=== PATIENT | male | born 1970 | race African-American/Black ===

== ENCOUNTER 2016-11-15 17:28 | Emergency (ER) | payer MEDICARE, OTHER ==
[~2016-11-15] VITALS: Ht 167.6 cm; Wt 125.0 kg
[~2016-11-15 17:28] MED LIST: AMLO5TAB2 PO; HYDR-3535 PO; OMEP40CA2 PO
[2016-11-15 17:30] VITALS: BP 184/102; PULSE 75; RESP 12; TEMP 98.3; O2SAT 98
--- NOTE | 2016-11-15 18:23 | PD ---
HPI Chief Complaint: Cold / Flu Symptoms Time Seen by Provider: 18:21 Travel History International Travel<30 days: No Contact w/Intl Traveler<30days: No Traveled to known affect area: No History of Present Illness HPI 38-year-old male presents to the emergency department with complaint of bronchitis 4 days. Says he was treated for similar symptoms a month ago and was given antibiotics and oral steroids which helped his symptoms. He reports chest congestion and coughing up green colored sputum. Denies fever, chills, nausea, vomiting. Denies chest pain, shortness of breath. Denies sore throat, nasal congestion, ear pain. His granddaughter is also sick. Reports wheezing. Has been using an albuterol inhaler with symptom relief. Last used the albuterol inhaler last night. History of hypertension. Takes amlodipine daily at bedtime. No known allergies. Modifying factors or associated signs and symptoms. PFSH Past Medical History Anemia: Yes Blood Disorders: No Cancer: No Cardiovascular Problems: Yes (HTN) Chemotherapy: No Cerebrovascular Accident: Yes (TIA) Diabetes: No Diminished Hearing: No Endocrine: No Gastrointestinal Disorders: Yes (REFLUX, ANEMIA) GERD: Yes Genitourinary: Yes (hx TORSION OF RIGHT TESTICLE) Hepatitis: No Hiatal Hernia: No Hypertension: Yes Immune Disorder: No Musculoskeletal: No Neurologic: No Psychiatric: No Reproductive: No Respiratory: No Immunizations Current: No Radiation Therapy: No Thyroid Disease: No Ulcer: Yes Past Surgical History Abdominal Surgery: No AICD: No Arteriovenous Shunt: No Body Medical Devices: none Cardiac Surgery: No Ear Surgery: No Endocrine Surgery: No Eye Surgery: No Genitourinary Surgery: Yes (RT testicular torsion REPAIR) Gynecologic Surgery: No Insulin Pump: No Joint Replacement: Yes (ARTHROSCOPIC SURGERY BILAT KNEES ) Neurologic Surgery: No Oral Surgery: No Pacemaker: No Thoracic Surgery: No Other Surgery: Yes (RIGHT LOWER EXTREMITY/ VEIN STRIPPING) Social History Alcohol Use: No Tobacco Use: No Substance Use: No Allergies-Medications (Allergen,Severity, Reaction): Coded Allergies: No Known Allergies (Unverified , 11/15/16) Reported Meds & Prescriptions Reported Meds & Active Scripts Active Zithromax Z-Tab (Azithromycin) 250 Mg Dspk 250 Mg PO DIRECTED 500 MG (2 tabs) day 1, then 1 tab days 2-5. Deltasone (Prednisone) 20 Mg Tab 40 Mg PO DAILY 5 Days Reported Omeprazole 40 Mg Cap 40 Mg PO DAILY Amlodipine (Amlodipine Besylate) 5 Mg Tab 5 Mg PO DAILY Review of Systems Except as stated in HPI: all other systems reviewed are Neg Physical Exam Narrative GENERAL: Well-nourished, well-developed male patient, in no acute distress; afebrile, nontoxic-appearing SKIN: Warm and dry. No rash. HEAD: Atraumatic. Normocephalic. EYES: Pupils equal and round at 3 mm with brisk reaction. No scleral icterus. No injection or drainage. PERRLA. ENT: Mucosa pink and moist. No erythema or exudates. No uvular edema. No uvular , palatal, or tonsillar deviation. Airway patent. EARS: Bilateral pinnae and external canals appear within normal limits. Bilateral tympanic membranes without erythema, dullness or perforation. NECK: Trachea midline. No lymphadenopathy. CARDIOVASCULAR: Regular rate and rhythm. No murmur appreciated. RESPIRATORY: No accessory muscle use. Clear to auscultation. Breath sounds equal bilaterally. GASTROINTESTINAL: Abdomen soft, non-tender, nondistended. Hepatic and splenic margins not palpable. Bowel sounds are active 4 quadrants. MUSCULOSKELETAL: No obvious deformities. No clubbing. No cyanosis. No edema. NEUROLOGICAL: Awake and alert. Oriented 3. No obvious cranial nerve deficits. Motor grossly within normal limits. Normal speech. Moves all extremities. 5/5 strength to all extremities. PSYCHIATRIC: Appropriate mood and affect; insight and judgment normal. Data Data Last Documented VS Vital Signs Date Time Temp Pulse Resp B/P Pulse Ox O2 Delivery O2 Flow Rate FiO2 11/15/16 17:30 98.3 75 12 184/102 98 Room Air [facility] Medical Decision Making Medical Screen Exam Complete: Yes Emergency Medical Condition: Yes Medical Record Reviewed: Yes Differential Diagnosis Viral illness, upper respiratory infection, bronchitis Narrative Course 46-year-old male with stated bronchitis. Sounds are clear and equal bilaterally. The patient is in no acute distress. No retractions or tachypnea. No wheezing auscultated on physical exam. I am suspecting viral illness. Patient is afebrile and nontoxic appearing. Physical exam is unremarkable. The patient is requesting to be treated for bronchitis with azithromycin and oral steroids. He has an albuterol inhaler at home. I will treat patient with antibiotics and oral steroids as requested. Azithromycin and Deltasone prescribed for home. Patient is medically cleared and stable for discharge. Discussed reasons to return to the emergency department. Instructed patient to follow up with primary care provider. Patient agrees with treatment plan. The patients vital signs are stable and the patient is stable for outpatient follow-up and treatment. Patient discharged home, stable and in no acute distress. Diagnosis Primary Impression: Bronchitis Referrals: Primary Care Physician Patient Instructions: Acute Bronchitis (ED), Cold Symptoms (ED), General Instructions, Safe Use of Cough and Cold Medicines (ED) Departure Forms: Tests/Procedures, Work Release Enter return to work date: Nov 16, 2016 Additional Instructions: Use Albuterol inhaler as prescribed Take oral steroids as prescribed and complete full course Use Tessalon Perles as prescribed to decrease coughing spasms [id number] decongestants or antihistamines as directed and as needed for symptom management Your cough can last 4-6 weeks Drink plenty of fluids to prevent dehydration Use hot air humidifier to decrease cough exacerbation Turn off ceiling fans and sleep with head of bed elevated Avoid triggers such as second hand smoke, dust, known allergens Follow-up with your primary care provider Return to the emergency department immediately with worsening of symptoms Med/Other Pt SpecificInfo: Prescription(s) given Scripts Azithromycin (Zithromax Z-Tab)250 Mg [id number] Mg PO DIRECTED #1 DSPK Ref 0 500 MG (2 tabs) day 1, then 1 tab days 2-5. Prov:Unique Alex 11/15/16 Prednisone (Deltasone)20 Mg Tab40 Mg PO DAILY 5 Days Ref 0 Prov:Unique Alex 11/15/16 Disposition: 01 DISCHARGE HOME Condition: Stable Unique Alex Nov 15, 2016 18:22
[2016-11-15] MEDS ORDERED: ZITHTAB PO (18:25)
[2016-11-15] MEDS ORDERED: PRED-503 PO (18:25)
[2016-11-15 18:34] VITALS: BP 179/98
[2016-11-20] MEDS ORDERED: HYDR-3583 PO (12:32)
[2016-12-18] MEDS ORDERED: HYDR-3583 PO (17:21)
[2017-01-19] MEDS ORDERED: HYDR-3583 PO (07:09)
[2017-02-16] MEDS ORDERED: HYDR-3583 PO (12:32)
[2017-03-19] MEDS ORDERED: HYDR-3583 PO (15:23)
== END 2016-11-15 18:39 | disposition home or self-care (01) ==
LOC: NEPB 17:28
DX: J40 Bronchitis, not specified as acute or chronic (principal); I10 Essential (primary) hypertension; D64.9 Anemia, unspecified; R05 Cough; Z86.73 Personal history of transient ischemic attack (TIA), and cerebral infarction without residual deficits
CPT/HCPCS: 99283

== ENCOUNTER 2017-02-24 20:33 | Emergency (ER) | payer MEDICARE, OTHER ==
[~2017-02-24] VITALS: Ht 175.3 cm; Wt 99.0 kg
[~2017-02-24 20:33] MED LIST changes: -AMLO5TAB2 PO; -HYDR-3535 PO; +HYDR-3583 PO; -OMEP40CA2 PO
[2017-02-24 20:36] VITALS: BP 181/101; PULSE 73; RESP 16; TEMP 98.1; O2SAT 97
[2017-02-24] MEDS ORDERED: NITROGLYCERIN 0.4 MG SL 25 TABS/BTL SL ONE (21:15)
[2017-02-24] MEDS ORDERED: SODIUM CHLORIDE 0.9% FLUSH 10 ML FLUSH IVF PRN (21:15)
[2017-02-24] MEDS ORDERED: ASPIRIN 325 MG TAB PO ONE (21:15)
[2017-02-24 21:31] VITALS: BP 180/111; PULSE 74; RESP 22; O2SAT 100
[2017-02-24 21:54] LABS: AUTOMATED NEUTROPHIL # 8.4 TH/MM3 (1.8-7.7); BASOPHIL # 0.1 TH/MM3 (0-0.2); BASOPHIL % 0.6 % (0.0-2.0); EOSINOPHIL # 0.1 TH/MM3 (0-0.4); EOSINOPHIL % 1.1 % (0.0-4.0); HEMATOCRIT 35.9 % (39.0-51.0); HEMO FLAGS DIFF FINAL; LYMPHOCYTE # 4.1 TH/MM3 (1.0-4.8); MEAN CELL VOLUME 86.9 FL (80.0-100.0); MEAN CORPUSCULAR HEMOGLOBIN 28.6 PG (27.0-34.0); MEAN CORPUSCULAR HGB CONC 32.9 % (32.0-36.0); MONO % 7.6 % (0.0-8.0); NEUT % 60.7 % (16.0-70.0); PLATELET COUNT 257 TH/MM3 (150-450); RED BLOOD COUNT 4.13 MIL/MM3 (4.50-5.90); RED CELL DISTRIBUTION WIDTH 13.7 % (11.6-17.2); WHITE BLOOD COUNT 13.8 TH/MM3 (4.0-11.0)
--- NOTE | 2017-02-24 22:02 | RADRPT ---
EXAM DATE/TIME: 02/24/2017 21:49 [facility] COMPARISON: CHEST SINGLE AP, September 17, 2015, 20:27. INDICATIONS : LEFT SIDE CHEST PAIN MEDICAL HISTORY : Hypertension. SURGICAL HISTORY : None. ENCOUNTER: Initial ACUITY: 1 day PAIN SCORE: 7/10 LOCATION: Left chest FINDINGS: Very minimal parenchymal changes are seen in the left base. The right lung is clear. The heart and p ulmonary vascularity are normal. The portion of the bony skeleton visualized is unremarkable. CONCLUSION: Minimal parenchymal changes left base. Jake Camilo MD FACR on February 24, 2017 at 22:00 Board Certified Radiologist. This report was verified electronically.
--- NOTE | 2017-02-24 22:07 | PD ---
HPI Chief Complaint: Chest Pain Time Seen by Provider: 22:02 Travel History International Travel<30 days: No Contact w/Intl Traveler<30days: No Traveled to known affect area: No History of Present Illness HPI 46-year-old male that presents to the ED for evaluation of chest pain has been ongoing since today. Per patient he woke him up. Per patient is pressure- like. States minimal the left chest. Nothing seems to make it worse but per patient movement seems to worsen it. Per patient he has no history of heart disease was a history of hypertension. He does have a family history of heart disease. No history of smoking or diabetes. Per patient he also feels like he has gas like he is cannot have a hickup or a burp. Denies any shortness of breath. No radiation of the pain. Per patient he feels deep and pressure- like. Pain is 4 out of 10. Hasn't taken anything for this. Denies any history of heart disease. Per patient he did have a stress test possibly about a year ago by Dr. West. Has not seen anybody for this. No recent travel. No recent surgeries. No fevers chills or sweats. No cough or runny nose. No allergies to medication. PFSH Past Medical History Anemia: Yes Blood Disorders: No Cancer: No Cardiovascular Problems: Yes (HTN) Chemotherapy: No Cerebrovascular Accident: Yes (TIA) Diabetes: No Diminished Hearing: No Endocrine: No Gastrointestinal Disorders: Yes (REFLUX, ANEMIA) GERD: Yes Genitourinary: Yes (hx TORSION OF RIGHT TESTICLE) Hepatitis: No Hiatal Hernia: No Hypertension: Yes Immune Disorder: No Musculoskeletal: No Neurologic: No Psychiatric: No Reproductive: No Respiratory: No Immunizations Current: No Radiation Therapy: No Thyroid Disease: No Ulcer: Yes Influenza Vaccination: No Past Surgical History Abdominal Surgery: No AICD: No Arteriovenous Shunt: No Body Medical Devices: none Cardiac Surgery: No Ear Surgery: No Endocrine Surgery: No Eye Surgery: No Genitourinary Surgery: Yes (RT testicular torsion REPAIR) Gynecologic Surgery: No Insulin Pump: No Joint Replacement: Yes (ARTHROSCOPIC SURGERY BILAT KNEES ) Neurologic Surgery: No Oral Surgery: No Pacemaker: No Thoracic Surgery: No Other Surgery: Yes (RIGHT LOWER EXTREMITY/ VEIN STRIPPING) Social History Alcohol Use: No Tobacco Use: No Substance Use: No Allergies-Medications (Allergen,Severity, Reaction): Coded Allergies: No Known Allergies (Unverified , 02/24/17) Reported Meds & Prescriptions Reported Meds & Active Scripts Active Hydrocodone-Acetaminophen 10-325 mg Tab 1 Tab PO Q6H PRN USE SPARINGLY Review of Systems Except as stated in HPI: all other systems reviewed are Neg Physical Exam Narrative GENERAL: SKIN: Warm and dry. HEAD: Atraumatic. Normocephalic. EYES: Pupils equal and round 4 mm with light and accommodation. No scleral icterus. No injection or drainage. ENT: No nasal bleeding or discharge. Mucous membranes pink and moist. Tongue is midline. No uvula deviation. NECK: Trachea midline. No JVD. CARDIOVASCULAR: Regular rate and rhythm. No murmurs, S3, S4. RESPIRATORY: No accessory muscle use. Clear to auscultation. Breath sounds equal bilaterally. GASTROINTESTINAL: Abdomen soft, non-tender, nondistended. Hepatic and splenic margins not palpable. MUSCULOSKELETAL: Extremities without clubbing, cyanosis, or edema. No obvious deformities. Full range of motion of the upper and lower extremities bilaterally. 2+ pulses bilaterally. No lumbar, thoracic, and cervical spine tenderness to palpation. NEUROLOGICAL: Awake and alert. No obvious cranial nerve deficits. Motor grossly within normal limits. Five out of 5 muscle strength in the arms and legs. Normal speech. PSYCHIATRIC: Appropriate mood and affect; insight and judgment normal. Data Data Last Documented VS Vital Signs Date Time Temp Pulse Resp B/P Pulse Ox O2 Delivery O2 Flow Rate FiO2 02/24/17 21:36 100 Room Air 02/24/17 21:31 74 22 180/111 02/24/17 20:36 98.1 Orders Electrocardiogram (02/24/17 21:11) Ckmb (Isoenzyme) Profile (02/24/17 21:11) Complete Blood Count With Diff (02/24/17 21:11) Comprehensive Metabolic Panel (02/24/17 21:11) Magnesium (Mg) (02/24/17 21:11) Prothrombin Time / Inr (Pt) (02/24/17 21:11) Act Partial Throm Time (Ptt) (02/24/17 21:11) Troponin I (02/24/17 21:11) Lipase (02/24/17 21:11) Chest, Single Ap (02/24/17 21:11) Ecg Monitoring (02/24/17 21:11) Bilateral Bp Monitoring (02/24/17 21:11) Iv Access Insert/Monitor (02/24/17 21:11) Oximetry (02/24/17 21:11) Oxygen Administration (02/24/17 21:11) Aspirin (Aspirin) (02/24/17 21:15) Sodium Chloride 0.9% Flush (Ns Flush) (02/24/17 21:15) Nitroglycerin Sl (Nitrostat Sl) (02/24/17 21:15) CKMB (02/24/17 21:40) CKMB% (02/24/17 21:40) Admit Order (Ed Use Only) (02/24/17 22:35) Activity Bed Rest With Brp (02/24/17 22:35) Vital Signs (Adult) Q4H (02/24/17 22:35) Cardiac Rhythm .As Directed (02/24/17 22:35) Notify Dr: Other .PRN (02/24/17 22:35) Notify DrPreet Parameters (02/24/17 22:35) Resp Oxygen Nasal Cannula (02/24/17 ) Diet Npo (02/25/17 Breakfast) Ckmb (Isoenzyme) Profile (02/25/17 00:40) Ckmb (Isoenzyme) Profile (02/25/17 03:40) Troponin I (02/25/17 00:40) Troponin I (02/25/17 03:40) Electrocardiogram (02/25/17 00:40) Electrocardiogram (02/25/17 03:40) ^ Obtain (02/24/17 22:35) Sodium Chloride 0.9% Flush (Ns Flush) (02/24/17 22:45) Acetaminophen (Tylenol) (02/24/17 22:45) Ondansetron Inj (Zofran Inj) (02/24/17 22:45) [employer] Mach[employer] / Telemetry ISH.Q8H (02/24/17 22:35) Labs Laboratory Tests Test 02/24/17 21:40 White Blood Count 13.8 TH/MM3 Red Blood Count 4.13 MIL/MM3 Hemoglobin 11.8 GM/DL Hematocrit 35.9 % Mean Corpuscular Volume 86.9 FL Mean Corpuscular Hemoglobin 28.6 PG Mean Corpuscular Hemoglobin 32.9 % Concent Red Cell Distribution Width 13.7 % Platelet Count 257 TH/MM3 Mean Platelet Volume 8.8 FL Neutrophils (%) (Auto) 60.7 % Lymphocytes (%) (Auto) 30.0 % Monocytes (%) (Auto) 7.6 % Eosinophils (%) (Auto) 1.1 % Basophils (%) (Auto) 0.6 % Neutrophils # (Auto) 8.4 TH/MM3 Lymphocytes # (Auto) 4.1 TH/MM3 Monocytes # (Auto) 1.0 TH/MM3 Eosinophils # (Auto) 0.1 TH/MM3 Basophils # (Auto) 0.1 TH/MM3 CBC Comment DIFF FINAL Differential Comment Prothrombin Time 11.2 SEC Prothromb Time International 1.0 RATIO Ratio Activated Partial 28.1 SEC Thromboplast Time Sodium Level 144 MEQ/L Potassium Level 4.2 MEQ/L Chloride Level 109 MEQ/L Carbon Dioxide Level 24.7 MEQ/L Anion Gap 10 MEQ/L Blood Urea Nitrogen 26 MG/DL Creatinine 2.58 MG/DL Estimat Glomerular Filtration 32 ML/MIN Rate Random Glucose 77 MG/DL Calcium Level 8.4 MG/DL Magnesium Level 2.3 MG/DL Total Bilirubin 0.3 MG/DL Aspartate Amino Transf 27 U/L (AST/SGOT) Alanine Aminotransferase 11 U/L (ALT/SGPT) Alkaline Phosphatase 75 U/L Total Creatine Kinase 247 U/L Creatine Kinase MB 0.8 NG/ML Troponin I LESS THAN 0.02 NG/ML Total Protein 8.2 GM/DL Albumin 3.0 GM/DL Lipase 360 U/L MDM Medical Decision Making Medical Screen Exam Complete: Yes Emergency Medical Condition: Yes Medical Record Reviewed: Yes Interpretation(s) EKG shows sinus rhythm with no sign of acute ischemia or arrhythmia. Read by me and attending. CBC & BMP Diagram 02/24/17 21:40 LFTS WNL Troponin and CK-MB negative. Last Impressions Chest X-Ray 02/24/172110 Signed Impressions: Service Date/Time: Friday, February 24, 2017 21:49 - CONCLUSION: Minimal parenchymal changes left base. Jake Camilo MD FACR Differential Diagnosis Chest pain versus atypical chest pain versus ACS versus pneumonia versus pleurisy versus costochondritis Narrative Course 38-year-old male that presents to the ED for evaluation of chest pain. Patient was properly examined and was found to have signs and symptoms consistent with appears to be chest pain. Labs and imaging showed no sign of acute disease other than chronic kidney disease. Case was discussed in my attending who agrees with plan. Patient/does have risk factors including hypertension, age and family history. Recommend admission to the chest pain center. Patient is in agreement with this plan. Patient was admitted chest pain center. Procedures EKG Prior to Arrival: No Diagnosis Primary Impression: Chest pain Qualified Code: R07.9 - Chest pain, unspecified type Admitting Information Admitting Physician Requests: Bong Herron February 24, 2017 22:07
[2017-02-24 22:24] LABS: ALKALINE PHOSPHATASE 75 U/L (45-117); CREATINE KINASE 247 U/L (39-308); TOTAL BILIRUBIN ADULT 0.3 MG/DL (0.2-1.0)
[2017-02-24 22:25] LABS: APTT (PATIENT) 28.1 SEC (24.3-30.1); PROTHROMBIN TIME - PATIENT 11.2 SEC (9.8-11.6)
[2017-02-24 22:28] LABS: ALT (GPT) 11 U/L (12-78); ANION GAP 10 MEQ/L (5-15); AST (GOT) 27 U/L (15-37); BICARBONATE 24.7 MEQ/L (21.0-32.0); BLOOD UREA NITROGEN 26 MG/DL (7-18); CHLORIDE 109 MEQ/L (98-107); GLOMERULAR FILTRATION RATE 32 ML/MIN (>89); MAGNESIUM 2.3 MG/DL (1.5-2.5); POTASSIUM 4.2 MEQ/L (3.5-5.1); SODIUM (NA) 144 MEQ/L (136-145)
[2017-02-24 22:37] LABS: CKMB 0.8 NG/ML (0.5-3.6)
[2017-02-24] MEDS ORDERED: SODIUM CHLORIDE 0.9% FLUSH 10 ML FLUSH IV FLUSH PRN (22:45)
[2017-02-24] MEDS ORDERED: ACETAMINOPHEN 500 MG CPLT PO PRN (22:45)
[2017-02-24] MEDS ORDERED: ONDANSETRON HCL 4 MG/2 ML VIAL IV PRN (22:45)
[2017-02-24 22:49] VITALS: BP 168/97; PULSE 69; RESP 21; O2SAT 98
[2017-02-25 02:34] LABS: CREATINE KINASE 214 U/L (39-308)
[2017-02-25 02:47] LABS: CKMB 0.7 NG/ML (0.5-3.6)
--- NOTE | 2017-02-25 16:10 | EKG ---
Date Performed: 02/24/2017 Time Performed: 21:27:31 PTAGE: 46 years EKG: Sinus rhythm BORDERLINE LEFT AXIS DEVIATION NONSPECIFIC T-WAVE ABNORMALITY When compared to previous tracing, T w aves are some what more Flattened in leads I and AVL, otherwise no significant change. BORDERLINE ECG PREVIOUS TRACING : 05/16/2016 12.48 DOCTOR: Brennan Cortez Interpretating Date/Time 02/25/2017 16:08:48
--- NOTE | 2017-02-25 16:12 | EKG ---
Date Performed: 02/25/2017 Time Performed: 01:02:30 PTAGE: 46 years EKG: Sinus rhythm MINIMAL VOLTAGE CRITERIA FOR LVH, CONSIDER NORMAL VARIANT When compared to previous tracing, there i s improvement in the T Wave changes in leads I and AVL, QRS voltatage is slightly Greater, othjerwise no significant change. BORDERLINE ECG PREVIOUS TRACING : 02/24/2017 21.27 DOCTOR: Brennan Cortez Interpretating Date/Time 02/25/2017 16:10:59
[2017-03-19] MEDS ORDERED: HYDR-3583 PO (15:23)
== END 2017-02-25 01:28 | disposition left against medical advice (07) ==
LOC: NEPE 20:33 → NEDA 22:38 → UNDOADMOB 22:38 → NEPE 02-25 01:28 → UNDODISOB 02-25 01:39
DX: R07.9 Chest pain, unspecified (principal); R94.31 Abnormal electrocardiogram [ECG] [EKG]; I10 Essential (primary) hypertension; Z86.2 Personal history of diseases of the blood and blood-forming organs and certain disorders involving the immune mechanism; Z86.79 Personal history of other diseases of the circulatory system; Z87.19 Personal history of other diseases of the digestive system; Z82.49 Family history of ischemic heart disease and other diseases of the circulatory system; Z53.20 Procedure and treatment not carried out because of patient's decision for unspecified reasons
CPT/HCPCS: 71010; 80053; 82550; 82552; 83690; 83735; 84484; 85025; 85610; 85730; 93005; 99285

== ENCOUNTER → 2017-04-25 | Outpatient (CLI) | payer MEDICARE, OTHER ==
[~2017-04-25] MED LIST changes: +AMLO5TAB2 PO
[2017-04-25 08:11] LABS: HEMATOCRIT 35.4 % (39.0-51.0); MEAN CELL VOLUME 87.8 FL (80.0-100.0); MEAN CORPUSCULAR HEMOGLOBIN 29.2 PG (27.0-34.0); MEAN CORPUSCULAR HGB CONC 33.2 % (32.0-36.0); PLATELET COUNT 259 TH/MM3 (150-450); RED BLOOD COUNT 4.03 MIL/MM3 (4.50-5.90); RED CELL DISTRIBUTION WIDTH 13.5 % (11.6-17.2); REVIEW FLAG FINAL; WHITE BLOOD COUNT 11.1 TH/MM3 (4.0-11.0)
[2017-04-25 08:26] LABS: ALT (GPT) 7 U/L (12-78); ANION GAP 6 MEQ/L (5-15); AST (GOT) 22 U/L (15-37); BICARBONATE 25.2 MEQ/L (21.0-32.0); BLOOD UREA NITROGEN 42 MG/DL (7-18); CHLORIDE 110 MEQ/L (98-107); GLOMERULAR FILTRATION RATE 30 ML/MIN (>89); GLUCOSE,FASTING 88 MG/DL (74-99); POTASSIUM 3.9 MEQ/L (3.5-5.1); SODIUM (NA) 141 MEQ/L (136-145)
[2017-04-25 08:28] LABS: ALKALINE PHOSPHATASE 66 U/L (45-117); HDL CHOLESTEROL 45.3 MG/DL (40.0-60.0); LDL CHOLESTEROL 107 MG/DL (0-99); TOTAL BILIRUBIN ADULT 0.2 MG/DL (0.2-1.0)
[2017-04-25 16:57] LABS: HEMOGLOBIN A1a 1.1 %; HEMOGLOBIN A1b 1.4 %; HEMOGLOBIN Ao 85.5 %; HEMOGLOBIN F 0.2 %; HEMOGLOBIN LA1C 1.9 %; HEMOGLOBIN P3 5.4 %
== END ==
LOC: CLAB 07:40
PROVIDERS: ATTEND Family Medicine
DX: R73.02 Impaired glucose tolerance (oral) (principal); N18.3 Chronic kidney disease, stage 3 (moderate); E78.2 Mixed hyperlipidemia
CPT/HCPCS: 36415; 80053; 80061; 83036; 85027; G0463; 99214

== ENCOUNTER 2017-05-29 04:54 | Emergency (ER) | payer MEDICARE, OTHER ==
[~2017-05-29] VITALS: Ht 167.6 cm; Wt 122.0 kg
[2017-05-29 04:55] VITALS: BP 204/114; PULSE 70; RESP 16; TEMP 98.6; O2SAT 98
[2017-05-29 05:11] VITALS: BP 187/110; PULSE 72; RESP 20; O2SAT 97
--- NOTE | 2017-05-29 05:17 | PD ---
HPI Chief Complaint: Pain: Acute or Chronic Time Seen by Provider: 17:05 Travel History International Travel<30 days: No Contact w/Intl Traveler<30days: No Traveled to known affect area: No History of Present Illness HPI 47-year-old male presents for evaluation of left knee pain. He reports that this evening he was cleaning the house, specifically sweeping, when he twisted his left knee. He has had generalized left knee pain since then which was making it difficult for him to sleep which prompted evaluation. He reports that he felt a popping sensation when the injury occurred. He has no other complaints at this time. PFSH Past Medical History Anemia: Yes Blood Disorders: No Cancer: No Cardiovascular Problems: Yes (HTN) Chemotherapy: No Cerebrovascular Accident: Yes (TIA) Diabetes: No Diminished Hearing: No Endocrine: No Gastrointestinal Disorders: Yes (REFLUX, ANEMIA) GERD: Yes Genitourinary: Yes (hx TORSION OF RIGHT TESTICLE) Hepatitis: No Hiatal Hernia: No Hypertension: Yes Immune Disorder: No Musculoskeletal: No Neurologic: No Psychiatric: No Reproductive: No Respiratory: No Immunizations Current: No Radiation Therapy: No Thyroid Disease: No Ulcer: Yes Past Surgical History Abdominal Surgery: No AICD: No Arteriovenous Shunt: No Body Medical Devices: none Cardiac Surgery: No Ear Surgery: No Endocrine Surgery: No Eye Surgery: No Genitourinary Surgery: Yes (RT testicular torsion REPAIR) Gynecologic Surgery: No Insulin Pump: No Joint Replacement: Yes (ARTHROSCOPIC SURGERY BILAT KNEES ) Neurologic Surgery: No Oral Surgery: No Pacemaker: No Thoracic Surgery: No Other Surgery: Yes (RIGHT LOWER EXTREMITY/ VEIN STRIPPING) Social History Alcohol Use: No Tobacco Use: No Substance Use: No Allergies-Medications (Allergen,Severity, Reaction): Coded Allergies: No Known Allergies (Unverified , 04/25/17) Reported Meds & Prescriptions Reported Meds & Active Scripts Active Hydrocodone-Acetaminophen 10-325 mg Tab 1 Tab PO Q6H PRN USE SPARINGLY Amlodipine (Amlodipine Besylate) 5 Mg Tab 5 Mg PO DAILY Review of Systems Musculoskeletal: Positive: Pain, No: Limited ROM Skin: Positive Other (denies any open wounds) Neurologic: No: Paresthesia Physical Exam Narrative GENERAL: Well-developed well-nourished male in no acute distress SKIN: Warm and dry. CARDIOVASCULAR: Regular rate and rhythm. No murmur appreciated. RESPIRATORY: No accessory muscle use. Clear to auscultation. Breath sounds equal bilaterally. GASTROINTESTINAL: Abdomen soft, non-tender, nondistended. Hepatic and splenic margins not palpable. MUSCULOSKELETAL: No obvious deformities. Generalized tenderness to palpation to the anterior left knee. The patient has pain with flexion and extension of the left knee. There is no obvious laxity on valgus/varus/anterior/posterior stress. The Achilles tendon is intact and nontender. No calf or ankle or foot tenderness. Distal pulses are intact. NEUROLOGICAL: Awake and alert. No obvious cranial nerve deficits. Motor grossly within normal limits. Normal speech. Data Data Last Documented VS Vital Signs Date Time Temp Pulse Resp B/P (MAP) Pulse Ox O2 Delivery O2 Flow Rate FiO2 05/29/17 05:11 72 20 187/110 (135) 97 Room Air 05/29/17 04:55 98.6 Orders Orders Knee, Complete (4vws) (05/29/17 ) Amlodipine (Norvasc) (05/29/17 05:30) Crutches (05/29/17 05:58) Splint Or Brace Apply/Monitor (05/29/17 05:58) MDM Medical Decision Making Medical Screen Exam Complete: Yes Emergency Medical Condition: Yes Medical Record Reviewed: Yes Differential Diagnosis Ligamentous disruption, meniscal disruption, tibial plateau fracture, strain Narrative Course This is a 47-year-old male with generalized left knee pain after twisting his left knee and feeling a "pop" earlier this evening. On examination he has pain with flexion and extension, no obvious laxity on stress examination, generalized tenderness to palpation of the left knee. Based on the mechanism of injury it would be reasonable to obtain outpatient MRI imaging if symptoms persist. He will follow-up with his primary care physician in one week. His blood pressure was elevated in the ED. He reports that he was arguing with his sister this evening and it was making him quite agitated. He reports that typically his blood pressures in the 110s to 120s systolic, well-controlled on amlodipine prescribed by his primary care physician. He checked his blood pressure this morning and was 117/80. It was recommended that he keep a journal of his blood pressure readings and if the readings are chronically elevated that he should follow up with his primary care physician. He verbalizes understanding and agreement. The patient reports that he is due for his morning dose of amlodipine and is requesting an now. Knee x-ray reveals a joint effusion which is consistent with his injury. He is stable for discharge with knee immobilizer, crutches. Diagnosis Primary Impression: Knee internal derangement Qualified Codes: M23.92 - Unspecified internal derangement of left knee Additional Instructions: Tylenol or Motrin for pain. Ice pack several times a day 20 minutes at a time. Crutches and knee immobilizer as needed. Follow-up with primary care physician next week. If symptoms persist outpatient MRI imaging may be warranted. Med/Other Pt SpecificInfo: Orthopedic Instructions Disposition: DISCHARGE HOME Condition: Stable Gray Johnson May 29, 2017 05:17
[2017-05-29] MEDS ORDERED: amLODIPine BESYLATE 5 MG TAB PO ONE (05:30)
--- NOTE | 2017-05-29 05:46 | RADRPT ---
EXAM DATE/TIME: 05/29/2017 05:25 [facility] COMPARISON: No previous studies available for comparison. INDICATIONS : Knee pain. MEDICAL HISTORY : None. SURGICAL HISTORY : None. ENCOUNTER: Initial ACUITY: 1 day PAIN SCORE: 0/10 LOCATION: Left knee FINDINGS: Four views of the left knee demonstrate no fracture or dislocation. A joint effusion is present. Ther e are small osteophytes on the patella and mineralization is within normal limits. No soft tissue abn ormality or radiopaque foreign body is identified. CONCLUSION: 1. Joint effusion from uncertain etiology. No fracture is identified. 2. Mild osteoarthritis. To Dominguez MD on May 29, 2017 at 5:44 Board Certified Radiologist. This report was verified electronically.
[2017-06-20] MEDS ORDERED: HYDR-3583 PO (15:29)
[2017-07-20] MEDS ORDERED: HYDR-3583 PO (10:33)
== END 2017-05-29 06:10 | disposition home or self-care (01) ==
LOC: NEPD 04:54
DX: M23.92 Unspecified internal derangement of left knee (principal); D64.9 Anemia, unspecified; I10 Essential (primary) hypertension; K21.9 Gastro-esophageal reflux disease without esophagitis; Z86.73 Personal history of transient ischemic attack (TIA), and cerebral infarction without residual deficits
CPT/HCPCS: 73564; 99283; E0113; L1830

== ENCOUNTER → 2017-07-23 | Outpatient (CLI) | payer MEDICARE, OTHER ==
[~2017-07-23] MED LIST changes: +MELO-1 PO; +METO25TA3 PO; +VITA2000 PO; +VOLT1GEL4 TOPICAL
[2017-07-23 14:33] LABS: ANION GAP 8 MEQ/L (5-15); AST (GOT) 19 U/L (15-37); BLOOD UREA NITROGEN 36 MG/DL (7-18); CHLORIDE 108 MEQ/L (98-107); GLOMERULAR FILTRATION RATE 28 ML/MIN (>89); GLUCOSE,FASTING 86 MG/DL (74-99); POTASSIUM 3.9 MEQ/L (3.5-5.1); SODIUM (NA) 140 MEQ/L (136-145)
[2017-07-23 14:34] LABS: ALT (GPT) 9 U/L (12-78)
[2017-07-23 14:36] LABS: ALKALINE PHOSPHATASE 74 U/L (45-117); TOTAL BILIRUBIN ADULT 0.3 MG/DL (0.2-1.0)
== END ==
LOC: CLAB 13:43
PROVIDERS: ATTEND Family Medicine
DX: E55.9 Vitamin D deficiency, unspecified (principal); N18.4 Chronic kidney disease, stage 4 (severe); E21.3 Hyperparathyroidism, unspecified
CPT/HCPCS: 36415; 80053; 82306; 83970

== ENCOUNTER 2017-09-08 07:20 | Emergency (ER) | payer MEDICARE, MEDICAID ==
[~2017-09-08] VITALS: Ht 167.6 cm; Wt 126.0 kg
[~2017-09-08 07:20] MED LIST changes: -AMLO5TAB2 PO; +CARV12.52 PO; -MELO-1 PO; +MELO15TA20 PO; -METO25TA3 PO; +VOLT1GEL16 TOPICAL; -VOLT1GEL4 TOPICAL
[2017-09-08 07:26] VITALS: BP 211/109; PULSE 83; RESP 16; TEMP 98.1; O2SAT 99
[2017-09-08] MEDS ORDERED: HYDR25TA5 PO (07:46)
[2017-09-08] MEDS ORDERED: AMLO5TAB2 PO (07:46)
--- NOTE | 2017-09-08 07:52 | PD ---
HPI Chief Complaint: Injury Time Seen by Provider: 07:51 Travel History International Travel<30 days: No Contact w/Intl Traveler<30days: No Traveled to known affect area: No History of Present Illness HPI The patient's 47. Yesterday he tripped while walking in his driveway. It was a mechanical fall. He landed on the right side causing ankle pain. Continuous pain was experienced overnight and this morning the patient was unable to ambulate due to pain. Palpation worsens the pain as does active range of motion. The patient reports missing his hydrochlorothiazide last night and his amlodipine this morning however denies chest pain and shortness of breath. PFSH Past Medical History Anemia: Yes Blood Disorders: No Cancer: No Cardiovascular Problems: Yes (HTN) Chemotherapy: No Cerebrovascular Accident: Yes (TIA) Diabetes: No Diminished Hearing: No Endocrine: No Gastrointestinal Disorders: Yes (REFLUX, ANEMIA) GERD: Yes Genitourinary: Yes (hx TORSION OF RIGHT TESTICLE) Hepatitis: No Hiatal Hernia: No Hypertension: Yes Immune Disorder: No Musculoskeletal: No Neurologic: No Psychiatric: No Reproductive: No Respiratory: No Immunizations Current: No Radiation Therapy: No Thyroid Disease: No Ulcer: Yes Past Surgical History Abdominal Surgery: No AICD: No Arteriovenous Shunt: No Body Medical Devices: none Cardiac Surgery: No Ear Surgery: No Endocrine Surgery: No Eye Surgery: No Genitourinary Surgery: Yes (RT testicular torsion REPAIR) Gynecologic Surgery: No Insulin Pump: No Joint Replacement: Yes (ARTHROSCOPIC SURGERY BILAT KNEES ) Neurologic Surgery: No Oral Surgery: No Pacemaker: No Thoracic Surgery: No Other Surgery: Yes (RIGHT LOWER EXTREMITY/ VEIN STRIPPING) Social History Alcohol Use: No Tobacco Use: No Substance Use: No Allergies-Medications (Allergen,Severity, Reaction): Coded Allergies: No Known Allergies (Unverified , 07/26/17) Reported Meds & Prescriptions Reported Meds & Active Scripts Active Hydrocodone-Acetaminophen 10-325 mg Tab 1 Tab PO Q6H PRN USE SPARINGLY Reported Hydrochlorothiazide 25 Mg Tab 25 Mg PO DAILY Amlodipine (Amlodipine Besylate) 5 Mg Tab 5 Mg PO DAILY Vitamin D3 (Cholecalciferol) 2,000 Unit Cap 2,000 Units PO DAILY Review of Systems General / Constitutional: No: Fever Musculoskeletal: Positive: Limited ROM, Pain Physical Exam Narrative GENERAL: 47-year-old male well-nourished well-developed SKIN: Warm and dry. CARDIOVASCULAR: Regular rate and rhythm without murmurs, gallops, or rubs. RESPIRATORY: Breath sounds equal bilaterally. No accessory muscle use. GASTROINTESTINAL: Abdomen soft, non-tender, nondistended. MUSCULOSKELETAL: No cyanosis. Minimal edema about the right ankle malleoli. There is tenderness palpation about the right ankle primarily over the malleoli bilaterally. BACK: Nontender without obvious deformity. No CVA tenderness. Data Data Last Documented VS Vital Signs Date Time Temp Pulse Resp B/P (MAP) Pulse Ox O2 Delivery O2 Flow Rate FiO2 09/08/17 08:20 74 19 210/116 (147) 98 Room Air 09/08/17 07:26 98.1 Vital signs reviewed hypertension noted Orders Orders Ankle, Complete ([id number]) (09/08/17 07:51) Ice/Cold Pack (09/08/17 07:51) Splint Or Brace Apply/Monitor (09/08/17 07:51) Crutches (09/08/17 07:51) Ibuprofen (Motrin) (09/08/17 08:00) Amlodipine (Norvasc) (09/08/17 08:00) Ed Discharge Order (09/08/17 08:53) MDM Medical Decision Making Medical Screen Exam Complete: Yes Emergency Medical Condition: Yes Medical Record Reviewed: Yes Differential Diagnosis ankle sprain, ankle fracture, hypertension Narrative Course On plain film of the ankle shows no fracture The patient's blood pressures quite elevated at 211/110. We will give a dose of the morning amlodipine and recheck. At this point I do not believe clonidine would be justifiable is a temporary means to lower blood pressure and would have rebound hypertension later. Blood pressure was trended back as far as we have on record and he tends to run quite hypertensive always. Raymond bandage , ice, elevation discussed. BP compliance discussed. Repeat BP is 199/106, very high, although not a critical deviation from baseline. Diagnosis Primary Impression: Ankle sprain Qualified Codes: S93.401A - Sprain of unspecified ligament of right ankle, initial encounter Additional Impression: Hypertension Qualified Codes: I10 - Essential (primary) hypertension Med/Other Pt SpecificInfo: No Change to Meds Disposition: 01 DISCHARGE HOME Condition: Stable Minor Riggins MD Sep 08, 2017 07:52
[2017-09-08] MEDS ORDERED: IBUPROFEN 600 MG TAB PO ONE (08:00)
[2017-09-08] MEDS ORDERED: amLODIPine BESYLATE 5 MG TAB PO ONE (08:00)
--- NOTE | 2017-09-08 08:09 | RADRPT ---
EXAM DATE/TIME: 09/08/2017 08:00 [facility] COMPARISON: No previous studies available for comparison. INDICATIONS : Right ankle pain. Patient tripped and fell last night. MEDICAL HISTORY : None. SURGICAL HISTORY : None. ENCOUNTER: Initial ACUITY: 2 days PAIN SCORE: 10/10 LOCATION: Right ankle. FINDINGS: Three view exam was performed of the right ankle. The bony structures are in normal alignment. No e vidence of fracture or dislocation. Mild soft tissue swelling about the ankle. The ankle mortise is i ntact. Mild plantar calcaneal spurring. No radiopaque foreign bodies are seen. Bony mineralization is normal. CONCLUSION: 1. No acute fracture or dislocation. Dirk Richards MD on September 08, 2017 at 8:07 Board Certified Radiologist. This report was verified electronically.
[2017-09-08 08:20] VITALS: BP 210/116; PULSE 74; RESP 19; O2SAT 98
[2017-09-08 09:29] VITALS: BP 171/97; PULSE 74; RESP 17; O2SAT 99
[2017-09-08 10:03] VITALS: BP 178/98
[2017-09-18] MEDS ORDERED: HYDR-3583 PO (16:37)
== END 2017-09-08 10:05 | disposition home or self-care (01) ==
LOC: NEPE 07:20
DX: S93.401A Sprain of unspecified ligament of right ankle, initial encounter (principal); I10 Essential (primary) hypertension; W01.0XXA Fall on same level from slipping, tripping and stumbling without subsequent striking against object, initial encounter; Y93.01 Activity, walking, marching and hiking; Y92.008 Other place in unspecified non-institutional (private) residence as the place of occurrence of the external cause
CPT/HCPCS: 73610; 99283; E0113; L1906

== ENCOUNTER → 2017-10-22 | Outpatient (CLI) | payer MEDICARE, MEDICAID ==
[2017-10-22 13:30] LABS: ALT (GPT) 10 U/L (12-78); ANION GAP 6 MEQ/L (5-15); AST (GOT) 23 U/L (15-37); BICARBONATE 24.7 MEQ/L (21.0-32.0); BLOOD UREA NITROGEN 48 MG/DL (7-18); CALCIUM 8.8 MG/DL (8.5-10.1); CHLORIDE 112 MEQ/L (98-107); CHOLESTEROL 187 MG/DL (120-200); GLOMERULAR FILTRATION RATE 19 ML/MIN (>89); GLUCOSE,FASTING 90 MG/DL (74-99); POTASSIUM 4.1 MEQ/L (3.5-5.1); SODIUM (NA) 143 MEQ/L (136-145)
[2017-10-22 13:32] LABS: PARATHYROID HORMONE INTACT 248.8 PG/ML (12.4-76.8); PROSTATE SPECIFIC ANTIGEN 0.78 NG/ML (0.00-4.00)
[2017-10-22 13:33] LABS: ALKALINE PHOSPHATASE 81 U/L (45-117); CHOLESTEROL/ HDL RATIO 4.03 RATIO; HDL CHOLESTEROL 46.4 MG/DL (40.0-60.0); LDL CHOLESTEROL 118 MG/DL (0-99); TOTAL BILIRUBIN ADULT 0.3 MG/DL (0.2-1.0); TOTAL PROTEIN 8.6 GM/DL (6.4-8.2); TRIGLYCERIDES 111 MG/DL (42-150)
== END ==
LOC: CLAB 12:25
DX: I12.9 Hypertensive chronic kidney disease with stage 1 through stage 4 chronic kidney disease, or unspecified chronic kidney disease (principal); N18.3 Chronic kidney disease, stage 3 (moderate); E55.9 Vitamin D deficiency, unspecified; E21.3 Hyperparathyroidism, unspecified; Z12.5 Encounter for screening for malignant neoplasm of prostate
CPT/HCPCS: 36415; 80053; 80061; 82306; 83970; 84153

== ENCOUNTER → 2017-10-30 | Outpatient (CLI) | payer MEDICARE ==
[~2017-10-30] MED LIST changes: +AMLO5TAB2 PO; -CARV12.52 PO; -MELO15TA20 PO; -VITA2000 PO; -VOLT1GEL16 TOPICAL
[2017-10-30 15:10] LABS: BICARBONATE 26.1 MEQ/L (21.0-32.0); CALCIUM 8.5 MG/DL (8.5-10.1); CREATININE 3.88 MG/DL (0.60-1.30)
== END ==
LOC: CLAB 14:28
PROVIDERS: ATTEND Family Medicine
DX: N18.9 Chronic kidney disease, unspecified (principal)
CPT/HCPCS: 36415; 80048

== ENCOUNTER 2017-11-05 18:20 | Emergency (ER) | payer MEDICARE, MEDICAID ==
[2017-11-05] VITALS (10 sets, daily range): BP systolic 149–203; BP diastolic 96–126; PULSE 78–88; RESP 18–20; TEMP 98.4–100.3; O2SAT 96–100
[~2017-11-05 18:20] MED LIST changes: -AMLO5TAB2 PO
--- NOTE | 2017-11-05 20:00 | RADRPT ---
EXAM DATE/TIME: 11/05/2017 19:27 [facility] COMPARISON: CHEST PA & LAT, August 13, 2016, 9:46. INDICATIONS : Cough for 3 days. MEDICAL HISTORY : Hypertension. SURGICAL HISTORY : None. ENCOUNTER: Initial ACUITY: 3 days PAIN SCORE: 2/10 LOCATION: upper chest FINDINGS: PA and lateral views of the chest demonstrate the lungs to be symmetrically aerated without evidence of mass, infiltrate or effusion. The cardiomediastinal contours are unremarkable. Osseous structure s are intact. CONCLUSION: No acute disease. No significant change has occurred. Daniel Bowie MD on November 05, 2017 at 19:57 Board Certified Radiologist. This report was verified electronically.
[2017-11-05] MEDS ORDERED: AMLO5TAB2 PO (21:30)
--- NOTE | 2017-11-05 22:41 | PD ---
HPI Chief Complaint: Cold / Flu Symptoms Time Seen by Provider: 22:27 Travel History International Travel<30 days: No Contact w/Intl Traveler<30days: No Traveled to known affect area: No History of Present Illness HPI This patient complains of cough. He's had some congestion. Denies fever or shortness of breath or chest pain. Symptoms severity is mild to moderate. He has chronic hypertension he did not take his medication today. Blood pressure 180s over 116. Denies headache or neurologic complaint. No alleviating factors. No exacerbating factors. Duration 3 days PFSH Past Medical History Anemia: Yes Blood Disorders: No Cancer: No Cardiovascular Problems: Yes (HTN) Chemotherapy: No Cerebrovascular Accident: Yes (TIA) Diabetes: No Patient Takes Glucophage: No Diminished Hearing: No Endocrine: No Gastrointestinal Disorders: Yes (REFLUX, ANEMIA) GERD: Yes Genitourinary: Yes (hx TORSION OF RIGHT TESTICLE) Hepatitis: No Hiatal Hernia: No Hypertension: Yes Immune Disorder: No Medical other: No Musculoskeletal: No Neurologic: No Psychiatric: No Reproductive: No Respiratory: No Immunizations Current: No Radiation Therapy: No Thyroid Disease: No Ulcer: Yes Past Surgical History Abdominal Surgery: No AICD: No Arteriovenous Shunt: No Body Medical Devices: none Cardiac Surgery: No Ear Surgery: No Endocrine Surgery: No Eye Surgery: No Genitourinary Surgery: Yes (RT testicular torsion REPAIR) Gynecologic Surgery: No Insulin Pump: No Joint Replacement: Yes (ARTHROSCOPIC SURGERY BILAT KNEES ) Neurologic Surgery: No Oral Surgery: No Pacemaker: No Thoracic Surgery: No Other Surgery: Yes (RIGHT LOWER EXTREMITY/ VEIN STRIPPING) Social History Alcohol Use: No Tobacco Use: No Substance Use: No Allergies-Medications (Allergen,Severity, Reaction): Coded Allergies: No Known Allergies (Unverified Adverse Reaction, Unknown, 10/24/17) Reported Meds & Prescriptions Reported Meds & Active Scripts Active Hydrocodone-Acetaminophen 10-325 mg Tab 1 Tab PO Q6H PRN USE SPARINGLY Reported Amlodipine (Amlodipine Besylate) 5 Mg Tab 5 Mg PO DAILY Review of Systems General / Constitutional: No: Fever Eyes: No: Visual changes HENT: Positive: Congestion, No: Headaches Cardiovascular: No: Chest Pain or Discomfort Respiratory: Positive: Cough, No: Shortness of Breath Gastrointestinal: No: Abdominal Pain Genitourinary: No: Dysuria Musculoskeletal: No: Pain Skin: No Rash Neurologic: No: Weakness Psychiatric: No: Depression Endocrine: No: Polydipsia Hematologic/Lymphatic: No: Easy Bruising Physical Exam Narrative GENERAL: Well-nourished, well-developed patient in no apparent distress. SKIN: Focused skin assessment reveals no rash and nodules. Skin is Warm and dry. HEAD: Atraumatic. Normocephalic. EYES: Pupils equal and round. No scleral icterus. No injection or drainage. ENT: No nasal bleeding or discharge. Mucous membranes pink and moist. NECK: Trachea midline. No JVD. CARDIOVASCULAR: Regular rate and rhythm. No murmur appreciated. RESPIRATORY: No accessory muscle use. Clear to auscultation. Breath sounds equal bilaterally. GASTROINTESTINAL: Abdomen soft, non-tender, nondistended. Hepatic and splenic margins not palpable. MUSCULOSKELETAL: No obvious deformities. No clubbing. No cyanosis. No edema. NEUROLOGICAL: Awake and alert. No obvious cranial nerve deficits. Motor grossly within normal limits. Normal speech. PSYCHIATRIC: Appropriate mood and affect; insight and judgment normal. Data Data Last Documented VS Vital Signs Date Time Temp Pulse Resp B/P (MAP) Pulse Ox O2 Delivery O2 Flow Rate FiO2 11/05/17 23:41 80 18 154/96 (115) 97 Room Air 11/05/17 21:31 98.4 Orders Orders Chest, Pa & Lat (11/05/17 ) Influenzae A/B Antigen (11/05/17 19:01) Clonidine (Catapres) (11/05/17 22:45) MDM Medical Decision Making Medical Screen Exam Complete: Yes Emergency Medical Condition: Yes Medical Record Reviewed: Yes Differential Diagnosis Accelerated hypertension, hypertensive urgency, flu syndrome, bronchitis Narrative Course I have reviewed the patient's electronic medical record. Patient has a normal chest x-ray and negative flu swab He has accelerated hypertension and didn't get his meds today I gave him a dose of clonidine I will reassess in 45 minutes Is neurologically intact BP now 154/96 at 2342 Diagnosis Primary Impression: Bronchitis Additional Impression: Accelerated hypertension Additional Instructions: The patient was advised to follow up with their physician and return if they worsen. Check and record blood pressure daily Med/Other Pt SpecificInfo: Other Disposition: DISCHARGE HOME Condition: Stable Raad Scott MD Nov 05, 2017 22:41
[2017-11-05] MEDS ORDERED: cloNIDine HCL 0.2 MG TAB PO ONE (22:45)
== END 2017-11-06 00:32 | disposition home or self-care (01) ==
LOC: NEPD 18:20
DX: J40 Bronchitis, not specified as acute or chronic (principal); I10 Essential (primary) hypertension
CPT/HCPCS: 71046; 87804; 99284

== ENCOUNTER 2017-11-09 21:18 | Emergency (ER) | payer MEDICARE, MEDICAID ==
[~2017-11-09] VITALS: Ht 167.6 cm; Wt 121.5 kg
[~2017-11-09 21:18] MED LIST changes: +AMLO5TAB2 PO
[2017-11-09 21:20] VITALS: BP 190/90; PULSE 112; RESP 20; TEMP 102.7; O2SAT 94
[2017-11-09 21:55] VITALS: BP 158/92; PULSE 110; RESP 24; O2SAT 94
[2017-11-09] MEDS ORDERED: RESP: ALBUTEROL 2.5 MG/IPRATROPIUM 0.5 MG NEB (SCH) NEB ONE (22:00)
[2017-11-09] MEDS ORDERED: diphenhydrAMINE HCL ELIXIR 12.5 MG/5 ML CUP PO ONE (22:00)
[2017-11-09] MEDS ORDERED: guaiFENesin/CODEINE SYRUP 200 MG/20 MG/10 ML CUP PO ONE (22:00)
[2017-11-09 23:28] VITALS: BP 196/99; PULSE 114; RESP 22; TEMP 103.1; O2SAT 94
[2017-11-09] MEDS ORDERED: cloNIDine HCL 0.1 MG TAB PO ONE (23:45)
[2017-11-09] MEDS ORDERED: ACETAMINOPHEN 325 MG TAB PO ONE (23:45)
[2017-11-10 00:57] VITALS: BP 172/80; PULSE 110; RESP 18; O2SAT 96
[2017-11-10] MEDS ORDERED: AZITHROMYCIN 250 MG TAB PO ONE (01:00)
[2017-11-10] MEDS ORDERED: RESP: IPRATROPIUM 0.5 MG/2.5 ML NEB NEB ONE (01:00)
[2017-11-10 01:50] VITALS: TEMP 100.4
--- NOTE | 2017-11-10 02:34 | PD ---
HPI Chief Complaint: Respiratory Symptoms Time Seen by Provider: 21:43 Travel History International Travel<30 days: No Contact w/Intl Traveler<30days: No Traveled to known affect area: No History of Present Illness HPI Patient is a 47-year-old male who is coming in coughing shortness of breath ringing up lots of phlegm. He was here 4 days ago had an x-ray and was discharged home he has return of symptoms progressively getting worse he has a fever and he feels chills weak and coughing excessively congested feels he cannot cough up phlegm PFSH Past Medical History Anemia: Yes Blood Disorders: No Cancer: No Cardiovascular Problems: Yes (HTN) Chemotherapy: No Cerebrovascular Accident: Yes (TIA) Diabetes: No Diminished Hearing: No Endocrine: No Gastrointestinal Disorders: Yes (REFLUX, ANEMIA) GERD: Yes Genitourinary: Yes (hx TORSION OF RIGHT TESTICLE) Hepatitis: No Hiatal Hernia: No Hypertension: Yes Immune Disorder: No Musculoskeletal: No Neurologic: No Psychiatric: No Reproductive: No Respiratory: Yes (Bronchitis) Immunizations Current: No Radiation Therapy: No Thyroid Disease: No Ulcer: Yes Tetanus Vaccination: < 5 Years Influenza Vaccination: No Past Surgical History Abdominal Surgery: No AICD: No Arteriovenous Shunt: No Body Medical Devices: none Cardiac Surgery: No Ear Surgery: No Endocrine Surgery: No Eye Surgery: No Genitourinary Surgery: Yes (RT testicular torsion REPAIR) Gynecologic Surgery: No Insulin Pump: No Joint Replacement: Yes (ARTHROSCOPIC SURGERY BILAT KNEES ) Neurologic Surgery: No Oral Surgery: No Pacemaker: No Thoracic Surgery: No Other Surgery: Yes (RIGHT LOWER EXTREMITY/ VEIN STRIPPING) Social History Alcohol Use: No Tobacco Use: No Substance Use: No Allergies-Medications (Allergen,Severity, Reaction): Coded Allergies: No Known Allergies (Unverified Adverse Reaction, Unknown, 10/24/17) Reported Meds & Prescriptions Reported Meds & Active Scripts Active Guaifenesin AC Liq (Guaifenesin-Codeine Liq) 100-10 Mg/5 Ml Syrp 10 Ml PO Q6H PRN Azithromycin 250 Mg Tab 250 Mg PO DIRECTED Take 2 tabs (500 mg) on day 1 then 1 tab daily x 4 days. Atrovent HFA 12.9 GM Inh (Ipratropium [place]) 17 Mcg/Actuation Aer 2 Puff INH Q6HR PRN Hydrocodone-Acetaminophen 10-325 mg Tab 1 Tab PO Q6H PRN USE SPARINGLY Reported Amlodipine (Amlodipine Besylate) 5 Mg Tab 5 Mg PO DAILY Review of Systems Except as stated in HPI: all other systems reviewed are Neg Physical Exam Narrative GENERAL: Cough congestion fever SKIN: Warm and dry. HEAD: Atraumatic. Normocephalic. EYES: Pupils equal and round. No scleral icterus. No injection or drainage. ENT: No nasal bleeding or discharge. Mucous membranes pink and moist. NECK: Trachea midline. No JVD. CARDIOVASCULAR: Regular rate and rhythm. RESPIRATORY: No accessory muscle use. Clear to auscultation. Breath sounds equal bilaterally. GASTROINTESTINAL: Abdomen soft, non-tender, nondistended. Hepatic and splenic margins not palpable. MUSCULOSKELETAL: Extremities without clubbing, cyanosis, or edema. No obvious deformities. NEUROLOGICAL: Awake and alert. No obvious cranial nerve deficits. Motor grossly within normal limits. Five out of 5 muscle strength in the arms and legs. Normal speech. PSYCHIATRIC: Appropriate mood and affect; insight and judgment normal. Data Data Last Documented VS Vital Signs Date Time Temp Pulse Resp B/P (MAP) Pulse Ox O2 Delivery O2 Flow Rate FiO2 11/10/17 04:01 11/10/17 01:50 100.4 11/10/17 00:57 110 18 96 Nasal Cannula 2.00 Orders Orders Guaifen-Cod 200-20 Mg/10ml Liq (Robituss (11/09/17 22:00) Albuterol-Ipratropium Neb (Duoneb Neb) (11/09/17 22:00) Diphenhydramine Liq (Benadryl Liq) (11/09/17 22:00) Acetaminophen (Tylenol) (11/09/17 23:45) Clonidine (Catapres) (11/09/17 23:45) Azithromycin (Zithromax) (11/10/17 01:00) Ipratropium Neb (Atrovent Neb) (11/10/17 01:00) Ed Discharge Order (11/10/17 03:50) [facility] Medical Decision Making Medical Screen Exam Complete: Yes Emergency Medical Condition: Yes Differential Diagnosis Bronchitis versus pneumonitis tracheitis Narrative Course XRAYS LABS TREATED SYMPTOMATICALLY FEELS BETTER D/C FOLLOW UP OUT PATEINT Diagnosis Primary Impression: Bronchitis Patient Instructions: Acute Bronchitis (ED), General Instructions Scripts Guaifenesin-Codeine Liq (Guaifenesin AC Liq) 100-10 Mg/5 Ml Syrp 10 ML PO Q6H Y for COUGH, #1 BOTTLE 0 Refills Prov: Sidney Vazquez MD 11/10/17 Azithromycin (Azithromycin) 250 Mg Tab 250 MG PO DIRECTED for Infection, #4 TAB 0 Refills Take 2 tabs (500 mg) on day 1 then 1 tab daily x 4 days. Prov: Sidney Vazquez MD 11/10/17 Ipratropium HFA 12.9 GM Inh (Atrovent HFA 12.9 GM Inh) 17 Mcg/Actuation Aer 2 PUFF INH Q6HR Y for SHORTNESS OF BREATH, #1 INHALER 0 Refills Prov: Sidney Vazquez MD 11/10/17 Disposition: 01 DISCHARGE HOME Condition: Good Sidney Vazquez MD Nov 10, 2017 02:34
[2017-11-10] MEDS ORDERED: AZIT250T3 PO (03:26)
[2017-11-10] MEDS ORDERED: GUAISYP4 PO (03:26)
[2017-11-10] MEDS ORDERED: IPRA17I INH (03:26)
== END 2017-11-10 04:09 | disposition home or self-care (01) ==
LOC: NEPE 21:18
DX: J40 Bronchitis, not specified as acute or chronic (principal); I10 Essential (primary) hypertension; K21.9 Gastro-esophageal reflux disease without esophagitis; Z86.73 Personal history of transient ischemic attack (TIA), and cerebral infarction without residual deficits
CPT/HCPCS: 94640; 94664; 99284; J7644

== ENCOUNTER 2017-11-20 04:02 | Emergency (ER) | payer MEDICARE, MEDICAID ==
[~2017-11-20] VITALS: Ht 167.6 cm; Wt 121.5 kg
[~2017-11-20 04:02] MED LIST changes: +AZIT250T3 PO; +GUAISYP4 PO; +IPRA17I INH
[2017-11-20 04:05] VITALS: BP 180/90; PULSE 99; RESP 16; TEMP 98.7; O2SAT 96
--- NOTE | 2017-11-20 04:19 | PD ---
HPI Chief Complaint: Injury Time Seen by Provider: 04:15 Travel History International Travel<30 days: No Contact w/Intl Traveler<30days: No Traveled to known affect area: No History of Present Illness HPI The patient is a 47 year old male who presents to the [facility] emergency department with a history of right ankle and foot pain that began suddenly 3 days ago. He denies any injury or trauma to the area. He denies having any redness or open wounds to his foot. He denies having any recent fevers. He denies having any prior history of DVT or PE. He reports that many years ago he did have vein stripping for varicose veins in the right lower extremity. The pain radiates up into his right calf. The patient denies having any chest pain, chest pressure, or shortness of breath. Otherwise on review of systems, he denies having any recent cough or congestion, neck pain,abdominal pain, vomiting, diarrhea, urinary symptoms, or neurologic symptoms. FOR[facility]LY [facility], [facility] Past Medical History Narrative Medical The patient's past medical history is significant for hypertension, anemia, chronic kidney disease, GERD, bronchitis, and TIA. Dr. Weller-PCP. Anemia: Yes Blood Disorders: No Cancer: No Cardiovascular Problems: Yes (HTN) Chemotherapy: No Cerebrovascular Accident: Yes (TIA) Diabetes: No Diminished Hearing: No Endocrine: No Gastrointestinal Disorders: Yes (REFLUX, ANEMIA) GERD: Yes Genitourinary: Yes (hx TORSION OF RIGHT TESTICLE) Hepatitis: No Hiatal Hernia: No Hypertension: Yes Immune Disorder: No Musculoskeletal: No Neurologic: No Psychiatric: No Reproductive: No Respiratory: Yes (Bronchitis) Immunizations Current: No Radiation Therapy: No Thyroid Disease: No Ulcer: Yes Tetanus Vaccination: > 5 Years Influenza Vaccination: No Past Surgical History Narrative Surgical The patient's past surgical history is significant for right orchiectomy due to torsion, bilateral knee arthroscopy, varicose vein stripping on the right. Abdominal Surgery: No AICD: No Arteriovenous Shunt: No Body Medical Devices: none Cardiac Surgery: No Ear Surgery: No Endocrine Surgery: No Eye Surgery: No Genitourinary Surgery: Yes (RT testicular torsion REPAIR) Gynecologic Surgery: No Insulin Pump: No Joint Replacement: Yes (ARTHROSCOPIC SURGERY BILAT KNEES ) Neurologic Surgery: No Oral Surgery: No Pacemaker: No Thoracic Surgery: No Other Surgery: Yes (RIGHT LOWER EXTREMITY/ VEIN STRIPPING) Social History Alcohol Use: No Tobacco Use: No Substance Use: No Allergies-Medications (Allergen,Severity, Reaction): Coded Allergies: No Known Allergies (Verified Adverse Reaction, Unknown, 11/20/17) Reported Meds & Prescriptions Reported Meds & Active Scripts Active Guaifenesin AC Liq (Guaifenesin-Codeine Liq) 100-10 Mg/5 Ml Syrp 10 Ml PO Q6H PRN Azithromycin 250 Mg Tab 250 Mg PO DIRECTED Take 2 tabs (500 mg) on day 1 then 1 tab daily x 4 days. Atrovent HFA 12.9 GM Inh (Ipratropium [place]) 17 Mcg/Actuation Aer 2 Puff INH Q6HR PRN Hydrocodone-Acetaminophen 10-325 mg Tab 1 Tab PO Q6H PRN USE SPARINGLY Reported Amlodipine (Amlodipine Besylate) 5 Mg Tab 5 Mg PO DAILY Review of Systems Except as stated in HPI: all other systems reviewed are Neg General / Constitutional: No: Fever Eyes: No: Visual changes HENT: No: Headaches Cardiovascular: Positive: Edema, No: Chest Pain or Discomfort Respiratory: No: Shortness of Breath Gastrointestinal: No: Abdominal Pain Genitourinary: No: Dysuria Musculoskeletal: Positive: Myalgias, Arthralgias, Edema, Pain Skin: No Rash Neurologic: No: Weakness Psychiatric: No: Depression Endocrine: No: Polydipsia Hematologic/Lymphatic: No: Easy Bruising Physical Exam Narrative General: The patient is a well-developed well-nourished male in no acute distress. Head and Neck exam: Head is normocephalic atraumatic. Eyes: EOMI, pupils are equal round and reactive to light. Nose: Midline septum with pink mucous membranes Mouth: Dentition unremarkable. Moist mucus membranes. Posterior oropharynx is not erythematous. No tonsillar hypertrophy. Uvula midline. Airway patent. Neck: No palpable lymphadenopathy. No nuchal rigidity. No thyromegaly. Cardiovascular: Regular rate and rhythm without murmurs, gallops, or rubs. Lungs: Clear to auscultation bilaterally. No wheezes, rhonchi, or rales. Abdomen: Soft, without tenderness to palpation in all 4 quadrants of the abdomen. No guarding, rebound, or rigidity. Normal bowel sounds are audible. No tenderness on palpation of McBurney's point. Negative Way sign. Extremities: No clubbing or cyanosis. The patient has trace to 1+ edema right ankle and foot. The patient has tenderness on palpation of the medial and lateral malleolus with tenderness on palpation just anterior bones. The patient has tenderness on palpation of the forefoot. The patient has right calf tenderness on palpation. There is no erythema. No skin breakdown. 2+ pulses in all 4 extremities. Back: No costovertebral angle tenderness to palpation. Neurologic Exam: Grossly nonfocal. Skin Exam: No rash noted. Intact skin that is warm and dry. Data Data Last Documented VS Vital Signs Date Time Temp Pulse Resp B/P (MAP) Pulse Ox O2 Delivery O2 Flow Rate FiO2 11/20/17 04:31 98 Room Air 11/20/17 04:05 98.7 99 16 180/90 (120) Orders Orders Us Leg Venous Doppler (11/20/17 04:17) Ankle, Complete ([id number]) (11/20/17 04:27) Foot, Complete ([id number]) (11/20/17 04:27) MDM Medical Decision Making Medical Screen Exam Complete: Yes Emergency Medical Condition: Yes Medical Record Reviewed: Yes Differential Diagnosis DVT, versus tendinitis, versus plantar fasciitis, versus stress fracture, versus ankle sprain Narrative Course During the course of the patient's emergency department visit, the patient's history, examination, and differential diagnosis were reviewed with the patient. The patient was placed on a threat monitoring analyst with oximetry and frequent blood pressure monitoring. The patient had an ultrasound done of the right lower extremity, x-ray of the right ankle and right foot. Radiology studies were reviewed and remarkable for an x-ray that shows mild soft tissue prominence with no acute fracture or malalignment of the ankle, foot x-ray shows no acute fracture or underlying bone abnormality, moderate sized spur off the inferior calcaneus. Ultrasound that is negative for DVT. The patient will be discharged home with a prescription for meloxicam for pain. The patient is instructed to follow-up with his primary care physician regarding referral for physical therapy. The patient is resting comfortably and feels better, is alert and in no distress. The patient's results and examination findings were discussed with the patient. The repeat examination is unremarkable and benign. The history, exam, diagnostic testing, and current condition do not suggest any significant pathology to warrant further testing, continued ED treatment, admission, or surgical evaluation at this point. The vital signs have been stable. The patient does not have uncontrollable pain, intractable vomiting, or other significant symptoms. The patient's condition is stable and appropriate for discharge. The patient will pursue further outpatient evaluation with a primary care physician or other designated or consulting physician as indicated in the discharge instructions. The patient expressed understanding and was agreeable with this plan. Diagnosis Primary Impression: Foot pain, right Additional Impressions: Calcaneal spur of right foot Ankle pain, right Qualified Codes: M25.571 - Pain in right ankle and joints of right foot Referrals: Primary Care Physician 1 week Med/Other Pt SpecificInfo: Prescription(s) given Scripts Meloxicam (Meloxicam) 7.5 Mg Tab 7.5 MG PO DAILY Y for PAIN SCALE 5 TO 10 for 7 Days, #7 TAB 0 Refills Prov: Jeanne West MD 11/20/17 Disposition: 01 DISCHARGE HOME Condition: Stable Jeanne West MD Nov 20, 2017 04:19
--- NOTE | 2017-11-20 05:09 | RADRPT ---
EXAM DATE/TIME: 11/20/2017 04:37 [facility] COMPARISON: No previous studies available for comparison. INDICATIONS : Swelling right foot. MEDICAL HISTORY : None. SURGICAL HISTORY : None. ENCOUNTER: Initial ACUITY: 1 day PAIN SCORE: 0/10 LOCATION: Right foot FINDINGS: Three view examination of the right foot demonstrates no soft tissue swelling, dislocation, or fractu re. The tarsal bones appear intact. The interphalangeal and metatarsophalangeal joints are intact. The calcaneus is intact. Bony mineralization is normal. There is a moderate-sized spur of the infe rior calcaneus at the site of attachment of the plantar aponuerosis. CONCLUSION: 1. No acute fracture or underlying bony abnormality. 2. Moderate-sized spur off the inferior calcaneus. Sandor Baldwin MD on November 20, 2017 at 5:07 Board Certified Radiologist. This report was verified electronically.
--- NOTE | 2017-11-20 05:10 | RADRPT ---
EXAM DATE/TIME: 11/20/2017 04:42 [facility] COMPARISON: ANKLE RIGHT COMPLETE ([id number]), September 08, 2017, 8:00. INDICATIONS : Swelling at right ankle. MEDICAL HISTORY : None. SURGICAL HISTORY : None. ENCOUNTER: Initial ACUITY: 1 day PAIN SCORE: 3/10 LOCATION: Right ankle FINDINGS: Three view exam was performed of the right ankle. The bony structures are in normal alignment. No e vidence of acute fracture or malalignment. There are mild soft tissue prominence bilaterally. The ank le mortise is intact. No radiopaque foreign bodies are seen. Bony mineralization is normal. CONCLUSION: 1. Mild soft tissue prominence with no acute fracture or malalignment. Sandor Baldwin MD on November 20, 2017 at 5:08 Board Certified Radiologist. This report was verified electronically.
--- NOTE | 2017-11-20 06:08 | RADRPT ---
EXAM DATE/TIME: 11/20/2017 05:26 [facility] COMPARISON: No previous studies available for comparison. INDICATIONS : Right leg pain. MEDICAL HISTORY : Gastroesophageal reflux disease. Hypertension. Transient ischemic attack. Bronchitis. Ulcer. Anem ia. Measles. Right leg vein stripping. SURGICAL HISTORY : Testicular torsion repair. Bilateral knee replacements. ENCOUNTER: Initial ACUITY: 3 days PAIN SCORE: 2/10 LOCATION: Right leg. TECHNIQUE: Venous ultrasound of the leg was performed from the inguinal ligament to the proximal calf. Real-bia e, color Doppler and spectral tracing, compression and augmentation techniques were used. FINDINGS: There is normal compressibility of the deep venous system from the inguinal region to the proximal ca lf. No echogenic clot is seen in the lumen of the common femoral, femoral, popliteal, and posterior tibial veins. There is a normal response of the venous system to proximal and distal augmentation an d respiration. CONCLUSION: Negative exam with no evidence of thrombosis Sandor Baldwin MD on November 20, 2017 at 6:05 Board Certified Radiologist. This report was verified electronically.
[2017-11-20] MEDS ORDERED: MELO7.5T27 PO (06:26)
== END 2017-11-20 06:30 | disposition home or self-care (01) ==
LOC: NEPE 04:02
DX: M77.31 Calcaneal spur, right foot (principal); M25.571 Pain in right ankle and joints of right foot; M79.604 Pain in right leg; I12.9 Hypertensive chronic kidney disease with stage 1 through stage 4 chronic kidney disease, or unspecified chronic kidney disease; N18.9 Chronic kidney disease, unspecified
CPT/HCPCS: 73610; 73630; 93971; 99284

== ENCOUNTER → 2018-02-12 | Outpatient (CLI) | payer MEDICARE, MEDICAID ==
[~2018-02-12] MED LIST changes: +MELO7.5T27 PO
[2018-02-12 10:24] LABS: CALCIUM 8.7 MG/DL (8.5-10.1); CREATININE 5.83 MG/DL (0.60-1.30)
[2018-02-12 10:25] LABS: BICARBONATE 17.6 MEQ/L (21.0-32.0)
== END ==
LOC: CLAB 08:48
PROVIDERS: ATTEND Family Medicine
DX: N18.3 Chronic kidney disease, stage 3 (moderate) (principal)
CPT/HCPCS: 36415; 80048

== ENCOUNTER 2018-02-13 18:17 | Emergency (ER) | payer MEDICARE, MEDICAID ==
[~2018-02-13] VITALS: Ht 167.6 cm; Wt 120.9 kg
[2018-02-13 18:29] VITALS: BP 157/88; PULSE 87; RESP 18; TEMP 98.6; O2SAT 100
--- NOTE | 2018-02-13 20:01 | PD ---
HPI Chief Complaint: Skin Problem Time Seen by Provider: 19:54 Travel History International Travel<30 days: No Contact w/Intl Traveler<30days: No Traveled to known affect area: No History of Present Illness HPI Patient comes emergency department complaining of a mildly tender area over his left forearm from previous IV site. Patient reports IV was placed 8 days ago and was in for 3 days. Patient states symptoms began after IV was removed. Patient states having more itching around the site than he has pain. Denies any radiation of pain. Patient denies doing anything for this. Denies anything making symptoms better or worse. Denies any fevers or other known injuries. PFSH Past Medical History Anemia: Yes Blood Disorders: No Cancer: No Cardiovascular Problems: Yes (HTN) Chemotherapy: No Cerebrovascular Accident: Yes (TIA) Diabetes: No Diminished Hearing: No Endocrine: No Gastrointestinal Disorders: Yes (REFLUX, ANEMIA) GERD: Yes Genitourinary: Yes (hx TORSION OF RIGHT TESTICLE) Hepatitis: No Hiatal Hernia: No Hypertension: Yes Immune Disorder: No Musculoskeletal: No Neurologic: No Psychiatric: No Reproductive: No Respiratory: Yes (Bronchitis) Immunizations Current: No Radiation Therapy: No Thyroid Disease: No Ulcer: Yes Past Surgical History Abdominal Surgery: No AICD: No Arteriovenous Shunt: No Body Medical Devices: none Cardiac Surgery: No Ear Surgery: No Endocrine Surgery: No Eye Surgery: No Genitourinary Surgery: Yes (RT testicular torsion REPAIR) Gynecologic Surgery: No Insulin Pump: No Joint Replacement: Yes (ARTHROSCOPIC SURGERY BILAT KNEES ) Neurologic Surgery: No Oral Surgery: No Pacemaker: No Thoracic Surgery: No Other Surgery: Yes (RIGHT LOWER EXTREMITY/ VEIN STRIPPING) Social History Alcohol Use: No Tobacco Use: No Substance Use: No Allergies-Medications (Allergen,Severity, Reaction): Coded Allergies: No Known Allergies (Verified Adverse Reaction, Unknown, 02/13/18) Reported Meds & Prescriptions Reported Meds & Active Scripts Active Meloxicam 7.5 Mg Tab 7.5 Mg PO DAILY PRN 7 Days Guaifenesin AC Liq (Guaifenesin-Codeine Liq) 100-10 Mg/5 Ml Syrp 10 Ml PO Q6H PRN Azithromycin 250 Mg Tab 250 Mg PO DIRECTED Take 2 tabs (500 mg) on day 1 then 1 tab daily x 4 days. Atrovent HFA 12.9 GM Inh (Ipratropium [place]) 17 Mcg/Actuation Aer 2 Puff INH Q6HR PRN Hydrocodone-Acetaminophen 10-325 mg Tab 1 Tab PO Q6H PRN USE SPARINGLY Reported Amlodipine (Amlodipine Besylate) 5 Mg Tab 5 Mg PO DAILY Review of Systems Except as stated in HPI: all other systems reviewed are Neg Physical Exam Narrative GENERAL: Well-developed, overly nourished, in no acute distress, and non-ill appearing. SKIN: Focused skin assessment warm and dry. Patient is a small tender area consistent with superficial thrombophlebitis of the left forearm volar surface. It is minimally tender, firm, and without crepitus. There is no erythematous , induration, or other signs of infection. HEAD: Atraumatic. Normocephalic. EYES: Pupils equal and round. EOMI. No scleral icterus. No injection or drainage. ENT: No nasal bleeding or discharge. Mucous membranes pink and moist. NECK: Trachea midline. Supple. No nuclear rigidity. RESPIRATORY: No accessory muscle use. No respiratory distress. MUSCULOSKELETAL: No obvious deformities. No clubbing. No cyanosis. No edema. Full range of motion. NEUROLOGICAL: Awake and alert. No obvious cranial nerve deficits. Motor grossly within normal limits. Normal speech. PSYCHIATRIC: Appropriate mood and affect; insight and judgment normal. Data Data Last Documented VS Vital Signs Date Time Temp Pulse Resp B/P (MAP) Pulse Ox O2 Delivery O2 Flow Rate FiO2 02/13/18 18:29 98.6 87 18 157/88 (111) 100 Orders Orders Ed Discharge Order (02/13/18 20:01) MDM Medical Decision Making Medical Screen Exam Complete: Yes Emergency Medical Condition: Yes Differential Diagnosis Thrombophlebitis, cellulitis, abscess, allergic reaction Narrative Course Patient in no obvious distress upon re-evaluation. Any questions/concerns in reference to patient diagnosis/condition discussed and clarified prior to patient's discharge. Reinforced sheer importance of close follow up with patient 's primary physician or primary care clinic. Instructed patient to return to ED immediately, if symptoms return/worsen. Patient showed understanding of above instructions. Further instructions and recommendations were detailed in discharge paperwork. Patient ambulated without difficulty out of ED at discharge. Diagnosis Primary Impression: Thrombophlebitis arm Patient Instructions: General Instructions, Superficial Thrombophlebitis (DC) Additional Instructions: Follow-up with your primary care physician next week for reevaluation. Apply warm compresses to affected area for symptomatic relief. Return to the emergency department if symptoms get worse. Disposition: 01 DISCHARGE HOME Condition: Stable Sarmad Xiong February 13, 2018 20:01
== END 2018-02-13 20:26 | disposition home or self-care (01) ==
LOC: NEPK 18:17
DX: I80.8 Phlebitis and thrombophlebitis of other sites (principal); I10 Essential (primary) hypertension; K21.9 Gastro-esophageal reflux disease without esophagitis; Z86.2 Personal history of diseases of the blood and blood-forming organs and certain disorders involving the immune mechanism; Z86.73 Personal history of transient ischemic attack (TIA), and cerebral infarction without residual deficits; Z87.19 Personal history of other diseases of the digestive system; Z87.448 Personal history of other diseases of urinary system
CPT/HCPCS: 99282

== ENCOUNTER → 2018-02-18 | Outpatient (CLI) | payer MEDICARE, MEDICAID ==
[~2018-02-18] MED LIST changes: +ALLO100T PO; +DOXA1TAB35 PO; +METO50TA PO; +NIFE30TA61 PO; +VITA2000 PO
[2018-02-18 09:16] LABS: BICARBONATE 19.9 MEQ/L (21.0-32.0); CALCIUM 8.8 MG/DL (8.5-10.1); CREATININE 6.23 MG/DL (0.60-1.30)
[2018-02-20 15:52] LABS: HEPATITIS B CORE TOTAL AB REACTIVE (NON-REACTVE)
[2018-02-20 23:51] LABS: HEP B DNA R1 1070 IU/mL (Not Detected); HEP B DNA R2 3.03 (Not Detected)
== END ==
LOC: CLAB 08:12
PROVIDERS: ATTEND Family Medicine
DX: R76.8 Other specified abnormal immunological findings in serum (principal); N18.5 Chronic kidney disease, stage 5
CPT/HCPCS: 36415; 80048; 86317; 86704; 87340; 87517

== ENCOUNTER → 2018-02-27 | Outpatient (CLI) | payer MEDICARE, MEDICAID ==
[~2018-02-27] VITALS: Ht 167.6 cm; Wt 115.0 kg
[~2018-02-27] MED LIST changes: -AMLO5TAB2 PO; +AMOX500C PO; -AZIT250T3 PO; +CHLORHEXIDINE GLUCONATE 2 % 1 PACK (2 CLOTHS) TOPICAL PRN; +CLAR500T PO; +DIPH50CA PO; -GUAISYP4 PO; -IPRA17I INH; +LACTATED RINGER'S 1000 ML IV PRN; +LIDOCAINE HCL 2% 100 MG/5 ML SYRINGE ONE; -MELO7.5T27 PO; +METOPROLOL TARTRATE 25 MG TAB PO PRN; +POVIDONE IODINE 5% (ANTISEPSIS KIT) 4 APPLICATIONS EACH NARE PRN; +PRED20 PO; +PROPOFOL 200 MG/20 ML AMP IV ONE; +RANI150T PO; +SODIUM CHLORID 0.9% 500 ML IV PRN
--- NOTE | 2018-02-27 11:05 | GIPROC ---
[facility] [address] [facility], [address] EGD PROCEDURE REPORT EXAM DATE: 02/27/2018 PATIENT NAME: Giovani Barnes MR #: [id number] BIRTHDATE: 1970 ATTENDING: Sherrie Hall MD ORDER #: [id number] DINING ROOM HELPER: Dalton Calvert and Tati Grijalva STATUS: outpatient INDICATIONS: The patient is a 47 yr old male here for an EGD due to history of esophageal reflux PROCEDURE PERFORMED: EGD w/ biopsy MEDICATIONS: None and Per Anesthesia. TOPICAL ANESTHETIC: CONSENT: The patient understands the risks and benefits of the procedure and understands that these risks include, but are not limited to: sedation, allergic reaction, infection, perforation and/or bleeding. Alternative means of evaluation and treatment include, among others: physical exam, x-rays, and/or surgical intervention. The patient elects to proceed with this endoscopic procedure. medical equipment was checked for proper function. Hand hygiene and appropriate measures for infection prevention was taken. After the risks, benefits and alternatives of the procedure were thoroughly explained, Informed consent was verified, confirmed and timeout was successfully executed by the treatment team. The patient was anesthetized with topical anesthesia and the Pentax EG-[id number] endoscope was introduced through the mouth and advanced to the second portion of the duodenum. Retroflexed views revealed no abnormalities The gastroscope was then slowly withdrawn and removed. ESOPHAGUS: There was LA Class A esophagitis noted. A biopsy was performed using cold forceps. Sample sent for histology. STOMACH: There was mild gastritis in the gastric antrum. A biopsy was performed using cold forceps. Sample sent for histology. DUODENUM: The duodenal mucosa appeared normal in the bulb and second portion of the duodenum. ADVERSE EVENTS: There were no complications. IMPRESSIONS: 1. There was LA Class A esophagitis noted; biopsy was performed 2. There was mild gastritis in the gastric antrum; biopsy was performed 3. Normal duodenal mucosa in the bulb and second portion of the duodenum 4. Retroflexed views revealed no abnormalities RECOMMENDATIONS: 1. Await biopsy results. Biopsy results will not be ready for 7-10 days. If you don't hear from us in two weeks, call our office for biopsy results. 2. Anti-reflux regimen 3. Continue PPI 4. Avoid NSAIDS PATIENT CONDITION: stable DISPOSITION: Home REPEAT EXAM: Return 3 years EGD pending biopsy results Sherrie Hall MD eSigned: Sherrie Hall MD 02/27/2018 11:05 AM cc: clarence mar M.D. PATIENT NAME: Giovani Barnes MR#: [id number]
[2018-02-27 11:25] VITALS: BP 138/86; PULSE 68; RESP 20; TEMP 97.3; O2SAT 98
== END ==
LOC: HEND 07:43
PROVIDERS: ATTEND Internal Medicine Gastroenterology
DX: K21.0 Gastro-esophageal reflux disease with esophagitis (principal); K29.50 Unspecified chronic gastritis without bleeding; I10 Essential (primary) hypertension
CPT/HCPCS: 00731; 43239; 88305; 88312; J7120

== ENCOUNTER 2018-03-06 06:04 | Day surgery (SDC) | payer MEDICARE, MEDICAID ==
[2018-03-06] VITALS (8 sets, daily range): BP systolic 107–157; BP diastolic 63–88; PULSE 60–82; RESP 16–20; TEMP 97.6; O2SAT 94–97
[~2018-03-06] VITALS: Ht 165.1 cm; Wt 115.9 kg
[~2018-03-06 06:04] MED LIST changes: -ALLO100T PO; -AMOX500C PO; -CHLORHEXIDINE GLUCONATE 2 % 1 PACK (2 CLOTHS) TOPICAL PRN; -CLAR500T PO; -DIPH50CA PO; -HYDR-3583 PO; -LACTATED RINGER'S 1000 ML IV PRN; -LIDOCAINE HCL 2% 100 MG/5 ML SYRINGE ONE; -METOPROLOL TARTRATE 25 MG TAB PO PRN; -POVIDONE IODINE 5% (ANTISEPSIS KIT) 4 APPLICATIONS EACH NARE PRN; -PRED20 PO; -PROPOFOL 200 MG/20 ML AMP IV ONE; -RANI150T PO; -SODIUM CHLORID 0.9% 500 ML IV PRN
[2018-03-06] MEDS ORDERED: LIDOCAINE HCL 1% 10 ML VIAL SQ ONE (06:05)
[2018-03-06] MEDS ORDERED: ALLO100T PO (06:50)
[2018-03-06] MEDS ORDERED: SODIUM CHLOR 0.9% 1000 ML IV SCH (07:30)
[2018-03-06 07:43] LABS: AUTOMATED NEUTROPHIL # 4.4 TH/MM3 (1.8-7.7); BASOPHIL # 0.1 TH/MM3 (0-0.2); BASOPHIL % 1.1 % (0.0-2.0); EOSINOPHIL # 0.3 TH/MM3 (0-0.4); EOSINOPHIL % 4.3 % (0.0-4.0); HEMATOCRIT 30.4 % (39.0-51.0); HEMOGLOBIN 10.6 GM/DL (13.0-17.0); LYMPH % 22.1 % (9.0-44.0); LYMPHOCYTE # 1.5 TH/MM3 (1.0-4.8); MEAN CELL VOLUME 86.7 FL (80.0-100.0); MEAN CORPUSCULAR HEMOGLOBIN 30.2 PG (27.0-34.0); MEAN CORPUSCULAR HGB CONC 34.9 % (32.0-36.0); MEAN PLATELET VOLUME 8.1 FL (7.0-11.0); MONOCYTE # 0.7 TH/MM3 (0-0.9); NEUT % 62.5 % (16.0-70.0); PLATELET COUNT 257 TH/MM3 (150-450); RED BLOOD COUNT 3.51 MIL/MM3 (4.50-5.90); RED CELL DISTRIBUTION WIDTH 13.7 % (11.6-17.2)
[2018-03-06 07:51] LABS: INTERNATIONAL NORMALIZED RATIO 1.1 RATIO; PROTHROMBIN TIME - PATIENT 10.8 SEC (9.8-11.6)
[2018-03-06] MEDS ORDERED: MIDAZOLAM HCL 2 MG/2 ML VIAL ONE (07:56)
--- NOTE | 2018-03-06 08:38 | PD.RAD ---
Post CT Procedure Prog Note Pre Procedure Diagnosis: (1) Chronic kidney disease, unspecified Post Procedure Diagnosis: (1) Chronic kidney disease, unspecified Procedure Date: Mar 06, 2018 Supervising Radiologist: To Dominguez Anesthesia: Conscious Sedation Plan of Activity Patient to Unit: ROPU Patient Condition: Good See PACS Report for procedural detail/treatment Biopsy Imaging Guidance: CT Side: Left Biopsy Procedure: Kidney Site: lower pole. Specimen: Core Biopsy Plan to ropu for monitoring then discharge in 4 hours if criteria met. To Dominguez MD Mar 06, 2018 08:38
--- NOTE | 2018-03-06 08:58 | RADRPT ---
EXAM DATE: 03/06/2018 8:47 AM EDT AGE/SEX: 47 years / Male INDICATIONS: Acute renal failure, proteinuria CLINICAL DATA: This is the patient's initial encounter. Patient reports that signs and symptoms have been present for 1 day and indicates a pain score of 0/10. MEDICAL/SURGICAL HISTORY: Hypertension. Hepatitis B. None. COMPARISON: No prior [place] exams available for comparison. SEDATION TIME (min): 30 min BIOPSY SITE: Left renal MEDICATION(S): 4mg midazolam (Versed) IV 200mcg fentanyl (Sublimaze) IV DEVICE(S): 18 gauge BioPince needle 16 gauge Introducer . . PROCEDURE: CT guided Left renal biopsy Prior to the procedure informed consent was obtained. Any appropriate prior imaging studies were rev iewed. Using automated exposure control and adjustment of the mA and/or kV according to patient size, radiat ion dose was kept as low as reasonably achievable to obtain optimal diagnostic quality images. DICOM format image data is available electronically for review and comparison. The site was prepped in a sterile fashion. Full sterile technique was used, including cap, mask, chula rile gloves and gown and a large sterile sheet. Hand hygiene and 2% chlorhexidine and/or betadine/al cohol prep was utilized per protocol for cutaneous antisepsis. The skin and subcutaneous tissues wer e infiltrated with local anesthetic solution. With CT guidance the lower pole of the left kidney was localized. Biopsy was performed using the pres cribed needle as above. Adequate hemostasis was obtained with compression at the puncture site. Follow-up CT scan reveals mild perinephric hemorrhage. The patient tolerated the procedure well and there were no complications. The patient was returned to the Radiology Outpatient Unit in stable condition. CONCLUSION: Uncomplicated CT guided biopsy of the left lower pole kidney with mild perinephric hemorrhage. Electronically signed by: To Dominguez MD 03/06/2018 8:57 AM EDT
[2018-03-06 09:52] LABS: AUTOMATED NEUTROPHIL # 3.4 TH/MM3 (1.8-7.7); BASOPHIL # 0.1 TH/MM3 (0-0.2); EOSINOPHIL # 0.2 TH/MM3 (0-0.4); HEMATOCRIT 28.8 % (39.0-51.0); HEMOGLOBIN 9.8 GM/DL (13.0-17.0); LYMPH % 24.8 % (9.0-44.0); LYMPHOCYTE # 1.4 TH/MM3 (1.0-4.8); MEAN CELL VOLUME 88.8 FL (80.0-100.0); MEAN CORPUSCULAR HEMOGLOBIN 30.1 PG (27.0-34.0); MEAN CORPUSCULAR HGB CONC 33.9 % (32.0-36.0); MEAN PLATELET VOLUME 8.2 FL (7.0-11.0); MONO % 9.5 % (0.0-8.0); MONOCYTE # 0.5 TH/MM3 (0-0.9); NEUT % 60.7 % (16.0-70.0); PLATELET COUNT 237 TH/MM3 (150-450); RED BLOOD COUNT 3.24 MIL/MM3 (4.50-5.90); RED CELL DISTRIBUTION WIDTH 14.2 % (11.6-17.2); WHITE BLOOD COUNT 5.7 TH/MM3 (4.0-11.0)
[2018-03-06 11:19] LABS: AUTOMATED NEUTROPHIL # 4.9 TH/MM3 (1.8-7.7); BASOPHIL # 0.1 TH/MM3 (0-0.2); BASOPHIL % 1.1 % (0.0-2.0); EOSINOPHIL # 0.3 TH/MM3 (0-0.4); EOSINOPHIL % 3.8 % (0.0-4.0); HEMOGLOBIN 10.4 GM/DL (13.0-17.0); LYMPH % 26.9 % (9.0-44.0); LYMPHOCYTE # 2.2 TH/MM3 (1.0-4.8); MEAN CELL VOLUME 89.6 FL (80.0-100.0); MEAN CORPUSCULAR HEMOGLOBIN 30.1 PG (27.0-34.0); MEAN CORPUSCULAR HGB CONC 33.7 % (32.0-36.0); MEAN PLATELET VOLUME 8.1 FL (7.0-11.0); MONO % 9.4 % (0.0-8.0); MONOCYTE # 0.8 TH/MM3 (0-0.9); NEUT % 58.8 % (16.0-70.0); PLATELET COUNT 254 TH/MM3 (150-450); RED BLOOD COUNT 3.47 MIL/MM3 (4.50-5.90); RED CELL DISTRIBUTION WIDTH 14.5 % (11.6-17.2); WHITE BLOOD COUNT 8.3 TH/MM3 (4.0-11.0)
== END 2018-03-06 13:45 | disposition home or self-care (01) ==
LOC: HRAD 06:04 → HRIP 06:07 → HRAD 13:45
PROVIDERS: ATTEND Internal Medicine Nephrology
DX: N17.9 Acute kidney failure, unspecified (principal); N18.5 Chronic kidney disease, stage 5; I12.9 Hypertensive chronic kidney disease with stage 1 through stage 4 chronic kidney disease, or unspecified chronic kidney disease; B19.10 Unspecified viral hepatitis B without hepatic coma
CPT/HCPCS: 50200; 77012; 85025; 85610; 85730; 88305; 88313; 88342; 88346; 88348; 88350; J2250; J3010; J7030

== ENCOUNTER 2018-03-10 23:29 | Emergency (ER) | payer MEDICARE, MEDICAID ==
[~2018-03-10] VITALS: Ht 167.6 cm; Wt 115.0 kg
[~2018-03-10 23:29] MED LIST changes: +ALLO100T PO; -VITA2000 PO
[2018-03-10 23:40] VITALS: BP 133/75; PULSE 88; RESP 18; TEMP 98.7; O2SAT 99
[2018-03-11] MEDS ORDERED: RANITIDINE HCL SYRUP 150 MG/10 ML UDC PO ONE
[2018-03-11] MEDS ORDERED: diphenhydrAMINE HCL 50 MG CAP PO ONE
[2018-03-11] MEDS ORDERED: predniSONE 20 MG TAB PO ONE
[2018-03-11] MEDS ORDERED: DIPH50CA PO (00:02)
[2018-03-11] MEDS ORDERED: PRED20 PO (00:02)
[2018-03-11] MEDS ORDERED: RANI150T PO (00:02)
--- NOTE | 2018-03-11 00:05 | PD ---
HPI Chief Complaint: Allergic/Adverse Reaction Time Seen by Provider: 23:56 Travel History International Travel<30 days: No Contact w/Intl Traveler<30days: No Traveled to known affect area: No History of Present Illness HPI 47-year-old male presents for evaluation of a pruritic rash. He underwent endoscopy on February [address] Avila. Pathology reports are suggestive of Helicobacter infection and he was therefore started on clarithromycin and amoxicillin. He reports that shortly after starting the medication this past week he developed a rash. The rash is quite itchy, it is noted on his torso and his extremities. Symptoms are moderate, potentially aggravated by the administration of new medications with no alleviating factors. Denies chest pain, shortness of breath, swelling of lips tongue or throat. He has no other complaints at this time. PFSH Past Medical History Anemia: Yes Blood Disorders: No Cancer: No Cardiovascular Problems: Yes (HTN) Chemotherapy: No Cerebrovascular Accident: Yes (TIA) Diabetes: No Diminished Hearing: No Endocrine: No Gastrointestinal Disorders: Yes (REFLUX, ANEMIA) GERD: Yes Genitourinary: Yes (hx TORSION OF RIGHT TESTICLE) Hepatitis: No Hiatal Hernia: No Hypertension: Yes Immune Disorder: No Musculoskeletal: No Neurologic: No Psychiatric: No Reproductive: No Respiratory: Yes (Bronchitis) Immunizations Current: No Radiation Therapy: No Thyroid Disease: No Ulcer: Yes Tetanus Vaccination: < 5 Years Influenza Vaccination: No Past Surgical History Abdominal Surgery: No AICD: No Arteriovenous Shunt: No Body Medical Devices: none Cardiac Surgery: No Ear Surgery: No Endocrine Surgery: No Eye Surgery: No Genitourinary Surgery: Yes (RT testicular torsion REPAIR) Gynecologic Surgery: No Insulin Pump: No Neurologic Surgery: No Oral Surgery: No Pacemaker: No Thoracic Surgery: No Other Surgery: Yes (RIGHT LOWER EXTREMITY/ VEIN STRIPPING) Social History Alcohol Use: No Tobacco Use: No Substance Use: No Allergies-Medications (Allergen,Severity, Reaction): Coded Allergies: No Known Allergies (Verified Adverse Reaction, Unknown, 03/10/18) Reported Meds & Prescriptions Reported Meds & Active Scripts Active Reported Allopurinol 100 Mg Tab 100 Mg PO DAILY Metoprolol Tartrate 50 Mg Tab 50 Mg PO DAILY Nifedipine ER 24 HR (Nifedipine) 30 Mg Tab 30 Mg PO BID Doxazosin (Doxazosin Mesylate) 2 Mg Tab 2 Mg PO DAILY Review of Systems Except as stated in HPI: all other systems reviewed are Neg Physical Exam Narrative GENERAL: Well-developed well-nourished male in no acute distress SKIN: Warm and dry. Several small papular lesions are noted most evident on his left arm. No pustules, no vesicles, no petechiae, no purpura, no hives HEAD: Atraumatic. Normocephalic. EYES: Pupils equal and round. No scleral icterus. No injection or drainage. ENT: No nasal bleeding or discharge. Mucous membranes pink and moist. NECK: Trachea midline. No JVD. CARDIOVASCULAR: Regular rate and rhythm. No murmur appreciated. RESPIRATORY: No accessory muscle use. Clear to auscultation. Breath sounds equal bilaterally. GASTROINTESTINAL: Abdomen soft, non-tender, nondistended. Hepatic and splenic margins not palpable. MUSCULOSKELETAL: No obvious deformities. No clubbing. No cyanosis. No edema. NEUROLOGICAL: Awake and alert. No obvious cranial nerve deficits. Motor grossly within normal limits. Normal speech. PSYCHIATRIC: Appropriate mood and affect; insight and judgment normal. Data Data Last Documented VS Vital Signs Date Time Temp Pulse Resp B/P (MAP) Pulse Ox O2 Delivery O2 Flow Rate FiO2 03/10/18 23:40 98.7 88 18 133/75 (94) 99 Orders Orders Diphenhydramine (Benadryl) (03/11/18 00:00) Ranitidine Liq (Zantac Liq) (03/11/18 00:00) Prednisone (Deltasone) (03/11/18 00:00) [facility] Medical Decision Making Medical Screen Exam Complete: Yes Emergency Medical Condition: Yes Medical Record Reviewed: Yes Differential Diagnosis Fixed drug eruption versus hives versus contact dermatitis versus viral exanthem Narrative Course 47-year-old male who is developed a widespread pruritic rash shortly after starting clarithromycin and amoxicillin. On examination he has a papular rash which is most likely a fixed drug eruption. At this point time the plan is to discharge her with H1/H2 antihistamines and prednisone and have him follow-up with his spooler to discuss medication change. He is stable for discharge. Diagnosis Primary Impression: Pruritic rash Additional Instructions: Medication as prescribed. Do not take Benadryl if you are going to drive or operate heavy machinery or drink alcohol. Follow-up with your spooler to discuss medication changes. Return for any emergent medical conditions. Med/Other Pt SpecificInfo: Prescription(s) given Scripts Ranitidine (Ranitidine) 150 Mg Tab 150 MG PO DAILY for 5 Days, #5 TAB 0 Refills Prov: Ella Estrada DO 03/11/18 Diphenhydramine HCl (Diphenhydramine HCl) 50 Mg Cap 1 CAP PO QID for 5 Days Prov: Ella Estrada DO 03/11/18 Prednisone (Prednisone) 20 Mg Tab 20 MG PO BID for 5 Days, #10 TAB 0 Refills Prov: Ella Estrada DO 03/11/18 Disposition: 01 DISCHARGE HOME Condition: Stable Gray Johnson Mar 11, 2018 00:05
== END 2018-03-11 00:25 | disposition home or self-care (01) ==
LOC: NEPD 23:29
DX: L29.9 Pruritus, unspecified (principal); R21 Rash and other nonspecific skin eruption; D64.9 Anemia, unspecified; I10 Essential (primary) hypertension
CPT/HCPCS: 99283; J7512; Q0163

== ENCOUNTER 2018-03-17 20:40 | Emergency (ER) | payer MEDICARE, MEDICAID ==
[~2018-03-17 20:40] MED LIST changes: +DIPH50CA PO; +PRED20 PO; +RANI150T PO
[2018-03-17 20:48] VITALS: BP 164/86; PULSE 111; RESP 18; TEMP 98.5; O2SAT 99
[2018-03-17 21:05] VITALS: BP 155/98; PULSE 102; RESP 16; O2SAT 98
[2018-03-17] MEDS ORDERED: CLAR500T PO (21:05)
[2018-03-17] MEDS ORDERED: AMOX500C PO (21:05)
[2018-03-17] MEDS ORDERED: SODIUM CHLORIDE 0.9% FLUSH 10 ML FLUSH IVF PRN (21:15)
[2018-03-17 21:41] LABS: AUTOMATED NEUTROPHIL # 5.8 TH/MM3 (1.8-7.7); BASOPHIL % 0.4 % (0.0-2.0); EOSINOPHIL # 0.7 TH/MM3 (0-0.4); EOSINOPHIL % 7.3 % (0.0-4.0); HEMATOCRIT 33.6 % (39.0-51.0); HEMOGLOBIN 11.2 GM/DL (13.0-17.0); LYMPH % 19.7 % (9.0-44.0); LYMPHOCYTE # 1.8 TH/MM3 (1.0-4.8); MEAN CORPUSCULAR HEMOGLOBIN 29.5 PG (27.0-34.0); MEAN CORPUSCULAR HGB CONC 33.5 % (32.0-36.0); MEAN PLATELET VOLUME 8.1 FL (7.0-11.0); NEUT % 61.6 % (16.0-70.0); PLATELET COUNT 288 TH/MM3 (150-450); RED BLOOD COUNT 3.81 MIL/MM3 (4.50-5.90); RED CELL DISTRIBUTION WIDTH 14.4 % (11.6-17.2); WHITE BLOOD COUNT 9.4 TH/MM3 (4.0-11.0)
[2018-03-17 22:01] LABS: ALBUMIN 3.6 GM/DL (3.4-5.0); AST (GOT) 137 U/L (15-37); BICARBONATE 18.2 MEQ/L (21.0-32.0); BLOOD UREA NITROGEN 53 MG/DL (7-18); CALCIUM 8.9 MG/DL (8.5-10.1); CHLORIDE 109 MEQ/L (98-107); CREATININE 6.14 MG/DL (0.60-1.30); GLOMERULAR FILTRATION RATE 12 ML/MIN (>89); GLUCOSE,RANDOM 95 MG/DL (74-106); SODIUM (NA) 139 MEQ/L (136-145)
[2018-03-17 22:04] LABS: ALKALINE PHOSPHATASE 130 U/L (45-117); ALT (GPT) 108 U/L (12-78); TOTAL BILIRUBIN ADULT 0.4 MG/DL (0.2-1.0); TOTAL PROTEIN 7.7 GM/DL (6.4-8.2)
--- NOTE | 2018-03-17 22:24 | PD ---
HPI Chief Complaint: Pain: Acute or Chronic Time Seen by Provider: 20:52 Travel History International Travel<30 days: No Contact w/Intl Traveler<30days: No Traveled to known affect area: No History of Present Illness HPI Patient is a 47-year-old male presented to emerge from for evaluation of left flank pain. Patient states he had a kidney biopsy a week and a half ago. He states that he was supposed to be resting but he has been doing more housework. He states the pain started about a week ago. It is worse with movement, he rates it a 5 out of 10. It is aching and throbbing in nature. He denies any fevers, chills, abdominal pain, dysuria. Patient reports a kidney biopsy was secondary to renal failure. Patient is followed by Dr. Grey [facility] Past Medical History Anemia: Yes Cerebrovascular Accident: Yes (TIA) GERD: Yes Genitourinary: Yes (hx TORSION OF RIGHT TESTICLE) Hypertension: Yes Respiratory: Yes (Bronchitis) Immunizations Current: Yes Ulcer: Yes Past Surgical History Abdominal Surgery: No AICD: No Arteriovenous Shunt: No Body Medical Devices: none Cardiac Surgery: No Ear Surgery: No Endocrine Surgery: No Eye Surgery: No Genitourinary Surgery: Yes (RT testicular torsion REPAIR, L KIDNEY BIOPSY) Gynecologic Surgery: No Insulin Pump: No Neurologic Surgery: No Oral Surgery: No Pacemaker: No Thoracic Surgery: No Other Surgery: Yes (RIGHT LOWER EXTREMITY/ VEIN STRIPPING) Social History Alcohol Use: No Tobacco Use: No Substance Use: No Allergies-Medications (Allergen,Severity, Reaction): Coded Allergies: No Known Allergies (Verified Adverse Reaction, Unknown, 03/17/18) Reported Meds & Prescriptions Reported Meds & Active Scripts Active Ranitidine (Ranitidine HCl) 150 Mg Tab 150 Mg PO DAILY 5 Days Diphenhydramine HCl 50 Mg Cap 1 Cap PO QID 5 Days Reported Amoxicillin 500 Mg Cap 1,000 Mg PO BID Clarithromycin 500 Mg Tab 500 Mg PO BID Allopurinol 100 Mg Tab 100 Mg PO DAILY Metoprolol Tartrate 50 Mg Tab 50 Mg PO DAILY Nifedipine ER 24 HR (Nifedipine) 30 Mg Tab 30 Mg PO BID Doxazosin (Doxazosin Mesylate) 2 Mg Tab 2 Mg PO DAILY Review of Systems Except as stated in HPI: all other systems reviewed are Neg HENT: No: Headaches Cardiovascular: No: Chest Pain or Discomfort Respiratory: No: Shortness of Breath Gastrointestinal: No: Abdominal Pain Genitourinary: Positive: Flank Pain, No: Frequency, Dysuria Neurologic: No: Weakness Physical Exam Narrative GENERAL: Overweight, well-developed, alert -[place] male. Presenting in no acute distress. SKIN: Warm and dry. HEAD: Atraumatic. Normocephalic. EYES: Pupils equal and round. No scleral icterus. No injection or drainage. ENT: No nasal bleeding or discharge. Mucous membranes pink and moist. NECK: Trachea midline. No JVD. CARDIOVASCULAR: Regular rate and rhythm. RESPIRATORY: No accessory muscle use. Clear to auscultation. Breath sounds equal bilaterally. GASTROINTESTINAL: Abdomen soft, non-tender, nondistended. Hepatic and splenic margins not palpable. MUSCULOSKELETAL: Extremities without clubbing, cyanosis, or edema. No obvious deformities. Crepitus noted to palpation to left lower back/flank. NEUROLOGICAL: Awake and alert. No obvious cranial nerve deficits. Motor grossly within normal limits. Five out of 5 muscle strength in the arms and legs. Normal speech. PSYCHIATRIC: Appropriate mood and affect; insight and judgment normal. Data Data Last Documented VS Vital Signs Date Time Temp Pulse Resp B/P (MAP) Pulse Ox O2 Delivery O2 Flow Rate FiO2 03/17/18 23:47 70 16 155/65 (95) 98 03/17/18 21:05 Room Air 03/17/18 20:48 98.5 Orders Orders Complete Blood Count With Diff (03/17/18 21:03) Comprehensive Metabolic Panel (03/17/18 21:03) Urinalysis - C+S If Indicated (03/17/18 21:03) Ct Abd/Pel W/O Iv Contrast (03/17/18 21:03) Iv Access Insert/Monitor (03/17/18 21:03) Sodium Chloride 0.9% Flush (Ns Flush) (03/17/18 21:15) Labs Laboratory Tests Test 03/17/18 21:30 03/17/18 23:00 White Blood Count 9.4 TH/MM3 Red Blood Count 3.81 MIL/MM3 Hemoglobin 11.2 GM/DL Hematocrit 33.6 % Mean Corpuscular Volume 88.0 FL Mean Corpuscular Hemoglobin 29.5 PG Mean Corpuscular Hemoglobin Concent 33.5 % Red Cell Distribution Width 14.4 % Platelet Count 288 TH/MM3 Mean Platelet Volume 8.1 FL Neutrophils (%) (Auto) 61.6 % Lymphocytes (%) (Auto) 19.7 % Monocytes (%) (Auto) 11.0 % Eosinophils (%) (Auto) 7.3 % Basophils (%) (Auto) 0.4 % Neutrophils # (Auto) 5.8 TH/MM3 Lymphocytes # (Auto) 1.8 TH/MM3 Monocytes # (Auto) 1.0 TH/MM3 Eosinophils # (Auto) 0.7 TH/MM3 Basophils # (Auto) 0.0 TH/MM3 CBC Comment DIFF FINAL Differential Comment Blood Urea Nitrogen 53 MG/DL Creatinine 6.14 MG/DL Random Glucose 95 MG/DL Total Protein 7.7 GM/DL Albumin 3.6 GM/DL Calcium Level 8.9 MG/DL Alkaline Phosphatase 130 U/L Aspartate Amino Transf (AST/SGOT) 137 U/L Alanine Aminotransferase (ALT/SGPT) 108 U/L Total Bilirubin 0.4 MG/DL Sodium Level 139 MEQ/L Potassium Level 4.5 MEQ/L Chloride Level 109 MEQ/L Carbon Dioxide Level 18.2 MEQ/L Anion Gap 12 MEQ/L Estimat Glomerular Filtration Rate 12 ML/MIN Urine Color YELLOW Urine Turbidity CLEAR Urine pH 5.0 Urine Specific [place] 1.009 Urine Protein 100 mg/dL Urine Glucose (UA) NEG mg/dL Urine Ketones TRACE mg/dL Urine Occult Blood MOD Urine Nitrite NEG Urine Bilirubin NEG Urine Urobilinogen LESS THAN 2 mg/dL Urine Leukocyte Esterase NEG Urine RBC 1 /hpf Urine WBC 2 /hpf Urine Squamous Epithelial Cells <1 /hpf Urine Bacteria OCC /hpf Urine Hyaline Casts 1 /lpf Urine Mucus FEW /lpf Microscopic Urinalysis Comment CULT NOT INDICATED MDM Medical Decision Making Medical Screen Exam Complete: Yes Emergency Medical Condition: Yes Interpretation(s) Vital Signs Date Time Temp Pulse Resp B/P (MAP) Pulse Ox O2 Delivery O2 Flow Rate FiO2 03/17/18 21:05 102 16 155/98 (117) 98 Room Air 03/17/18 20:48 98.5 111 18 164/86 (112) 99 Differential Diagnosis UTI versus metabolic abnormality versus hemorrhage versus musculoskeletal strain versus other Narrative Course Patient presented for evaluation of left flank pain. Patient had a recent kidney biopsy approximately a week and half ago. Patient's vital signs are stable. He has a history of chronic kidney disease currently not on dialysis. Patient is well-appearing. Labs imaging ordered and pending. Care of patient transferred to Dr. West who will determine disposition Jesika Kwan Mar 17, 2018 22:24
--- NOTE | 2018-03-17 22:40 | RADRPT ---
EXAM DATE: 03/17/2018 10:27 PM EDT AGE/SEX: 47 years / Male INDICATIONS: Right flank pain. Renal biopsy 1 week ago. CLINICAL DATA: This is the patient's initial encounter. Patient reports that signs and symptoms have been present for 1 week and indicates a pain score of 5/10. MEDICAL/SURGICAL HISTORY: Cerebrovascular disease. Cardiovascular disease. Hypertension. MUNIR D . RADIATION DOSE: 25.83 CTDI (mGy) ; Patient body habitus [place] [facility] [place]AST[place] 03/06/2016. . TECHNIQUE: Multiple contiguous axial images were obtained through the abdomen. Images were obtained using multiple row detector helical technique. Using dose reduction techniques, radiation dose was ke pt as low as reasonably achievable to obtain optimal diagnostic quality images. FINDINGS: Minimal linear scarring at the lung bases. No acute findings in the liver, spleen, adrenals, kidneys or pancreas. No significant perinephric hemorrhage. Stable right renal cyst compared with 2016. No free fluid. No bowel obstruction. No adenopathy. Appendix is normal. CONCLUSION: 1. No acute findings. No perinephric hemorrhage or hydronephrosis. Appendix normal. Stable right heidi al cysts compared with 2016. Electronically signed by: Heriberto Canas MD 03/17/2018 10:39 PM EDT
--- NOTE | 2018-03-17 23:08 | PD ---
Data Data Last Documented VS Vital Signs Date Time Temp Pulse Resp B/P (MAP) Pulse Ox O2 Delivery O2 Flow Rate FiO2 03/17/18 21:05 102 16 155/98 (117) 98 Room Air 03/17/18 20:48 98.5 Orders Orders Complete Blood Count With Diff (03/17/18 21:03) Comprehensive Metabolic Panel (03/17/18 21:03) Urinalysis - C+S If Indicated (03/17/18 21:03) Ct Abd/Pel W/O Iv Contrast (03/17/18 21:03) Iv Access Insert/Monitor (03/17/18 21:03) Sodium Chloride 0.9% Flush (Ns Flush) (03/17/18 21:15) Labs Laboratory Tests Test 03/17/18 21:30 03/17/18 23:00 White Blood Count 9.4 TH/MM3 Red Blood Count 3.81 MIL/MM3 Hemoglobin 11.2 GM/DL Hematocrit 33.6 % Mean Corpuscular Volume 88.0 FL Mean Corpuscular Hemoglobin 29.5 PG Mean Corpuscular Hemoglobin Concent 33.5 % Red Cell Distribution Width 14.4 % Platelet Count 288 TH/MM3 Mean Platelet Volume 8.1 FL Neutrophils (%) (Auto) 61.6 % Lymphocytes (%) (Auto) 19.7 % Monocytes (%) (Auto) 11.0 % Eosinophils (%) (Auto) 7.3 % Basophils (%) (Auto) 0.4 % Neutrophils # (Auto) 5.8 TH/MM3 Lymphocytes # (Auto) 1.8 TH/MM3 Monocytes # (Auto) 1.0 TH/MM3 Eosinophils # (Auto) 0.7 TH/MM3 Basophils # (Auto) 0.0 TH/MM3 CBC Comment DIFF FINAL Differential Comment Blood Urea Nitrogen 53 MG/DL Creatinine 6.14 MG/DL Random Glucose 95 MG/DL Total Protein 7.7 GM/DL Albumin 3.6 GM/DL Calcium Level 8.9 MG/DL Alkaline Phosphatase 130 U/L Aspartate Amino Transf (AST/SGOT) 137 U/L Alanine Aminotransferase (ALT/SGPT) 108 U/L Total Bilirubin 0.4 MG/DL Sodium Level 139 MEQ/L Potassium Level 4.5 MEQ/L Chloride Level 109 MEQ/L Carbon Dioxide Level 18.2 MEQ/L Anion Gap 12 MEQ/L Estimat Glomerular Filtration Rate 12 ML/MIN Urine Color YELLOW Urine Turbidity CLEAR Urine pH 5.0 Urine Specific [place] 1.009 Urine Protein 100 mg/dL Urine Glucose (UA) NEG mg/dL Urine Ketones TRACE mg/dL Urine Occult Blood MOD Urine Nitrite NEG Urine Bilirubin NEG Urine Urobilinogen LESS THAN 2 mg/dL Urine Leukocyte Esterase NEG Urine RBC 1 /hpf Urine WBC 2 /hpf Urine Squamous Epithelial Cells <1 /hpf Urine Bacteria OCC /hpf Urine Hyaline Casts 1 /lpf Urine Mucus FEW /lpf Microscopic Urinalysis Comment CULT NOT INDICATED MDM Medical Record Reviewed: Yes Supervised Visit with [place]: Yes Narrative Course I, Dr. West, have reviewed the advance practice practitioner's documentation and am in agreement, met with the patient face to face, made the diagnosis, and the medical decision making was done by me. The patient was initially evaluated by Jesika, the nurse practitioner. Please see their complete history and physical. *My assessment and Findings: The patient presents with a history of flank pain around the site where he had a CT-guided kidney biopsy done recently. The patient's examination was remarkable for tenderness around the right flank, however no visible erythema, drainage, or edema. The patient reportedly had the biopsy done due to renal failure. A workup ensued including laboratory studies, imaging by CT, and urinalysis. During the course of the patient's emergency department visit, the patient's history, examination, and differential diagnosis were reviewed with the patient. The patient was placed on a surveillance monitor with oximetry and frequent blood pressure monitoring. The patient had IV access obtained and blood work sent for analysis. The patient's laboratory studies were reviewed and remarkable for a white count of 9.4, hemoglobin 11.2, platelets 288 with 11 monocytes, CMP is remarkable for CO2 of 18.2, chloride 109, BUN 53, creatinine 6.14 which is similar compared to his last BUN and creatinine, actually slightly improved. AST is 137, ALT 108, alk phos 130. This is compared to prior LFTs and are system. The patient's liver function tests appear to be elevated compared to previous. The patient will be given a copy of his laboratory studies for follow-up with his primary care physician. Patient is instructed in the meantime to avoid Tylenol and alcohol. Urinalysis shows 100 protein trace ketones moderate occult blood, 1 RBC, 2 WBCs, occasional dysuria, culture not indicated. Radiology studies were reviewed and remarkable for Last Impressions Abdomen/Pelvis CT 03/17/18 2103 Signed Impressions: CONCLUSION: 1. No acute findings. No perinephric hemorrhage or hydronephrosis. Appendix no rmal. Stable right renal cysts compared with 2016. The patient is resting comfortably and feels better, is alert and in no distress. The patient's results and examination findings were discussed with the patient. The repeat examination is unremarkable and benign. The history, exam, diagnostic testing, and current condition do not suggest any significant pathology to warrant further testing, continued ED treatment, admission, or surgical evaluation at this point. The vital signs have been stable. The patient does not have uncontrollable pain, intractable vomiting, or other significant symptoms. The patient's condition is stable and appropriate for discharge. The patient will pursue further outpatient evaluation with a primary care physician or other designated or consulting physician as indicated in the discharge instructions. The patient is instructed to report back to the emergency department immediately for reexamination in the mean time if he develops any new or worsening signs or symptoms. The patient expressed understanding and was agreeable with this plan. Diagnosis Primary Impression: Left flank pain Referrals: Primary Care Physician 3 days Patient Instructions: Flank Pain (ED), General Instructions Additional Instruction: The patient's liver function tests appear to be elevated compared to previous. The patient will be given a copy of his laboratory studies for follow-up with his primary care physician. Patient is instructed in the meantime to avoid Tylenol and alcohol. Disposition: 01 DISCHARGE HOME Condition: Stable Jeanne West MD Mar 17, 2018 23:08
[2018-03-17 23:10] LABS: BACTERIA, URINE OCC /hpf; BILIRUBIN, URINE NEG (NEG); BLOOD, URINE MOD (NEG); GLUCOSE,URINE NEG (NEG); HYALINE CAST, URINE 1 /lpf (RARE); KETONE, URINE TRACE mg/dL (NEG); MUCUS URINE FEW /lpf (OCC); NITRITE,URINE NEG (NEG); SQUAMOUS EPITHELIAL CELL URINE <1 /hpf (0-5); URINE COLOR YELLOW (YELLW/STRAW); URINE LEUKOCYTE ESTERASE NEG (NEG)
[2018-03-17 23:47] VITALS: BP 155/65
== END 2018-03-17 23:48 | disposition home or self-care (01) ==
LOC: NEPC 20:40
DX: R10.9 Unspecified abdominal pain (principal); I12.9 Hypertensive chronic kidney disease with stage 1 through stage 4 chronic kidney disease, or unspecified chronic kidney disease; N18.9 Chronic kidney disease, unspecified; N28.1 Cyst of kidney, acquired; K21.9 Gastro-esophageal reflux disease without esophagitis; Z86.73 Personal history of transient ischemic attack (TIA), and cerebral infarction without residual deficits; Z98.890 Other specified postprocedural states
CPT/HCPCS: 74176; 80053; 81001; 85025

== ENCOUNTER 2018-03-29 10:08 | Inpatient (IN) ==
[2018-03-31] MEDS ORDERED: Sod Chloride 0.9% Inj 1,000 ML OTHER PRN ×3 (00:01→01:00)
[2018-03-31] MEDS ORDERED: Labetalol HCl Inj 20 MG/4 ML Vial IV.PUSH PRN (00:01)
[2018-03-31] MEDS ORDERED: Heparin 10,000 UNITS/10 ML Vial (for IV use) IV.FLUSH PRN (00:01)
[2018-03-31] MEDS ORDERED: Heparin 10,000 UNITS/10 ML Vial (for IV use) OTHER PRN (00:01)
[2018-03-31] MEDS ORDERED: Bisacodyl 10 MG Supp RECTAL PRN (00:01)
[2018-03-31] MEDS ORDERED: Sodium Bicarbonate 8.4% Inj 154 MEQ in Sod Chloride 0.9% Inj 846 ML IV.SIG SCH (01:00)
[2018-03-31] MEDS ORDERED: Chlorhexidine Gluconate 2% 1 Pack (2 Cloths) TOPICAL SCH (04:00)
[2018-03-31] MEDS ORDERED: Chlorhexidine Gluconate 2% 1 Pack (2 Cloths) TOPICAL PRN ×2 (04:00→14:15)
[2018-03-31] MEDS: Chlorhexidine Gluconate 2% 1 Pack (2 Cloths) TOPICAL SCH (05:34)
[2018-03-31] MEDS: Famotidine 20 MG Tablet PO SCH ×2 (07:58→20:31)
[2018-03-31] MEDS: Senna/Docusate Sodium 8.6/50 MG Tablet PO SCH ×2 (07:59→20:31)
[2018-03-31 08:55] LABS: Baso # (Auto) 0.1 th/mm3 (0.0-0.2); Baso % (Auto) 0.5 % (0.0-2.0); Eos # (Auto) 1.3 th/mm3 (0.0-0.4); Eos % (Auto) 10.7 % (0.0-4.0); Hematocrit 36.9 % (39.0-51.0); Lymph # (Auto) 1.7 th/mm3 (1.0-4.8); Lymph % (Auto) 14.6 % (9.0-44.0); Mean Corpuscular HGB Conc 32.6 % (32.0-36.0); Mean Corpuscular Volume 89.1 fL (80.0-100.0); Mean Platelet Volume 9.6 fL (7.0-11.0); Mono # (Auto) 1.7 th/mm3 (0.0-0.9); Mono % (Auto) 14.1 % (0.0-8.0); Neut # (Auto) 7.1 th/mm3 (1.8-7.7); Neut % (Auto) 60.1 % (16.0-70.0); Platelet Count 136 th/mm3 (150-450); Red Blood Count 4.15 mil/mm3 (4.50-5.90); Red Cell Distribution Width 14.4 % (11.6-17.2); White Blood Count 11.8 th/mm3 (4.0-11.0)
--- NOTE | 2018-03-31 09:46 | P.PNNP ---
Subjective Interval history: Has tolerated hemodialysis yesterday without problems. Denies any shortness of breath. No edema. <Annika Aguirre - Last Filed: 03/31/18 09:46> Physical Exam Vital signs: Vital Signs 03/31/18 02:48 03/31/18 08:00 Temperature 98.9 F 99.8 F H Pulse Rate 102 H 108 H Respiratory Rate 20 18 Blood Pressure 138/82 124/66 Pulse Oximetry 96 93 L Intake & Output 03/30/18 03/31/18 03/31/18 18:59 06:59 18:59 Other: # Voids 2 # Bowel Movements 1 - Constitutional no acute distress - Routine HEENT Exam Head: Present: normocephalic ENT: Present: mucous membranes moist - Routine Neck Exam Present: supple. Absent: JVD - Routine Respiratory Exam Present: CTA bilaterally. Absent: rhonchi, wheezes, crackles - Routine Cardiovascular Exam Present: RRR, tachycardia - Routine Abdominal Exam Present: soft, normoactive bowel sounds. Absent: tenderness - Routine Extremities Exam Present: pulses intact - Routine Skin Exam Present: intact, warm - Routine Neurological Exam Present: alert, oriented X3 - Routine Psychiatric Exam Present: normal affect <Annika Aguirre - Last Filed: 03/31/18 09:46> Vital signs: Vital Signs 03/31/18 02:48 03/31/18 08:00 03/31/18 12:00 Temperature 98.9 F 99.8 F H 98.5 F Pulse Rate 102 H 108 H 107 H Respiratory Rate 20 18 18 Blood Pressure 138/82 124/66 122/76 Pulse Oximetry 96 93 L 94 L 03/31/18 14:12 03/31/18 16:25 Temperature Pulse Rate 106 H Respiratory Rate 16 Blood Pressure Pulse Oximetry 96 Intake & Output 03/30/18 03/31/18 03/31/18 18:59 06:59 18:59 Other: # Voids 2 # Bowel Movements 1 <Ana Ann - Last Filed: 03/31/18 16:26> Assessment and Plan - Assessment (1) End stage renal disease Code(s): N18.6 - End stage renal disease Status: Acute Plan: Discussed with patient he has progress towards end-stage renal disease on his creatinine was high and now progressively getting worse, he was given prednisone however he has underlying hepatitis B and will need treatment with antiviral agents Continue to monitor Started on hemodialysis after Vas-Cath placement on 03/29 followed by 03/30 Next hemodialysis will be on Sunday BMP is pending for today (2) Hypertension Code(s): I10 - Essential (primary) hypertension Status: Acute Plan: Continue to monitor, well controlled ( (3) Hepatitis B Code(s): B19.10 - Unspecified viral hepatitis B without hepatic coma Status: Acute <Annika Aguirre - Last Filed: 03/31/18 09:46> - Plan Patient seen and examined, agree with above. Continue HD TTS, and will need out patient HD and AVF. <Ana Ann - Last Filed: 03/31/18 16:26>
[2018-03-31 09:56] LABS: Eosinophils 10 % (0-4); Lymphocytes 13 % (9-44); Metamyelocytes 1 % (0-1); Monocytes 18 % (0-8); Platelet Morphology Normal (Normal)
[2018-03-31 09:57] LABS: RBC Morphology Normal (Normal)
[2018-03-31 10:34] LABS: Anion Gap 15 meq/L (5-15); Carbon Dioxide 22.5 meq/L (21.0-32.0); Chloride 102 meq/L (98-107); Potassium 4.4 meq/L (3.5-5.1); Sodium 139 meq/L (136-145)
[2018-03-31 10:35] LABS: Alanine Aminotransferase 358 U/L (12-78); Albumin 3.1 g/dL (3.4-5.0); Alkaline Phosphatase 110 U/L (45-117); Aspartate Aminotransferase 340 U/L (15-37); Blood Urea Nitrogen 49 mg/dL (7-18); Calcium 8.1 mg/dL (8.5-10.1); Glomerular Filtration Rate 13 mL/min (>89); Glucose,Random 89 mg/dL (74-106)
[2018-03-31 10:58] LABS: % Iron Saturation 35.4 % (20-50)
--- NOTE | 2018-03-31 11:24 | P.PNFP ---
Subjective Interval history: 47-year-old male with hypertension, CKD stage V days nonoliguric, chronic hepatitis B who is being seen in follow-up. The patient was hospitalized after presenting with diarrhea and undergoing emergent dialysis with monitoring of his electrolytes. Patient tolerated the dialysis well. Today he notes he is feeling more energetic. He denies any pain or shortness of breath. Again not abdominal pain or itching has been noted. Has been under evaluation for hepatitis B since January. Results - Labs Result diagrams: 03/31/18 07:00 03/31/18 07:00 Abnormal lab results 03/29/18 03/29/18 03/29/18 Range/Units 11:08 11:08 14:15 WBC 16.9 H (4.0-11.0) TH/MM3 RBC 4.01 L (4.50-5.90) MIL/MM3 Hgb 11.5 L (13.0-17.0) GM/DL Hct 36.0 L (39.0-51.0) % Plt Count (150-450) th/mm3 [place] % (Auto) 9.9 H (0.0-8.0) % Eos % (Auto) 18.8 H (0.0-4.0) % Neut # (Auto) 9.0 H (1.8-7.7) TH/MM3 [place] # (Auto) 1.7 H (0-0.9) TH/MM3 Eos # (Auto) 3.2 H (0-0.4) TH/MM3 Band Neuts % (Manual) (0-6) % Monocytes % (Manual) (0-8) % Eosinophils % (Manual) (0-4) % Platelet Estimate (Normal) PT 13.6 H (9.8-11.6) SEC Chloride 118 H (98-107) MEQ/L Carbon Dioxide 11.0 L (21.0-32.0) MEQ/L BUN 111 H (7-18) MG/DL Creatinine 7.71 H (0.60-1.30) MG/DL Estimated GFR 9 L (>89) ML/MIN Random Glucose 110 H (74-106) MG/DL Calcium 8.2 L (8.5-10.1) MG/DL Iron (65-175) mcg/dL TIBC (250-450) MCG/DL Ferritin (26-388) NG/ML AST 324 H (15-37) U/L ALT 317 H (12-78) U/L Albumin 3.1 L (3.4-5.0) GM/DL Tumor Marker AFP (0.5-8.0) NG/ML Hep Bs Antigen (NONREACTIVE) 03/29/18 03/30/18 03/30/18 Range/Units 17:55 03:24 03:24 WBC (4.0-11.0) TH/MM3 RBC (4.50-5.90) MIL/MM3 Hgb (13.0-17.0) GM/DL Hct (39.0-51.0) % Plt Count (150-450) th/mm3 [place] % (Auto) (0.0-8.0) % Eos % (Auto) (0.0-4.0) % Neut # (Auto) (1.8-7.7) TH/MM3 [place] # (Auto) (0-0.9) TH/MM3 Eos # (Auto) (0-0.4) TH/MM3 Band Neuts % (Manual) (0-6) % Monocytes % (Manual) (0-8) % Eosinophils % (Manual) (0-4) % Platelet Estimate (Normal) PT 14.0 H (9.8-11.6) SEC Chloride 109 H D (98-107) MEQ/L Carbon Dioxide (21.0-32.0) MEQ/L BUN 61 H D (7-18) MG/DL Creatinine 4.88 H D (0.60-1.30) MG/DL Estimated GFR 15 L (>89) ML/MIN Random Glucose (74-106) MG/DL Calcium 8.0 L (8.5-10.1) MG/DL Iron (65-175) mcg/dL TIBC (250-450) MCG/DL Ferritin (26-388) NG/ML AST 293 H (15-37) U/L ALT 310 H (12-78) U/L Albumin 3.0 L (3.4-5.0) GM/DL Tumor Marker AFP (0.5-8.0) NG/ML Hep Bs Antigen REACTIVE H (NONREACTIVE) 03/30/18 03/30/18 03/30/18 Range/Units 03:24 06:00 06:00 WBC (4.0-11.0) TH/MM3 RBC 3.69 L (4.50-5.90) MIL/MM3 Hgb 11.0 L (13.0-17.0) GM/DL Hct 32.5 L (39.0-51.0) % Plt Count (150-450) th/mm3 [place] % (Auto) 11.2 H (0.0-8.0) % Eos % (Auto) (0.0-4.0) % Neut # (Auto) (1.8-7.7) TH/MM3 [place] # (Auto) 1.1 H (0-0.9) TH/MM3 Eos # (Auto) (0-0.4) TH/MM3 Band Neuts % (Manual) (0-6) % Monocytes % (Manual) (0-8) % Eosinophils % (Manual) (0-4) % Platelet Estimate (Normal) PT (9.8-11.6) SEC Chloride (98-107) MEQ/L Carbon Dioxide (21.0-32.0) MEQ/L BUN (7-18) MG/DL Creatinine (0.60-1.30) MG/DL Estimated GFR (>89) ML/MIN Random Glucose (74-106) MG/DL Calcium (8.5-10.1) MG/DL Iron (65-175) mcg/dL TIBC 164 L (250-450) MCG/DL Ferritin 1655 H (26-388) NG/ML AST (15-37) U/L ALT (12-78) U/L Albumin (3.4-5.0) GM/DL Tumor Marker AFP 12.1 H (0.5-8.0) NG/ML Hep Bs Antigen (NONREACTIVE) 03/31/18 03/31/18 03/31/18 Range/Units 07:00 07:00 07:00 WBC 11.8 H (4.0-11.0) TH/MM3 RBC 4.15 L (4.50-5.90) MIL/MM3 Hgb 12.0 L (13.0-17.0) GM/DL Hct 36.9 L (39.0-51.0) % Plt Count 136 L (150-450) th/mm3 [place] % (Auto) 14.1 H (0.0-8.0) % Eos % (Auto) 10.7 H (0.0-4.0) % Neut # (Auto) (1.8-7.7) TH/MM3 [place] # (Auto) 1.7 H (0-0.9) TH/MM3 Eos # (Auto) 1.3 H (0-0.4) TH/MM3 Band Neuts % (Manual) 8 H (0-6) % Monocytes % (Manual) 18 H (0-8) % Eosinophils % (Manual) 10 H (0-4) % Platelet Estimate Low L (Normal) PT (9.8-11.6) SEC Chloride (98-107) MEQ/L Carbon Dioxide (21.0-32.0) MEQ/L BUN 49 H (7-18) MG/DL Creatinine 5.82 H (0.60-1.30) MG/DL Estimated GFR 13 L (>89) ML/MIN Random Glucose (74-106) MG/DL Calcium 8.1 L (8.5-10.1) MG/DL Iron 58 L (65-175) mcg/dL TIBC 164 L (250-450) MCG/DL Ferritin 1974 H (26-388) NG/ML AST 340 H (15-37) U/L ALT 358 H (12-78) U/L Albumin 3.1 L (3.4-5.0) GM/DL Tumor Marker AFP (0.5-8.0) NG/ML Hep Bs Antigen (NONREACTIVE) Short CBC 03/29/18 03/30/18 03/31/18 Range/Units 11:08 03:24 07:00 WBC 16.9 H 10.0 11.8 H (4.0-11.0) TH/MM3 Hgb 11.5 L 11.0 L 12.0 L (13.0-17.0) GM/DL Hct 36.0 L 32.5 L 36.9 L (39.0-51.0) % Plt Count 195 161 136 L (150-450) TH/MM3 BMP 03/29/18 03/30/18 03/31/18 11:08 03:24 07:00 Sodium 143 142 139 Potassium 4.5 4.0 4.4 Chloride 118 H 109 H D 102 Carbon Dioxide 11.0 L 22.9 D 22.5 BUN 111 H 61 H D 49 H Creatinine 7.71 H 4.88 H D 5.82 H Calcium 8.2 L 8.0 L 8.1 L Liver Function 03/29/18 03/30/18 03/31/18 Range/Units 11:08 03:24 07:00 Total Bilirubin 0.5 0.6 0.9 (0.2-1.0) MG/DL AST 324 H 293 H 340 H (15-37) U/L ALT 317 H 310 H 358 H (12-78) U/L Alkaline Phosphatase 115 105 110 (45-117) U/L Albumin 3.1 L 3.0 L 3.1 L (3.4-5.0) GM/DL Physical Exam Vital signs: Vital Signs 03/31/18 02:48 03/31/18 08:00 Temperature 98.9 F 99.8 F H Pulse Rate 102 H 108 H Respiratory Rate 20 18 Blood Pressure 138/82 124/66 Pulse Oximetry 96 93 L Intake & Output 03/30/18 03/31/18 03/31/18 18:59 06:59 18:59 Other: # Voids 2 # Bowel Movements 1 - Constitutional no acute distress - Routine Respiratory Exam Present: CTA bilaterally - Routine Cardiovascular Exam Present: RRR - Routine Abdominal Exam Present: soft. Absent: tenderness Assessment and Plan - Assessment (1) Acute renal failure (ARF) Code(s): N17.9 - Acute kidney failure, unspecified Status: Acute Plan: -Nephrology consulted, appreciate recs -Continue dialysis -Patient states he has appointment Sunday with vascular for access, Sunday with new cafeteria food server for continued dialysis -Monitor BP, treat PRN for BP > 160/100 -Trend BMP (2) Acute diarrhea Code(s): R19.7 - Diarrhea, unspecified Status: Acute (3) Metabolic acidosis with normal anion gap and bicarbonate losses Code(s): E87.2 - Acidosis Status: Acute Plan: Secondary to renal disease, now resolved (4) Hepatitis B Code(s): B19.10 - Unspecified viral hepatitis B without hepatic coma Status: Acute Plan: HBsAg positive without IgM, consistent with chronic hepatitis B AST/ALT moderately elevated Has appt with GI in March -Check HBeAg and Ab, Total Core Ab, delta agent -ID consult placed by stone and plate preparer apprentice, await input to see if acute treatment indicated (5) End stage renal disease Code(s): N18.6 - End stage renal disease Status: Acute Plan: Possibly will need chronic dialysis -Continue acute dialysis for now as noted above -Dietary consult for renal diet education (6) Hypertension Code(s): I10 - Essential (primary) hypertension Status: Acute Plan: Holding home hypertensives for now due to low BP after dialysis. Will monitor and resume as needed. (7) GERD (gastroesophageal reflux disease) Code(s): K21.9 - Gastro-esophageal reflux disease without esophagitis Status: Acute Plan: Continue Pepcid dosed renally - Plan Initially had leukocytosis --> raised suspicion for C diff Leukocytosis resolved spontaneously -Trend CBC -If loose stools / diarrhea recur, check for C diff (1) Acute renal failure (ARF) Qualifiers: Acute renal failure type: unspecified Qualified Code(s): N17.9 - Acute kidney failure, unspecified
[2018-03-31] MEDS ORDERED: Sod Chloride 0.9% Inj 1,000 ML IV.CONT PRN (14:34)
[2018-03-31] MEDS ORDERED: Acetaminophen 325 MG Tablet PO PRN (14:45)
[2018-03-31] MEDS ORDERED: Gelatin 12 MM/7 MM Topical Foam TOPICAL PRN (14:45)
[2018-03-31] MEDS: Heparin - SQ 10,000 UNITS/ML Vial SQ SCH (16:02)
[2018-04-01] MEDS: Heparin - SQ 10,000 UNITS/ML Vial SQ SCH ×2 (01:53→13:32)
[2018-04-01] MEDS: Chlorhexidine Gluconate 2% 1 Pack (2 Cloths) TOPICAL SCH (04:36)
[2018-04-01 06:27] LABS: Hematocrit 36.6 % (39.0-51.0); Hemoglobin 12.1 gm/dL (13.0-17.0); Mean Corpuscular HGB Conc 32.9 % (32.0-36.0); Mean Corpuscular Hemoglobin 29.4 pg (27.0-34.0); Mean Corpuscular Volume 89.1 fL (80.0-100.0); Mean Platelet Volume 9.9 fL (7.0-11.0); Platelet Count 152 th/mm3 (150-450); Red Blood Count 4.11 mil/mm3 (4.50-5.90); Red Cell Distribution Width 14.6 % (11.6-17.2); White Blood Count 13.2 th/mm3 (4.0-11.0)
[2018-04-01 07:06] LABS: Alanine Aminotransferase 450 U/L (12-78); Alkaline Phosphatase 108 U/L (45-117); Anion Gap 16 meq/L (5-15); Aspartate Aminotransferase 577 U/L (15-37); Blood Urea Nitrogen 65 mg/dL (7-18); Calcium 8.4 mg/dL (8.5-10.1); Carbon Dioxide 21.2 meq/L (21.0-32.0); Chloride 102 meq/L (98-107); Glomerular Filtration Rate 8 mL/min (>89); Glucose,Random 93 mg/dL (74-106); Potassium 4.5 meq/L (3.5-5.1); Sodium 139 meq/L (136-145); Total Protein 7.1 g/dL (6.4-8.2)
[2018-04-01] MEDS: Famotidine 20 MG Tablet PO SCH ×2 (09:20→21:15)
[2018-04-01] MEDS: Senna/Docusate Sodium 8.6/50 MG Tablet PO SCH ×2 (09:21→21:28)
--- NOTE | 2018-04-01 10:39 | P.PNFP ---
Results - Labs Result diagrams: 04/01/18 04:51 04/01/18 04:51 Abnormal lab results 03/31/18 04/01/18 04/01/18 Range/Units 07:00 04:51 04:51 WBC 13.2 H (4.0-11.0) th/mm3 RBC 4.11 L (4.50-5.90) mil/mm3 Hgb 12.1 L (13.0-17.0) gm/dL Hct 36.6 L (39.0-51.0) % Anion Gap 16 H (5-15) meq/L BUN 65 H (7-18) mg/dL Creatinine 8.49 H (0.60-1.30) mg/dL Estimated GFR 8 L (>89) mL/min Calcium 8.4 L (8.5-10.1) mg/dL Iron 58 L (65-175) mcg/dL TIBC 164 L (250-450) mcg/dL Ferritin 1974 H (26-388) ng/mL Total Bilirubin 1.5 H (0.2-1.0) mg/dL AST 577 H (15-37) U/L ALT 450 H (12-78) U/L Albumin 3.0 L (3.4-5.0) g/dL Short CBC 04/01/18 Range/Units 04:51 WBC 13.2 H (4.0-11.0) th/mm3 Hgb 12.1 L (13.0-17.0) gm/dL Hct 36.6 L (39.0-51.0) % Plt Count 152 (150-450) th/mm3 BMP 04/01/18 04:51 Sodium 139 Potassium 4.5 Chloride 102 Carbon Dioxide 21.2 BUN 65 H Creatinine 8.49 H Calcium 8.4 L Liver Function 04/01/18 Range/Units 04:51 Total Bilirubin 1.5 H (0.2-1.0) mg/dL AST 577 H (15-37) U/L ALT 450 H (12-78) U/L Alkaline Phosphatase 108 (45-117) U/L Albumin 3.0 L (3.4-5.0) g/dL Physical Exam Vital signs: Vital Signs 03/31/18 12:00 03/31/18 14:12 03/31/18 16:00 Temperature 98.5 F 100.5 F H Pulse Rate 107 H 103 H Respiratory Rate 18 18 Blood Pressure 122/76 125/73 Pulse Oximetry 94 L 96 93 L 03/31/18 16:25 03/31/18 20:00 04/01/18 00:00 Temperature 99.2 F 100.5 F H Pulse Rate 106 H 110 H 117 H Respiratory Rate 16 20 20 Blood Pressure 123/65 115/70 Pulse Oximetry 92 L 94 L 04/01/18 08:00 Temperature 99.2 F Pulse Rate 103 H Respiratory Rate 19 Blood Pressure 137/87 Pulse Oximetry 94 L Intake & Output 03/31/18 04/01/18 04/01/18 18:59 06:59 18:59 Intake Total 960 / 960 Balance 960 / 960 Intake: Oral 960 / 960 Other: # Voids 3 1 Date of Last Bowel Movement 04/01/18 # Bowel Movements 3 1 Assessment and Plan - Assessment (1) Acute renal failure (ARF) Code(s): N17.9 - Acute kidney failure, unspecified Status: Acute Plan: -Nephrology consulted, appreciate recs -Continue dialysis -Patient states he has appointment Sunday with vascular for access, 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 for continued dialysis -Monitor BP, treat PRN for BP > 160/100 -Trend BMP (2) Acute diarrhea Code(s): R19.7 - Diarrhea, unspecified Status: Acute (3) Metabolic acidosis with normal anion gap and bicarbonate losses Code(s): E87.2 - Acidosis Status: Acute Plan: Secondary to renal disease, now resolved (4) Hepatitis B Code(s): B19.10 - Unspecified viral hepatitis B without hepatic coma Status: Acute Plan: HBsAg positive without IgM, consistent with chronic hepatitis B AST/ALT moderately elevated Has appt with GI in March -Check HBeAg and Ab, Total Core Ab, delta agent -ID consult placed by resident intern, await input to see if acute treatment indicated (5) End stage renal disease Code(s): N18.6 - End stage renal disease Status: Acute Plan: Possibly will need chronic dialysis -Continue acute dialysis for now as noted above -Dietary consult for renal diet education (6) Hypertension Code(s): I10 - Essential (primary) hypertension Status: Acute Plan: Holding home hypertensives for now due to low BP after dialysis. Will monitor and resume as needed. (7) GERD (gastroesophageal reflux disease) Code(s): K21.9 - Gastro-esophageal reflux disease without esophagitis Status: Acute Plan: Continue Pepcid dosed renally - Plan Initially had leukocytosis --> raised suspicion for C diff Leukocytosis resolved spontaneously -Trend CBC -If loose stools / diarrhea recur, check for C diff (1) Acute renal failure (ARF) Qualifiers: Acute renal failure type: unspecified Qualified Code(s): N17.9 - Acute kidney failure, unspecified
--- NOTE | 2018-04-01 12:55 | P.PNNP ---
Subjective Interval history: He had a fever overnight, diarrhea, leukocytosis. Had dialysis Sunday. Still fatigued, short of breath, has anorexia. <Yulisa Dunn - Last Filed: 04/01/18 12:50> Physical Exam Vital signs: Vital Signs 03/31/18 14:12 03/31/18 16:00 03/31/18 16:25 Temperature 100.5 F H Pulse Rate 103 H 106 H Respiratory Rate 18 16 Blood Pressure 125/73 Pulse Oximetry 96 93 L 03/31/18 20:00 04/01/18 00:00 04/01/18 08:00 Temperature 99.2 F 100.5 F H 99.2 F Pulse Rate 110 H 117 H 103 H Respiratory Rate 20 20 19 Blood Pressure 123/65 115/70 137/87 Pulse Oximetry 92 L 94 L 94 L 04/01/18 08:45 Temperature Pulse Rate Respiratory Rate Blood Pressure Pulse Oximetry 93 L Intake & Output 03/31/18 04/01/18 04/01/18 18:59 06:59 18:59 Intake Total 960 / 960 Balance 960 / 960 Intake: Oral 960 / 960 Other: # Voids 3 1 Date of Last Bowel Movement 04/01/18 # Bowel Movements 3 1 - Constitutional mild distress, morbidly obese, chronically ill appearing - Routine HEENT Exam Head: Present: normocephalic Eye: Present: EOMI ENT: Present: mucous membranes moist - Routine Respiratory Exam Present: accessory muscle use, wheezes - Routine Cardiovascular Exam Present: RRR, S1 - Routine Abdominal Exam Present: soft, normoactive bowel sounds - Routine Skin Exam Present: intact - Routine Neurological Exam Present: alert, oriented X3 - Routine Psychiatric Exam Present: normal affect <Yulisa Dunn - Last Filed: 04/01/18 12:50> Vital signs: Vital Signs 04/01/18 12:00 04/01/18 18:21 04/01/18 20:00 Temperature 98.5 F 98.0 F 97.9 F Pulse Rate 103 H 111 H 103 H Respiratory Rate 19 20 18 Blood Pressure 123/68 107/66 103/62 Pulse Oximetry 95 98 04/02/18 00:00 04/02/18 08:00 Temperature 98 F 98.5 F Pulse Rate 107 H 101 H Respiratory Rate 18 18 Blood Pressure 105/62 113/68 Pulse Oximetry 95 95 Intake & Output 04/01/18 04/02/18 04/02/18 18:59 06:59 18:59 Intake Total 620 / 620 240 / 240 Output Total 3000 / 3000 Balance -2380 / -2380 240 / 240 Weight 110 kg Intake: Oral 620 / 620 240 / 240 Output: Hemodialysis Amount 3000 / 3000 Other: # Voids 2 2 Date of Last Bowel Movement 04/02/18 # Bowel Movements 3 1 <Rito Jose - Last Filed: 04/02/18 11:22> Assessment and Plan - Assessment (1) End stage renal disease Code(s): N18.6 - End stage renal disease Status: Chronic Plan: Creatinine is higher today, in addition he is symptomatic for uremia, is short of breath. We will dialyze today and MWF. He has fever therefore we cannot place PermCath at this time but it will need to be done prior to discharge. Plans for outpatient HD in process, will go to [facility]. Avoid IVF administration. High protein diet should be offered. Repeat labs. Protect left arm from procedures, will obtain vein mapping. Epogen not required at this time. (2) Hypertension Code(s): I10 - Essential (primary) hypertension Status: Acute Qualifiers: Hypertension type: renovascular hypertension Qualified Code(s): I15.0 - Renovascular hypertension Plan: Continue present medications. (3) Acute diarrhea Code(s): R19.7 - Diarrhea, unspecified Status: Acute Plan: May have C diff, testing in process. Not on antibiotics. (4) Hepatitis B Code(s): B19.10 - Unspecified viral hepatitis B without hepatic coma Status: Chronic Plan: There was discussion about consulting ID to inquire about treatment vs outpatient follow up. <Yulisa Dunn - Last Filed: 04/01/18 12:50> - Assessment (1) End stage renal disease Code(s): N18.6 - End stage renal disease Status: Chronic (2) Hypertension Code(s): I10 - Essential (primary) hypertension Status: Acute Qualifiers: Hypertension type: renovascular hypertension Qualified Code(s): I15.0 - Renovascular hypertension (3) Acute diarrhea Code(s): R19.7 - Diarrhea, unspecified Status: Resolved (4) Hepatitis B Code(s): B19.10 - Unspecified viral hepatitis B without hepatic coma Status: Chronic - Attending Attestation patient was seen and examined. Agree with above assessment and plan. His LFTs are elevated. He is positive for Hepatitis B. He will need outpatient dialysis arrangements. If he remains afebrile, and leukocytosis improves, place PermCath. Needs AVF placement as well at some point. <Rito Jose - Last Filed: 04/02/18 11:22>
--- NOTE | 2018-04-01 15:11 | P.PNFP ---
<Kaden Kelley O - Last Filed: 04/01/18 22:33> Subjective Interval history: Patient was seen this morning at bed side and reported to be feeling "alright". Overnight the patient did have an elevation in his white count as well as a Tmax of 100.5 and was tachycardic at 117. His vitals resolved and were within normal limits at the time of exam. He was asymptomatic during this time. This morning the patient reported that he is no longer feeling nauseous or tired and that although he is hungry he is not eating due to the change of the taste of the food. He also reports urinating regularly without issues. He reports passing a normal bowel movement yesterday and denies any pain, nausea, vomiting , fevers, chills or shortness of breath. Results - Labs Result diagrams: 04/01/18 04:51 04/01/18 04:51 Abnormal lab results 04/01/18 04/01/18 Range/Units 04:51 04:51 WBC 13.2 H (4.0-11.0) th/mm3 RBC 4.11 L (4.50-5.90) mil/mm3 Hgb 12.1 L (13.0-17.0) gm/dL Hct 36.6 L (39.0-51.0) % Anion Gap 16 H (5-15) meq/L BUN 65 H (7-18) mg/dL Creatinine 8.49 H (0.60-1.30) mg/dL Estimated GFR 8 L (>89) mL/min Calcium 8.4 L (8.5-10.1) mg/dL Total Bilirubin 1.5 H (0.2-1.0) mg/dL AST 577 H (15-37) U/L ALT 450 H (12-78) U/L Albumin 3.0 L (3.4-5.0) g/dL Short CBC 04/01/18 Range/Units 04:51 WBC 13.2 H (4.0-11.0) th/mm3 Hgb 12.1 L (13.0-17.0) gm/dL Hct 36.6 L (39.0-51.0) % Plt Count 152 (150-450) th/mm3 BMP 04/01/18 04:51 Sodium 139 Potassium 4.5 Chloride 102 Carbon Dioxide 21.2 BUN 65 H Creatinine 8.49 H Calcium 8.4 L Liver Function 04/01/18 Range/Units 04:51 Total Bilirubin 1.5 H (0.2-1.0) mg/dL AST 577 H (15-37) U/L ALT 450 H (12-78) U/L Alkaline Phosphatase 108 (45-117) U/L Albumin 3.0 L (3.4-5.0) g/dL Blood cultures show no growth at 1 day H. Pylori stool antigen test pending Hep B DNA and Be pending Physical Exam Vital signs: Vital Signs 03/31/18 16:00 03/31/18 16:25 03/31/18 20:00 Temperature 100.5 F H 99.2 F Pulse Rate 103 H 106 H 110 H Respiratory Rate 18 16 20 Blood Pressure 125/73 123/65 Pulse Oximetry 93 L 92 L 04/01/18 00:00 04/01/18 08:00 04/01/18 08:45 Temperature 100.5 F H 99.2 F Pulse Rate 117 H 103 H Respiratory Rate 20 19 Blood Pressure 115/70 137/87 Pulse Oximetry 94 L 94 L 93 L 04/01/18 12:00 Temperature 98.5 F Pulse Rate 103 H Respiratory Rate 19 Blood Pressure 123/68 Pulse Oximetry 95 Intake & Output 03/31/18 04/01/18 04/01/18 18:59 06:59 18:59 Intake Total 960 / 960 Balance 960 / 960 Intake: Oral 960 / 960 Other: # Voids 3 1 Date of Last Bowel Movement 04/01/18 # Bowel Movements 3 1 - Constitutional no acute distress, obese, cooperative - Routine HEENT Exam Head: Present: normocephalic, atraumatic Eye: Present: EOMI - Routine Neck Exam Present: supple. Absent: lymphadenopathy - Routine Respiratory Exam Present: wheezes. Absent: accessory muscle use, respiratory distress, stridor, crackles, distant breath sounds Comments: Patient had mild wheezing in the upper left lobe. - Routine Cardiovascular Exam Present: RRR, S1, S2. Absent: murmur, gallop, rubs - Routine Abdominal Exam Present: soft, normoactive bowel sounds. Absent: tenderness, distended, rebound , guarding - Routine Extremities Exam Absent: cyanosis, clubbing, edema - Routine Neurological Exam Present: alert, oriented X3 - Detailed Neurological Exam: Coma Scale Eye Opening: Spontaneous Verbal Response: Oriented Motor Response: Obey commands Rosser Coma Scale Total: 15 - Routine Psychiatric Exam Present: normal affect, normal thought process Assessment and Plan - Assessment (1) Acute renal failure (ARF) Code(s): N17.9 - Acute kidney failure, unspecified Status: Acute Plan: This patient is suffering from end stage renal disease and was admitted in the setting of symptomatic uremia. Nephrology is currently following. Today BUN 65 and creatinine 8.49. The patient received initial dialysis on March 30 and will be dialyzed per nephrology again today. - Continue dialysis as recommended by nephrology team - Trend BMP - Renal Diet - Per nephrology do not access left arm for vein mapping and perm cath placement - Will need perm cath placement prior to discharge (2) Hepatitis B Code(s): B19.10 - Unspecified viral hepatitis B without hepatic coma Status: Chronic Plan: HBsAg positive without IgM, consistent with chronic hepatitis B. AST/ALT moderately elevated. GI contacted and agrees that there is no acute intervention necessary at this time and to follow up outpatient. - Has appt with GI (Dr. Chaney) on April 24. - HBeAg and Ab, Total Core Ab pending (3) Acute diarrhea Code(s): R19.7 - Diarrhea, unspecified Status: Resolved Plan: Patient was confirmed C Diff negative. Per patient has had 1 bowel movement yesterday and today. (4) Metabolic acidosis with normal anion gap and bicarbonate losses Code(s): E87.2 - Acidosis Status: Acute Plan: Secondary to renal disease, now resolved. Anion gap now at 16. Bicarb at 21.2 today. Nephrology recommending dialysis today. - Dialyze as recommended by nephrology - Follow BMP (5) End stage renal disease Code(s): N18.6 - End stage renal disease Status: Chronic Plan: Per nephrology will need chronic dialysis. Will have vein mapping in left arm for perm cath placement. - Continue dialysis per nephrology - Do not access left arm - Dietary consult for renal diet education (6) Hypertension Code(s): I10 - Essential (primary) hypertension Status: Acute Plan: Holding home hypertensives for now due to low BP after dialysis. Will monitor and resume as needed. - Labetalol PRN in BP at or over 180/ 100 (7) GERD (gastroesophageal reflux disease) Code(s): K21.9 - Gastro-esophageal reflux disease without esophagitis Status: Acute Plan: Continue Pepcid dosed renally - Plan Patient reports no discomfort or abdominal pain at this time. - Continue Pepcid as scheduled. <Bladimir Stiles - Last Filed: 04/02/18 10:42> Results - Labs Result diagrams: 04/02/18 06:27 04/02/18 06:27 Abnormal lab results 04/02/18 04/02/18 04/02/18 Range/Units 06:27 06:27 06:27 WBC 14.9 H (4.0-11.0) th/mm3 RBC 4.25 L (4.50-5.90) mil/mm3 Hgb 12.3 L (13.0-17.0) gm/dL Hct 37.7 L (39.0-51.0) % [place] % (Auto) 13.2 H (0.0-8.0) % Neut # (Auto) 9.4 H (1.8-7.7) th/mm3 [place] # (Auto) 2.0 H (0.0-0.9) th/mm3 Band Neuts % (Manual) 20 H (0-6) % Monocytes % (Manual) 13 H (0-8) % Myelocytes % (Man) 1 H (0-0) % Abs Neuts (Manual) 10.9 H (1.8-7.7) th/mm3 PT 14.0 H (9.8-11.6) sec Chloride 97 L (98-107) meq/L Anion Gap 19 H (5-15) meq/L BUN 58 H (7-18) mg/dL Creatinine 8.27 H (0.60-1.30) mg/dL Estimated GFR 8 L (>89) mL/min Total Bilirubin 2.6 H (0.2-1.0) mg/dL AST 695 H (15-37) U/L ALT 549 H (12-78) U/L Short CBC 04/02/18 Range/Units 06:27 WBC 14.9 H (4.0-11.0) th/mm3 Hgb 12.3 L (13.0-17.0) gm/dL Hct 37.7 L (39.0-51.0) % Plt Count 163 (150-450) th/mm3 BMP 04/02/18 06:27 Sodium 138 Potassium 4.3 Chloride 97 L Carbon Dioxide 21.8 BUN 58 H Creatinine 8.27 H Calcium 9.3 D Liver Function 04/02/18 Range/Units 06:27 Total Bilirubin 2.6 H (0.2-1.0) mg/dL AST 695 H (15-37) U/L ALT 549 H (12-78) U/L Alkaline Phosphatase 106 (45-117) U/L Albumin 4.2 D (3.4-5.0) g/dL Physical Exam Vital signs: Vital Signs 04/01/18 12:00 04/01/18 18:21 04/01/18 20:00 Temperature 98.5 F 98.0 F 97.9 F Pulse Rate 103 H 111 H 103 H Respiratory Rate 19 20 18 Blood Pressure 123/68 107/66 103/62 Pulse Oximetry 95 98 04/02/18 00:00 Temperature 98 F Pulse Rate 107 H Respiratory Rate 18 Blood Pressure 105/62 Pulse Oximetry 95 Intake & Output 04/01/18 04/02/18 04/02/18 18:59 06:59 18:59 Intake Total 620 / 620 240 / 240 Output Total 3000 / 3000 Balance -2380 / -2380 240 / 240 Weight 110 kg Intake: Oral 620 / 620 240 / 240 Output: Hemodialysis Amount 3000 / 3000 Other: # Voids 2 2 Date of Last Bowel Movement 04/02/18 # Bowel Movements 3 1 Assessment and Plan - Assessment (1) Acute renal failure (ARF) Code(s): N17.9 - Acute kidney failure, unspecified Status: Acute (2) Hepatitis B Code(s): B19.10 - Unspecified viral hepatitis B without hepatic coma Status: Chronic (3) Acute diarrhea Code(s): R19.7 - Diarrhea, unspecified Status: Resolved (4) Metabolic acidosis with normal anion gap and bicarbonate losses Code(s): E87.2 - Acidosis Status: Acute (5) End stage renal disease Code(s): N18.6 - End stage renal disease Status: Chronic (6) Hypertension Code(s): I10 - Essential (primary) hypertension Status: Acute (7) GERD (gastroesophageal reflux disease) Code(s): K21.9 - Gastro-esophageal reflux disease without esophagitis Status: Acute - Attending Attestation CASE DISCUSSED WITH RESIDENT PHYSICIANS. I HAVE READ AND AGREE WITH ABOVE NOTE AND PLAN DISCUSSED WITH ME. <Kaden Kelley O - Last Filed: 04/01/18 22:33> (1) Acute renal failure (ARF) Qualifiers: Acute renal failure type: unspecified Qualified Code(s): N17.9 - Acute kidney failure, unspecified (6) Hypertension Qualifiers: Hypertension type: renovascular hypertension Qualified Code(s): I15.0 - Renovascular hypertension <Bladimir Stiles R - Last Filed: 04/02/18 10:42> (1) Acute renal failure (ARF) Qualifiers: Acute renal failure type: unspecified Qualified Code(s): N17.9 - Acute kidney failure, unspecified (6) Hypertension Qualifiers: Hypertension type: renovascular hypertension Qualified Code(s): I15.0 - Renovascular hypertension
[2018-04-02] MEDS: Heparin - SQ 10,000 UNITS/ML Vial SQ SCH ×4 (01:16→22:43)
[2018-04-02] MEDS: Chlorhexidine Gluconate 2% 1 Pack (2 Cloths) TOPICAL SCH (05:29)
[2018-04-02 08:12] LABS: Baso # (Auto) 0.1 th/mm3 (0.0-0.2); Baso % (Auto) 0.4 % (0.0-2.0); Eos # (Auto) 0.4 th/mm3 (0.0-0.4); Hematocrit 37.7 % (39.0-51.0); Hemoglobin 12.3 gm/dL (13.0-17.0); INR 1.4 Ratio; Lymph # (Auto) 3.1 th/mm3 (1.0-4.8); Lymph % (Auto) 20.4 % (9.0-44.0); Mean Corpuscular HGB Conc 32.6 % (32.0-36.0); Mean Corpuscular Hemoglobin 28.9 pg (27.0-34.0); Mean Corpuscular Volume 88.8 fL (80.0-100.0); Mean Platelet Volume 10.1 fL (7.0-11.0); Mono % (Auto) 13.2 % (0.0-8.0); Neut # (Auto) 9.4 th/mm3 (1.8-7.7); Platelet Count 163 th/mm3 (150-450); Red Blood Count 4.25 mil/mm3 (4.50-5.90); Red Cell Distribution Width 14.5 % (11.6-17.2); White Blood Count 14.9 th/mm3 (4.0-11.0)
[2018-04-02 08:31] LABS: Alanine Aminotransferase 549 U/L (12-78); Albumin 4.2 g/dL (3.4-5.0); Alkaline Phosphatase 106 U/L (45-117); Anion Gap 19 meq/L (5-15); Aspartate Aminotransferase 695 U/L (15-37); Blood Urea Nitrogen 58 mg/dL (7-18); Calcium 9.3 mg/dL (8.5-10.1); Carbon Dioxide 21.8 meq/L (21.0-32.0); Chloride 97 meq/L (98-107); Glomerular Filtration Rate 8 mL/min (>89); Glucose,Random 104 mg/dL (74-106); Sodium 138 meq/L (136-145); Total Protein 7.9 g/dL (6.4-8.2)
[2018-04-02 08:44] LABS: Potassium 4.3 meq/L (3.5-5.1)
--- NOTE | 2018-04-02 09:31 | P.PNNP ---
Subjective Interval history: Afebrile today. Having vein mapping at the bedside. Dialyzed yesterday. Looks better today. <Yulisa Dunn - Last Filed: 04/02/18 09:26> Physical Exam Vital signs: Vital Signs 04/01/18 12:00 18 18:21 04/01/18 20:00 Temperature 98.5 F 98.0 F 97.9 F Pulse Rate 103 H 111 H 103 H Respiratory Rate 19 20 18 Blood Pressure 123/68 107/66 103/62 Pulse Oximetry 95 98 04/02/18 00:00 Temperature 98 F Pulse Rate 107 H Respiratory Rate 18 Blood Pressure 105/62 Pulse Oximetry 95 Intake & Output 04/01/18 04/02/18 04/02/18 18:59 06:59 18:59 Intake Total 620 / 620 240 / 240 Output Total 3000 / 3000 Balance -2380 / -2380 240 / 240 Weight 110 kg Intake: Oral 620 / 620 240 / 240 Output: Hemodialysis Amount 3000 / 3000 Other: # Voids 2 2 Date of Last Bowel Movement 04/02/18 # Bowel Movements 3 1 - Constitutional no acute distress - Routine HEENT Exam Head: Present: normocephalic Eye: Present: EOMI - Routine Neck Exam Present: supple, full ROM Comments: Vascath right IJ - Routine Respiratory Exam Present: CTA bilaterally - Routine Cardiovascular Exam Present: RRR, S1 - Routine Abdominal Exam Present: soft, normoactive bowel sounds - Routine Extremities Exam Present: normal capillary refill - Routine Skin Exam Present: intact, warm - Routine Neurological Exam Present: alert, oriented X3, CN II-XII intact - Detailed Neurological Exam: Coma Scale Eye Opening: Spontaneous Verbal Response: Oriented Motor Response: Obey commands Nida Coma Scale Total: 15 - Routine Psychiatric Exam Present: normal affect <Yulisa Dunn - Last Filed: 04/02/18 09:26> Vital signs: Vital Signs 04/01/18 12:00 04/01/18 18:21 04/01/18 20:00 Temperature 98.5 F 98.0 F 97.9 F Pulse Rate 103 H 111 H 103 H Respiratory Rate 19 20 18 Blood Pressure 123/68 107/66 103/62 Pulse Oximetry 95 98 04/02/18 00:00 04/02/18 08:00 Temperature 98 F 98.5 F Pulse Rate 107 H 101 H Respiratory Rate 18 18 Blood Pressure 105/62 113/68 Pulse Oximetry 95 95 Intake & Output 04/01/18 04/02/18 04/02/18 18:59 06:59 18:59 Intake Total 620 / 620 240 / 240 Output Total 3000 / 3000 Balance -2380 / -2380 240 / 240 Weight 110 kg Intake: Oral 620 / 620 240 / 240 Output: Hemodialysis Amount 3000 / 3000 Other: # Voids 2 2 Date of Last Bowel Movement 04/02/18 # Bowel Movements 3 1 <Rito Jose - Last Filed: 04/02/18 11:26> Assessment and Plan - Assessment (1) End stage renal disease Code(s): N18.6 - End stage renal disease Status: Chronic Plan: Dialyzed yesterday, 3L UF. Continue HD MWF. He will need PermCath exchange once leukocytosis clears. Vein mapping in progress, vascular consulted to evaluate for AVF placement. Plans for outpatient HD in process, will go to [facility] but needs isolation room which may cause delay in placement. In the meantime, avoid IVF administration. High protein diet encouraged. Repeat labs. Protect left arm from procedures. Epogen not required at this time. (2) Hypertension Code(s): I10 - Essential (primary) hypertension Status: Acute Qualifiers: Hypertension type: renovascular hypertension Qualified Code(s): I15.0 - Renovascular hypertension Plan: Continue present medications. BP is acceptable. (3) Acute diarrhea Code(s): R19.7 - Diarrhea, unspecified Status: Resolved Plan: Improving, C diff negative. Not on antibiotics. (4) Hepatitis B Code(s): B19.10 - Unspecified viral hepatitis B without hepatic coma Status: Chronic Plan: There was discussion about consulting ID to inquire about treatment vs outpatient follow up. <Yulisa Dunn - Last Filed: 04/02/18 09:26> - Assessment (1) End stage renal disease Code(s): N18.6 - End stage renal disease Status: Chronic (2) Hypertension Code(s): I10 - Essential (primary) hypertension Status: Acute Qualifiers: Hypertension type: renovascular hypertension Qualified Code(s): I15.0 - Renovascular hypertension (3) Acute diarrhea Code(s): R19.7 - Diarrhea, unspecified Status: Resolved (4) Hepatitis B Code(s): B19.10 - Unspecified viral hepatitis B without hepatic coma Status: Chronic - Attending Attestation patient was seen and examined. Agree with above assessment and plan. <Rito Jose - Last Filed: 04/02/18 11:26> Acute ROS - Review of Systems All other systems reviewed negative except as stated in HPI <Yulisa Dunn - Last Filed: 04/02/18 09:26>
[2018-04-02 10:06] LABS: Eosinophils 4 % (0-4); Lymphocytes 10 % (9-44); Metamyelocytes 1 % (0-1); Monocytes 13 % (0-8); Myelocytes 1 % (0-0)
[2018-04-02] MEDS: Famotidine 20 MG Tablet PO SCH ×2 (10:06→22:41)
[2018-04-02 10:07] LABS: Platelet Estimate Normal (Normal); Platelet Morphology Normal (Normal)
[2018-04-02] MEDS: Senna/Docusate Sodium 8.6/50 MG Tablet PO SCH ×2 (10:08→22:44)
--- NOTE | 2018-04-02 11:17 | P.PNFP ---
Subjective Interval history: Patient was seen this morning at bed side and reported to be feeling "okay". There were no acute events overnight. This morning the patient reported that he experienced cramping of his stomach after dialysis yesterday which he attributed to "too much fluid being taken off". He reports loss of appetite as well as altered taste of food. Patient shared frustration about having to have his PermCath placed in patient as he was scheduled to have it placed outpatient during his stay and missed his appointments. He says he mentioned this to providers and felt like he was not being heard. We spoke with the patient at length and gave him assurance. All questions were answered to his satisfaction. He also reports urinating regularly without issues. He reports passing a normal bowel movement yesterday and denies any pain, nausea, vomiting, fevers, chills or shortness of breath <Kaden Kelley O - 04/02/18 12:00> Results - Labs Result diagrams: 04/03/18 04:16 04/03/18 04:16 <Bladimir Stiles R - 04/03/18 12:47> Abnormal lab results 04/03/18 04/03/18 Range/Units 04:16 04:16 WBC 14.8 H (4.0-11.0) th/mm3 Monocytes % (Manual) 15 H (0-8) % Myelocytes % (Man) 1 H (0-0) % Abs Neuts (Manual) 10.1 H (1.8-7.7) th/mm3 Sodium 135 L (136-145) meq/L Chloride 95 L (98-107) meq/L Carbon Dioxide 19.9 L (21.0-32.0) meq/L Anion Gap 20 H (5-15) meq/L BUN 83 H (7-18) mg/dL Creatinine 10.87 H* D (0.60-1.30) mg/dL Estimated GFR 6 L (>89) mL/min Total Bilirubin 2.7 H (0.2-1.0) mg/dL AST 655 H (15-37) U/L ALT 599 H (12-78) U/L Alkaline Phosphatase 135 H (45-117) U/L Total Protein 8.6 H D (6.4-8.2) g/dL Short CBC 07/04/18 Range/Units 04:16 WBC 14.8 H (4.0-11.0) th/mm3 Hgb 13.9 (13.0-17.0) gm/dL Hct 43.4 (39.0-51.0) % Plt Count 182 (150-450) th/mm3 BMP 04/03/18 04:16 Sodium 135 L Potassium 4.9 Chloride 95 L Carbon Dioxide 19.9 L BUN 83 H Creatinine 10.87 H* D Calcium 9.8 Liver Function 04/03/18 Range/Units 04:16 Total Bilirubin 2.7 H (0.2-1.0) mg/dL AST 655 H (15-37) U/L ALT 599 H (12-78) U/L Alkaline Phosphatase 135 H (45-117) U/L Albumin 4.3 (3.4-5.0) g/dL <Bladimir Stiles R - 04/03/18 12:47> Abnormal lab results 04/02/18 04/02/18 04/02/18 Range/Units 06:27 06:27 06:27 WBC 14.9 H (4.0-11.0) th/mm3 RBC 4.25 L (4.50-5.90) mil/mm3 Hgb 12.3 L (13.0-17.0) gm/dL Hct 37.7 L (39.0-51.0) % [place] % (Auto) 13.2 H (0.0-8.0) % Neut # (Auto) 9.4 H (1.8-7.7) th/mm3 [place] # (Auto) 2.0 H (0.0-0.9) th/mm3 Band Neuts % (Manual) 20 H (0-6) % Monocytes % (Manual) 13 H (0-8) % Myelocytes % (Man) 1 H (0-0) % Abs Neuts (Manual) 10.9 H (1.8-7.7) th/mm3 PT 14.0 H (9.8-11.6) sec Chloride 97 L (98-107) meq/L Anion Gap 19 H (5-15) meq/L BUN 58 H (7-18) mg/dL Creatinine 8.27 H (0.60-1.30) mg/dL Estimated GFR 8 L (>89) mL/min Total Bilirubin 2.6 H (0.2-1.0) mg/dL AST 695 H (15-37) U/L ALT 549 H (12-78) U/L Short CBC 04/02/18 Range/Units 06:27 WBC 14.9 H (4.0-11.0) th/mm3 Hgb 12.3 L (13.0-17.0) gm/dL Hct 37.7 L (39.0-51.0) % Plt Count 163 (150-450) th/mm3 BMP 04/02/18 06:27 Sodium 138 Potassium 4.3 Chloride 97 L Carbon Dioxide 21.8 BUN 58 H Creatinine 8.27 H Calcium 9.3 D Liver Function 04/02/18 Range/Units 06:27 Total Bilirubin 2.6 H (0.2-1.0) mg/dL AST 695 H (15-37) U/L ALT 549 H (12-78) U/L Alkaline Phosphatase 106 (45-117) U/L Albumin 4.2 D (3.4-5.0) g/dL Blood cultures show no growth at 2 days H. Pylori stool antigen test pending Hep B DNA and Be pending <Kaden Kelley O - 04/02/18 17:39> - Imaging Impressions Venous Doppler Study 04/02/18 00:00 CONCLUSION: No evidence of deep venous thrombosis. <Bladimir Stiles R - 04/03/18 12:47> Vein Mapping Pending <Kaden Kelley O - 04/02/18 17:39> Physical Exam Vital signs: Vital Signs 04/02/18 16:00 04/02/18 20:00 04/03/18 00:38 Temperature 98.1 F 98.3 F 98.1 F Pulse Rate 98 H 98 H 98 H Respiratory Rate 18 18 20 Blood Pressure 126/77 126/81 117/76 Pulse Oximetry 94 L 95 96 04/03/18 08:00 Temperature 97.9 F Pulse Rate 100 H Respiratory Rate 17 Blood Pressure 118/70 Pulse Oximetry 95 Intake & Output 04/02/18 04/03/18 04/03/18 18:59 06:59 18:59 Intake Total 600 / 600 580 / 580 Balance 600 / 600 580 / 580 Weight 110.5 kg Intake: Oral 600 / 600 580 / 580 Other: # Voids 0 Date of Last Bowel Movement 04/02/18 # Bowel Movements 1 1 <Bladimir Stiles R - 04/03/18 12:47> Vital Signs 04/01/18 12:00 04/01/18 18:21 04/01/18 20:00 Temperature 98.5 F 98.0 F 97.9 F Pulse Rate 103 H 111 H 103 H Respiratory Rate 19 20 18 Blood Pressure 123/68 107/66 103/62 Pulse Oximetry 95 98 04/02/18 00:00 04/02/18 08:00 Temperature 98 F 98.5 F Pulse Rate 107 H 101 H Respiratory Rate 18 18 Blood Pressure 105/62 113/68 Pulse Oximetry 95 95 Intake & Output 04/01/18 04/02/18 04/02/18 18:59 06:59 18:59 Intake Total 620 / 620 240 / 240 Output Total 3000 / 3000 Balance -2380 / -2380 240 / 240 Weight 110 kg Intake: Oral 620 / 620 240 / 240 Output: Hemodialysis Amount 3000 / 3000 Other: # Voids 2 2 Date of Last Bowel Movement 04/02/18 # Bowel Movements 3 1 <Kaden Kelley Rohit 04/02/18 11:17> - Constitutional no acute distress, obese, cooperative, agitated <KelleyKaden Rohit 04/02/18 11: 32> - Routine HEENT Exam Head: Present: normocephalic, atraumatic <Kaden Kelley 04/02/18 11:32> - Routine Respiratory Exam Present: CTA bilaterally. Absent: rhonchi, stridor, wheezes, crackles <Kelley Kaden Rohit 04/02/18 11:32> - Routine Cardiovascular Exam Present: RRR, S1, S2. Absent: murmur, gallop, rubs <AllieKaden Rohit 04/02/18 11:32> - Routine Abdominal Exam Present: soft, normoactive bowel sounds. Absent: tenderness, distended, rebound , guarding <KelleyKaden Rohit 04/02/18 11:32> - Routine Extremities Exam Absent: cyanosis, clubbing, edema <KelleyKaden 04/02/18 11:32> - Routine Skin Exam Present: intact, dry. Absent: cyanosis <KelleyKaden 04/02/18 11:32> - Routine Neurological Exam Present: alert, oriented X3, normal speech. Absent: sensory deficit, motor deficit <Kaden Kelley 04/02/18 11:32> - Detailed Neurological Exam: Coma Scale Eye Opening: Spontaneous <Kaden Kelley 04/02/18 11:32> Verbal Response: Oriented <Kaden Kelley 04/02/18 11:32> Motor Response: Obey commands <Kaden Kelley 04/02/18 11:32> [place] Coma Scale Total: 15 <Kaden Kelley 04/02/18 17:41> - Routine Psychiatric Exam Present: normal affect, normal thought process, agitated (Patient shared frustation of missing outpatient appointment and not being heard.) <Kaden Kelley 04/02/18 11:32> Assessment and Plan - Assessment (1) Acute renal failure (ARF) Code(s): N17.9 - Acute kidney failure, unspecified Status: Acute (2) Hepatitis B Code(s): B19.10 - Unspecified viral hepatitis B without hepatic coma Status: Chronic (3) End stage renal disease Code(s): N18.6 - End stage renal disease Status: Chronic (4) Metabolic acidosis with normal anion gap and bicarbonate losses Code(s): E87.2 - Acidosis Status: Resolved (5) Hypertension Code(s): I10 - Essential (primary) hypertension Status: Acute (6) GERD (gastroesophageal reflux disease) Code(s): K21.9 - Gastro-esophageal reflux disease without esophagitis Status: Acute (7) Acute diarrhea Code(s): R19.7 - Diarrhea, unspecified Status: Resolved <HnoeynikkoBladimir R - 04/03/18 12:47> (1) Acute renal failure (ARF) Code(s): N17.9 - Acute kidney failure, unspecified Status: Acute Plan: This patient is suffering from end stage renal disease and was admitted in the setting of symptomatic uremia. Nephrology is currently following. Patient was dialyzed yesterday and is on a MWF schedule. Per nephrology permacath will be placed once patient white blood cell count is within normal limits. - Continue dialysis as recommended by nephrology team - Trend BMP - Renal Diet - Per nephrology do not access left arm for vein mapping and perm cath placement - Will need perm cath placement prior to discharge (2) Hepatitis B Code(s): B19.10 - Unspecified viral hepatitis B without hepatic coma Status: Chronic Plan: HBsAg positive without IgM, consistent with chronic hepatitis B. AST/ALT have almost doubled in the last 48 hours raising question of acute vs chronic hepatic pathology. GI following, LFTs will be trended as well as work up for hereditary hemochromatosis DNA lab. - Continue to trend LFTs until Hep B work up complete per GI - Follow up with [facility] labs - Has appt with GI (Dr. Chaney) on April 24. - HBeAg and Ab, Total Core Ab pending (3) End stage renal disease Code(s): N18.6 - End stage renal disease Status: Chronic Plan: Per nephrology will need chronic dialysis. Will have vein mapping in left arm for perm cath placement. - Continue dialysis per nephrology - Do not access left arm - Dietary consult for renal diet education (4) Metabolic acidosis with normal anion gap and bicarbonate losses Code(s): E87.2 - Acidosis Status: Resolved Plan: Secondary to renal disease, now resolved. Anion gap now at 16. Bicarb at 21.2 today. Nephrology recommending dialysis today. - Dialyze as recommended by nephrology - Follow BMP (5) Hypertension Code(s): I10 - Essential (primary) hypertension Status: Acute Plan: Holding home hypertensives for now due to low BP after dialysis. Will monitor and resume as needed. - Labetalol PRN in BP at or over 180/ 100 (6) GERD (gastroesophageal reflux disease) Code(s): K21.9 - Gastro-esophageal reflux disease without esophagitis Status: Acute Plan: Continue Pepcid dosed renally (7) Acute diarrhea Code(s): R19.7 - Diarrhea, unspecified Status: Resolved Plan: Patient was confirmed C Diff negative. Per patient has had 1 bowel movement yesterday and today. <Kaden Kelley O - 04/02/18 17:41> - Attending Attestation The evaluation, assessment and plan was discussed with the resident physician and I am in agreement with continued medical care as documented in this encounter. <Bladimir Stiles R - 04/03/18 12:47> <Kaden Kelley O - Last Filed: 04/02/18 17:41> (1) Acute renal failure (ARF) Qualifiers: Acute renal failure type: unspecified Qualified Code(s): N17.9 - Acute kidney failure, unspecified (5) Hypertension Qualifiers: Hypertension type: renovascular hypertension Qualified Code(s): I15.0 - Renovascular hypertension <Bladimir Stiles R - Last Filed: 04/03/18 12:47> (1) Acute renal failure (ARF) Qualifiers: Qualified Code(s): N17.9 - Acute kidney failure, unspecified (5) Hypertension Qualifiers: Qualified Code(s): I15.0 - Renovascular hypertension <Kaden Kelley O - Last Filed: 04/02/18 17:41> (1) Acute renal failure (ARF) Qualifiers: Acute renal failure type: unspecified Qualified Code(s): N17.9 - Acute kidney failure, unspecified (5) Hypertension Qualifiers: Hypertension type: renovascular hypertension Qualified Code(s): I15.0 - Renovascular hypertension <Bladimir Stiles R - Last Filed: 04/03/18 12:47> (1) Acute renal failure (ARF) Qualifiers: Qualified Code(s): N17.9 - Acute kidney failure, unspecified (5) Hypertension Qualifiers: Qualified Code(s): I15.0 - Renovascular hypertension
--- NOTE | 2018-04-02 12:11 | US ---
EXAM DATE: 04/02/2018 11:56 AM EDT AGE/SEX: 47 years / Male INDICATIONS: Preop arteriovenous fistula. CLINICAL DATA: This is the patient's initial encounter. Patient reports that signs and symptoms have been present for 2 days and indicates a pain score of 0/10. MEDICAL/SURGICAL HISTORY: Gastroesophageal reflux disease. Hypertension. CVA. Ulcer. Anemia. M easles. . Right leg vein stripping. Right testicular torsion repair. Left kidney biopsy. Bilateral k nee surgery. COMPARISON: [facility] – [place], US VENOUS DOPPLER ARM BI, 04/02/2018. . MEASUREMENTS: RIGHT: CEPHALIC: Origin:__2 mm Mid-Arm:__2 mm Elbow:__2 mm Forearm:__3 mm Wrist:__3 mm BASILIC: Origin:__4 mm Mid-Arm:__4 mm Elbow:__3 mm ARTERIES: Brachial:__4 mm Ulnar:__2 mm Radial:__2 mm VEINS: Radial:__1 mm Ulnar:__1 mm LEFT: CEPHALIC: Origin:__1 mm Mid-Arm:__1 mm Elbow:__1 mm Forearm:__2 mm Wrist:__1 mm BASILIC: Origin:__3 mm Mid-Arm:__3 mm Elbow:__2 mm ARTERIES: Brachial:__4 mm Ulnar:__2 mm Radial:__3 mm VEINS: Radial:__1 mm Ulnar:__1 mm FINDINGS: The venous system of the upper extremities are patent by color Doppler imaging. Measurements of the arm veins (in mm) are listed above. CONCLUSION: 1. Venous mapping as above Electronically signed by: Giovani Randolph MD 04/02/2018 12:10 PM EDT
--- NOTE | 2018-04-02 14:09 | P.PNCA ---
- Note Subjective/Hospital Course: Covering for Dr. Hummel 47-year-old male with advanced nephropathy and chronic renal failure and dialysis. Admitted to hospital for related issues of medical morbidity now improved and out of ICU. Patient needs permanent access for dialysis. I reviewed the ultrasound of the arm and patient has a very tiny veins of the arteries which are totally unsuitable for any type of vascular access as far as AV fistula is concerned, even in the upper arm. Dr. Hummel will be back tomorrow to resume the care for this particular problem. Thanks J Objective: Vital Signs - 24 hr 04/01/18 18:21 04/01/18 20:00 04/02/18 00:00 Temperature 98.0 F 97.9 F 98 F Pulse Rate 111 H 103 H 107 H Respiratory Rate 20 18 18 Blood Pressure 107/66 103/62 105/62 Pulse Oximetry 98 95 04/02/18 08:00 04/02/18 12:00 Temperature 98.5 F 98.1 F Pulse Rate 101 H 106 H Respiratory Rate 18 18 Blood Pressure 113/68 109/70 Pulse Oximetry 95 93 L Labs: Laboratory Results - last 12 hr 04/02/18 04/02/18 04/02/18 06:27 06:27 06:27 WBC 14.9 H RBC 4.25 L Hgb 12.3 L Hct 37.7 L MCV 88.8 MCH 28.9 MCHC 32.6 RDW 14.5 Plt Count 163 MPV 10.1 Prelim Diff (Auto) Slide review pending Neut % (Auto) 63.0 Lymph % (Auto) 20.4 [place] % (Auto) 13.2 H Eos % (Auto) 3.0 Baso % (Auto) 0.4 Neut # (Auto) 9.4 H Lymph # (Auto) 3.1 [place] # (Auto) 2.0 H Eos # (Auto) 0.4 Baso # (Auto) 0.1 WBC Differential Manual diff final Seg Neuts % (Manual) 51 Band Neuts % (Manual) 20 H Lymphocytes % (Manual) 10 Monocytes % (Manual) 13 H Eosinophils % (Manual) 4 Metamyelocytes % (Man) 1 Myelocytes % (Man) 1 H Abs Neuts (Manual) 10.9 H Differential Comment . Platelet Estimate Normal Platelet Morphology Normal PT 14.0 H INR 1.4 Sodium 138 Potassium 4.3 Chloride 97 L Carbon Dioxide 21.8 Anion Gap 19 H BUN 58 H Creatinine 8.27 H Estimated GFR 8 L Random Glucose 104 Calcium 9.3 D Total Bilirubin 2.6 H AST 695 H ALT 549 H Alkaline Phosphatase 106 Total Protein 7.9 D Albumin 4.2 D Result Diagrams: 04/02/18 06:27 04/02/18 06:27
--- NOTE | 2018-04-02 15:22 | P.CONGI ---
History of Present Illness Consult date: 04/02/18 Consult reason: Hepatitis B, increasing LFTs Chief complaint: Acute Renal Failure Metabolic Acidosis, Diarrhea History of Present Illness: This is a 47 year old AA male who presented to the ER with complaints of diarrhea x 2 days. Admitted to the hospital with ARF on ESRD on HD. Our service has been consulted to evaluate pt for elevated LFTs with positive Hep C antibody. Pt is known to our service outpatient, last seen in the clinic in January and was advised to repeat EGD for history of Barretts esophagus. EGD on February 27 --> Class A esophagitis noted, mild gastritis in the gastric antrum, normal duodenal mucosa in the bulb and second portion of the duodenum. Pathology (gastric antral mucosa) mild to moderate chronic gastritis negative for intestinal metaplasia and dysplasia, Elizabeth inconclusive for H Pylori (GE) moderate acute and chronic inflammatory changes consistent with reflux negative for intestinal metaplasia and dysplasia. Treatment with abx and PPI was sent in by the office and pt was notified, pt is a poor historian and it is unclear whether or not he took the treatment. Colonoscopy in July 2016 --> Diminutive polyp in the rectum, pathology revealed hyperplastic polyp. He has been noted to have elevated LFTs in the office, Hep B surface antigen (+), quant 1070 in January. Pt was advised to have Fibrosure test done, no results in chart. Pt complains of decreased appetite and inability to taste at his time. Denies any nausea and vomiting. States some abdominal pain after dialysis yesterday, believes too much fluid was taken off. Reports his BMs are normal now. Denies ETOH. <Una Jovel - Last Filed: 04/02/18 14:59> Chief complaint: Acute Renal Failure Metabolic Acidosis, Diarrhea <Daysi Nelson - Last Filed: 04/02/18 18:01> Review of Systems Gastrointestinal: Denies abdominal pain, Denies change in bowel habits, Denies constipation, Denies incontinent of stools, Denies loose stools, Denies nausea, Denies vomiting <Una Jovel - Last Filed: 04/02/18 14:59> Medications and Allergies Active Medications: Active Medications Acetaminophen (Tylenol) 650 mg PO UNSCH PRN PRN Reason: SEE LABEL COMMENTS Al Hydroxide/Mg Hydroxide (Milk Of Magnesia Liq) 30 ml PO Q12H PRN PRN Reason: MILD CONSTIPATION Albuterol (Duoneb Neb (Prn)) 1 ampul INH Q4HR NEB PRN PRN Reason: WHEEZING Last Admin: 03/31/18 16:22 Dose: 1 ampul Bisacodyl (Dulcolax Supp) 10 mg RECTAL DAILY PRN PRN Reason: SEVERE CONSITIPATION Chlorhexidine Gluconate (Chlorhexidine 2% Cloth) 3 pack TOPICAL DAILY@0400 [facility] Stop: 04/05/18 03:59 Last Admin: 04/02/18 05:29 Dose: Not Given Chlorhexidine Gluconate (Chlorhexidine 2% Cloth) 3 pack TOPICAL DAILY@0400 PRN PRN Reason: Extra cloth needed Stop: 04/05/18 03:59 Clonidine HCl (Catapres) 0.1 mg PO UNSCH PRN PRN Reason: SEE LABEL COMMENTS Diphenhydramine HCl (Benadryl) 25 mg PO UNSCH PRN PRN Reason: SEE LABEL COMMENTS Famotidine (Pepcid) 10 mg PO Q12HR [facility] Last Admin: 04/02/18 10:06 Dose: 10 mg Gelatin (Gelfoam 12 Mm/7 Mm Topical) 1 foam TOPICAL PRN PRN PRN Reason: help stop bleeding from site Gentamicin Sulfate (Gentamicin Inj) 20 mg OTHER WITH DIALYSIS PRN PRN Reason: Dwell Gentamycin Lock Last Admin: 04/01/18 18:10 Dose: 20 mg Heparin Sodium (Porcine) (Heparin Inj) 5,000 units SQ Q8HR [facility] Last Admin: 04/02/18 13:16 Dose: Not Given Heparin Sodium (Porcine) (Heparin Inj) 8,000 units IV.FLUSH WITH DIALYSIS PRN PRN Reason: for machine prime Heparin Sodium (Porcine) (Heparin Inj) 0 units OTHER WITH DIALYSIS PRN PRN Reason: Dwell Heparin to Fill Catheter Albumin Human (Flexbumin 25% Inj) 60 mls @ 60 mls/hr IV.SIG UNSCH PRN PRN Reason: WITH DIALYSIS Sodium Chloride (Ns Inj) 1,000 mls @ 0 mls/hr OTHER .Q0M PRN PRN Reason: for prime and rinse back Sodium Chloride (Ns Inj) 1,000 mls @ 200 mls/hr OTHER .Q5H PRN PRN Reason: for dialyzer flush PRN Sodium Chloride (Ns Inj) 1,000 mls @ 0 mls/hr IV.CONT .Q0M PRN PRN Reason: hypotension / volume replace Sodium Bicarbonate 154 meq/ (Sodium Chloride) 1,000 mls @ 0 mls/hr IV.SIG .Q0M [facility]; Protocol Sodium Chloride (Ns Inj) 1,000 mls @ 200 mls/hr OTHER .Q5H PRN PRN Reason: for dialyzer flush PRN Labetalol HCl (Trandate Inj) 10 mg IV.PUSH Q6H PRN PRN Reason: SBP>160, DBP>90 Lactulose (Lactulose Liq) 30 ml PO DAILY PRN PRN Reason: SEVERE CONSITIPATION Mannitol (Mannitol Inj) 12.5 gm IV.PUSH PRN PRN PRN Reason: hypotension / volume replace Nitroglycerin (Nitrostat Sl) 0.4 mg SL Q5M PRN PRN Reason: CHEST PAIN Ondansetron HCl (Zofran Odt) 4 mg PO Q6H PRN PRN Reason: NAUSEA OR VOMITING Last Admin: 04/02/18 10:12 Dose: 4 mg Ondansetron HCl (Zofran Inj) 4 mg IV.PUSH UNSCH PRN PRN Reason: NAUSEA OR VOMITING Senna/Docusate Sodium (Makenzie-Colace) 1 tab PO BID [facility] Last Admin: 04/02/18 10:08 Dose: Not Given Sennosides (Senokot) 17.2 mg PO Q12H PRN PRN Reason: MODERATE CONSTIPATION Sodium Chloride (Ns Flush) 2 ml IV.FLUSH UNSCH PRN PRN Reason: FLUSH AFTER USING IV ACCESS Sodium Chloride (Ns Flush) 2 ml IV.FLUSH BID [facility] Last Admin: 04/02/18 10:08 Dose: 2 ml Sodium Chloride (Ns Flush) 5 ml IV.FLUSH PRN PRN PRN Reason: flush each lumen during HD <Una Jovel - Last Filed: 04/02/18 14:59> Active Medications: Active Medications Acetaminophen (Tylenol) 650 mg PO UNSCH PRN PRN Reason: SEE LABEL COMMENTS Al Hydroxide/Mg Hydroxide (Milk Of Magnesia Liq) 30 ml PO Q12H PRN PRN Reason: MILD CONSTIPATION Albuterol (Duoneb Neb (Prn)) 1 ampul INH Q4HR NEB PRN PRN Reason: WHEEZING Last Admin: 03/31/18 16:22 Dose: 1 ampul Bisacodyl (Dulcolax Supp) 10 mg RECTAL DAILY PRN PRN Reason: SEVERE CONSITIPATION Chlorhexidine Gluconate (Chlorhexidine 2% Cloth) 3 pack TOPICAL DAILY@0400 [place] Stop: 04/05/18 03:59 Last Admin: 04/02/18 05:29 Dose: Not Given Chlorhexidine Gluconate (Chlorhexidine 2% Cloth) 3 pack TOPICAL DAILY@0400 PRN PRN Reason: Extra cloth needed Stop: 04/05/18 03:59 Clonidine HCl (Catapres) 0.1 mg PO UNSCH PRN PRN Reason: SEE LABEL COMMENTS Diphenhydramine HCl (Benadryl) 25 mg PO UNSCH PRN PRN Reason: SEE LABEL COMMENTS Famotidine (Pepcid) 10 mg PO Q12HR [facility] Last Admin: 04/02/18 10:06 Dose: 10 mg Gelatin (Gelfoam 12 Mm/7 Mm Topical) 1 foam TOPICAL PRN PRN PRN Reason: help stop bleeding from site Gentamicin Sulfate (Gentamicin Inj) 20 mg OTHER WITH DIALYSIS PRN PRN Reason: Dwell Gentamycin Lock Last Admin: 04/01/18 18:10 Dose: 20 mg Heparin Sodium (Porcine) (Heparin Inj) 5,000 units SQ Q8HR [facility] Last Admin: 04/02/18 13:16 Dose: Not Given Heparin Sodium (Porcine) (Heparin Inj) 8,000 units IV.FLUSH WITH DIALYSIS PRN PRN Reason: for machine prime Heparin Sodium (Porcine) (Heparin Inj) 0 units OTHER WITH DIALYSIS PRN PRN Reason: Dwell Heparin to Fill Catheter Albumin Human (Flexbumin 25% Inj) 60 mls @ 60 mls/hr IV.SIG UNSCH PRN PRN Reason: WITH DIALYSIS Sodium Chloride (Ns Inj) 1,000 mls @ 0 mls/hr OTHER .Q0M PRN PRN Reason: for prime and rinse back Sodium Chloride (Ns Inj) 1,000 mls @ 200 mls/hr OTHER .Q5H PRN PRN Reason: for dialyzer flush PRN Sodium Chloride (Ns Inj) 1,000 mls @ 0 mls/hr IV.CONT .Q0M PRN PRN Reason: hypotension / volume replace Sodium Bicarbonate 154 meq/ (Sodium Chloride) 1,000 mls @ 0 mls/hr IV.SIG .Q0M [facility]; Protocol Sodium Chloride (Ns Inj) 1,000 mls @ 200 mls/hr OTHER .Q5H PRN PRN Reason: for dialyzer flush PRN Labetalol HCl (Trandate Inj) 10 mg IV.PUSH Q6H PRN PRN Reason: SBP>160, DBP>90 Lactulose (Lactulose Liq) 30 ml PO DAILY PRN PRN Reason: SEVERE CONSITIPATION Mannitol (Mannitol Inj) 12.5 gm IV.PUSH PRN PRN PRN Reason: hypotension / volume replace Nitroglycerin (Nitrostat Sl) 0.4 mg SL Q5M PRN PRN Reason: CHEST PAIN Ondansetron HCl (Zofran Odt) 4 mg PO Q6H PRN PRN Reason: NAUSEA OR VOMITING Last Admin: 04/02/18 10:12 Dose: 4 mg Ondansetron HCl (Zofran Inj) 4 mg IV.PUSH UNSCH PRN PRN Reason: NAUSEA OR VOMITING Senna/Docusate Sodium (Makenzie-Colace) 1 tab PO BID [facility] Last Admin: 04/02/18 10:08 Dose: Not Given Sennosides (Senokot) 17.2 mg PO Q12H PRN PRN Reason: MODERATE CONSTIPATION Sodium Chloride (Ns Flush) 2 ml IV.FLUSH UNSCH PRN PRN Reason: FLUSH AFTER USING IV ACCESS Sodium Chloride (Ns Flush) 2 ml IV.FLUSH BID [facility] Last Admin: 04/02/18 10:08 Dose: 2 ml Sodium Chloride (Ns Flush) 5 ml IV.FLUSH PRN PRN PRN Reason: flush each lumen during HD <Daysi Nelson - Last Filed: 04/02/18 18:01> Allergies Allergy/AdvReac Type Severity Reaction Status Date / Time No Known Allergies AdvReac Unknown Uncoded 03/17/18 20:50 Home Medications Medication Instructions Recorded Confirmed Type doxazosin 2 mg PO DAILY 03/30/18 03/30/18 History lansoprazole 30 mg PO BID 03/30/18 03/30/18 History metoprolol tartrate 50 mg PO DAILY 03/30/18 03/30/18 History nifedipine 30 mg PO BID 03/30/18 03/30/18 History prednisone 20 mg PO BID 03/30/18 03/30/18 History ranitidine HCl 150 mg PO DAILY 03/30/18 03/30/18 History Exam Vital signs: Vital Signs 04/01/18 18:21 04/01/18 20:00 04/02/18 00:00 Temperature 98.0 F 97.9 F 98 F Pulse Rate 111 H 103 H 107 H Respiratory Rate 20 18 18 Blood Pressure 107/66 103/62 105/62 Pulse Oximetry 98 95 04/02/18 08:00 04/02/18 12:00 Temperature 98.5 F 98.1 F Pulse Rate 101 H 106 H Respiratory Rate 18 18 Blood Pressure 113/68 109/70 Pulse Oximetry 95 93 L Intake & Output 04/01/18 04/02/18 04/02/18 18:59 06:59 18:59 Intake Total 620 / 620 240 / 240 Output Total 3000 / 3000 Balance -2380 / -2380 240 / 240 Weight 110 kg Intake: Oral 620 / 620 240 / 240 Output: Hemodialysis Amount 3000 / 3000 Other: # Voids 2 2 Date of Last Bowel Movement 04/02/18 # Bowel Movements 3 1 - Constitutional no acute distress - Routine HEENT Exam Head: Present: normocephalic, atraumatic - Routine Respiratory Exam Present: decreased breath sounds. Absent: accessory muscle use - Routine Cardiovascular Exam Present: RRR - Routine Abdominal Exam Present: soft, normoactive bowel sounds. Absent: tenderness, rebound, guarding Comments: Obese - Routine Neurological Exam Present: alert, oriented X3 <Una Jovel - Last Filed: 04/02/18 14:59> Vital signs: Vital Signs 04/01/18 18:21 04/01/18 20:00 04/02/18 00:00 Temperature 98.0 F 97.9 F 98 F Pulse Rate 111 H 103 H 107 H Respiratory Rate 20 18 18 Blood Pressure 107/66 103/62 105/62 Pulse Oximetry 98 95 04/02/18 08:00 04/02/18 12:00 04/02/18 16:00 Temperature 98.5 F 98.1 F 98.1 F Pulse Rate 101 H 106 H 98 H Respiratory Rate 18 18 18 Blood Pressure 113/68 109/70 126/77 Pulse Oximetry 95 93 L 94 L Intake & Output 07/11/1804/02/18 04/02/18 18:59 06:59 18:59 Intake Total 620 / 620 240 / 240 Output Total 3000 / 3000 Balance -2380 / -2380 240 / 240 Weight 110 kg Intake: Oral 620 / 620 240 / 240 Output: Hemodialysis Amount 3000 / 3000 Other: # Voids 2 2 Date of Last Bowel Movement 04/02/18 # Bowel Movements 3 1 <Daysi Nelson - Last Filed: 04/02/18 18:01> Results - Labs CBC & Chem 7: 04/02/18 06:27 04/02/18 06:27 Labs: Laboratory Results - last 24 hr 04/02/18 04/02/18 04/02/18 06:27 06:27 06:27 WBC 14.9 H RBC 4.25 L Hgb 12.3 L Hct 37.7 L MCV 88.8 MCH 28.9 MCHC 32.6 RDW 14.5 Plt Count 163 MPV 10.1 Prelim Diff (Auto) Slide review pending Neut % (Auto) 63.0 Lymph % (Auto) 20.4 Hood % (Auto) 13.2 H Eos % (Auto) 3.0 Baso % (Auto) 0.4 Neut # (Auto) 9.4 H Lymph # (Auto) 3.1 Hood # (Auto) 2.0 H Eos # (Auto) 0.4 Baso # (Auto) 0.1 WBC Differential Manual diff final Seg Neuts % (Manual) 51 Band Neuts % (Manual) 20 H Lymphocytes % (Manual) 10 Monocytes % (Manual) 13 H Eosinophils % (Manual) 4 Metamyelocytes % (Man) 1 Myelocytes % (Man) 1 H Abs Neuts (Manual) 10.9 H Differential Comment . Platelet Estimate Normal Platelet Morphology Normal PT 14.0 H INR 1.4 Sodium 138 Potassium 4.3 Chloride 97 L Carbon Dioxide 21.8 Anion Gap 19 H BUN 58 H Creatinine 8.27 H Estimated GFR 8 L Random Glucose 104 Calcium 9.3 D Total Bilirubin 2.6 H AST 695 H ALT 549 H Alkaline Phosphatase 106 Total Protein 7.9 D Albumin 4.2 D - Imaging Impressions Upper Extremity Ultrasound 04/02/18 00:00 CONCLUSION: 1. Venous mapping as above <Una Jovel - Last Filed: 04/02/18 14:59> - Labs CBC & Chem 7: 04/02/18 06:27 04/02/18 06:27 Labs: Laboratory Results - last 24 hr 04/02/18 04/02/18 04/02/18 06:27 06:27 06:27 WBC 14.9 H RBC 4.25 L Hgb 12.3 L Hct 37.7 L MCV 88.8 MCH 28.9 MCHC 32.6 RDW 14.5 Plt Count 163 MPV 10.1 Prelim Diff (Auto) Slide review pending Neut % (Auto) 63.0 Lymph % (Auto) 20.4 Hood % (Auto) 13.2 H Eos % (Auto) 3.0 Baso % (Auto) 0.4 Neut # (Auto) 9.4 H Lymph # (Auto) 3.1 Hood # (Auto) 2.0 H Eos # (Auto) 0.4 Baso # (Auto) 0.1 WBC Differential Manual diff final Seg Neuts % (Manual) 51 Band Neuts % (Manual) 20 H Lymphocytes % (Manual) 10 Monocytes % (Manual) 13 H Eosinophils % (Manual) 4 Metamyelocytes % (Man) 1 Myelocytes % (Man) 1 H Abs Neuts (Manual) 10.9 H Differential Comment . Platelet Estimate Normal Platelet Morphology Normal PT 14.0 H INR 1.4 Sodium 138 Potassium 4.3 Chloride 97 L Carbon Dioxide 21.8 Anion Gap 19 H BUN 58 H Creatinine 8.27 H Estimated GFR 8 L Random Glucose 104 Calcium 9.3 D Total Bilirubin 2.6 H AST 695 H ALT 549 H Alkaline Phosphatase 106 Total Protein 7.9 D Albumin 4.2 D - Imaging Impressions Upper Extremity Ultrasound 04/02/18 00:00 CONCLUSION: 1. Venous mapping as above Venous Doppler Study 04/02/18 00:00 CONCLUSION: No evidence of deep venous thrombosis. <Daysi Nelson - Last Filed: 04/02/18 18:01> Assessment and Plan (1) Hepatitis B Status: Chronic Code(s): B19.10 - Unspecified viral hepatitis B without hepatic coma (2) Acute diarrhea Status: Resolved Code(s): R19.7 - Diarrhea, unspecified - Plan Assessment: - Elevated LFTs, increasing- seen by our service on 03/30 Pt noted to have positive Hepatitis surface antigen, negative surface and core antibody. Quant pending. Rest of liver work up is also pending Pt denies any history of liver issues, however he is a poor historian. Seen by our service in January of this year Hep B surface antigen (+), quant 1070 in January. Pt was advised to have Fibrosure test done, no results in chart. Pt unsure of how he got Hepatitis B. Denies ETOH Liver work up pending. Liver US (03/30) Mildly enlarged fatty liver. Right lower pole renal cyst measuring 2.1 cm. Poor visualization of pancreas due to shadowing bowel gas. - Complaints of acute diarrhea on arrival- now reports this has resolved. Denies nausea, vomiting. Some abdominal pain after dialysis yesterday, thinks too much fluid was removed C. Diff negative. EGD on February 27 --> Class A esophagitis noted, mild gastritis in the gastric antrum, normal duodenal mucosa in the bulb and second portion of the duodenum. Pathology (gastric antral mucosa) mild to moderate chronic gastritis negative for intestinal metaplasia and dysplasia, Elizabeth inconclusive for H Pylori (GE) moderate acute and chronic inflammatory changes consistent with reflux negative for intestinal metaplasia and dysplasia. Treatment with abx and PPI was sent in by the office and pt was notified, pt is a poor historian and it is unclear whether or not he took the treatment. Colonoscopy in July 2016 --> Diminutive polyp in the rectum, pathology revealed hyperplastic polyp. Plan: Liver work up pending including Hep B quant Add HFE Monitor LFTs Further recommendations based on clinical course Pt has been seen and examined by myself and Dr. Nelson and this note is written on his behalf <Una Jovel - Last Filed: 04/02/18 14:59> (1) Hepatitis B Status: Chronic Code(s): B19.10 - Unspecified viral hepatitis B without hepatic coma (2) Acute diarrhea Status: Resolved Code(s): R19.7 - Diarrhea, unspecified - Attending Attestation seen, examined agree with above we will monitor for now, pending work-up consider liver biopsy if lfts worsening as per patient he was recently given antibiotics for h.pylori, developed rash, itching , possible drug induced elevation of lfts on background of hep b we will start Actigall <Daysi Nelson - Last Filed: 04/02/18 18:01>
--- NOTE | 2018-04-02 16:56 | US ---
EXAM DATE: 04/02/2018 11:52 AM EDT AGE/SEX: 47 years / Male INDICATIONS: Bilateral arm edema. Arteriovenous fistula placement. CLINICAL DATA: This is the patient's initial encounter. Patient reports that signs and symptoms have been present for 2 days and indicates a pain score of 0/10. MEDICAL/SURGICAL HISTORY: . CVA. HTN. Ulcer. Anemia. GERD. . Right testicular torsion repair. Left kidney biopsy. Bilateral arthroscopic knee surgery. Right leg vein stripping. [place]PAR[place]: [facility] [place]. . FINDINGS: Right Upper Extremity: The vessels are compressible and augmentation response is documented. No fill ing defects are seen. The flow is phasic with respiration. Left Upper Extremity: The vessels are compressible and augmentation response is documented. No filli ng defects are seen. The flow is phasic with respiration. Other: None. CONCLUSION: No evidence of deep venous thrombosis. Electronically signed by: Giovani Randolph MD 04/02/2018 4:54 PM EDT
--- NOTE | 2018-04-02 17:20 | P.DIET ---
Nutritional Evaluation Type of nutrition evaluation: initial [place] [facility] [place] [facility] [place] Subjective Subjective Comments: Pt provided w/Nutrition Education for Renal 40meq K, 2g Na diet and Reading Food Labels. Pt has not questions during this visit. Pt says he has no appetite and no taste for food. Pt receptive to receiving Nepro supplement w/meals(= 425 kcal and 19.1g Protein per serving). Dietitian Contact info provided for additional questions as needed. Objective - Objective Dietitian Reviewed in Medical Record: Current diet, Curent medications, Intake & Output, Labs, Medical history Oral Diet Intake Amount: Fair 50-75% Objective Comments: 03/31/[place] [facility] [place]; Renal Diet Education. PMH includes ESRD on HD M-- , HTN, Hep B Labs Include: K 4.3, BUN 58, Creainine 8.27, estGFR 8.0 +1BM Assessment Assessment: Pt provided w/Nutrition Education for Renal 40meq K, 2g Na diet and Reading Food Labels. Pt has not questions during this visit. Pt says he has no appetite and no taste for food. Send Nepro supplement w/meals. Dietitian Contact info provided for additional questions as needed. Recommendations: 1.Nutrition Education for Renal 40meq K, 2g Na diet and Reading Food Labels 2.Send Nepro supplement w/meals 3.Dietitian Contact info provided for additional questions as needed
[2018-04-03 04:50] LABS: Hematocrit 43.4 % (39.0-51.0); Hemoglobin 13.9 gm/dL (13.0-17.0); Mean Corpuscular Hemoglobin 28.9 pg (27.0-34.0); Mean Corpuscular Volume 90.2 fL (80.0-100.0); Mean Platelet Volume 10.3 fL (7.0-11.0); Platelet Count 182 th/mm3 (150-450); Red Blood Count 4.81 mil/mm3 (4.50-5.90); Red Cell Distribution Width 14.8 % (11.6-17.2); White Blood Count 14.8 th/mm3 (4.0-11.0)
[2018-04-03 05:20] LABS: Alanine Aminotransferase 599 U/L (12-78); Albumin 4.3 g/dL (3.4-5.0); Alkaline Phosphatase 135 U/L (45-117); Anion Gap 20 meq/L (5-15); Aspartate Aminotransferase 655 U/L (15-37); Blood Urea Nitrogen 83 mg/dL (7-18); Calcium 9.8 mg/dL (8.5-10.1); Carbon Dioxide 19.9 meq/L (21.0-32.0); Chloride 95 meq/L (98-107); Glomerular Filtration Rate 6 mL/min (>89); Glucose,Random 103 mg/dL (74-106); Potassium 4.9 meq/L (3.5-5.1); Sodium 135 meq/L (136-145); Total Protein 8.6 g/dL (6.4-8.2)
[2018-04-03] MEDS: Heparin - SQ 10,000 UNITS/ML Vial SQ SCH ×3 (06:14→21:09)
[2018-04-03] MEDS: Chlorhexidine Gluconate 2% 1 Pack (2 Cloths) TOPICAL SCH (06:15)
[2018-04-03 08:38] LABS: Eosinophils 2 % (0-4); Lymphocytes 15 % (9-44); Monocytes 15 % (0-8); Myelocytes 1 % (0-0)
[2018-04-03 08:46] LABS: Platelet Estimate Normal (Normal); Platelet Morphology Normal (Normal); RBC Morphology Normal (Normal)
[2018-04-03] MEDS: Senna/Docusate Sodium 8.6/50 MG Tablet PO SCH ×2 (09:26→21:10)
[2018-04-03] MEDS: Famotidine 20 MG Tablet PO SCH ×2 (09:27→21:10)
--- NOTE | 2018-04-03 10:07 | P.PNNP ---
Subjective Interval history: Patient to have dialysis later today. He is afebrile, but leukocytosis is persistent. Physical Exam Vital signs: Vital Signs 04/02/18 12:00 04/02/18 16:00 04/02/18 20:00 Temperature 98.1 F 98.1 F 98.3 F Pulse Rate 106 H 98 H 98 H Respiratory Rate 18 18 18 Blood Pressure 109/70 126/77 126/81 Pulse Oximetry 93 L 94 L 95 04/03/18 00:38 04/03/18 08:00 Temperature 98.1 F 97.9 F Pulse Rate 98 H 100 H Respiratory Rate 20 17 Blood Pressure 117/76 118/70 Pulse Oximetry 96 95 Intake & Output 04/02/18 04/03/18 04/03/18 18:59 06:59 18:59 Intake Total 600 / 600 580 / 580 Balance 600 / 600 580 / 580 Weight 110.5 kg Intake: Oral 600 / 600 580 / 580 Other: # Voids 0 Date of Last Bowel Movement 04/02/18 # Bowel Movements 1 1 - Constitutional no acute distress - Routine HEENT Exam Head: Present: normocephalic, atraumatic ENT: Present: mucous membranes moist - Routine Neck Exam Present: supple. Absent: JVD, carotid bruit, lymphadenopathy - Routine Respiratory Exam Present: CTA bilaterally - Routine Cardiovascular Exam Present: RRR, S1, S2 - Routine Abdominal Exam Present: soft, normoactive bowel sounds. Absent: tenderness - Routine Extremities Exam Present: full ROM. Absent: edema - Routine Skin Exam Present: intact - Routine Neurological Exam Present: alert, oriented X3, CN II-XII intact - Routine Psychiatric Exam Present: normal affect Assessment and Plan - Assessment (1) End stage renal disease Code(s): N18.6 - End stage renal disease Status: Chronic Plan: Continue dialysis MWF.He is afebrile, leukocytosis could be non specific. We will get PermCath placed this week. Vascular surgery has been consulted for AVF placement. (2) Hypertension Code(s): I10 - Essential (primary) hypertension Status: Acute Qualifiers: Hypertension type: renovascular hypertension Qualified Code(s): I15.0 - Renovascular hypertension Plan: Continue present medications. BP is acceptable. (3) Acute diarrhea Code(s): R19.7 - Diarrhea, unspecified Status: Resolved Plan: Improving, C diff negative. Not on antibiotics. (4) Hepatitis B Code(s): B19.10 - Unspecified viral hepatitis B without hepatic coma Status: Chronic Plan: There was discussion about consulting ID to inquire about treatment vs outpatient follow up.
--- NOTE | 2018-04-03 11:22 | P.PNFP ---
Subjective Interval history: Patient was seen this morning at bed side and reported to be feeling "good". Patient reported some nausea and non-bilious, non-bloody vomiting after administration of a medication. He denies any nausea this morning. Overall patient says that he feels well but spoke again about his stomach cramping after dialysis and that his mouth still very dry which he still believes is due to his dialysis unloading too much fluid. Patient explained to the team that he believes he was told that his PermCath will be placed tomorrow, but we informed him of the venous mapping results showing that his veins/ arteries were not suitable for AV fistula at this time. Denies any pain, nausea, vomiting, fevers, chills or shortness of breath <Kaden Kelley O - 04/03/18 18:53> Results - Labs Result diagrams: 04/03/18 04:16 04/03/18 04:16 <Bladimir Stiles R - 04/04/18 11:58> Abnormal lab results 04/03/18 04/03/18 Range/Units 04:16 04:16 WBC 14.8 H (4.0-11.0) th/mm3 Monocytes % (Manual) 15 H (0-8) % Myelocytes % (Man) 1 H (0-0) % Abs Neuts (Manual) 10.1 H (1.8-7.7) th/mm3 Sodium 135 L (136-145) meq/L Chloride 95 L (98-107) meq/L Carbon Dioxide 19.9 L (21.0-32.0) meq/L Anion Gap 20 H (5-15) meq/L BUN 83 H (7-18) mg/dL Creatinine 10.87 H* D (0.60-1.30) mg/dL Estimated GFR 6 L (>89) mL/min Total Bilirubin 2.7 H (0.2-1.0) mg/dL AST 655 H (15-37) U/L ALT 599 H (12-78) U/L Alkaline Phosphatase 135 H (45-117) U/L Total Protein 8.6 H D (6.4-8.2) g/dL Short CBC 04/03/18 Range/Units 04:16 WBC 14.8 H (4.0-11.0) th/mm3 Hgb 13.9 (13.0-17.0) gm/dL Hct 43.4 (39.0-51.0) % Plt Count 182 (150-450) th/mm3 BMP 04/03/18 04:16 Sodium 135 L Potassium 4.9 Chloride 95 L Carbon Dioxide 19.9 L BUN 83 H Creatinine 10.87 H* D Calcium 9.8 Liver Function 04/03/18 Range/Units 04:16 Total Bilirubin 2.7 H (0.2-1.0) mg/dL AST 655 H (15-37) U/L ALT 599 H (12-78) U/L Alkaline Phosphatase 135 H (45-117) U/L Albumin 4.3 (3.4-5.0) g/dL <Kaden Kelley - 04/03/18 13:18> - Imaging Impressions Upper Extremity Ultrasound 04/02/18 00:00 CONCLUSION: 1. Venous mapping as above Venous Doppler Study 04/02/18 00:00 CONCLUSION: No evidence of deep venous thrombosis. <Kaden Kelley 04/03/18 18:53> Physical Exam Vital signs: Vital Signs 04/03/18 12:00 04/03/18 20:31 04/04/18 00:47 Temperature 98.1 F 97.8 F 98.8 F Pulse Rate 102 H 97 H 101 H Respiratory Rate 17 18 17 Blood Pressure 111/68 115/72 111/70 Pulse Oximetry 95 97 93 L 04/04/18 08:00 Temperature 97.5 F L Pulse Rate 98 H Respiratory Rate 17 Blood Pressure 123/64 Pulse Oximetry 95 Intake & Output 04/03/18 04/04/18 04/04/18 18:59 06:59 18:59 Intake Total 480 / 480 Output Total 1700 / 1700 Balance -1700 / -1700 480 / 480 Weight 110.5 kg Intake: Oral 480 / 480 Output: Hemodialysis Amount 1700 / 1700 Other: # Voids 0 <Bladimir Stiles R - 04/04/18 11:58> Vital Signs 04/02/18 12:00 04/02/18 16:00 04/02/18 20:00 Temperature 98.1 F 98.1 F 98.3 F Pulse Rate 106 H 98 H 98 H Respiratory Rate 18 18 18 Blood Pressure 109/70 126/77 126/81 Pulse Oximetry 93 L 94 L 95 04/03/18 00:38 04/03/18 08:00 Temperature 98.1 F 97.9 F Pulse Rate 98 H 100 H Respiratory Rate 20 17 Blood Pressure 117/76 118/70 Pulse Oximetry 96 95 Intake & Output 04/02/18 04/03/18 04/03/18 18:59 06:59 18:59 Intake Total 600 / 600 580 / 580 Balance 600 / 600 580 / 580 Weight 110.5 kg Intake: Oral 600 / 600 580 / 580 Other: # Voids 0 Date of Last Bowel Movement 04/02/18 # Bowel Movements 1 1 <Kaden Kelley 04/03/18 13:18> - Constitutional no acute distress, obese, cooperative <Kaden Kelley 04/03/18 18:53> - Routine HEENT Exam Head: Present: normocephalic, atraumatic <Kaden Kelley 04/03/18 18:53> Eye: Present: EOMI <Kaden Kelley 04/03/18 18:53> - Routine Neck Exam Comments: Patient has a central line in REJ <Kaden Kelley 04/03/18 18:53> - Routine Respiratory Exam Present: CTA bilaterally, wheezes. Absent: accessory muscle use, rales, rhonchi , stridor, crackles <Kaden Kelley 04/03/18 18:53> Comments: Slight wheeze in right upper lobe <Kaden Kelley 04/03/18 18:53> - Routine Cardiovascular Exam Present: RRR, S1, S2. Absent: murmur, gallop, rubs <Kaden Kelley 04/03/18 18:53> - Routine Abdominal Exam Present: soft, normoactive bowel sounds. Absent: tenderness, distended, rebound , guarding <AllieKaden Bee 04/03/18 18:53> - Routine Extremities Exam Absent: cyanosis, clubbing, edema <Kaden Kelley 04/03/18 18:53> - Routine Neurological Exam Present: alert, oriented X3, CN II-XII intact, normal speech <Kaden Kelley 04/03/18 18:53> - Detailed Neurological Exam: Coma Scale Eye Opening: Spontaneous <Kaden Kelley 04/03/18 18:53> Verbal Response: Oriented <Kaden Kelley 04/03/18 18:53> Motor Response: Obey commands <Kaden Kelley 04/03/18 18:53> [place] Coma Scale Total: 15 <Kaden Kelley 04/03/18 18:53> - Routine Psychiatric Exam Present: normal affect, normal thought process <Kaden Kelley 04/03/18 18:53 > Assessment and Plan - Assessment (1) Acute renal failure (ARF) Code(s): N17.9 - Acute kidney failure, unspecified Status: Acute (2) Hepatitis B Code(s): B19.10 - Unspecified viral hepatitis B without hepatic coma Status: Chronic (3) End stage renal disease Code(s): N18.6 - End stage renal disease Status: Chronic (4) Metabolic acidosis with normal anion gap and bicarbonate losses Code(s): E87.2 - Acidosis Status: Resolved (5) Hypertension Code(s): I10 - Essential (primary) hypertension Status: Acute (6) GERD (gastroesophageal reflux disease) Code(s): K21.9 - Gastro-esophageal reflux disease without esophagitis Status: Acute (7) Acute diarrhea Code(s): R19.7 - Diarrhea, unspecified Status: Resolved <Bladimir Stiles R - 04/04/18 11:58> (1) Acute renal failure (ARF) Code(s): N17.9 - Acute kidney failure, unspecified Status: Acute Plan: This patient is suffering from end stage renal disease and was admitted in the setting of symptomatic uremia. Nephrology is currently following. Patient on a MWF schedule. Venous mapping in left upper revealed unsuitable veins/ arteries due to small size at this time. - Continue dialysis as recommended by nephrology team - Trend BMP - Renal Diet - Per nephrology do not access left arm for possible perm cath placement (2) Hepatitis B Code(s): B19.10 - Unspecified viral hepatitis B without hepatic coma Status: Chronic Plan: HBsAg positive without IgM, consistent with chronic hepatitis B. AST/ALT have almost doubled during admission. GI following, awaiting HFE results. Consider liver biopsy if LFTs continue to trend upward. - Continue to trend LFTs until Hep B work up complete per GI - Continue Actigall per GI - Follow up with HFE labs - Has appt with GI (Dr. Chaney) on April 24. - HBeAg and Ab, Total Core Ab pending (3) End stage renal disease Code(s): N18.6 - End stage renal disease Status: Chronic Plan: Per nephrology will need chronic dialysis. Perm cath placement questionable due to results from vein mapping revealing vessels too small for fistula. - Continue dialysis per nephrology - Do not access left arm. - Dietary consult for renal diet education (4) Metabolic acidosis with normal anion gap and bicarbonate losses Code(s): E87.2 - Acidosis Status: Resolved Plan: Secondary to renal disease, now resolved. Anion gap now at 20. Bicarb at 19.9 today. Patient on a MWF dialysis schedule. - Dialyze as recommended by nephrology - Follow BMP (5) Hypertension Code(s): I10 - Essential (primary) hypertension Status: Acute Plan: Holding home hypertensives for now due to low BP after dialysis. Will monitor and resume as needed. - Labetalol PRN in BP at or over 180/ 100 (6) GERD (gastroesophageal reflux disease) Code(s): K21.9 - Gastro-esophageal reflux disease without esophagitis Status: Acute Plan: Continue Pepcid dosed renally (7) Acute diarrhea Code(s): R19.7 - Diarrhea, unspecified Status: Resolved Plan: Patient was confirmed C Diff negative. Per patient has had 1 bowel movement yesterday and today.Patient has had 3 days of normal firm bowel movements <Kaden Kelley O - 04/03/18 18:23> - Attending Attestation Case reviewed and discussed with the resident team. Agree with plan of care as discussed with me and documented in the resident note. <Bladimir Stiles R - 04/04/18 11:58> <Kaden Kelley O - Last Filed: 04/03/18 18:23> (1) Acute renal failure (ARF) Qualifiers: Acute renal failure type: unspecified Qualified Code(s): N17.9 - Acute kidney failure, unspecified (5) Hypertension Qualifiers: Hypertension type: renovascular hypertension Qualified Code(s): I15.0 - Renovascular hypertension <GoBladimir R - Last Filed: 04/04/18 11:58> (1) Acute renal failure (ARF) Qualifiers: Qualified Code(s): N17.9 - Acute kidney failure, unspecified (5) Hypertension Qualifiers: Qualified Code(s): I15.0 - Renovascular hypertension <Kaden Kelley O - Last Filed: 04/03/18 18:23> (1) Acute renal failure (ARF) Qualifiers: Acute renal failure type: unspecified Qualified Code(s): N17.9 - Acute kidney failure, unspecified (5) Hypertension Qualifiers: Hypertension type: renovascular hypertension Qualified Code(s): I15.0 - Renovascular hypertension <GeraldmichelleBladimir R - Last Filed: 04/04/18 11:58> (1) Acute renal failure (ARF) Qualifiers: Qualified Code(s): N17.9 - Acute kidney failure, unspecified (5) Hypertension Qualifiers: Qualified Code(s): I15.0 - Renovascular hypertension
--- NOTE | 2018-04-03 15:08 | P.PNGI ---
Subjective Interval history: Pt is resting in bed, no Gi complaints Physical Exam Vital signs: Vital Signs 04/02/18 16:00 04/02/18 20:00 04/03/18 00:38 Temperature 98.1 F 98.3 F 98.1 F Pulse Rate 98 H 98 H 98 H Respiratory Rate 18 18 20 Blood Pressure 126/77 126/81 117/76 Pulse Oximetry 94 L 95 96 04/03/18 08:00 04/03/18 12:00 Temperature 97.9 F 98.1 F Pulse Rate 100 H 102 H Respiratory Rate 17 17 Blood Pressure 118/70 111/68 Pulse Oximetry 95 95 Intake & Output 04/02/18 04/03/18 04/03/18 18:59 06:59 18:59 Intake Total 600 / 600 580 / 580 Balance 600 / 600 580 / 580 Weight 110.5 kg Intake: Oral 600 / 600 580 / 580 Other: # Voids 0 Date of Last Bowel Movement 04/02/18 # Bowel Movements 1 1 - Constitutional no acute distress - Routine HEENT Exam Head: Present: normocephalic Eye: Present: PERRL ENT: Present: mucous membranes moist - Routine Neck Exam Present: supple - Routine Respiratory Exam Present: CTA bilaterally - Routine Cardiovascular Exam Present: RRR - Routine Abdominal Exam Present: soft, normoactive bowel sounds. Absent: tenderness, distended - Routine Extremities Exam Absent: cyanosis, clubbing - Routine Skin Exam Present: intact, dry. Absent: jaundice - Routine Neurological Exam Present: alert, oriented X3 Results - Labs CBC & Chem 7: 04/03/18 04:16 04/03/18 04:16 Laboratory Results - last 24 hr 04/03/18 04/03/18 04:16 04:16 WBC 14.8 H RBC 4.81 Hgb 13.9 Hct 43.4 MCV 90.2 MCH 28.9 MCHC 32.0 RDW 14.8 Plt Count 182 MPV 10.3 Prelim Diff (Auto) Manual diff required WBC Differential Manual diff final Seg Neuts % (Manual) 61 Band Neuts % (Manual) 6 Lymphocytes % (Manual) 15 Monocytes % (Manual) 15 H Eosinophils % (Manual) 2 Myelocytes % (Man) 1 H Abs Neuts (Manual) 10.1 H Differential Comment . Platelet Estimate Normal Platelet Morphology Normal RBC Morphology Normal Sodium 135 L Potassium 4.9 Chloride 95 L Carbon Dioxide 19.9 L Anion Gap 20 H BUN 83 H Creatinine 10.87 H* D Estimated GFR 6 L Random Glucose 103 Calcium 9.8 Total Bilirubin 2.7 H AST 655 H ALT 599 H Alkaline Phosphatase 135 H Total Protein 8.6 H D Albumin 4.3 Microbiology 03/31/18 20:41 Blood - Peripheral Aerobic Blood Culture - Preliminary No growth in 3 days 03/31/18 20:41 Blood - Peripheral Anaerobic Blood Culture - Preliminary No growth in 3 days - Imaging Impressions Venous Doppler Study 04/02/18 00:00 CONCLUSION: No evidence of deep venous thrombosis. Assessment and Plan (1) Hepatitis B Status: Chronic Code(s): B19.10 - Unspecified viral hepatitis B without hepatic coma (2) Acute diarrhea Status: Resolved Code(s): R19.7 - Diarrhea, unspecified - Plan Assessment: - Elevated LFTs, increasing- LFTs remain high Pt noted to have positive Hepatitis surface antigen, negative surface and core antibody. Quant pending. High Fe, normal saturation Rest of liver work up is also pending Pt denies any history of liver issues, however he is a poor historian. Seen by our service in January of this year Hep B surface antigen (+), quant 1070 in January. Pt was advised to have Fibrosure test done, no results in chart. Pt unsure of how he got Hepatitis B. Denies ETOH Liver work up pending. Liver US (03/30) Mildly enlarged fatty liver. Right lower pole renal cyst measuring 2.1 cm. Poor visualization of pancreas due to shadowing bowel gas. - Complaints of acute diarrhea on arrival- now reports this has resolved. Denies nausea, vomiting. Some abdominal pain after dialysis yesterday, thinks too much fluid was removed C. Diff negative. EGD on February 27 --> Class A esophagitis noted, mild gastritis in the gastric antrum, normal duodenal mucosa in the bulb and second portion of the duodenum. Pathology (gastric antral mucosa) mild to moderate chronic gastritis negative for intestinal metaplasia and dysplasia, Elizabeth inconclusive for H Pylori (GE) moderate acute and chronic inflammatory changes consistent with reflux negative for intestinal metaplasia and dysplasia. Treatment with abx and PPI was sent in by the office and pt was notified, pt is a poor historian and it is unclear whether or not he took the treatment. Colonoscopy in July 2016 --> Diminutive polyp in the rectum, pathology revealed hyperplastic polyp. Plan: Liver work up pending including Hep B quant HFE pending Monitor LFTs Further recommendations based on clinical course Pt has been seen and examined by myself and Dr. Nelson and this note is written on his behalf
[2018-04-03] MEDS: ALBUMIN HUMAN 25% IV.SIG PRN (15:25)
[2018-04-04] MEDS: Chlorhexidine Gluconate 2% 1 Pack (2 Cloths) TOPICAL SCH (04:41)
[2018-04-04] MEDS: Heparin - SQ 10,000 UNITS/ML Vial SQ SCH ×2 (05:40→14:03)
[2018-04-04] MEDS: Senna/Docusate Sodium 8.6/50 MG Tablet PO SCH ×3 (09:21→22:08)
[2018-04-04] MEDS: Famotidine 20 MG Tablet PO SCH ×2 (09:22→22:08)
--- NOTE | 2018-04-04 10:00 | P.PNNP ---
Subjective Interval history: Vascular at bedside to discuss AVF placement, tentatively scheduled Sunday. <Yulisa Dunn - Last Filed: 04/04/18 09:53> Physical Exam Vital signs: Vital Signs 04/03/18 12:00 04/03/18 20:31 04/04/18 00:47 Temperature 98.1 F 97.8 F 98.8 F Pulse Rate 102 H 97 H 101 H Respiratory Rate 17 18 17 Blood Pressure 111/68 115/72 111/70 Pulse Oximetry 95 97 93 L Intake & Output 04/03/18 04/04/18 04/04/18 18:59 06:59 18:59 Intake Total 480 / 480 Output Total 1700 / 1700 Balance -1700 / -1700 480 / 480 Weight 110.5 kg Intake: Oral 480 / 480 Output: Hemodialysis Amount 1700 / 1700 Other: # Voids 0 - Constitutional no acute distress - Routine HEENT Exam Head: Present: normocephalic Eye: Present: EOMI ENT: Present: mucous membranes moist - Routine Neck Exam Present: supple, full ROM Comments: VC right IJ - Routine Respiratory Exam Present: CTA bilaterally. Absent: accessory muscle use - Routine Cardiovascular Exam Present: RRR, S1, S2 - Routine Abdominal Exam Present: soft, normoactive bowel sounds - Routine Extremities Exam Present: normal capillary refill - Routine Skin Exam Present: intact, warm - Routine Neurological Exam Present: alert, oriented X3, CN II-XII intact - Detailed Neurological Exam: Coma Scale Eye Opening: Spontaneous Verbal Response: Oriented Motor Response: Obey commands [place] Coma Scale Total: 15 - Routine Psychiatric Exam Present: normal affect, normal thought process <Yulisa Dunn - Last Filed: 04/04/18 09:53> Vital signs: Vital Signs 04/04/18 16:00 04/04/18 20:00 04/05/18 00:00 Temperature 97.7 F 98.1 F 98.0 F Pulse Rate 96 H 99 H 97 H Respiratory Rate 17 16 17 Blood Pressure 126/65 140/69 109/63 Pulse Oximetry 93 L 93 L 95 04/05/18 08:00 04/05/18 12:00 Temperature 97.2 F L 97.2 F L Pulse Rate 102 H 91 H Respiratory Rate 18 16 Blood Pressure 122/56 L 100/63 Pulse Oximetry 93 L 95 Intake & Output 07/05/18 07/06/18 07/06/18 18:59 06:59 18:59 Intake Total 1150 / 1150 Output Total 0 / 0 1999 Balance 1150 / 1150 -1999 Weight 110.59 kg Intake: Oral 1150 / 1150 Output: Urine 0 / 0 Hemodialysis Amount 1999 Other: # Voids 2 Date of Last Bowel Movement 04/02/18 # Bowel Movements 2 <Rito Jose - Last Filed: 04/05/18 14:45> Assessment and Plan - Assessment (1) End stage renal disease Code(s): N18.6 - End stage renal disease Status: Chronic Plan: Continue dialysis MWF. 1.7 L UF yesterday. Will make him NPO after midnight for PermCath placement tomorrow morning. He is afebrile, no evidence of infection. Vascular surgery is following, tentatively has AVF surgery Sunday. Avoid Left arm procedures. Outpatient HD plans in process ([facility]). Needs isolation chair, takes slightly more time to arrange. Will follow up on chair time for outpatient transition. (2) Hypertension Code(s): I10 - Essential (primary) hypertension Status: Acute Qualifiers: Hypertension type: renovascular hypertension Qualified Code(s): I15.0 - Renovascular hypertension Plan: Continue present medications. BP is acceptable. (3) Hepatitis B Code(s): B19.10 - Unspecified viral hepatitis B without hepatic coma Status: Chronic Plan: There was discussion about consulting ID to inquire about treatment vs outpatient follow up. Will need isolation chair for in center HD (4) Acute diarrhea Code(s): R19.7 - Diarrhea, unspecified Status: Resolved Plan: Improved, C diff negative. Not on antibiotics. <Yulisa Dunn - Last Filed: 04/04/18 09:53> - Assessment (1) End stage renal disease Code(s): N18.6 - End stage renal disease Status: Chronic (2) Hypertension Code(s): I10 - Essential (primary) hypertension Status: Acute Qualifiers: Hypertension type: renovascular hypertension Qualified Code(s): I15.0 - Renovascular hypertension (3) Hepatitis B Code(s): B19.10 - Unspecified viral hepatitis B without hepatic coma Status: Chronic (4) Acute diarrhea Code(s): R19.7 - Diarrhea, unspecified Status: Resolved - Attending Attestation patient was seen and examined. Agree with above assessment and plan. PermCath placement, Vascular surgery has been consulted for AVF placement. <Rito Jose - Last Filed: 04/05/18 14:45>
--- NOTE | 2018-04-04 10:21 | P.PNGI ---
Subjective Interval history: Pt resting in bed, states he is feeling well today. Denies nausea, vomiting, abdominal pain. Normal BMs. Good appetite. Physical Exam Vital signs: Vital Signs 04/03/18 12:00 04/03/18 20:31 04/04/18 00:47 Temperature 98.1 F 97.8 F 98.8 F Pulse Rate 102 H 97 H 101 H Respiratory Rate 17 18 17 Blood Pressure 111/68 115/72 111/70 Pulse Oximetry 95 97 93 L Intake & Output 04/03/18 04/04/18 04/04/18 18:59 06:59 18:59 Intake Total 480 / 480 Output Total 1700 / 1700 Balance -1700 / -1700 480 / 480 Weight 110.5 kg Intake: Oral 480 / 480 Output: Hemodialysis Amount 1700 / 1700 Other: # Voids 0 - Constitutional no acute distress - Routine HEENT Exam Head: Present: normocephalic, atraumatic - Routine Respiratory Exam Absent: accessory muscle use - Routine Abdominal Exam Present: soft, normoactive bowel sounds, distended. Absent: tenderness, rebound , guarding - Routine Neurological Exam Present: alert, oriented X3 Results - Labs CBC & Chem 7: 04/03/18 04:16 04/03/18 04:16 Microbiology 03/31/18 20:41 Blood - Peripheral Aerobic Blood Culture - Preliminary No growth in 3 days 03/31/18 20:41 Blood - Peripheral Anaerobic Blood Culture - Preliminary No growth in 3 days Assessment and Plan (1) Hepatitis B Status: Chronic Code(s): B19.10 - Unspecified viral hepatitis B without hepatic coma (2) Acute diarrhea Status: Resolved Code(s): R19.7 - Diarrhea, unspecified - Plan Assessment: - Elevated LFTs, increasing- LFTs remain high Pt noted to have positive Hepatitis surface antigen, negative surface and core antibody. Quant pending. High Fe, normal saturation Rest of liver work up is also pending Pt denies any history of liver issues, however he is a poor historian. Seen by our service in January of this year Hep B surface antigen (+), quant 1070 in January. Pt was advised to have Fibrosure test done, no results in chart. Pt unsure of how he got Hepatitis B. Denies ETOH Liver work up pending. Liver US (03/30) Mildly enlarged fatty liver. Right lower pole renal cyst measuring 2.1 cm. Poor visualization of pancreas due to shadowing bowel gas. - Complaints of acute diarrhea on arrival- now reports this has resolved. Denies nausea, vomiting. Some abdominal pain after dialysis yesterday, thinks too much fluid was removed C. Diff negative. EGD on February 27 --> Class A esophagitis noted, mild gastritis in the gastric antrum, normal duodenal mucosa in the bulb and second portion of the duodenum. Pathology (gastric antral mucosa) mild to moderate chronic gastritis negative for intestinal metaplasia and dysplasia, Elizabeth inconclusive for H Pylori (GE) moderate acute and chronic inflammatory changes consistent with reflux negative for intestinal metaplasia and dysplasia. Treatment with abx and PPI was sent in by the office and pt was notified, pt is a poor historian and it is unclear whether or not he took the treatment. Colonoscopy in July 2016 --> Diminutive polyp in the rectum, pathology revealed hyperplastic polyp. (04/04) Pt with no GI complaints at this time, states he feels well today. Labs still pending. Plan: Liver work up pending including Hep B quant HFE pending Monitor LFTs Further recommendations based on clinical course Pt has been seen and examined by myself and Dr. Nelson and this note is written on his behalf
--- NOTE | 2018-04-04 10:41 | P.CONVS ---
History of Present Illness Consult date: 04/04/18 Reason for Consult: Hemodialysis access Chief Complaint: End stage renal disease on hemodialysis History of Present Illness: 47/M with a PMH of gastroesophageal reflux disease, Hypertension and CVA Pt arrived to the ED several days ago c/o weakness Pt recently Dx w/ ESRD currently on HD every M/W/F Pt in need of permanent hemodialysis access Pt is right handed Review of Systems All other systems reviewed negative except as stated in HPI Constitutional: Denies chills, Denies fatigue, Denies fever(s), Denies weakness Cardiovascular: Denies chest pain, Denies shortness of breath PMFSH - History History Provided By: Patient - Medical History Medical History: Medical History (Last Updated 04/04/18 @ 10:34 by Bernadette Vee) GERD (gastroesophageal reflux disease) HTN (hypertension) Right testicular torsion - Surgical History Surgical History: Surgical History (Last Updated 04/04/18 @ 10:35 by Bernadette Vee) History of knee surgery - Tobacco History Second Hand Smoke Exposure: No Tobacco Use In Past 30 Days: No - Alcohol History How Often Do You Have a Drink Containing Alcohol: Monthly or less - Substance Use History Substance History: No History of Abuse - Travel History History of Recent Travel: No Medications and Allergies Active Medications: Active Medications Acetaminophen (Tylenol) 650 mg PO UNSCH PRN PRN Reason: SEE LABEL COMMENTS Al Hydroxide/Mg Hydroxide (Milk Of [place]) 30 ml PO Q12H PRN PRN Reason: MILD CONSTIPATION Albuterol (Duoneb Neb (Prn)) 1 ampul INH Q4HR NEB PRN PRN Reason: WHEEZING Last Admin: 03/31/18 16:22 Dose: 1 ampul Bisacodyl (Dulcolax Supp) 10 mg RECTAL DAILY PRN PRN Reason: SEVERE CONSITIPATION Chlorhexidine Gluconate (Chlorhexidine 2% Cloth) 3 pack TOPICAL DAILY@0400 [place] Stop: 04/05/18 03:59 Last Admin: 04/04/18 04:41 Dose: Not Given Chlorhexidine Gluconate (Chlorhexidine 2% Cloth) 3 pack TOPICAL DAILY@0400 PRN PRN Reason: Extra cloth needed Stop: 04/05/18 03:59 Clonidine HCl (Catapres) 0.1 mg PO UNSCH PRN PRN Reason: SEE LABEL COMMENTS Diphenhydramine HCl (Benadryl) 25 mg PO UNSCH PRN PRN Reason: SEE LABEL COMMENTS Last Admin: 04/03/18 09:32 Dose: 25 mg Famotidine (Pepcid) 10 mg PO Q12HR [place] Last Admin: 04/04/18 09:22 Dose: 10 mg Gelatin (Gelfoam 12 Mm/7 Mm Topical) 1 foam TOPICAL PRN PRN PRN Reason: help stop bleeding from site Gentamicin Sulfate (Gentamicin Inj) 20 mg OTHER WITH DIALYSIS PRN PRN Reason: Dwell Gentamycin Lock Last Admin: 04/03/18 17:31 Dose: 20 mg Heparin Sodium (Porcine) (Heparin Inj) 5,000 units SQ Q8HR [place] Last Admin: 04/04/18 05:40 Dose: 5,000 units Heparin Sodium (Porcine) (Heparin Inj) 8,000 units IV.FLUSH WITH DIALYSIS PRN PRN Reason: for machine prime Heparin Sodium (Porcine) (Heparin Inj) 0 units OTHER WITH DIALYSIS PRN PRN Reason: Dwell Heparin to Fill Catheter Last Admin: 04/03/18 17:32 Dose: 2,000 units Albumin Human (Flexbumin 25% Inj) 60 mls @ 60 mls/hr IV.SIG UNSCH PRN PRN Reason: WITH DIALYSIS Last Admin: 04/03/18 15:25 Dose: 60 mls/hr Sodium Chloride (Ns Inj) 1,000 mls @ 0 mls/hr OTHER .Q0M PRN PRN Reason: for prime and rinse back Sodium Chloride (Ns Inj) 1,000 mls @ 200 mls/hr OTHER .Q5H PRN PRN Reason: for dialyzer flush PRN Sodium Chloride (Ns Inj) 1,000 mls @ 0 mls/hr IV.CONT .Q0M PRN PRN Reason: hypotension / volume replace Sodium Bicarbonate 154 meq/ (Sodium Chloride) 1,000 mls @ 0 mls/hr IV.SIG .Q0M [place]; Protocol Sodium Chloride (Ns Inj) 1,000 mls @ 200 mls/hr OTHER .Q5H PRN PRN Reason: for dialyzer flush PRN Labetalol HCl (Trandate Inj) 10 mg IV.PUSH Q6H PRN PRN Reason: SBP>160, DBP>90 Lactulose (Lactulose Liq) 30 ml PO DAILY PRN PRN Reason: SEVERE CONSITIPATION Mannitol (Mannitol Inj) 12.5 gm IV.PUSH PRN PRN PRN Reason: hypotension / volume replace Nitroglycerin (Nitrostat Sl) 0.4 mg SL Q5M PRN PRN Reason: CHEST PAIN Ondansetron HCl (Zofran Odt) 4 mg PO Q6H PRN PRN Reason: NAUSEA OR VOMITING Last Admin: 04/03/18 02:00 Dose: 4 mg Ondansetron HCl (Zofran Inj) 4 mg IV.PUSH UNSCH PRN PRN Reason: NAUSEA OR VOMITING Last Admin: 04/04/18 09:22 Dose: 4 mg Senna/Docusate Sodium (Makenzie-Colace) 1 tab PO BID [facility] Last Admin: 04/04/18 09:33 Dose: Not Given Sennosides (Senokot) 17.2 mg PO Q12H PRN PRN Reason: MODERATE CONSTIPATION Sodium Chloride (Ns Flush) 2 ml IV.FLUSH UNSCH PRN PRN Reason: FLUSH AFTER USING IV ACCESS Sodium Chloride (Ns Flush) 2 ml IV.FLUSH BID [facility] Last Admin: 04/04/18 09:22 Dose: 2 ml Sodium Chloride (Ns Flush) 5 ml IV.FLUSH PRN PRN PRN Reason: flush each lumen during HD Ursodiol (Actigall) 300 mg PO BID [facility] Last Admin: 04/04/18 09:21 Dose: 300 mg Allergies Allergy/AdvReac Type Severity Reaction Status Date / Time No Known Allergies AdvReac Unknown Uncoded 03/17/18 20:50 Home Medications Medication Instructions Recorded Confirmed Type doxazosin 2 mg PO DAILY 03/30/18 03/30/18 History lansoprazole 30 mg PO BID 03/30/18 03/30/18 History metoprolol tartrate 50 mg PO DAILY 03/30/18 03/30/18 History nifedipine 30 mg PO BID 03/30/18 03/30/18 History prednisone 20 mg PO BID 03/30/18 03/30/18 History ranitidine HCl 150 mg PO DAILY 03/30/18 03/30/18 History Physical Exam Vital Signs / I&O: Vital Signs 04/03/18 12:00 04/03/18 20:31 04/04/18 00:47 Temperature 98.1 F 97.8 F 98.8 F Pulse Rate 102 H 97 H 101 H Respiratory Rate 17 18 17 Blood Pressure 111/68 115/72 111/70 Pulse Oximetry 95 97 93 L Intake & Output 04/03/18 04/04/18 04/04/18 18:59 06:59 18:59 Intake Total 480 / 480 Output Total 1700 / 1700 Balance -1700 / -1700 480 / 480 Weight 110.5 kg Intake: Oral 480 / 480 Output: Hemodialysis Amount 1700 / 1700 Other: # Voids 0 Neuro: GCS 15 Speech clear CN 2-12 intact Neck: NO JVD distention Heart: RRR + S1,S2 Lungs: CTA Abdomen: S/NT Vascular: Palpable 2+ right and left radial pulses present Extremities: UE 5/5 Microbiology 03/31/18 20:41 Aerobic Blood Culture - Preliminary Blood - Peripheral No growth in 3 days Anaerobic Blood Culture - Preliminary No growth in 3 days Impressions Upper Extremity Ultrasound 04/02/18 00:00 CONCLUSION: 1. Venous mapping as above Venous Doppler Study 04/02/18 00:00 CONCLUSION: No evidence of deep venous thrombosis. Assessment and Plan - Plan 47/M newly Dx with ESRD on HD needs access Pt is right handed Reviewed vein mapping Plan Discussed and reviewed AVF creation process w/ pt Questions answered Planning AVF access for Sunday04/08/18 w/ Dr. Hummel Pt made aware of plan Bernadette Vee NP [facility] [phone]
--- NOTE | 2018-04-04 11:40 | P.PNFP ---
Subjective Interval history: This patient was seen at bed side this morning and there were no acute events overnight. This morning reports to be feeling "real good". He reports that he is sleeping well and that his appetite is returning. He reports no fevers, chills, nausea, or abdominal pain. He reports another normal BM this morning. He reported that he was seen by nephrology this morning and that it was explained to him that he will be receiving a permacath at an alternate access point tomorrow. He had no questions at this time. <Kaden Kelley O - 04/04/18 14:21> Results - Labs Result diagrams: 04/03/18 04:16 04/03/18 04:16 <Bladimir Stiles R - 04/04/18 16:13> Abnormal lab results 03/31/18 Range/Units 07:00 Hepatitis Be Antibody Reactive A <Bladimir Stiles R - 04/04/18 16:13> Physical Exam Vital signs: Vital Signs 04/03/18 20:31 04/04/18 00:47 04/04/18 08:00 Temperature 97.8 F 98.8 F 97.5 F L Pulse Rate 97 H 101 H 98 H Respiratory Rate 18 17 17 Blood Pressure 115/72 111/70 123/64 Pulse Oximetry 97 93 L 95 04/04/18 12:00 Temperature 97.9 F Pulse Rate 91 H Respiratory Rate 17 Blood Pressure 110/60 Pulse Oximetry 94 L Intake & Output 04/03/18 04/04/18 04/04/18 18:59 06:59 18:59 Intake Total 60 / 60 480 / 480 Output Total 1700 / 1700 Balance -1640 / -1640 480 / 480 Weight 110.5 kg Intake: IV 60 / 60 Flexbumin 25% Inj 60 ML @ 60 60 / 60 mls/hr IV.SIG UNSCH PRN Rx#: [id number] Oral 480 / 480 Output: Hemodialysis Amount 1700 / 1700 Other: # Voids 0 <Bladimir Stiles R - 04/04/18 16:13> Vital Signs 04/03/18 12:00 04/03/18 20:31 04/04/18 00:47 Temperature 98.1 F 97.8 F 98.8 F Pulse Rate 102 H 97 H 101 H Respiratory Rate 17 18 17 Blood Pressure 111/68 115/72 111/70 Pulse Oximetry 95 97 93 L 04/04/18 08:00 Temperature 97.5 F L Pulse Rate 98 H Respiratory Rate 17 Blood Pressure 123/64 Pulse Oximetry 95 Intake & Output 04/03/18 04/04/18 04/04/18 18:59 06:59 18:59 Intake Total 480 / 480 Output Total 1700 / 1700 Balance -1700 / -1700 480 / 480 Weight 110.5 kg Intake: Oral 480 / 480 Output: Hemodialysis Amount 1700 / 1700 Other: # Voids 0 <Kaden Kelley 04/04/18 11:40> - Constitutional no acute distress, obese, cooperative <Kaden Kelley 04/04/18 12:01> - Routine HEENT Exam Head: Present: normocephalic, atraumatic <Kaden Kelley 04/04/18 12:01> - Routine Respiratory Exam Present: CTA bilaterally. Absent: accessory muscle use, decreased breath sounds , rales, rhonchi, stridor, wheezes, crackles <Kaden Kelley 04/04/18 12:01> - Routine Cardiovascular Exam Present: RRR, S1, S2. Absent: murmur, gallop, rubs <Kaden Kelley 04/04/18 12:01> - Routine Abdominal Exam Present: soft, normoactive bowel sounds. Absent: tenderness, distended, rebound , guarding <Kaden Kelley 04/04/18 12:01> - Routine Extremities Exam Absent: cyanosis, clubbing, edema <Kaden Kelley 04/04/18 12:01> - Routine Neurological Exam Present: alert, normal speech. Absent: altered mental status <Kaden Kelley 04/04/18 12:01> - Detailed Neurological Exam: Coma Scale Eye Opening: Spontaneous <Kaden Kelley 04/04/18 12:01> Verbal Response: Oriented <Kaden Kelley 04/04/18 12:01> Motor Response: Obey commands <Kaden Kelley 04/04/18 12:01> [place] Coma Scale Total: 15 <Kaden Kelley 04/04/18 14:21> - Routine Psychiatric Exam Present: normal affect, normal thought process, cooperative, good insight, good judgment. Absent: anxious, agitated <Kaden Kelley O - 04/04/18 12:01> Assessment and Plan - Assessment (1) Acute renal failure (ARF) Code(s): N17.9 - Acute kidney failure, unspecified Status: Acute (2) Hepatitis B Code(s): B19.10 - Unspecified viral hepatitis B without hepatic coma Status: Chronic (3) End stage renal disease Code(s): N18.6 - End stage renal disease Status: Chronic (4) Metabolic acidosis with normal anion gap and bicarbonate losses Code(s): E87.2 - Acidosis Status: Resolved (5) Hypertension Code(s): I10 - Essential (primary) hypertension Status: Acute (6) GERD (gastroesophageal reflux disease) Code(s): K21.9 - Gastro-esophageal reflux disease without esophagitis Status: Acute (7) Acute diarrhea Code(s): R19.7 - Diarrhea, unspecified Status: Resolved <Bladimir Stiles R - 04/04/18 16:13> (1) Acute renal failure (ARF) Code(s): N17.9 - Acute kidney failure, unspecified Status: Acute Plan: This patient is suffering from end stage renal disease and was admitted in the setting of symptomatic uremia. Nephrology is currently following. Patient on a MWF dialysis schedule and was dialzyed yesterday and was unloaded 1.7 L. Perma Cath placement tomorrow. Planning AVF access for Sunday04/08/18 w/ Dr. Hummel. - Continue dialysis as recommended by nephrology team - NPO after midnight - Trend BMP - Renal Diet (2) Hepatitis B Code(s): B19.10 - Unspecified viral hepatitis B without hepatic coma Status: Chronic Plan: HBsAg positive without IgM, consistent with chronic hepatitis B. AST/ALT have almost doubled during admission. GI following, awaiting HFE results. Consider liver biopsy if LFTs continue to trend upward. - Continue to trend LFTs until Hep B work up complete per GI - Continue Actigall per GI - Follow up with HFE labs - Has appt with GI (Dr. Chaney) on April 24. - HBeAg and Ab, Total Core Ab pending (3) End stage renal disease Code(s): N18.6 - End stage renal disease Status: Chronic Plan: Per nephrology will need chronic dialysis. Perm cath placement tomorrow. - Continue dialysis per nephrology - Dietary consult for renal diet education - Planning AVF access for Sunday04/08/18 w/ Dr. Hummel. (4) Metabolic acidosis with normal anion gap and bicarbonate losses Code(s): E87.2 - Acidosis Status: Resolved Plan: Secondary to renal disease, now resolved. Anion gap at 20 and bicarb at 19.9 on 03 April. Patient on a MWF dialysis schedule. - Dialyze as recommended by nephrology - Follow BMP (5) Hypertension Code(s): I10 - Essential (primary) hypertension Status: Acute Plan: Holding home hypertensives for now due to low BP after dialysis. Will monitor and resume as needed. - Labetalol PRN in BP at or over 180/ 100 (6) GERD (gastroesophageal reflux disease) Code(s): K21.9 - Gastro-esophageal reflux disease without esophagitis Status: Acute Plan: Continue Pepcid dosed renally (7) Acute diarrhea Code(s): R19.7 - Diarrhea, unspecified Status: Resolved Plan: Patient was confirmed C Diff negative. Per patient has had 1 bowel movement yesterday and today.Patient has had 3 days of normal firm bowel movements <Kaden Kelley O - 04/04/18 14:12> - Attending Attestation PATIENT SEEN AND CASE DISCUSSED WITH RESIDENT PHYSICIANS. I HAVE READ AND AGREE WITH ABOVE NOTE AND PLAN DISCUSSED WITH ME. <Bladimir Stiles R - 04/04/18 16:13> <Kaden Kelley O - Last Filed: 04/04/18 14:12> (1) Acute renal failure (ARF) Qualifiers: Acute renal failure type: unspecified Qualified Code(s): N17.9 - Acute kidney failure, unspecified (5) Hypertension Qualifiers: Hypertension type: renovascular hypertension Qualified Code(s): I15.0 - Renovascular hypertension <Bladimir Stiles R - Last Filed: 04/04/18 16:13> (1) Acute renal failure (ARF) Qualifiers: Acute renal failure type: unspecified Qualified Code(s): N17.9 - Acute kidney failure, unspecified (5) Hypertension Qualifiers: Hypertension type: renovascular hypertension Qualified Code(s): I15.0 - Renovascular hypertension <Kaden Kelley O - Last Filed: 04/04/18 14:12> (1) Acute renal failure (ARF) Qualifiers: Acute renal failure type: unspecified Qualified Code(s): N17.9 - Acute kidney failure, unspecified (5) Hypertension Qualifiers: Hypertension type: renovascular hypertension Qualified Code(s): I15.0 - Renovascular hypertension <Bladimir Stiles R - Last Filed: 04/04/18 16:13> (1) Acute renal failure (ARF) Qualifiers: Acute renal failure type: unspecified Qualified Code(s): N17.9 - Acute kidney failure, unspecified (5) Hypertension Qualifiers: Hypertension type: renovascular hypertension Qualified Code(s): I15.0 - Renovascular hypertension
[2018-04-04 15:50] LABS: Hepatitis Be Ab REACTIVE; Hepatitis Be Antigen NONREACTIVE
[2018-04-04 16:52] LABS: Smooth Muscle Total Auto Abs Negative (Negative)
[2018-04-04 17:51] LABS: Ceruloplasmin 34 mg/dL (18-36)
[2018-04-05 07:50] LABS: Baso # (Auto) 0.1 th/mm3 (0.0-0.2); Baso % (Auto) 0.4 % (0.0-2.0); Eos # (Auto) 1.9 th/mm3 (0.0-0.4); Eos % (Auto) 10.2 % (0.0-4.0); Hematocrit 35.3 % (39.0-51.0); Hemoglobin 11.5 gm/dL (13.0-17.0); Lymph # (Auto) 5.6 th/mm3 (1.0-4.8); Lymph % (Auto) 29.8 % (9.0-44.0); Mean Corpuscular HGB Conc 32.6 % (32.0-36.0); Mean Corpuscular Volume 88.8 fL (80.0-100.0); Mean Platelet Volume 9.8 fL (7.0-11.0); Mono # (Auto) 2.7 th/mm3 (0.0-0.9); Mono % (Auto) 14.5 % (0.0-8.0); Neut # (Auto) 8.5 th/mm3 (1.8-7.7); Neut % (Auto) 45.1 % (16.0-70.0); Platelet Count 163 th/mm3 (150-450); Red Blood Count 3.97 mil/mm3 (4.50-5.90); Red Cell Distribution Width 14.3 % (11.6-17.2); White Blood Count 18.9 th/mm3 (4.0-11.0)
[2018-04-05 07:53] LABS: INR 1.2 Ratio; Prothrombin Time 12.2 sec (9.8-11.6)
--- NOTE | 2018-04-05 08:05 | P.PNVS ---
Subjective Subjective/Hospital Course: Pt feeling well this morning - no complaints. [facility] HD to date well. Brother on HD for a couple of years, so knows what to expect. Objective Vital Signs / I&O: Vital Signs 04/04/18 12:00 04/04/18 16:00 04/04/18 20:00 Temperature 97.9 F 97.7 F 98.1 F Pulse Rate 91 H 96 H 99 H Respiratory Rate 17 17 16 Blood Pressure 110/60 126/65 140/69 Pulse Oximetry 94 L 93 L 93 L 04/05/18 00:00 Temperature 98.0 F Pulse Rate 97 H Respiratory Rate 17 Blood Pressure 109/63 Pulse Oximetry 95 Intake & Output 04/04/18 04/05/18 04/05/18 18:59 06:59 18:59 Intake Total 1150 / 1150 Output Total 0 / 0 Balance 1150 / 1150 Weight 110.59 kg Intake: Oral 1150 / 1150 Output: Urine 0 / 0 Other: # Voids 2 # Bowel Movements 2 Physical Exam: alert, oriented. R UE edematous but palpable pulses good hand strength Laboratory Results - last 24 hr 03/31/18 03/31/18 04/05/18 07:00 07:00 07:26 WBC 18.9 H RBC 3.97 L Hgb 11.5 L Hct 35.3 L MCV 88.8 MCH 29.0 MCHC 32.6 RDW 14.3 Plt Count 163 MPV 9.8 Prelim Diff (Auto) Slide review pending Neut % (Auto) 45.1 Lymph % (Auto) 29.8 Morgan % (Auto) 14.5 H Eos % (Auto) 10.2 H Baso % (Auto) 0.4 Neut # (Auto) 8.5 H Lymph # (Auto) 5.6 H Morgan # (Auto) 2.7 H Eos # (Auto) 1.9 H Baso # (Auto) 0.1 Differential Comment . PT INR Alpha-1-AT (Send Out) 199 H Alpha-1-AT Phenotype Mm Ceruloplasmin 34 Mitochondria M2 IgG Ab Less than 20.0 Anti-Smooth Muscle Ab Negative Tiss Transglutamin IgG Less than 1.2 Tiss Transglutamin IgA Less than 1.2 Hepatitis Be Antibody Reactive A Hepatitis Be Antigen Nonreactive 04/05/18 07:26 WBC RBC Hgb Hct MCV MCH MCHC RDW Plt Count MPV Prelim Diff (Auto) Neut % (Auto) Lymph % (Auto) Morgan % (Auto) Eos % (Auto) Baso % (Auto) Neut # (Auto) Lymph # (Auto) Morgan # (Auto) Eos # (Auto) Baso # (Auto) Differential Comment PT 12.2 H INR 1.2 Alpha-1-AT (Send Out) Alpha-1-AT Phenotype Ceruloplasmin Mitochondria M2 IgG Ab Anti-Smooth Muscle Ab Tiss Transglutamin IgG Tiss Transglutamin IgA Hepatitis Be Antibody Hepatitis Be Antigen Microbiology 03/31/18 20:41 Aerobic Blood Culture - Preliminary Blood - Peripheral No growth in 4 days Anaerobic Blood Culture - Preliminary No growth in 4 days reviewed - only autgenous option is RIGHT basilic vein Assessment and Plan - Plan New onset HD dependence. Despite being RIGHT handed, I think the best option is an autogenous AVF especially given young age. Plan for RIGHT brachiobasilic AVF in two stages. Stage 1 on Sunday 04/08. Please SAVE RIGHT ARM. Discussed with patient who agrees.
[2018-04-05 08:20] LABS: Alanine Aminotransferase 340 U/L (12-78); Albumin 4.1 g/dL (3.4-5.0); Alkaline Phosphatase 128 U/L (45-117); Anion Gap 19 meq/L (5-15); Aspartate Aminotransferase 268 U/L (15-37); Blood Urea Nitrogen 73 mg/dL (7-18); Calcium 9.4 mg/dL (8.5-10.1); Carbon Dioxide 21.7 meq/L (21.0-32.0); Chloride 94 meq/L (98-107); Glomerular Filtration Rate 6 mL/min (>89); Glucose,Random 81 mg/dL (74-106); Potassium 3.7 meq/L (3.5-5.1); Sodium 135 meq/L (136-145); Total Protein 7.4 g/dL (6.4-8.2)
[2018-04-05 09:25] LABS: Lymphocytes 25 % (9-44)
[2018-04-05 09:26] LABS: Eosinophils 11 % (0-4); Metamyelocytes 2 % (0-1); Monocytes 9 % (0-8)
[2018-04-05 09:27] LABS: Platelet Morphology Normal (Normal); Stomatocytes 1+
--- NOTE | 2018-04-05 09:49 | P.PNFP ---
Subjective Interval history: This patient was seen at bed side this morning and there were no acute events overnight. Patient has been NPO after midnight for permacath placement today. This morning reports to be feeling "well". He denies any fevers , chills, nausea, shortness of breath or abdominal pain. He had no questions or concerns. <Kaden Kelley O - 04/05/18 11:02> Results - Labs Result diagrams: 04/05/18 07:26 04/05/18 07:26 <Bladimir Stiles R - 04/06/18 09:48> Abnormal lab results 03/31/18 Range/Units 07:00 Hep B DNA Qnt log IU/mL 1.78 H (0-1.30) Hep B DNA (IU/mL) 60 H (0-19) IU/ml <Bladimir Stiles R - 04/06/18 09:48> Abnormal lab results 03/31/18 03/31/18 04/05/18 Range/Units 07:00 07:00 07:26 WBC 18.9 H (4.0-11.0) th/mm3 RBC 3.97 L (4.50-5.90) mil/mm3 Hgb 11.5 L (13.0-17.0) gm/dL Hct 35.3 L (39.0-51.0) % [place] % (Auto) 14.5 H (0.0-8.0) % Eos % (Auto) 10.2 H (0.0-4.0) % Neut # (Auto) 8.5 H (1.8-7.7) th/mm3 Lymph # (Auto) 5.6 H (1.0-4.8) th/mm3 [place] # (Auto) 2.7 H (0.0-0.9) th/mm3 Eos # (Auto) 1.9 H (0.0-0.4) th/mm3 Monocytes % (Manual) 9 H (0-8) % Eosinophils % (Manual) 11 H (0-4) % Metamyelocytes % (Man) 2 H (0-1) % Abs Neuts (Manual) 10.4 H (1.8-7.7) th/mm3 Platelet Estimate Low L (Normal) Stomatocytes 1+ H (None) PT (9.8-11.6) sec Sodium (136-145) meq/L Chloride (98-107) meq/L Anion Gap (5-15) meq/L BUN (7-18) mg/dL Creatinine (0.60-1.30) mg/dL Estimated GFR (>89) mL/min Total Bilirubin (0.2-1.0) mg/dL AST (15-37) U/L ALT (12-78) U/L Alkaline Phosphatase (45-117) U/L Alpha-1-AT (Send Out) 199 H (100 - 190) mg/dL Hepatitis Be Antibody Reactive A 04/05/18 04/05/18 Range/Units 07:26 07:26 WBC (4.0-11.0) th/mm3 RBC (4.50-5.90) mil/mm3 Hgb (13.0-17.0) gm/dL Hct (39.0-51.0) % [place] % (Auto) (0.0-8.0) % Eos % (Auto) (0.0-4.0) % Neut # (Auto) (1.8-7.7) th/mm3 Lymph # (Auto) (1.0-4.8) th/mm3 [place] # (Auto) (0.0-0.9) th/mm3 Eos # (Auto) (0.0-0.4) th/mm3 Monocytes % (Manual) (0-8) % Eosinophils % (Manual) (0-4) % Metamyelocytes % (Man) (0-1) % Abs Neuts (Manual) (1.8-7.7) th/mm3 Platelet Estimate (Normal) Stomatocytes (None) PT 12.2 H (9.8-11.6) sec Sodium 135 L (136-145) meq/L Chloride 94 L (98-107) meq/L Anion Gap 19 H (5-15) meq/L BUN 73 H (7-18) mg/dL Creatinine 11.24 H* (0.60-1.30) mg/dL Estimated GFR 6 L (>89) mL/min Total Bilirubin 2.3 H (0.2-1.0) mg/dL AST 268 H (15-37) U/L ALT 340 H (12-78) U/L Alkaline Phosphatase 128 H (45-117) U/L Alpha-1-AT (Send Out) (100 - 190) mg/dL Hepatitis Be Antibody Short CBC 04/05/18 Range/Units 07:26 WBC 18.9 H (4.0-11.0) th/mm3 Hgb 11.5 L (13.0-17.0) gm/dL Hct 35.3 L (39.0-51.0) % Plt Count 163 (150-450) th/mm3 BMP 04/05/18 07:26 Sodium 135 L Potassium 3.7 Chloride 94 L Carbon Dioxide 21.7 BUN 73 H Creatinine 11.24 H* Calcium 9.4 Liver Function 04/05/18 Range/Units 07:26 Total Bilirubin 2.3 H (0.2-1.0) mg/dL AST 268 H (15-37) U/L ALT 340 H (12-78) U/L Alkaline Phosphatase 128 H (45-117) U/L Albumin 4.1 (3.4-5.0) g/dL <Kaden Kelley O - 04/05/18 11:02> - Imaging Impressions Catheter Placement 04/05/18 08:00 CONCLUSION: 1. Uncomplicated Dialysis catheter placement as above. <Bladimir Stiles R - 04/06/18 09:48> Physical Exam Vital signs: Vital Signs 04/05/18 12:00 04/05/18 15:35 04/05/18 20:00 Temperature 97.2 F L 97.5 F L 98.2 F Pulse Rate 91 H 96 H 100 H Respiratory Rate 16 18 17 Blood Pressure 100/63 126/67 120/70 Pulse Oximetry 95 92 L 96 04/05/18 22:04 04/06/18 00:00 Temperature 98.8 F Pulse Rate 102 H Respiratory Rate 17 Blood Pressure 113/59 L Pulse Oximetry 96 17 L Intake & Output 04/05/18 04/06/18 04/06/18 18:59 06:59 18:59 Intake Total 250 / 250 600 / 600 Output Total 4000 / 4000 1500 / 1500 Balance -3750 / -3750 -900 / -900 Weight 110.59 kg Intake: Oral 250 / 250 600 / 600 Output: Urine 0 / 0 0 / 0 Hemodialysis Amount 4000 / 4000 1500 / 1500 Other: # Voids 2 Date of Last Bowel Movement 04/02/18 # Bowel Movements 2 <Bladimir Stiles R - 04/06/18 09:48> Vital Signs 04/04/18 12:00 04/04/18 16:00 04/04/18 20:00 Temperature 97.9 F 97.7 F 98.1 F Pulse Rate 91 H 96 H 99 H Respiratory Rate 17 17 16 Blood Pressure 110/60 126/65 140/69 Pulse Oximetry 94 L 93 L 93 L 04/05/18 00:00 Temperature 98.0 F Pulse Rate 97 H Respiratory Rate 17 Blood Pressure 109/63 Pulse Oximetry 95 Intake & Output 04/04/18 04/05/18 04/05/18 18:59 06:59 18:59 Intake Total 1150 / 1150 Output Total 0 / 0 Balance 1150 / 1150 Weight 110.59 kg Intake: Oral 1150 / 1150 Output: Urine 0 / 0 Other: # Voids 2 # Bowel Movements 2 <KelleyKaden yee - 04/05/18 09:49> - Constitutional no acute distress, obese, cooperative <Kaden Kelley 04/05/18 11:02> - Routine HEENT Exam Head: Present: normocephalic, atraumatic <Kaden Kelley 04/05/18 11:02> - Routine Neck Exam Comments: Central line in place in right EJ. <Kaden Kelley 04/05/18 11:02> - Routine Respiratory Exam Present: crackles. Absent: accessory muscle use, CTA bilaterally, rales, respiratory distress, rhonchi, stridor, wheezes <Kaden Kelley 04/05/18 11: 02> Comments: Mild crackled heard in lower lobes bilaterally. <Kaden Kelley 04/05/18 11:02> - Routine Cardiovascular Exam Present: RRR, S1, S2. Absent: murmur, gallop, rubs <Kaden Kelley 04/05/18 11:02> - Routine Abdominal Exam Present: soft, normoactive bowel sounds. Absent: tenderness, distended, rebound , guarding <Kaden Kelley 04/05/18 11:02> - Routine Extremities Exam Absent: cyanosis, clubbing, edema, calf tenderness <Kaden Kelley 04/05/18 11:02> - Detailed Extremities Exam: Vascular Peripheral pulses: 2+ dorsalis pedis (L), 2+ dorsalis pedis (R) <Kaden Kelley 04/05/18 11:02> - Routine Neurological Exam Present: alert, normal speech. Absent: motor deficit, facial asymmetry < Kaden Kelley 04/05/18 11:02> - Detailed Neurological Exam: Coma Scale Eye Opening: Spontaneous <Kaden Kelley 04/05/18 11:02> Verbal Response: Oriented <Kaden Kelley 04/05/18 11:02> Motor Response: Obey commands <Kaden Kelley 04/05/18 11:02> Center Coma Scale Total: 15 <Kaden Kelley 04/05/18 11:02> - Routine Psychiatric Exam Present: normal affect, normal thought process, cooperative. Absent: anxious, agitated <Kaden Kelley 04/05/18 11:02> Assessment and Plan - Assessment (1) Acute renal failure (ARF) Code(s): N17.9 - Acute kidney failure, unspecified Status: Acute (2) Hepatitis B Code(s): B19.10 - Unspecified viral hepatitis B without hepatic coma Status: Chronic (3) End stage renal disease Code(s): N18.6 - End stage renal disease Status: Chronic (4) Hypertension Code(s): I10 - Essential (primary) hypertension Status: Acute (5) GERD (gastroesophageal reflux disease) Code(s): K21.9 - Gastro-esophageal reflux disease without esophagitis Status: Acute (6) Nutrition, metabolism, and development symptoms Code(s): R63.8 - Other symptoms and signs concerning food and fluid intake Status: Acute <Bladimir Stiles R - 04/06/18 09:48> (1) Acute renal failure (ARF) Code(s): N17.9 - Acute kidney failure, unspecified Status: Acute Plan: This patient is suffering from end stage renal disease and was admitted in the setting of symptomatic uremia. Nephrology is currently following. Patient on a MWF dialysis schedule. Patient is NPO and scheduled for Perma Cath placement today. AVF access for Sunday04/08/18 w/ Dr. Hummel. Possible discharge pending nephrology and GI recommendations. - Continue dialysis as recommended by nephrology team - Continue NPO until permacath placement - Trend BMP - Renal Diet (2) Hepatitis B Code(s): B19.10 - Unspecified viral hepatitis B without hepatic coma Status: Chronic Plan: HBsAg positive without IgM, consistent with chronic hepatitis B. AST/ALT have almost doubled during admission. GI following, awaiting HFE results. Current LFTs down trending, AST 268 and ALT 340. Consider liver biopsy if LFTs begin to trend upward. - Continue to trend LFTs until Hep B work up complete per GI - Continue Actigall per GI - Follow up with HFE labs - Has appt with GI (Dr. Chaney) on April 24. - HBeAg and Ab, Total Core Ab pending (3) End stage renal disease Code(s): N18.6 - End stage renal disease Status: Chronic Plan: Per nephrology will need chronic dialysis. Perm cath placement today. - Continue dialysis per nephrology - Dietary consult for renal diet education - Planning AVF access for Sunday04/08/18 w/ Dr. Hummel. (4) Metabolic acidosis with normal anion gap and bicarbonate losses Code(s): E87.2 - Acidosis Status: Resolved Plan: Secondary to renal disease, now resolved. Anion gap at 20 and bicarb at 19.9 on 03 April. Patient on a MWF dialysis schedule. - Dialyze as recommended by nephrology - Follow BMP (5) Hypertension Code(s): I10 - Essential (primary) hypertension Status: Acute Plan: Holding home hypertensives for now due to low BP after dialysis. Will monitor and resume as needed. - Labetalol PRN in BP at or over 180/ 100 (6) GERD (gastroesophageal reflux disease) Code(s): K21.9 - Gastro-esophageal reflux disease without esophagitis Status: Acute Plan: Continue Pepcid dosed renally (7) Acute diarrhea Code(s): R19.7 - Diarrhea, unspecified Status: Resolved Plan: Patient was confirmed C Diff negative. Per patient has had 1 bowel movement yesterday and today.Patient has had 3 days of normal firm bowel movements <Kaden Kelley - 04/05/18 10:28> - Attending Attestation This patient was seen and examined. The assessment and plan was discussed with the resident physician and I am in agreement with continued medical care as documented in this encounter. <Bladimir Stiles R - 04/06/18 09:48> <Kaden Kelley O - Last Filed: 04/05/18 10:28> (1) Acute renal failure (ARF) Qualifiers: Acute renal failure type: unspecified Qualified Code(s): N17.9 - Acute kidney failure, unspecified (5) Hypertension Qualifiers: Hypertension type: renovascular hypertension Qualified Code(s): I15.0 - Renovascular hypertension <Bladimir Stiles R - Last Filed: 04/06/18 09:48> (1) Acute renal failure (ARF) Qualifiers: Acute renal failure type: unspecified Qualified Code(s): N17.9 - Acute kidney failure, unspecified (4) Hypertension Qualifiers: Hypertension type: renovascular hypertension Qualified Code(s): I15.0 - Renovascular hypertension <Kaden Kelley O - Last Filed: 04/05/18 10:28> (1) Acute renal failure (ARF) Qualifiers: Acute renal failure type: unspecified Qualified Code(s): N17.9 - Acute kidney failure, unspecified (5) Hypertension Qualifiers: Hypertension type: renovascular hypertension Qualified Code(s): I15.0 - Renovascular hypertension <Bladimir Stiles - Last Filed: 04/06/18 09:48> (1) Acute renal failure (ARF) Qualifiers: Acute renal failure type: unspecified Qualified Code(s): N17.9 - Acute kidney failure, unspecified (4) Hypertension Qualifiers: Hypertension type: renovascular hypertension Qualified Code(s): I15.0 - Renovascular hypertension
--- NOTE | 2018-04-05 11:26 | P.PNNP ---
Subjective Interval history: Currently NPO, in route to IR for PermCath exchange. Plan for right side AVF on Sunday. Due for dialysis later today. Physical Exam Vital signs: Vital Signs 04/04/18 12:00 04/04/18 16:00 04/04/18 20:00 Temperature 97.9 F 97.7 F 98.1 F Pulse Rate 91 H 96 H 99 H Respiratory Rate 17 17 16 Blood Pressure 110/60 126/65 140/69 Pulse Oximetry 94 L 93 L 93 L 04/05/18 00:00 04/05/18 08:00 Temperature 98.0 F 97.2 F L Pulse Rate 97 H 102 H Respiratory Rate 17 18 Blood Pressure 109/63 122/56 L Pulse Oximetry 95 93 L Intake & Output 04/04/18 04/05/18 04/05/18 18:59 06:59 18:59 Intake Total 1150 / 1150 Output Total 0 / 0 1999 Balance 1150 / 1150 -1999 Weight 110.59 kg Intake: Oral 1150 / 1150 Output: Urine 0 / 0 Hemodialysis Amount 1999 Other: # Voids 2 # Bowel Movements 2 - Constitutional no acute distress - Routine HEENT Exam Head: Present: normocephalic Eye: Present: EOMI ENT: Present: mucous membranes moist - Routine Neck Exam Present: supple, full ROM - Routine Respiratory Exam Present: CTA bilaterally. Absent: accessory muscle use - Routine Cardiovascular Exam Present: RRR, S1, S2 - Routine Abdominal Exam Present: soft, normoactive bowel sounds - Routine Extremities Exam Present: pulses intact, normal capillary refill - Routine Skin Exam Present: intact, warm - Routine Neurological Exam Present: alert, oriented X3, CN II-XII intact - Detailed Neurological Exam: Coma Scale Eye Opening: Spontaneous Verbal Response: Oriented Motor Response: Obey commands [place] Coma Scale Total: 15 - Routine Psychiatric Exam Present: normal affect, normal thought process Assessment and Plan - Assessment (1) End stage renal disease Code(s): N18.6 - End stage renal disease Status: Chronic Plan: Continue dialysis MWF. He is due later today. In route for PermCath exchange today. He can resume renal (high protein/low K) diet after. Plan is for AVF placement on right Sunday. He will also have HD Sunday and can be discharged afterwards. First outpatient HD will be on Sunday next week. Chair time TBD. Avoid right arm procedures. (2) Hypertension Code(s): I10 - Essential (primary) hypertension Status: Acute Qualifiers: Hypertension type: renovascular hypertension Qualified Code(s): I15.0 - Renovascular hypertension Plan: Continue present medications. BP is acceptable. (3) Hepatitis B Code(s): B19.10 - Unspecified viral hepatitis B without hepatic coma Status: Chronic Plan: There was discussion about consulting ID to inquire about treatment vs outpatient follow up. Obtaining isolation chair for in center HD. Inpatient HD will be in afternoons due to Hep B status. (4) Acute diarrhea Code(s): R19.7 - Diarrhea, unspecified Status: Resolved Plan: Improved, C diff negative. Not on antibiotics.
[2018-04-05] MEDS: Senna/Docusate Sodium 8.6/50 MG Tablet PO SCH ×2 (12:56→20:59)
[2018-04-05] MEDS: Famotidine 20 MG Tablet PO SCH ×2 (12:56→20:59)
[2018-04-05] MEDS ORDERED: *Heparin 10,000 UNITS/10 ML Vial Periprocedural ONLY ONE (14:22)
[2018-04-05] MEDS ORDERED: Lidocaine 1%/Epinephrine 1:100,000 Inj 30 ML Vial ONE (14:23)
[2018-04-05] MEDS ORDERED: fentaNYL Citrate Inj 100 MCG/2 ML Ampul ONE (14:26)
[2018-04-05] MEDS ORDERED: ceFAZolin 2 GM Premix Inj 2 GM/50 ML PIGGYBACK IV.SIG ONE (14:27)
--- NOTE | 2018-04-05 16:43 | IR ---
EXAM DATE: 04/05/2018 3:43 PM EDT AGE/SEX: 47 years / Male INDICATIONS: Patient presents with a history of kidney disease in need of a dialysis catheter. CLINICAL DATA: This is the patient's initial encounter. Patient reports that signs and symptoms have been present for 4 - 6 days and indicates a pain score of 0/10. MEDICAL/SURGICAL HISTORY: Anemia. Gastroesophageal reflux disease. TIAHx Torsion of right test icleBronchitisUlcer . Torsion repair on right testicleLeft kidney biopsyRight lower extremity vein s tripping COMPARISON: No prior exams available for comparison. FLUORO TIME (min): .18 IMAGE SERIES: SEDATION TIME (min): 15 1mg midazolam (Versed) IV 50mcg fentanyl (Sublimaze) IV DEVICE(S): 19cm . . PROCEDURE: 1. Dialysis catheter placement. 2. Conscious sedation with continuous EKG and oximetry monitoring. The risks, benefits and alternatives to the procedure were explained and verbal and written consent w as obtained. The site was prepped in sterile fashion. Full sterile technique was used, including ca p, mask, sterile gloves and gown and a large sterile sheet. Hand hygiene and 2% chlorhexidine and/or betadine/alcohol prep was utilized per protocol for cutaneous antisepsis. The skin and subcutaneous tissues were infiltrated with local anesthetic solution. With fluoroscopic guidance a dermatotomy was created using the existing venous access. A subcutaneou s tunnel was created in a retrograde fashion the catheter was pulled through the tunnel. The cathete r was flushed and assembled and locked with heparin. The catheter was sutured in place. Conscious sedation was performed with the prescribed dosages and duration as above in the presence of an independent trained radiology nurse to assist in the monitoring of the patient. EKG and oximetry remained stable throughout the procedure. The patient tolerated the procedure well and there were n o complications. The patient was sent to post anesthesia recovery in stable condition. CONCLUSION: 1. Uncomplicated Dialysis catheter placement as above. Electronically signed by: Dirk Richards MD 04/05/2018 4:42 PM EDT
--- NOTE | 2018-04-05 17:34 | P.PNGI ---
Subjective Interval history: Patient is awake resting on the stretcher down in the dialysis unit Denies any nausea and feels like he is beginning to get his appetite back and can taste food Denies any abdominal pain Denies any nausea vomiting or obvious bleeding New dialysis catheter placement today without any noted complications Physical Exam Vital signs: Vital Signs 04/04/18 20:00 04/05/18 00:00 04/05/18 08:00 Temperature 98.1 F 98.0 F 97.2 F L Pulse Rate 99 H 97 H 102 H Respiratory Rate 16 17 18 Blood Pressure 140/69 109/63 122/56 L Pulse Oximetry 93 L 95 93 L 04/05/18 12:00 04/05/18 15:35 Temperature 97.2 F L 97.5 F L Pulse Rate 91 H 96 H Respiratory Rate 16 18 Blood Pressure 100/63 126/67 Pulse Oximetry 95 92 L Intake & Output 04/04/18 04/05/18 04/05/18 18:59 06:59 18:59 Intake Total 1150 / 1150 Output Total 0 / 0 1999 Balance 1150 / 1150 -1999 Weight 110.59 kg Intake: Oral 1150 / 1150 Output: Urine 0 / 0 Hemodialysis Amount 1999 Other: # Voids 2 Date of Last Bowel Movement 04/02/18 # Bowel Movements 2 - Constitutional no acute distress - Routine HEENT Exam Head: Present: normocephalic, atraumatic Eye: Present: EOMI ENT: Present: mucous membranes dry - Routine Neck Exam Present: supple - Routine Respiratory Exam Present: decreased breath sounds - Routine Cardiovascular Exam Present: RRR (But no obvious rhonchi or wheezing) - Routine Abdominal Exam Present: soft (Round, no abdominal pain to light palpation), normoactive bowel sounds - Routine Skin Exam Present: intact, dry - Routine Neurological Exam Present: alert, oriented X3 (States he is beginning to feel better) - Detailed Neurological Exam: Coma Scale Eye Opening: Spontaneous Verbal Response: Oriented Motor Response: Obey commands [place] Coma Scale Total: 15 - Routine Psychiatric Exam Present: normal affect Results - Labs CBC & Chem 7: 04/05/18 07:26 04/05/18 07:26 Laboratory Results - last 24 hr 03/31/18 04/05/18 04/05/18 07:00 07:26 07:26 WBC 18.9 H RBC 3.97 L Hgb 11.5 L Hct 35.3 L MCV 88.8 MCH 29.0 MCHC 32.6 RDW 14.3 Plt Count 163 MPV 9.8 Prelim Diff (Auto) Slide review pending Neut % (Auto) 45.1 Lymph % (Auto) 29.8 [place] % (Auto) 14.5 H Eos % (Auto) 10.2 H Baso % (Auto) 0.4 Neut # (Auto) 8.5 H Lymph # (Auto) 5.6 H [place] # (Auto) 2.7 H Eos # (Auto) 1.9 H Baso # (Auto) 0.1 WBC Differential Manual diff final Seg Neuts % (Manual) 48 Band Neuts % (Manual) 5 Lymphocytes % (Manual) 25 Monocytes % (Manual) 9 H Eosinophils % (Manual) 11 H Metamyelocytes % (Man) 2 H Abs Neuts (Manual) 10.4 H Differential Comment . Platelet Estimate Low L Platelet Morphology Normal Stomatocytes 1+ H PT 12.2 H INR 1.2 Sodium Potassium Chloride Carbon Dioxide Anion Gap BUN Creatinine Estimated GFR Random Glucose Calcium Total Bilirubin AST ALT Alkaline Phosphatase Total Protein Albumin Ceruloplasmin 34 Mitochondria M2 IgG Ab Less than 20.0 04/05/18 07:26 WBC RBC Hgb Hct MCV MCH MCHC RDW Plt Count MPV Prelim Diff (Auto) Neut % (Auto) Lymph % (Auto) [place] % (Auto) Eos % (Auto) Baso % (Auto) Neut # (Auto) Lymph # (Auto) [place] # (Auto) Eos # (Auto) Baso # (Auto) WBC Differential Seg Neuts % (Manual) Band Neuts % (Manual) Lymphocytes % (Manual) Monocytes % (Manual) Eosinophils % (Manual) Metamyelocytes % (Man) Abs Neuts (Manual) Differential Comment Platelet Estimate Platelet Morphology Stomatocytes PT INR Sodium 135 L Potassium 3.7 Chloride 94 L Carbon Dioxide 21.7 Anion Gap 19 H BUN 73 H Creatinine 11.24 H* Estimated GFR 6 L Random Glucose 81 Calcium 9.4 Total Bilirubin 2.3 H AST 268 H ALT 340 H Alkaline Phosphatase 128 H Total Protein 7.4 D Albumin 4.1 Ceruloplasmin Mitochondria M2 IgG Ab Microbiology 03/31/18 20:41 Blood - Peripheral Aerobic Blood Culture - Final No growth in 5 days 03/31/18 20:41 Blood - Peripheral Anaerobic Blood Culture - Final No growth in 5 days - Imaging Impressions Catheter Placement 04/05/18 08:00 CONCLUSION: 1. Uncomplicated Dialysis catheter placement as above. Assessment and Plan (1) Hepatitis B Status: Chronic Code(s): B19.10 - Unspecified viral hepatitis B without hepatic coma (2) Acute diarrhea Status: Resolved Code(s): R19.7 - Diarrhea, unspecified - Plan Assessment: - Elevated LFTs, increasing- LFTs remain high Pt noted to have positive Hepatitis surface antigen, negative surface and core antibody. Quant pending. High Fe, normal saturation Rest of liver work up is also pending Pt denies any history of liver issues, however he is a poor historian. Seen by our service in January of this year Hep B surface antigen (+), quant 1070 in January. Pt was advised to have Fibrosure test done, no results in chart. Pt unsure of how he got Hepatitis B. Denies ETOH Liver work up pending. Liver US (03/30) Mildly enlarged fatty liver. Right lower pole renal cyst measuring 2.1 cm. Poor visualization of pancreas due to shadowing bowel gas. - Complaints of acute diarrhea on arrival- now reports this has resolved. Denies nausea, vomiting. Some abdominal pain after dialysis yesterday, thinks too much fluid was removed C. Diff negative. EGD on February 27 --> Class A esophagitis noted, mild gastritis in the gastric antrum, normal duodenal mucosa in the bulb and second portion of the duodenum. Pathology (gastric antral mucosa) mild to moderate chronic gastritis negative for intestinal metaplasia and dysplasia, [place] inconclusive for H Pylori (GE) moderate acute and chronic inflammatory changes consistent with reflux negative for intestinal metaplasia and dysplasia. Treatment with abx and PPI was sent in by the office and pt was notified, pt is a poor historian and it is unclear whether or not he took the treatment. Colonoscopy in July 2016 --> Diminutive polyp in the rectum, pathology revealed hyperplastic polyp. (04/04) Pt with no GI complaints at this time, states he feels well today. Labs still pending. 04/05/2018 patient is currently resting in the dialysis unit status post new dialysis catheter placement today. Currently patient denies any abdominal pain no nausea no vomiting. Current labs show anemia stable probably secondary to his chronic renal disease currently 11.5 WBC count 18.9, alkaline phosphatase 128, bilirubin 2.3 mild decrease, AST 268 ALT 340, hemochromatosis labs pending , INR 1.2. Patient is beginning to feel better and states he feels like he can taste food now and hungry for solid. Should be able to tolerate renal diet Monitor labs for liver workup pending H pylori, EVIE screen negative, IgG antibody less than 20 a ASMA negative, IgG tissue transglutaminase and less than 1.2 IgA tissue transglutaminase less than 1.2. Denies any further diarrhea or constipation. Discharge planning discussed Sunday evening? Patient' s GI symptoms seem to be resolving. Will be glad to follow up with Mr. Barnes in our office after he is discharged, liver workup, and any other abnormal labs, hepatitis B. Plan: Renal diet as tolerated Anti-medic Bowel regimens as needed Pepcid Monitor LFTs, hemoglobin PT/INR and bilirubin Pt has been seen per myself and Dr. Nelson, note is written on his behalf
[2018-04-05] MEDS: ALBUMIN HUMAN 25% IV.SIG PRN (19:00)
[2018-04-05] MEDS: Heparin - SQ 10,000 UNITS/ML Vial SQ SCH (21:01)
[2018-04-06 03:49] LABS: Hepatitis B DNA (Log IU/mL) 1.78 (0-1.30)
[2018-04-06] MEDS ORDERED: Labetalol HCl Inj 100 MG/20 ML Vial IV.PUSH PRN (06:56)
--- NOTE | 2018-04-06 07:49 | P.PNFP ---
Subjective Interval history: Patient seen and examined at bedside. No acute events overnight. Patient reports that his appetite is improving, although his sense of taste is still diminished. Patient also complains of cough, stable since dialysis started. Denies CP, SOB, chills, fever, abdominal pain or N/V. <Sarah Ge D - 04/06/18 07:48> Results - Labs Result diagrams: 04/05/18 07:26 04/05/18 07:26 <Bladimir Stiles R - 04/06/18 09:51> Abnormal lab results 03/31/18 Range/Units 07:00 Hep B DNA Qnt log IU/mL 1.78 H (0-1.30) Hep B DNA (IU/mL) 60 H (0-19) IU/ml <Bladimir Stiles R - 04/06/18 09:51> Abnormal lab results 03/31/18 04/05/18 04/05/18 Range/Units 07:00 07:26 07:26 WBC 18.9 H (4.0-11.0) th/mm3 RBC 3.97 L (4.50-5.90) mil/mm3 Hgb 11.5 L (13.0-17.0) gm/dL Hct 35.3 L (39.0-51.0) % [place] % (Auto) 14.5 H (0.0-8.0) % Eos % (Auto) 10.2 H (0.0-4.0) % Neut # (Auto) 8.5 H (1.8-7.7) th/mm3 Lymph # (Auto) 5.6 H (1.0-4.8) th/mm3 [place] # (Auto) 2.7 H (0.0-0.9) th/mm3 Eos # (Auto) 1.9 H (0.0-0.4) th/mm3 Monocytes % (Manual) 9 H (0-8) % Eosinophils % (Manual) 11 H (0-4) % Metamyelocytes % (Man) 2 H (0-1) % Abs Neuts (Manual) 10.4 H (1.8-7.7) th/mm3 Platelet Estimate Low L (Normal) Stomatocytes 1+ H (None) PT 12.2 H (9.8-11.6) sec Sodium (136-145) meq/L Chloride (98-107) meq/L Anion Gap (5-15) meq/L BUN (7-18) mg/dL Creatinine (0.60-1.30) mg/dL Estimated GFR (>89) mL/min Total Bilirubin (0.2-1.0) mg/dL AST (15-37) U/L ALT (12-78) U/L Alkaline Phosphatase (45-117) U/L Hep B DNA Qnt log IU/mL 1.78 H (0-1.30) Hep B DNA (IU/mL) 60 H (0-19) IU/ml 04/05/18 Range/Units 07:26 WBC (4.0-11.0) th/mm3 RBC (4.50-5.90) mil/mm3 Hgb (13.0-17.0) gm/dL Hct (39.0-51.0) % [place] % (Auto) (0.0-8.0) % Eos % (Auto) (0.0-4.0) % Neut # (Auto) (1.8-7.7) th/mm3 Lymph # (Auto) (1.0-4.8) th/mm3 [place] # (Auto) (0.0-0.9) th/mm3 Eos # (Auto) (0.0-0.4) th/mm3 Monocytes % (Manual) (0-8) % Eosinophils % (Manual) (0-4) % Metamyelocytes % (Man) (0-1) % Abs Neuts (Manual) (1.8-7.7) th/mm3 Platelet Estimate (Normal) Stomatocytes (None) PT (9.8-11.6) sec Sodium 135 L (136-145) meq/L Chloride 94 L (98-107) meq/L Anion Gap 19 H (5-15) meq/L BUN 73 H (7-18) mg/dL Creatinine 11.24 H* (0.60-1.30) mg/dL Estimated GFR 6 L (>89) mL/min Total Bilirubin 2.3 H (0.2-1.0) mg/dL AST 268 H (15-37) U/L ALT 340 H (12-78) U/L Alkaline Phosphatase 128 H (45-117) U/L Hep B DNA Qnt log IU/mL (0-1.30) Hep B DNA (IU/mL) (0-19) IU/ml Short CBC 04/05/18 Range/Units 07:26 WBC 18.9 H (4.0-11.0) th/mm3 Hgb 11.5 L (13.0-17.0) gm/dL Hct 35.3 L (39.0-51.0) % Plt Count 163 (150-450) th/mm3 BMP 04/05/18 07:26 Sodium 135 L Potassium 3.7 Chloride 94 L Carbon Dioxide 21.7 BUN 73 H Creatinine 11.24 H* Calcium 9.4 Liver Function 04/05/18 Range/Units 07:26 Total Bilirubin 2.3 H (0.2-1.0) mg/dL AST 268 H (15-37) U/L ALT 340 H (12-78) U/L Alkaline Phosphatase 128 H (45-117) U/L Albumin 4.1 (3.4-5.0) g/dL <Sarah Ge - 04/06/18 07:48> - Imaging Impressions Catheter Placement 04/05/18 08:00 CONCLUSION: 1. Uncomplicated Dialysis catheter placement as above. <Bladimir Stiles - 04/06/18 09:51> Impressions Catheter Placement 04/05/18 08:00 CONCLUSION: 1. Uncomplicated Dialysis catheter placement as above. <Sarah Ge - 04/06/18 07:48> Physical Exam Vital signs: Vital Signs 04/05/18 12:00 04/05/18 15:35 04/05/18 20:00 Temperature 97.2 F L 97.5 F L 98.2 F Pulse Rate 91 H 96 H 100 H Respiratory Rate 16 18 17 Blood Pressure 100/63 126/67 120/70 Pulse Oximetry 95 92 L 96 04/05/18 22:04 04/06/18 00:00 Temperature 98.8 F Pulse Rate 102 H Respiratory Rate 17 Blood Pressure 113/59 L Pulse Oximetry 96 17 L Intake & Output 04/05/18 04/06/18 04/06/18 18:59 06:59 18:59 Intake Total 250 / 250 600 / 600 Output Total 4000 / 4000 1500 / 1500 Balance -3750 / -3750 -900 / -900 Weight 110.59 kg Intake: Oral 250 / 250 600 / 600 Output: Urine 0 / 0 0 / 0 Hemodialysis Amount 4000 / 4000 1500 / 1500 Other: # Voids 2 Date of Last Bowel Movement 04/02/18 # Bowel Movements 2 <Bladimir Stiles R - 04/06/18 09:51> Vital Signs 04/05/18 08:00 04/05/18 12:00 04/05/18 15:35 Temperature 97.2 F L 97.2 F L 97.5 F L Pulse Rate 102 H 91 H 96 H Respiratory Rate 18 16 18 Blood Pressure 122/56 L 100/63 126/67 Pulse Oximetry 93 L 95 92 L 04/05/18 20:00 04/05/18 22:04 04/06/18 00:00 Temperature 98.2 F 98.8 F Pulse Rate 100 H 102 H Respiratory Rate 17 17 Blood Pressure 120/70 113/59 L Pulse Oximetry 96 96 17 L Intake & Output 04/05/18 04/06/18 04/06/18 18:59 06:59 18:59 Intake Total 250 / 250 600 / 600 Output Total 4000 / 4000 1500 / 1500 Balance -3750 / -3750 -900 / -900 Weight 110.59 kg Intake: Oral 250 / 250 600 / 600 Output: Urine 0 / 0 0 / 0 Hemodialysis Amount 4000 / 4000 1500 / 1500 Other: # Voids 2 Date of Last Bowel Movement 04/02/18 # Bowel Movements 2 <Sarah Ge D - 04/06/18 07:48> - Constitutional no acute distress <Sarah Ge D 04/06/18 07:48> - Routine HEENT Exam Head: Present: atraumatic <Sarah Ge D 04/06/18 07:48> Eye: Present: EOMI, PERRL <Sarah Ge D 04/06/18 07:48> ENT: Present: mucous membranes dry <Sarah Ge 04/06/18 07:48> - Routine Neck Exam Present: supple, full ROM. Absent: JVD <Sarah Ge 04/06/18 07:48> - Routine Respiratory Exam Present: crackles (at lower bases BL). Absent: accessory muscle use, respiratory distress <Sarah Ge 04/06/18 07:48> - Routine Cardiovascular Exam Present: RRR, S1, S2. Absent: murmur, gallop, rubs <Sarah Ge 07:48> - Routine Abdominal Exam Present: soft, normoactive bowel sounds. Absent: tenderness, distended, rebound , guarding <Sarah eG 04/06/18 07:48> - Routine Extremities Exam Present: full ROM, pulses intact, normal capillary refill. Absent: cyanosis, clubbing, edema <Sarah Ge 04/06/18 07:48> - Routine Skin Exam Present: intact <Sarah Ge 04/06/18 07:48> - Routine Neurological Exam Present: alert, oriented X3, CN II-XII intact <Sarah Ge 04/06/18 07: 48> - Routine Psychiatric Exam Present: normal affect <Sarah Ge 04/06/18 07:48> Assessment and Plan - Assessment (1) Acute renal failure (ARF) Code(s): N17.9 - Acute kidney failure, unspecified Status: Acute (2) Hepatitis B Code(s): B19.10 - Unspecified viral hepatitis B without hepatic coma Status: Chronic (3) End stage renal disease Code(s): N18.6 - End stage renal disease Status: Chronic (4) Hypertension Code(s): I10 - Essential (primary) hypertension Status: Acute (5) GERD (gastroesophageal reflux disease) Code(s): K21.9 - Gastro-esophageal reflux disease without esophagitis Status: Acute (6) Nutrition, metabolism, and development symptoms Code(s): R63.8 - Other symptoms and signs concerning food and fluid intake Status: Acute <Bladimir Stiles R - 04/06/18 09:51> (1) Acute renal failure (ARF) Code(s): N17.9 - Acute kidney failure, unspecified Status: Acute Plan: This patient is suffering from end stage renal disease and was admitted in the setting of symptomatic uremia. Nephrology is currently following. Patient on a MWF dialysis schedule. Patient had Perma Cath procedure yesterday 04/06/18. AVF access for Sunday04/08/18 w/ Dr. Hummel. - Continue dialysis as recommended by nephrology team - Trend CMP - Renal Diet Anticipate discharge after AVF procedure. (2) Hepatitis B Code(s): B19.10 - Unspecified viral hepatitis B without hepatic coma Status: Chronic Plan: HBsAg positive without IgM, consistent with chronic hepatitis B. AST/ALT have almost doubled during admission. GI following, awaiting HFE results. Current LFTs down trending, AST 268 and ALT 340. Consider liver biopsy if LFTs begin to trend upward. - Continue Actigall per GI - Follow up with HFE labs - Has appt with GI (Dr. Chaney) on April 24. - HBeAg and Ab, Total Core Ab pending -Patient cleared from GI standpoint, Ok to f/u with Dr. Nelson as outpatient. (3) End stage renal disease Code(s): N18.6 - End stage renal disease Status: Chronic Plan: Per nephrology will need chronic dialysis. Perm cath placement yesterday. - Continue dialysis per nephrology - Dietary consult for renal diet education - Planning AVF access for Sunday04/08/18 w/ Dr. Hummel. -Patient will be going [facility]. He is scheduled to begin first HD on (04/10). (4) Hypertension Code(s): I10 - Essential (primary) hypertension Status: Acute Plan: Holding home hypertensives for now due to low BP after dialysis. Will monitor and resume as needed. - Labetalol PRN in BP at or over 180/ 100 (5) GERD (gastroesophageal reflux disease) Code(s): K21.9 - Gastro-esophageal reflux disease without esophagitis Status: Acute Plan: Continue Pepcid dosed renally (6) Nutrition, metabolism, and development symptoms Code(s): R63.8 - Other symptoms and signs concerning food and fluid intake Status: Acute Plan: Fluids: no IVF recommended per nephrology Electrolytes: continue to monitor and replete as needed per nephrology recommendations Diet: renal diet DVT ppx: heparin Q8h <Sarah Ge - 04/06/18 07:33> - Attending Attestation The assessment and plan was discussed with the resident physician and I am in agreement with continued medical care as documented in this encounter. <Bladimir Stiles R - 04/06/18 09:50> <Sarah Ge D - Last Filed: 04/06/18 07:33> (1) Acute renal failure (ARF) Qualifiers: Acute renal failure type: unspecified Qualified Code(s): N17.9 - Acute kidney failure, unspecified (4) Hypertension Qualifiers: Hypertension type: renovascular hypertension Qualified Code(s): I15.0 - Renovascular hypertension <Bladimir Stiles R - Last Filed: 04/06/18 09:51> (1) Acute renal failure (ARF) Qualifiers: Acute renal failure type: unspecified Qualified Code(s): N17.9 - Acute kidney failure, unspecified (4) Hypertension Qualifiers: Hypertension type: renovascular hypertension Qualified Code(s): I15.0 - Renovascular hypertension <Sarah Ge - Last Filed: 04/06/18 07:33> (1) Acute renal failure (ARF) Qualifiers: Acute renal failure type: unspecified Qualified Code(s): N17.9 - Acute kidney failure, unspecified (4) Hypertension Qualifiers: Hypertension type: renovascular hypertension Qualified Code(s): I15.0 - Renovascular hypertension <Bladimir Stiles - Last Filed: 04/06/18 09:51> (1) Acute renal failure (ARF) Qualifiers: Acute renal failure type: unspecified Qualified Code(s): N17.9 - Acute kidney failure, unspecified (4) Hypertension Qualifiers: Hypertension type: renovascular hypertension Qualified Code(s): I15.0 - Renovascular hypertension
[2018-04-06] MEDS: Senna/Docusate Sodium 8.6/50 MG Tablet PO SCH ×2 (09:47→22:51)
[2018-04-06] MEDS: Famotidine 20 MG Tablet PO SCH ×2 (09:47→22:50)
[2018-04-06] MEDS: Heparin - SQ 10,000 UNITS/ML Vial SQ SCH ×3 (09:48→22:51)
--- NOTE | 2018-04-06 20:02 | P.PNNP ---
Subjective Interval history: no acute complaints Physical Exam Vital signs: Vital Signs 04/05/18 20:00 04/05/18 22:04 04/06/18 00:00 Temperature 98.2 F 98.8 F Pulse Rate 100 H 102 H Respiratory Rate 17 17 Blood Pressure 120/70 113/59 L Pulse Oximetry 96 96 17 L 04/06/18 12:00 04/06/18 16:00 04/06/18 18:24 Temperature 97.8 F 98.3 F Pulse Rate 100 H 100 H Respiratory Rate 18 17 Blood Pressure 112/58 L 108/64 Pulse Oximetry 94 L 92 L 92 L Intake & Output 04/06/18 04/06/18 04/07/18 06:59 18:59 06:59 Intake Total 600 / 600 700 / 700 Output Total 1500 / 1500 Balance -900 / -900 700 / 700 Weight 110.59 kg Intake: Oral 600 / 600 700 / 700 Output: Urine 0 / 0 Hemodialysis Amount 1500 / 1500 Other: # Voids 1 # Bowel Movements 2 - Constitutional no acute distress - Routine HEENT Exam Head: Present: normocephalic Eye: Present: EOMI ENT: Present: mucous membranes moist - Routine Neck Exam Present: supple - Routine Respiratory Exam Present: CTA bilaterally - Routine Cardiovascular Exam Present: RRR - Routine Abdominal Exam Present: soft - Routine Skin Exam Present: intact - Routine Neurological Exam Present: alert - Detailed Neurological Exam: Coma Scale Eye Opening: Spontaneous - Routine Psychiatric Exam Present: normal affect Assessment and Plan - Assessment (1) End stage renal disease Code(s): N18.6 - End stage renal disease Status: Chronic Plan: Continue dialysis MWF. S/P Tunneled HD catheter Plan is for AVF placement on right Sunday. He will also have HD Sunday and can be discharged afterwards. First outpatient HD will be on Sunday next week. Chair time TBD. Avoid right arm procedures. (2) Hypertension Code(s): I10 - Essential (primary) hypertension Status: Acute Qualifiers: Hypertension type: renovascular hypertension Qualified Code(s): I15.0 - Renovascular hypertension Plan: Continue present medications. BP is acceptable. (3) Hepatitis B Code(s): B19.10 - Unspecified viral hepatitis B without hepatic coma Status: Chronic Plan: There was discussion about consulting ID to inquire about treatment vs outpatient follow up. Obtaining isolation chair for in center HD. Inpatient HD will be in afternoons due to Hep B status. (4) Acute diarrhea Code(s): R19.7 - Diarrhea, unspecified Status: Resolved Plan: Improved, C diff negative. Not on antibiotics.
[2018-04-07] MEDS: Heparin - SQ 10,000 UNITS/ML Vial SQ SCH ×3 (05:25→22:02)
[2018-04-07 06:32] LABS: Baso % (Auto) 0.2 % (0.0-2.0); Eos # (Auto) 0.7 th/mm3 (0.0-0.4); Eos % (Auto) 4.5 % (0.0-4.0); Hematocrit 31.8 % (39.0-51.0); Hemoglobin 10.3 gm/dL (13.0-17.0); Lymph # (Auto) 3.1 th/mm3 (1.0-4.8); Lymph % (Auto) 20.2 % (9.0-44.0); Mean Corpuscular HGB Conc 32.4 % (32.0-36.0); Mean Corpuscular Hemoglobin 29.6 pg (27.0-34.0); Mean Corpuscular Volume 91.4 fL (80.0-100.0); Mean Platelet Volume 9.8 fL (7.0-11.0); Mono # (Auto) 2.1 th/mm3 (0.0-0.9); Mono % (Auto) 13.9 % (0.0-8.0); Neut # (Auto) 9.3 th/mm3 (1.8-7.7); Neut % (Auto) 61.2 % (16.0-70.0); Platelet Count 136 th/mm3 (150-450); Red Blood Count 3.48 mil/mm3 (4.50-5.90); White Blood Count 15.2 th/mm3 (4.0-11.0)
[2018-04-07 06:51] LABS: Alanine Aminotransferase 93 U/L (12-78); Alkaline Phosphatase 114 U/L (45-117); Total Protein 7.3 g/dL (6.4-8.2)
[2018-04-07 07:11] LABS: Anion Gap 18 meq/L (5-15); Aspartate Aminotransferase 132 U/L (15-37); Blood Urea Nitrogen 69 mg/dL (7-18); Chloride 96 meq/L (98-107); Glomerular Filtration Rate 5 mL/min (>89); Glucose,Random 55 mg/dL (74-106); Potassium 4.3 meq/L (3.5-5.1); Sodium 134 meq/L (136-145)
[2018-04-07] MEDS ORDERED: Benzonatate 100 MG Capsule PO PRN (08:45)
[2018-04-07] MEDS: Senna/Docusate Sodium 8.6/50 MG Tablet PO SCH (09:19)
[2018-04-07] MEDS: Famotidine 20 MG Tablet PO SCH (09:19)
--- NOTE | 2018-04-07 09:52 | P.PNFP ---
Subjective Interval history: This patient was seen at bed side this morning and there were no acute events overnight. Patient reports feeling well and denies any issues after placement of his permacath on Sunday. Although he feels "fine" he still reports having a dry mouth and attributes it to the ursodiol and continues to have a slight unproductive cough. He reports to be ambulating well and walking laps on the floor. He denies any fevers, chills, nausea, shortness of breath or abdominal pain. He is scheduled for AV fistula in right arm and had no questions or concerns. <Kaden Kelley - 04/07/18 09:45> Results - Labs Result diagrams: 04/09/18 14:35 04/08/18 08:35 <Yulisa Reeves - 04/09/18 15:05> Abnormal lab results 04/09/18 Range/Units 14:35 WBC 16.2 H (4.0-11.0) th/mm3 RBC 3.81 L (4.50-5.90) mil/mm3 Hgb 10.9 L (13.0-17.0) gm/dL Hct 34.0 L (39.0-51.0) % Short CBC 04/09/18 Range/Units 14:35 WBC 16.2 H (4.0-11.0) th/mm3 Hgb 10.9 L (13.0-17.0) gm/dL Hct 34.0 L (39.0-51.0) % Plt Count 182 (150-450) th/mm3 <Yulisa Reeves - 04/09/18 15:05> Abnormal lab results 04/07/18 04/07/18 Range/Units 04:59 04:59 WBC 15.2 H (4.0-11.0) th/mm3 RBC 3.48 L (4.50-5.90) mil/mm3 Hgb 10.3 L (13.0-17.0) gm/dL Hct 31.8 L (39.0-51.0) % Plt Count 136 L (150-450) th/mm3 [place] % (Auto) 13.9 H (0.0-8.0) % Eos % (Auto) 4.5 H (0.0-4.0) % Neut # (Auto) 9.3 H (1.8-7.7) th/mm3 [place] # (Auto) 2.1 H (0.0-0.9) th/mm3 Eos # (Auto) 0.7 H (0.0-0.4) th/mm3 Sodium 134 L (136-145) meq/L Chloride 96 L (98-107) meq/L Carbon Dioxide 20.0 L (21.0-32.0) meq/L Anion Gap 18 H (5-15) meq/L BUN 69 H (7-18) mg/dL Creatinine 12.07 H* (0.60-1.30) mg/dL Estimated GFR 5 L (>89) mL/min Random Glucose 55 L (74-106) mg/dL Total Bilirubin 2.0 H (0.2-1.0) mg/dL AST 132 H (15-37) U/L ALT 93 H (12-78) U/L Short CBC 04/07/18 Range/Units 04:59 WBC 15.2 H (4.0-11.0) th/mm3 Hgb 10.3 L (13.0-17.0) gm/dL Hct 31.8 L (39.0-51.0) % Plt Count 136 L (150-450) th/mm3 BMP 04/07/18 04:59 Sodium 134 L Potassium 4.3 Chloride 96 L Carbon Dioxide 20.0 L BUN 69 H Creatinine 12.07 H* Calcium 10.0 Liver Function 04/07/18 Range/Units 04:59 Total Bilirubin 2.0 H (0.2-1.0) mg/dL AST 132 H (15-37) U/L ALT 93 H (12-78) U/L Alkaline Phosphatase 114 (45-117) U/L Albumin 4.0 (3.4-5.0) g/dL <Kaden Kelley O - 04/07/18 09:45> Physical Exam Vital signs: Vital Signs 04/08/18 16:49 04/08/18 17:00 04/08/18 17:15 Temperature 97.7 F Pulse Rate 119 H 119 H 118 H Respiratory Rate 17 17 18 Blood Pressure 102/49 L 107/54 L 114/58 L Pulse Oximetry 96 96 96 04/08/18 17:30 04/08/18 17:40 04/08/18 20:00 Temperature 97.7 F 97.9 F Pulse Rate 117 H 109 H Respiratory Rate 18 20 Blood Pressure 121/60 121/64 Pulse Oximetry 94 L 94 L 94 L 04/09/18 00:00 04/09/18 05:29 04/09/18 08:00 Temperature 97.8 F 97.2 F L 97.8 F Pulse Rate 113 H 98 H 100 H Respiratory Rate 20 18 18 Blood Pressure 118/64 128/77 132/72 Pulse Oximetry 93 L 93 L 93 L Intake & Output 04/08/18 04/09/18 04/09/18 18:59 06:59 18:59 Intake Total 1000 / 1000 Output Total 1999 Balance 980 / 980 -1999 Intake: IV 500 / 500 Heparin/NS PF Inj 500 ML @ 0 500 / 500 [facility]ls[facility]hr [id number] Anesthesia Amount 500 / 500 Output: Hemodialysis Amount 1999 Estimated Blood Loss Other: # Voids 2 Date of Last Bowel Movement 04/06/18 04/08/18 04/08/18 # Bowel Movements 1 <Yulisa Reeves M - 04/09/18 15:05> Vital Signs 04/06/18 12:00 04/06/18 16:00 04/06/18 18:24 Temperature 97.8 F 98.3 F Pulse Rate 100 H 100 H Respiratory Rate 18 17 Blood Pressure 112/58 L 108/64 Pulse Oximetry 94 L 92 L 92 L 04/06/18 20:00 04/07/18 00:00 Temperature 98.4 F 98.6 F Pulse Rate 101 H 102 H Respiratory Rate 17 17 Blood Pressure 104/64 105/67 Pulse Oximetry 94 L 95 Intake & Output 04/06/18 04/07/18 04/07/18 18:59 06:59 18:59 Intake Total 700 / 700 240 / 240 Balance 700 / 700 240 / 240 Weight 110.4 kg Intake: Oral 700 / 700 240 / 240 Other: # Voids 1 2 # Bowel Movements 2 <Kaden Kelley - 04/07/18 09:45> - Constitutional no acute distress, obese, cooperative <Kaden Kelley - 04/07/18 09:45> - Routine HEENT Exam Head: Present: normocephalic, atraumatic <Kaden Kelley 04/07/18 09:45> Eye: Present: conjunctival icterus. Absent: scleral injection <KelleyKaden Bee 04/07/18 09:45> Comments: Minor noticeable yellowing of the sclera bilaterally <Kaden Kelley 04/07/18 09:45> - Routine Neck Exam Comments: Area of prior central line clean and without derbis or signs of infection. <Kelley,Kaden Bee 04/07/18 09:45> - Routine Chest/Breast/Axilla Exam Comments: Patient had permacath placed in right side of chest, area clean and without debris or signs of infection <Kelley,Kaden Bee 04/07/18 09:45> - Routine Respiratory Exam Present: wheezes. Absent: accessory muscle use, rales, respiratory distress, rhonchi, stridor, crackles, distant breath sounds <Kelley,Kaden Bee 04/07/18 09 :45> Comments: Lower lungs bilaterally <Kelley,Kaden Bee 04/07/18 09:45> - Routine Cardiovascular Exam Present: RRR, S1, S2. Absent: murmur, gallop, rubs <AllieKaden Bee 04/07/18 09:45> - Routine Abdominal Exam Present: soft, normoactive bowel sounds. Absent: tenderness, distended, rebound , guarding <KelleyKaden Bee 04/07/18 09:45> - Routine Extremities Exam Present: pulses intact. Absent: cyanosis, clubbing, edema, calf tenderness < Kelley,Kaden Bee 04/07/18 09:45> - Routine Skin Exam Absent: intact, cyanosis, erythema <KelleyKaden Bee 04/07/18 09:45> - Routine Neurological Exam Present: alert, oriented X3, normal speech. Absent: sensory deficit, motor deficit, altered mental status <Kelley,Kaden Bee 04/07/18 09:45> - Detailed Neurological Exam: Coma Scale Eye Opening: Spontaneous <Kelley,Kaden Rohit Rachael 04/07/18 09:45> Verbal Response: Oriented <Kaden Kelley Rachael 04/07/18 09:45> Motor Response: Obey commands <Kaden Kelley 04/07/18 09:45> Nida Coma Scale Total: 15 <Kaden Kelley O - 04/07/18 09:45> - Routine Psychiatric Exam Present: normal affect, normal thought process, cooperative, good insight, good judgment <Kaden Kelley - 04/07/18 09:45> Assessment and Plan - Assessment (1) Acute renal failure (ARF) Code(s): N17.9 - Acute kidney failure, unspecified Status: Acute (2) Hepatitis B Code(s): B19.10 - Unspecified viral hepatitis B without hepatic coma Status: Chronic (3) End stage renal disease Code(s): N18.6 - End stage renal disease Status: Chronic (4) Hypertension Code(s): I10 - Essential (primary) hypertension Status: Acute (5) GERD (gastroesophageal reflux disease) Code(s): K21.9 - Gastro-esophageal reflux disease without esophagitis Status: Acute (6) Nutrition, metabolism, and development symptoms Code(s): R63.8 - Other symptoms and signs concerning food and fluid intake Status: Acute <LakewoodYulisa myers Steve - 04/09/18 15:05> (1) Acute renal failure (ARF) Code(s): N17.9 - Acute kidney failure, unspecified Status: Acute Plan: This patient is suffering from end stage renal disease and was admitted in the setting of symptomatic uremia. Nephrology is currently following. Patient on a MWF dialysis schedule. Patient had Perma Cath procedure on 04/06/18 without issues. AVF access for Sunday04/08/18 w/ Dr. Hummel. Creatinine continues to rise, today at 12.07 with a BUN of 68. Of note WBC has come down to 15.2 from 18.9 on 04/05/18. - Continue dialysis as recommended by nephrology team - Trend CMP - Renal Diet - Anticipate discharge after AVF procedure. (2) Hepatitis B Code(s): B19.10 - Unspecified viral hepatitis B without hepatic coma Status: Chronic Plan: HBsAg positive without IgM, consistent with chronic hepatitis B. AST/ALT have almost doubled during admission but have down trended recently to an AST of 132 and an AST of 93. Patient also has high bili of 2, currently on ursodiol. Patient had slightly icteric sclera on examination. GI following, awaiting HFE results. Current LFTs down trending, AST 268 and ALT 340. Consider liver biopsy if LFTs begin to trend upward. - Continue Actigall per GI - Follow up with HFE labs - Has appt with GI (Dr. Chaney) on April 24. -Patient cleared from GI standpoint, Ok to f/u with Dr. Nelson as outpatient. (3) End stage renal disease Code(s): N18.6 - End stage renal disease Status: Chronic Plan: Per nephrology will need chronic dialysis. Perm cath placement yesterday. - Continue dialysis per nephrology - Dietary consult for renal diet education - Planning AVF access for Sunday04/08/18 w/ Dr. Hummel. -Patient will be going to [facility] for HD. He is scheduled to begin first HD on (04/10). (4) Hypertension Code(s): I10 - Essential (primary) hypertension Status: Acute Plan: Holding home hypertensives for now due to low BP after dialysis. Will monitor and resume as needed. - Labetalol PRN in BP at or over 180/ 100 (5) GERD (gastroesophageal reflux disease) Code(s): K21.9 - Gastro-esophageal reflux disease without esophagitis Status: Acute Plan: Continue Pepcid dosed renally (6) Nutrition, metabolism, and development symptoms Code(s): R63.8 - Other symptoms and signs concerning food and fluid intake Status: Acute Plan: Fluids: no IVF recommended per nephrology Electrolytes: continue to monitor and replete as needed per nephrology recommendations Diet: renal diet DVT ppx: heparin Q8h <Kaden Kelley - 04/07/18 08:53> - Attending Attestation The exam, history, and the medical decision-making described in the above note were completed with the assistance of the resident physician. I reviewed and agree with the findings presented. I attest that I had a [id number] encounter with the patient on the same day, and personally performed and documented my assessment and findings in the medical record. On discussion with pt, he felt much worse with the multiple new meds. will hold his newer medications as they may be causing side effects. pepcid can cause hepatitis and acute liver problem. <Yulisa Reeves - 04/09/18 15:05> <Kaden Kelley - Last Filed: 04/07/18 08:53> (1) Acute renal failure (ARF) Qualifiers: Acute renal failure type: unspecified Qualified Code(s): N17.9 - Acute kidney failure, unspecified (4) Hypertension Qualifiers: Hypertension type: renovascular hypertension Qualified Code(s): I15.0 - Renovascular hypertension <Yulisa Reeves - Last Filed: 04/09/18 15:05> (1) Acute renal failure (ARF) Qualifiers: Acute renal failure type: unspecified Qualified Code(s): N17.9 - Acute kidney failure, unspecified (4) Hypertension Qualifiers: Hypertension type: renovascular hypertension Qualified Code(s): I15.0 - Renovascular hypertension <Kaden Kelley - Last Filed: 04/07/18 08:53> (1) Acute renal failure (ARF) Qualifiers: Acute renal failure type: unspecified Qualified Code(s): N17.9 - Acute kidney failure, unspecified (4) Hypertension Qualifiers: Hypertension type: renovascular hypertension Qualified Code(s): I15.0 - Renovascular hypertension <Yulisa Reeves - Last Filed: 04/09/18 15:05> (1) Acute renal failure (ARF) Qualifiers: Acute renal failure type: unspecified Qualified Code(s): N17.9 - Acute kidney failure, unspecified (4) Hypertension Qualifiers: Hypertension type: renovascular hypertension Qualified Code(s): I15.0 - Renovascular hypertension
--- NOTE | 2018-04-07 14:37 | P.PNNP ---
Subjective Interval history: no acute complaints Physical Exam Vital signs: Vital Signs 04/06/18 16:00 04/06/18 18:24 04/06/18 20:00 Temperature 98.3 F 98.4 F Pulse Rate 100 H 101 H Respiratory Rate 17 17 Blood Pressure 108/64 104/64 Pulse Oximetry 92 L 92 L 94 L 04/07/18 00:00 04/07/18 08:00 04/07/18 11:57 Temperature 98.6 F 97.2 F L 97.7 F Pulse Rate 102 H 104 H 103 H Respiratory Rate 17 16 17 Blood Pressure 105/67 109/61 107/65 Pulse Oximetry 95 94 L 93 L 04/07/18 12:55 Temperature Pulse Rate Respiratory Rate Blood Pressure Pulse Oximetry 93 L Intake & Output 04/06/18 04/07/18 04/07/18 18:59 06:59 18:59 Intake Total 700 / 700 240 / 240 Balance 700 / 700 240 / 240 Weight 110.4 kg Intake: Oral 700 / 700 240 / 240 Other: # Voids 1 2 # Bowel Movements 2 - Constitutional no acute distress - Routine HEENT Exam Head: Present: normocephalic Eye: Present: EOMI ENT: Present: mucous membranes moist - Routine Neck Exam Present: supple - Routine Respiratory Exam Present: CTA bilaterally - Routine Cardiovascular Exam Present: RRR - Routine Abdominal Exam Present: soft - Routine Extremities Exam Present: vascular access - Routine Skin Exam Present: intact Assessment and Plan - Assessment (1) End stage renal disease Code(s): N18.6 - End stage renal disease Status: Chronic Plan: Continue dialysis MWF. S/P Tunneled HD catheter Plan is for AVF placement on right Sunday. He will also have HD Sunday and can be discharged afterwards. First outpatient HD will be on Sunday next week. Chair time TBD. Avoid right arm procedures. (2) Hypertension Code(s): I10 - Essential (primary) hypertension Status: Acute Qualifiers: Hypertension type: renovascular hypertension Qualified Code(s): I15.0 - Renovascular hypertension Plan: Continue present medications. BP is acceptable. (3) Hepatitis B Code(s): B19.10 - Unspecified viral hepatitis B without hepatic coma Status: Chronic Plan: There was discussion about consulting ID to inquire about treatment vs outpatient follow up. Obtaining isolation chair for in center HD. Inpatient HD will be in afternoons due to Hep B status. (4) Acute diarrhea Code(s): R19.7 - Diarrhea, unspecified Status: Resolved Plan: Improved, C diff negative. Not on antibiotics.
[2018-04-08] MEDS: Heparin - SQ 10,000 UNITS/ML Vial SQ SCH (05:45)
[2018-04-08 09:32] LABS: Hemoglobin 10.8 gm/dL (13.0-17.0); Mean Corpuscular HGB Conc 32.6 % (32.0-36.0); Mean Corpuscular Hemoglobin 29.2 pg (27.0-34.0); Mean Corpuscular Volume 89.5 fL (80.0-100.0); Mean Platelet Volume 9.4 fL (7.0-11.0); Platelet Count 152 th/mm3 (150-450); Red Blood Count 3.69 mil/mm3 (4.50-5.90); Red Cell Distribution Width 14.7 % (11.6-17.2); White Blood Count 13.5 th/mm3 (4.0-11.0)
[2018-04-08 10:04] LABS: Alanine Aminotransferase 42 U/L (12-78); Albumin 3.6 g/dL (3.4-5.0); Alkaline Phosphatase 121 U/L (45-117); Anion Gap 22 meq/L (5-15); Aspartate Aminotransferase 72 U/L (15-37); Blood Urea Nitrogen 91 mg/dL (7-18); Calcium 9.5 mg/dL (8.5-10.1); Carbon Dioxide 19.2 meq/L (21.0-32.0); Chloride 93 meq/L (98-107); Glomerular Filtration Rate 4 mL/min (>89); Glucose,Random 74 mg/dL (74-106); Potassium 4.3 meq/L (3.5-5.1); Sodium 134 meq/L (136-145); Total Protein 7.5 g/dL (6.4-8.2)
--- NOTE | 2018-04-08 11:03 | P.PNGI ---
Subjective Interval history: Pt resting in bed. No GI complaints at this time. Planned for dialysis today. <Una Jovel - Last Filed: 04/08/18 10:58> Physical Exam Vital signs: Vital Signs 04/07/18 11:57 04/07/18 12:55 04/07/18 16:00 Temperature 97.7 F 97.9 F Pulse Rate 103 H 112 H Respiratory Rate 17 18 Blood Pressure 107/65 107/62 Pulse Oximetry 93 L 93 L 93 L 04/07/18 20:00 04/08/18 00:06 04/08/18 08:00 Temperature 97.9 F 98.7 F 98.4 F Pulse Rate 109 H 105 H 92 H Respiratory Rate 16 16 19 Blood Pressure 129/64 130/69 112/61 Pulse Oximetry 93 L 95 94 L Intake & Output 04/07/18 04/08/18 04/08/18 18:59 06:59 18:59 Intake Total 375 / 375 0 / 0 Balance 375 / 375 0 / 0 Weight 110.5 kg Intake: Oral 375 / 375 0 / 0 Other: # Voids 0 3 Date of Last Bowel Movement 04/06/18 # Bowel Movements 0 - Constitutional no acute distress - Routine HEENT Exam Head: Present: normocephalic, atraumatic - Routine Respiratory Exam Absent: accessory muscle use - Routine Abdominal Exam Present: soft, normoactive bowel sounds. Absent: tenderness, distended, rebound , guarding <Una Jovel - Last Filed: 04/08/18 10:58> Vital signs: Vital Signs 04/07/18 20:00 04/08/18 00:06 04/08/18 08:00 Temperature 97.9 F 98.7 F 98.4 F Pulse Rate 109 H 105 H 92 H Respiratory Rate 16 16 19 Blood Pressure 129/64 130/69 112/61 Pulse Oximetry 93 L 95 94 L 04/08/18 12:00 Temperature 97.3 F L Pulse Rate 113 H Respiratory Rate 18 Blood Pressure 118/69 Pulse Oximetry 94 L Intake & Output 04/07/18 04/08/18 04/08/18 18:59 06:59 18:59 Intake Total 375 / 375 0 / 0 1000 / 1000 Output Total 20 / 20 Balance 375 / 375 0 / 0 980 / 980 Weight 110.5 kg Intake: IV 500 / 500 Heparin/NS PF Inj 500 ML @ 0 500 / 500 mls/hr .ROUTE .[facility] Rx#: [id number] Oral 375 / 375 0 / 0 Anesthesia Amount 500 / 500 Output: Estimated Blood Loss Other: # Voids 0 3 Date of Last Bowel Movement 04/06/18 # Bowel Movements 0 <Durga Rodriguez - Last Filed: 04/08/18 17:52> Results - Labs CBC & Chem 7: 04/08/18 08:35 04/08/18 08:35 Laboratory Results - last 24 hr 04/08/18 04/08/18 08:35 08:35 WBC 13.5 H RBC 3.69 L Hgb 10.8 L Hct 33.0 L MCV 89.5 MCH 29.2 MCHC 32.6 RDW 14.7 Plt Count 152 MPV 9.4 Sodium 134 L Potassium 4.3 Chloride 93 L Carbon Dioxide 19.2 L Anion Gap 22 H BUN 91 H Creatinine 14.92 H* D Estimated GFR 4 L Random Glucose 74 Calcium 9.5 Total Bilirubin 1.6 H AST 72 H ALT 42 Alkaline Phosphatase 121 H Total Protein 7.5 Albumin 3.6 <Una Jovel - Last Filed: 04/08/18 10:58> - Labs CBC & Chem 7: 04/08/18 08:35 04/08/18 08:35 Laboratory Results - last 24 hr 04/01/18 04/08/18 04/08/18 12:45 08:35 08:35 WBC 13.5 H RBC 3.69 L Hgb 10.8 L Hct 33.0 L MCV 89.5 MCH 29.2 MCHC 32.6 RDW 14.7 Plt Count 152 MPV 9.4 Sodium 134 L Potassium 4.3 Chloride 93 L Carbon Dioxide 19.2 L Anion Gap 22 H BUN 91 H Creatinine 14.92 H* D Estimated GFR 4 L Random Glucose 74 Calcium 9.5 Total Bilirubin 1.6 H AST 72 H ALT 42 Alkaline Phosphatase 121 H Total Protein 7.5 Albumin 3.6 Stool H. pylori Ag Not detected <Durga Rodriguez - Last Filed: 04/08/18 17:52> Assessment and Plan (1) Hepatitis B Status: Chronic Code(s): B19.10 - Unspecified viral hepatitis B without hepatic coma (2) Acute diarrhea Status: Resolved Code(s): R19.7 - Diarrhea, unspecified - Plan Assessment: - Elevated LFTs, increasing- LFTs remain high Pt noted to have positive Hepatitis surface antigen, negative surface and core antibody. Quant pending. High Fe, normal saturation Rest of liver work up is also pending Pt denies any history of liver issues, however he is a poor historian. Seen by our service in January of this year Hep B surface antigen (+), quant 1070 in January. Pt was advised to have Fibrosure test done, no results in chart. Pt unsure of how he got Hepatitis B. Denies ETOH Liver work up: EVIE, AMA, ASMA negative. Celiac panel negative. AAT-199 Ceruloplasmin-34 Iron-58 TIBC-164 %sat- 35.4 Ferritin-1974 HFE pending. Hepatitis Be Antibody reactive, Be antigen nonreactive, Core IgM antibody nonreactive. DNA 60 Liver US (03/30) Mildly enlarged fatty liver. Right lower pole renal cyst measuring 2.1 cm. Poor visualization of pancreas due to shadowing bowel gas. - Complaints of acute diarrhea on arrival- now reports this has resolved. Denies nausea, vomiting. Some abdominal pain after dialysis yesterday, thinks too much fluid was removed C. Diff negative. EGD on February 27 --> Class A esophagitis noted, mild gastritis in the gastric antrum, normal duodenal mucosa in the bulb and second portion of the duodenum. Pathology (gastric antral mucosa) mild to moderate chronic gastritis negative for intestinal metaplasia and dysplasia, Elizabeth inconclusive for H Pylori (GE) moderate acute and chronic inflammatory changes consistent with reflux negative for intestinal metaplasia and dysplasia. Treatment with abx and PPI was sent in by the office and pt was notified, pt is a poor historian and it is unclear whether or not he took the treatment. Colonoscopy in July 2016 --> Diminutive polyp in the rectum, pathology revealed hyperplastic polyp. (04/08) LFTs trending down, appears to be clearing Hepatitis B without treatment, HFE pending. At this time GI will sign off, pt can follow up after DC Plan: Renal diet as tolerated Anti-medic Bowel regimens as needed Pepcid Monitor LFTs, hemoglobin PT/INR and bilirubin GI will sign off, please reconsult as needed Have pt follow up with GI after DC Pt has been seen and examined by myself and Dr. Rodriguez and this note is written on his behalf <Una Jovel - Last Filed: 04/08/18 10:58> (1) Hepatitis B Status: Chronic Code(s): B19.10 - Unspecified viral hepatitis B without hepatic coma (2) Acute diarrhea Status: Resolved Code(s): R19.7 - Diarrhea, unspecified - Attending Attestation Agree with the plan as above. Please notify us if needed again. <Durga Rodriguez - Last Filed: 04/08/18 17:52>
--- NOTE | 2018-04-08 11:11 | P.PNVS ---
- Pre-operative Note Planned Procedure: RIGHT Upper Extremity Arteriovenous Fistula Interval History: 47/M with a PMH of ESRD on HD in need of an access Labs: WBC 13.5 th/mm3 (4.0-11.0) H 04/08/18 08:35 RBC 3.69 mil/mm3 (4.50-5.90) L 04/08/18 08:35 Hgb 10.8 gm/dL (13.0-17.0) L 04/08/18 08:35 Hct 33.0 % (39.0-51.0) L 04/08/18 08:35 MCV 89.5 fL (80.0-100.0) 04/08/18 08:35 MCH 29.2 pg (27.0-34.0) 04/08/18 08:35 MCHC 32.6 % (32.0-36.0) 04/08/18 08:35 RDW 14.7 % (11.6-17.2) 04/08/18 08:35 Plt Count 152 th/mm3 (150-450) 04/08/18 08:35 MPV 9.4 fL (7.0-11.0) 04/08/18 08:35 INR 1.2 Ratio 04/05/18 07:26 Sodium 134 meq/L (136-145) L 04/08/18 08:35 Potassium 4.3 meq/L (3.5-5.1) 04/08/18 08:35 Chloride 93 meq/L (98-107) L 04/08/18 08:35 Carbon Dioxide 19.2 meq/L (21.0-32.0) L 04/08/18 08:35 Anion Gap 22 meq/L (5-15) H 04/08/18 08:35 BUN 91 mg/dL (7-18) H 04/08/18 08:35 Random Glucose 74 mg/dL (74-106) 04/08/18 08:35 Calcium 9.5 mg/dL (8.5-10.1) 04/08/18 08:35 Imaging: ITS Impressions Upper Extremity Ultrasound 04/02/18 00:00 CONCLUSION: 1. Venous mapping as above Venous Doppler Study 04/02/18 00:00 CONCLUSION: No evidence of deep venous thrombosis. Catheter Placement 04/05/18 08:00 CONCLUSION: 1. Uncomplicated Dialysis catheter placement as above. Operative site marked: Yes Consent: Informed consent has been obtained from Giovani Barnes. I have explained the procedure in detail and discussed the risks, benefits, and potential complications. All questions have been answered.
--- NOTE | 2018-04-08 11:25 | P.PNFP ---
Subjective Interval history: This patient was seen at bed side this morning and there were no acute events overnight. Patient reports feeling well and reports no issues. He continues to report having a dry mouth. He reports to be ambulating well. He denies any fevers, chills, nausea, shortness of breath or abdominal pain. He is scheduled for AV fistula in right arm today and had no questions or concerns. <Kaden Kelley O - 04/08/18 11:33> Results - Labs Result diagrams: 04/09/18 14:35 04/08/18 08:35 <Yulisa Reeves M - 04/09/18 15:07> Abnormal lab results 04/09/18 Range/Units 14:35 WBC 16.2 H (4.0-11.0) th/mm3 RBC 3.81 L (4.50-5.90) mil/mm3 Hgb 10.9 L (13.0-17.0) gm/dL Hct 34.0 L (39.0-51.0) % Short CBC 04/09/18 Range/Units 14:35 WBC 16.2 H (4.0-11.0) th/mm3 Hgb 10.9 L (13.0-17.0) gm/dL Hct 34.0 L (39.0-51.0) % Plt Count 182 (150-450) th/mm3 <Yulisa Reeves - 04/09/18 15:07> Abnormal lab results 04/08/18 04/08/18 Range/Units 08:35 08:35 WBC 13.5 H (4.0-11.0) th/mm3 RBC 3.69 L (4.50-5.90) mil/mm3 Hgb 10.8 L (13.0-17.0) gm/dL Hct 33.0 L (39.0-51.0) % Sodium 134 L (136-145) meq/L Chloride 93 L (98-107) meq/L Carbon Dioxide 19.2 L (21.0-32.0) meq/L Anion Gap 22 H (5-15) meq/L BUN 91 H (7-18) mg/dL Creatinine 14.92 H* D (0.60-1.30) mg/dL Estimated GFR 4 L (>89) mL/min Total Bilirubin 1.6 H (0.2-1.0) mg/dL AST 72 H (15-37) U/L Alkaline Phosphatase 121 H (45-117) U/L Short CBC 04/08/18 Range/Units 08:35 WBC 13.5 H (4.0-11.0) th/mm3 Hgb 10.8 L (13.0-17.0) gm/dL Hct 33.0 L (39.0-51.0) % Plt Count 152 (150-450) th/mm3 BMP 04/08/18 08:35 Sodium 134 L Potassium 4.3 Chloride 93 L Carbon Dioxide 19.2 L BUN 91 H Creatinine 14.92 H* D Calcium 9.5 Liver Function 04/08/18 Range/Units 08:35 Total Bilirubin 1.6 H (0.2-1.0) mg/dL AST 72 H (15-37) U/L ALT 42 (12-78) U/L Alkaline Phosphatase 121 H (45-117) U/L Albumin 3.6 (3.4-5.0) g/dL <Kaden Kelley O - 04/08/18 11:25> Physical Exam Vital signs: Vital Signs 04/08/18 16:49 04/08/18 17:00 04/08/18 17:15 Temperature 97.7 F Pulse Rate 119 H 119 H 118 H Respiratory Rate 17 17 18 Blood Pressure 102/49 L 107/54 L 114/58 L Pulse Oximetry 96 96 96 04/08/18 17:30 04/08/18 17:40 04/08/18 20:00 Temperature 97.7 F 97.9 F Pulse Rate 117 H 109 H Respiratory Rate 18 20 Blood Pressure 121/60 121/64 Pulse Oximetry 94 L 94 L 94 L 04/09/18 00:00 04/09/18 05:29 04/09/18 08:00 Temperature 97.8 F 97.2 F L 97.8 F Pulse Rate 113 H 98 H 100 H Respiratory Rate 20 18 18 Blood Pressure 118/64 128/77 132/72 Pulse Oximetry 93 L 93 L 93 L Intake & Output 04/08/18 04/09/18 04/09/18 18:59 06:59 18:59 Intake Total 1000 / 1000 Output Total 1999 Balance 980 / 980 -1999 Intake: IV 500 / 500 Heparin/NS PF Inj 500 ML @ 0 500 / 500 mls/hr .ROUTE .[facility] Rx#: [id number] Anesthesia Amount 500 / 500 Output: Hemodialysis Amount 1999 Estimated Blood Loss Other: # Voids 2 Date of Last Bowel Movement 04/06/18 04/08/18 04/08/18 # Bowel Movements 1 <Yulisa Reeves M - 04/09/18 15:07> Vital Signs 04/07/18 11:57 04/07/18 12:55 04/07/18 16:00 Temperature 97.7 F 97.9 F Pulse Rate 103 H 112 H Respiratory Rate 17 18 Blood Pressure 107/65 107/62 Pulse Oximetry 93 L 93 L 93 L 04/07/18 20:00 04/08/18 00:06 04/08/18 08:00 Temperature 97.9 F 98.7 F 98.4 F Pulse Rate 109 H 105 H 92 H Respiratory Rate 16 16 19 Blood Pressure 129/64 130/69 112/61 Pulse Oximetry 93 L 95 94 L Intake & Output 04/07/18 04/08/18 04/08/18 18:59 06:59 18:59 Intake Total 375 / 375 0 / 0 Balance 375 / 375 0 / 0 Weight 110.5 kg Intake: Oral 375 / 375 0 / 0 Other: # Voids 0 3 Date of Last Bowel Movement 04/06/18 # Bowel Movements 0 <Kaden Kelley - 04/08/18 11:25> - Constitutional no acute distress, obese, cooperative <Kaden Kelley 04/08/18 11:33> - Routine HEENT Exam Head: Present: normocephalic, atraumatic <Kaden Kelley 04/08/18 11:33> Eye: Present: conjunctival icterus <Kaden Kelley 04/08/18 11:33> - Routine Neck Exam Comments: Site of previous central line healing well with no signs of infection <Kaden Kelley 04/08/18 11:33> - Routine Respiratory Exam Present: wheezes. Absent: accessory muscle use, prolonged expiratory phase, rales, respiratory distress, rhonchi, stridor, crackles <Kaden Kelley 04/08 11:33> Comments: Mild wheezes in lower lobes bilaterally. Much improved from yesterday. <Kaden Kelley 04/08/18 11:33> - Routine Cardiovascular Exam Present: RRR, S1, S2. Absent: murmur, gallop, rubs <Kaden Kelley 04/08/18 11:33> - Routine Abdominal Exam Present: soft, normoactive bowel sounds. Absent: tenderness, distended, rebound , guarding <Kaden Kelley 04/08/18 11:33> - Routine Extremities Exam Absent: cyanosis, clubbing, edema <Kaden Kelley 04/08/18 11:33> - Routine Neurological Exam Present: alert, moving all extremities, normal speech. Absent: motor deficit, altered mental status <Kaden Kelley 04/08/18 11:33> - Detailed Neurological Exam: Coma Scale Eye Opening: Spontaneous <Kaden Kelley 04/08/18 11:33> Verbal Response: Oriented <Kaden Kelley 04/08/18 11:33> Motor Response: Obey commands <Kaden Kelley 04/08/18 11:33> [place] Coma Scale Total: 15 <Kaden Kelley 04/08/18 17:34> - Routine Psychiatric Exam Present: normal affect, normal thought process, good insight, good judgment. Absent: anxious <Kaden Kelley 04/08/18 11:33> Assessment and Plan - Assessment (1) Acute renal failure (ARF) Code(s): N17.9 - Acute kidney failure, unspecified Status: Acute (2) Hepatitis B Code(s): B19.10 - Unspecified viral hepatitis B without hepatic coma Status: Chronic (3) End stage renal disease Code(s): N18.6 - End stage renal disease Status: Chronic (4) Hypertension Code(s): I10 - Essential (primary) hypertension Status: Acute (5) GERD (gastroesophageal reflux disease) Code(s): K21.9 - Gastro-esophageal reflux disease without esophagitis Status: Acute (6) Nutrition, metabolism, and development symptoms Code(s): R63.8 - Other symptoms and signs concerning food and fluid intake Status: Acute <Yulisa Reeves - 04/09/18 15:07> (1) Acute renal failure (ARF) Code(s): N17.9 - Acute kidney failure, unspecified Status: Acute Plan: This patient is suffering from end stage renal disease and was admitted in the setting of symptomatic uremia. Nephrology is currently following. Patient on a MWF dialysis schedule. Patient had Perma Cath procedure on 04/06/18 without issues. AV fistula scheduled for this morning w/ Dr. Hummel. Creatinine continues to rise, today at 14.92 with a BUN of 91. Of note WBC has come down to 13.5 from 15.2 on 04/07/18. - Continue dialysis as recommended by nephrology team - Trend CMP - Renal Diet - Anticipate discharge after AVF procedure. (2) Hepatitis B Code(s): B19.10 - Unspecified viral hepatitis B without hepatic coma Status: Chronic Plan: HBsAg positive without IgM, consistent with chronic hepatitis B. AST/ALT continue to down trended recently to an AST of 72 and an AST of 42. Patient also has high bili of 1.6, currently on ursodiol. Per GI consider liver biopsy if LFTs begin to trend upward. - Continue Actigall per GI - Follow up with HFE labs - Has appt with GI (Dr. Chaney) on April 24. -Patient cleared from GI standpoint, Ok to f/u with Dr. Nelson as outpatient. (3) End stage renal disease Code(s): N18.6 - End stage renal disease Status: Chronic Plan: Per nephrology will need chronic dialysis. Perm cath placement yesterday. - Continue dialysis per nephrology - Dietary consult for renal diet education - Planning AVF access scheduled today w/ Dr. Hummel. -Patient [facility] be going [facility]. He is scheduled to begin first HD on (04/10). (4) Hypertension Code(s): I10 - Essential (primary) hypertension Status: Acute Plan: Holding home hypertensives for now due to low BP after dialysis. Will monitor and resume as needed. - Labetalol PRN in BP at or over 180/ 100 (5) GERD (gastroesophageal reflux disease) Code(s): K21.9 - Gastro-esophageal reflux disease without esophagitis Status: Acute Plan: Continue Pepcid dosed renally (6) Nutrition, metabolism, and development symptoms Code(s): R63.8 - Other symptoms and signs concerning food and fluid intake Status: Acute Plan: Fluids: no IVF recommended per nephrology Electrolytes: continue to monitor and replete as needed per nephrology recommendations Diet: renal diet DVT ppx: heparin Q8h <Kaden Kelley - 04/08/18 17:34> - Attending Attestation The exam, history, and the medical decision-making described in the above note were completed with the assistance of the resident physician. I reviewed and agree with the findings presented. I attest that I had a [id number] encounter with the patient on the same day, and personally performed and documented my assessment and findings in the medical record. Mr. Barnes is doing very well with his blood pressures and his liver enzymes. He feels very well and wishes to go home today. he was advised to have dialysis regularly and never miss it. He promises to keep his appointment and follow all the instructions from the assembler <Yulisa Reeves M - 04/09/18 15:07> <Kaden Kelley O - Last Filed: 04/08/18 17:34> (1) Acute renal failure (ARF) Qualifiers: Acute renal failure type: unspecified Qualified Code(s): N17.9 - Acute kidney failure, unspecified (4) Hypertension Qualifiers: Hypertension type: renovascular hypertension Qualified Code(s): I15.0 - Renovascular hypertension <Yulisa Reeves M - Last Filed: 04/09/18 15:07> (1) Acute renal failure (ARF) Qualifiers: Acute renal failure type: unspecified Qualified Code(s): N17.9 - Acute kidney failure, unspecified (4) Hypertension Qualifiers: Hypertension type: renovascular hypertension Qualified Code(s): I15.0 - Renovascular hypertension <Kaden Kelley O - Last Filed: 04/08/18 17:34> (1) Acute renal failure (ARF) Qualifiers: Acute renal failure type: unspecified Qualified Code(s): N17.9 - Acute kidney failure, unspecified (4) Hypertension Qualifiers: Hypertension type: renovascular hypertension Qualified Code(s): I15.0 - Renovascular hypertension <Yulisa Reeves M - Last Filed: 04/09/18 15:07> (1) Acute renal failure (ARF) Qualifiers: Acute renal failure type: unspecified Qualified Code(s): N17.9 - Acute kidney failure, unspecified (4) Hypertension Qualifiers: Hypertension type: renovascular hypertension Qualified Code(s): I15.0 - Renovascular hypertension
[2018-04-08] MEDS ORDERED: Bupivacaine PF 0.5% Inj 30 ML Vial ONE (12:21)
[2018-04-08] MEDS ORDERED: Heparin/NS PF Inj 500 ML ONE (12:21)
[2018-04-08] MEDS ORDERED: Heparin 10,000 UNITS/10 ML Vial (for IV use) ONE (12:21)
[2018-04-08] MEDS ORDERED: Protamine Sulfate Inj 50 MG/5 ML Vial ONE (12:21)
[2018-04-08] MEDS ORDERED: Thrombin Topical 20,000 UNIT Spray Kit TOPICAL ONE (13:48)
[2018-04-08] MEDS ORDERED: Chlorhexidine Gluconate 2% 1 Pack (2 Cloths) TOPICAL SCH (15:45)
[2018-04-08] MEDS ORDERED: Metoprolol Tartrate 25 MG Tablet PO SCH (15:45)
[2018-04-08] MEDS ORDERED: Sodium Chlor 0.9% Inj 500 ML IV.SIG SCH (16:00)
--- NOTE | 2018-04-08 16:25 | P.OP ---
- Preoperative Diagnosis (1) End stage renal disease - Postoperative Diagnosis (1) End stage renal disease Date of procedure: 04/08/18 Procedure: ESRD, need for HD access Implants: none Anesthesia: GETA Surgeon: Tarun Hummel MD Business Proposal Rep: Tarun Rivera Estimated blood loss (mL): 20 Urine output (mL): 500 Pathology: none sent Operation and Findings: 3mm artery, 4mm vein + thrill in AVF + Doppler signal in wrist
[2018-04-08] MEDS ORDERED: fentaNYL Citrate Inj 100 MCG/2 ML Ampul ONE (16:58)
--- NOTE | 2018-04-08 18:47 | MP ---
cc: Tarun Hummel MD DATE OF OPERATION: 04/08/2018 PREOPERATIVE DIAGNOSIS: Endstage renal disease, need for dialysis access. POSTOPERATIVE DIAGNOSIS: Endstage renal disease, need for dialysis access. PROCEDURE PERFORMED: Right brachiobasilic arteriovenous fistula (first stage). ATTENDING SURGEON: Tarun Hummel MD MUSIC INDUSTRY INTERN SURGEON: Tarun Rivera. ANESTHESIA: General. INDICATIONS FOR PROCEDURE: Mr. Barnes is a 47-year-old gentleman with new onset end-stage renal disease. He is taken to the operating room for right upper extremity access after preoperative imaging suggested his right basilic vein was adequate. Intraoperatively it was found that his dorsal basilic vein was adequate. The brachial artery was quite small, but the fistula was successful nonetheless. DESCRIPTION OF PROCEDURE: Informed consent was obtained from the patient. He was taken to the operating room and placed supine on the operating table. An appropriate timeout was taken to ensure the patient's identity, operative site and planned procedure. The administration of 1 gram of vancomycin was initiated prior to skin incision and will be discontinued after a single preoperative dose. Everyone in the room agreed with the timeout and we proceeded. His right arm was prepped and draped, an incision made on the medial aspect of the upper arm, carried down through subcutaneous tissue with electrocautery. The basilic vein was identified and dissected free and side branches were ligated with 3-0 silk. The vein was marked for orientation. The distal limb was clamped with a right angle and transected and oversewn with 3-0 silk. The brachial artery was identified on the medial aspect of the incision. The patient was systemically heparinized with 3000 units of IV heparin. Proximal and distal control of the brachial artery were obtained with profunda clamps and a longitudinal arteriotomy was made with an 11-blade and extended with Ivan scissors. The vein was spatulated and sewn end-to-side with running 6-0 Prolene suture. The clamps were released. There was a nice thrill in the fistula and Doppler signal in the wrist. The heparin was reversed with protamine. The wound was infiltrated with Marcaine and closed with 2-0 Polysorb, 3-0 Polysorb and 4-0 Monocryl. Sponge and needle counts were correct at the end of the case. I was present, scrubbed, and performed the entire procedure. MD LINA Amaya/FREDRICK , 05:43 PM , 06:46 PM
[2018-04-08] MEDS ORDERED: Phenylephrine/NS 1000 MCG/10ML Syringe IV.PUSH ONE (18:58)
[2018-04-08] MEDS ORDERED: Lidocaine PF 1% Inj 5 ML Syringe INFILTRATN ONE (18:58)
[2018-04-08] MEDS ORDERED: Acetaminophen 325 MG Tablet PO PRN (22:23)
--- NOTE | 2018-04-09 07:27 | P.PNVS ---
Subjective Post Op Day #: 1 Procedure: R brachiobasilic AVF (1st stage) Subjective/Hospital Course: Looks good; arm ok; hand ok no complaints. Objective Vital Signs / I&O: Vital Signs 04/08/18 08:00 04/08/18 12:00 04/08/18 16:49 Temperature 98.4 F 97.3 F L 97.7 F Pulse Rate 92 H 113 H 119 H Respiratory Rate 19 18 17 Blood Pressure 112/61 118/69 102/49 L Pulse Oximetry 94 L 94 L 96 04/08/18 17:00 04/08/18 17:15 04/08/18 17:30 Temperature 97.7 F Pulse Rate 119 H 118 H 117 H Respiratory Rate 17 18 18 Blood Pressure 107/54 L 114/58 L 121/60 Pulse Oximetry 96 96 94 L 04/08/18 17:40 04/08/18 20:00 04/09/18 00:00 Temperature 97.9 F 97.8 F Pulse Rate 109 H 113 H Respiratory Rate 20 20 Blood Pressure 121/64 118/64 Pulse Oximetry 94 L 94 L 93 L 04/09/18 05:29 Temperature 97.2 F L Pulse Rate 98 H Respiratory Rate 18 Blood Pressure 128/77 Pulse Oximetry 93 L Intake & Output 04/08/18 04/09/18 04/09/18 18:59 06:59 18:59 Intake Total 1000 / 1000 Output Total 20 / 20 Balance 980 / 980 Intake: IV 500 / 500 Heparin/NS PF Inj 500 ML @ 0 500 / 500 mls/hr .ROUTE .K-MED ONE Rx#: [id number] Anesthesia Amount 500 / 500 Output: Estimated Blood Loss 20 / 20 Other: # Voids 2 Date of Last Bowel Movement 04/06/18 04/08/18 # Bowel Movements 1 Exam: R UE incision c/d/i + audible thrill hand ok Laboratory Results - last 24 hr 04/01/18 04/08/18 04/08/18 12:45 08:35 08:35 WBC 13.5 H RBC 3.69 L Hgb 10.8 L Hct 33.0 L MCV 89.5 MCH 29.2 MCHC 32.6 RDW 14.7 Plt Count 152 MPV 9.4 Sodium 134 L Potassium 4.3 Chloride 93 L Carbon Dioxide 19.2 L Anion Gap 22 H BUN 91 H Creatinine 14.92 H* D Estimated GFR 4 L Random Glucose 74 Calcium 9.5 Total Bilirubin 1.6 H AST 72 H ALT 42 Alkaline Phosphatase 121 H Total Protein 7.5 Albumin 3.6 Stool H. pylori Ag Not detected Assessment and Plan - Assessment (1) End stage renal disease Code(s): N18.6 - End stage renal disease Status: Chronic - Plan POD#1 s/p R UE AVF (1st stage brachiobasilic) AVF patent no hand ischemia symptoms wound looks good clear to d/c from a vascular surgery standpoint will arrange f/u in clinic in 3 weeks Discharge Planning: today from a vascular surgery standpoint
--- NOTE | 2018-04-09 08:23 | P.PNNP ---
Subjective Interval history: Underwent right brachiocephalic AVF yesterday. Seen during dialysis today. On 3K , UF goal is 2 liters. He is tolerating it well. He is to be discharged today. Patient is stable. Physical Exam Vital signs: Vital Signs 04/08/18 12:00 04/08/18 16:49 04/08/18 17:00 Temperature 97.3 F L 97.7 F Pulse Rate 113 H 119 H 119 H Respiratory Rate 18 17 17 Blood Pressure 118/69 102/49 L 107/54 L Pulse Oximetry 94 L 96 96 04/08/18 17:15 04/08/18 17:30 04/08/18 17:40 Temperature 97.7 F Pulse Rate 118 H 117 H Respiratory Rate 18 18 Blood Pressure 114/58 L 121/60 Pulse Oximetry 96 94 L 94 L 04/08/18 20:00 04/09/18 00:00 04/09/18 05:29 Temperature 97.9 F 97.8 F 97.2 F L Pulse Rate 109 H 113 H 98 H Respiratory Rate 20 20 18 Blood Pressure 121/64 118/64 128/77 Pulse Oximetry 94 L 93 L 93 L Intake & Output 04/08/18 04/09/18 04/09/18 18:59 06:59 18:59 Intake Total 1000 / 1000 Output Total 20 20 Balance 980 / 980 Intake: IV 500 / 500 Heparin/NS PF Inj 500 ML @ 0 500 / 500 mls/hr .ROUTE .K-MED ONE Rx#: [id number] Anesthesia Amount 500 / 500 Output: Estimated Blood Loss 20 Other: # Voids 2 Date of Last Bowel Movement 04/06/18 04/08/18 # Bowel Movements 1 - Constitutional no acute distress - Routine HEENT Exam Head: Present: normocephalic - Routine Neck Exam Present: supple, full ROM. Absent: JVD, carotid bruit, lymphadenopathy - Routine Respiratory Exam Present: CTA bilaterally - Routine Abdominal Exam Present: soft, normoactive bowel sounds - Routine Extremities Exam Absent: clubbing, edema - Routine Skin Exam Present: intact - Routine Neurological Exam Present: alert, oriented X3 Assessment and Plan - Assessment (1) End stage renal disease Code(s): N18.6 - End stage renal disease Status: Chronic Plan: outpatient dialysis will be MWF. Dialysis today as it could not be accomplished yesterday due to surgery. He can be discharged today after dialysis. (2) Hypertension Code(s): I10 - Essential (primary) hypertension Status: Acute Qualifiers: Hypertension type: renovascular hypertension Qualified Code(s): I15.0 - Renovascular hypertension Plan: Continue present medications. BP is acceptable. (3) Hepatitis B Code(s): B19.10 - Unspecified viral hepatitis B without hepatic coma Status: Chronic Plan: There was discussion about consulting ID to inquire about treatment vs outpatient follow up. Obtaining isolation chair for in center HD. Inpatient HD will be in afternoons due to Hep B status. (4) Acute diarrhea Code(s): R19.7 - Diarrhea, unspecified Status: Resolved Plan: Improved, C diff negative. Not on antibiotics. - Attending Attestation patient can be discharged from renal standpoint.
--- NOTE | 2018-04-09 09:51 | P.PNFP ---
Subjective Interval history: Patient was seen this morning at bedside while in dialysis. Patient reports feeling well and was eager to be discharged. Patient denies any subjective fevers or chills, nausea, vomiting or shortness of breath. Patient reports tolerating dialysis well. He had no questions or concerns and thanked the team for his care. <Kaden Kelley - 04/09/18 15:54> Results - Labs Result diagrams: 04/09/18 14:35 04/09/18 14:35 <Yulisa Reeves - 04/10/18 14:06> Abnormal lab results 04/09/18 04/09/18 Range/Units 14:35 14:35 WBC 16.2 H (4.0-11.0) th/mm3 RBC 3.81 L (4.50-5.90) mil/mm3 Hgb 10.9 L (13.0-17.0) gm/dL Hct 34.0 L (39.0-51.0) % Carbon Dioxide 19.6 L (21.0-32.0) meq/L Anion Gap 19 H (5-15) meq/L BUN 52 H (7-18) mg/dL Creatinine 9.70 H (0.60-1.30) mg/dL Estimated GFR 7 L (>89) mL/min Random Glucose 63 L (74-106) mg/dL Total Bilirubin 1.6 H (0.2-1.0) mg/dL AST 49 H (15-37) U/L Alkaline Phosphatase 135 H (45-117) U/L Short CBC 04/09/18 Range/Units 14:35 WBC 16.2 H (4.0-11.0) th/mm3 Hgb 10.9 L (13.0-17.0) gm/dL Hct 34.0 L (39.0-51.0) % Plt Count 182 (150-450) th/mm3 BMP 04/09/18 14:35 Sodium 138 Potassium 4.3 Chloride 99 Carbon Dioxide 19.6 L BUN 52 H Creatinine 9.70 H Calcium 8.8 Liver Function 04/09/18 Range/Units 14:35 Total Bilirubin 1.6 H (0.2-1.0) mg/dL AST 49 H (15-37) U/L ALT 25 (12-78) U/L Alkaline Phosphatase 135 H (45-117) U/L Albumin 3.7 (3.4-5.0) g/dL <Yulisa Reeves M - 04/10/18 14:06> Abnormal lab results 04/08/18 Range/Units 08:35 Sodium 134 L (136-145) meq/L Chloride 93 L (98-107) meq/L Carbon Dioxide 19.2 L (21.0-32.0) meq/L Anion Gap 22 H (5-15) meq/L BUN 91 H (7-18) mg/dL Creatinine 14.92 H* D (0.60-1.30) mg/dL Estimated GFR 4 L (>89) mL/min Total Bilirubin 1.6 H (0.2-1.0) mg/dL AST 72 H (15-37) U/L Alkaline Phosphatase 121 H (45-117) U/L BMP 04/08/18 08:35 Sodium 134 L Potassium 4.3 Chloride 93 L Carbon Dioxide 19.2 L BUN 91 H Creatinine 14.92 H* D Calcium 9.5 Liver Function 04/08/18 Range/Units 08:35 Total Bilirubin 1.6 H (0.2-1.0) mg/dL AST 72 H (15-37) U/L ALT 42 (12-78) U/L Alkaline Phosphatase 121 H (45-117) U/L Albumin 3.6 (3.4-5.0) g/dL <Kaden Kelley O - 04/09/18 09:51> Physical Exam Vital signs: Intake & Output 04/09/18 04/10/18 04/10/18 18:59 06:59 18:59 Output Total 1999 Balance -1999 Output: Hemodialysis Amount 1999 Other: Date of Last Bowel Movement 04/08/18 <Yulisa Reeves M - 04/10/18 14:06> Vital Signs 04/08/18 12:00 04/08/18 16:49 04/08/18 17:00 Temperature 97.3 F L 97.7 F Pulse Rate 113 H 119 H 119 H Respiratory Rate 18 17 17 Blood Pressure 118/69 102/49 L 107/54 L Pulse Oximetry 94 L 96 96 04/08/18 17:15 04/08/18 17:30 04/08/18 17:40 Temperature 97.7 F Pulse Rate 118 H 117 H Respiratory Rate 18 18 Blood Pressure 114/58 L 121/60 Pulse Oximetry 96 94 L 94 L 04/08/18 20:00 04/09/18 00:00 04/09/18 05:29 Temperature 97.9 F 97.8 F 97.2 F L Pulse Rate 109 H 113 H 98 H Respiratory Rate 20 20 18 Blood Pressure 121/64 118/64 128/77 Pulse Oximetry 94 L 93 L 93 L 04/09/18 08:00 Temperature 97.8 F Pulse Rate 100 H Respiratory Rate 18 Blood Pressure 132/72 Pulse Oximetry 93 L Intake & Output 04/08/18 04/09/18 04/09/18 18:59 06:59 18:59 Intake Total 1000 / 1000 Output Total Balance 980 / 980 Intake: IV 500 / 500 Heparin/NS PF Inj 500 ML @ 0 500 / 500 mls/hr .ROUTE .STK-MED ONE Rx#: [id number] Anesthesia Amount 500 / 500 Output: Estimated Blood Loss Other: # Voids 2 Date of Last Bowel Movement 04/06/18 04/08/18 # Bowel Movements 1 <Kaden Kelley [facility] 04/09/18 09:51> - Constitutional no acute distress, obese, cooperative <Kaden Kelley 04/09/18 15:54> - Routine HEENT Exam Head: Present: normocephalic, atraumatic <Kaden Kelley 04/09/18 15:54> Eye: Absent: conjunctival icterus <Kaden Kelley 04/09/18 15:54> - Routine Chest/Breast/Axilla Exam Axillae: Absent: swelling, erythema <Kaden Kelley 04/09/18 15:54> Comments: Patient has permacath palce in right upper chest <Kaden Kelley 04/09/18 15:54> - Routine Respiratory Exam Present: CTA bilaterally. Absent: accessory muscle use, rales, respiratory distress, rhonchi, stridor, wheezes, crackles <Kaden Kelley 04/09/18 15:54> - Routine Cardiovascular Exam Present: RRR, S1, S2. Absent: murmur, gallop, rubs <Kaden Kelley 04/09/18 15:54> - Routine Abdominal Exam Present: soft, normoactive bowel sounds. Absent: tenderness, distended, rebound , guarding <Kaden Kelley 04/09/18 15:54> - Routine Extremities Exam Absent: cyanosis, clubbing, edema <Kaden Kelley 04/09/18 15:54> Comments: Fistula incision clean and without signs of debris or infection. Incision area was undressed at time of exam <Kaden Kelley 04/09/18 15:54> - Routine Skin Exam Present: dry <Kaden Kelley 04/09/18 15:54> - Routine Neurological Exam Present: alert, oriented X3, normal speech. Absent: sensory deficit, motor deficit, altered mental status <Kaden Kelley 04/09/18 15:54> - Detailed Neurological Exam: Coma Scale Eye Opening: Spontaneous <Kaden Kelley 04/09/18 15:54> Verbal Response: Oriented <Kaden Kelley 04/09/18 15:54> Motor Response: Obey commands <Kaden Kelley 04/09/18 15:54> Nida Coma Scale Total: 15 <Kaden Kelley 04/09/18 15:54> - Routine Psychiatric Exam Present: normal affect, normal thought process, cooperative, good judgment < Kaden Kelley 04/09/18 15:54> Assessment and Plan - Assessment (1) Acute renal failure (ARF) Code(s): N17.9 - Acute kidney failure, unspecified Status: Acute (2) Hepatitis B Code(s): B19.10 - Unspecified viral hepatitis B without hepatic coma Status: Chronic (3) End stage renal disease Code(s): N18.6 - End stage renal disease Status: Chronic (4) Hypertension Code(s): I10 - Essential (primary) hypertension Status: Acute (5) GERD (gastroesophageal reflux disease) Code(s): K21.9 - Gastro-esophageal reflux disease without esophagitis Status: Acute (6) Nutrition, metabolism, and development symptoms Code(s): R63.8 - Other symptoms and signs concerning food and fluid intake Status: Acute <Yulisa Reeves - 04/10/18 14:06> (1) Acute renal failure (ARF) Code(s): N17.9 - Acute kidney failure, unspecified Status: Acute Plan: This patient is suffering from end stage renal disease and was admitted in the setting of symptomatic uremia. Nephrology is currently following. Patient on a MWF dialysis schedule and received dialysis today due to late surgery yesterday. Patient had Perma Cath procedure on 04/06/18 without issues. Underwent right brachiocephalic AVF placement by Dr. Hummel on 04/08/18. WBC increased over night from 13.5 to 16.2. Patient cleared to be discharged by vascular surgery, nephrology, and GI teams. - Discharge today - Follow up with dialysis as recommended by nephrology team - Follow up with nephrology outpatient (2) Hepatitis B Code(s): B19.10 - Unspecified viral hepatitis B without hepatic coma Status: Chronic Plan: HBsAg positive without IgM, consistent with chronic hepatitis B. AST/ALT continue to down trended recently to an AST of 49 and an AST of 25. Patient also has high bili of 1.6, currently on ursodiol. HFE labs still pending. - Continue Actigall per GI - Follow up with GI outpatient - Has appt with GI (Dr. Chaney) on April 24. (3) End stage renal disease Code(s): N18.6 - End stage renal disease Status: Chronic Plan: Per nephrology will need chronic dialysis. Perm cath placement on Sunday and underwent right brachiocephalic AVF yesterday. - Continue dialysis per nephrology outpatient -Patient will be going to [facility] for HD. He is scheduled to begin first HD Tomorrow (04/10). (4) Hypertension Code(s): I10 - Essential (primary) hypertension Status: Acute Plan: Home hypertensives were held throughout inpatient stay. Patient was stable throughout inpatient stay with an average systolic pressure of 130. - Follow up with PCP outpatient (5) GERD (gastroesophageal reflux disease) Code(s): K21.9 - Gastro-esophageal reflux disease without esophagitis Status: Acute Plan: Continue Pepcid dosed renally (6) Nutrition, metabolism, and development symptoms Code(s): R63.8 - Other symptoms and signs concerning food and fluid intake Status: Acute Plan: Fluids: no IVF recommended per nephrology Electrolytes: continue to monitor and replete as needed per nephrology recommendations Diet: renal diet DVT ppx: heparin Q8h <Kaden Kelley - 04/09/18 15:37> - Attending Attestation The exam, history, and the medical decision-making described in the above note were completed with the assistance of the resident physician. I reviewed and agree with the findings presented. I attest that I had a [id number] encounter with the patient on the same day, and personally performed and documented my assessment and findings in the medical record. He is very eager to leave the hospital and has assured us that he will continue his dialysis regularly and as instructed as an outpatient. His LFTs dropped after the Pepcid was stopped and I cautioned him about taking this medication in the future. <Yulisa Reeves M - 04/10/18 14:06> <Kaden Kelley O - Last Filed: 04/09/18 15:37> (1) Acute renal failure (ARF) Qualifiers: Acute renal failure type: unspecified Qualified Code(s): N17.9 - Acute kidney failure, unspecified (4) Hypertension Qualifiers: Hypertension type: renovascular hypertension Qualified Code(s): I15.0 - Renovascular hypertension <Yulisa Reeves M - Last Filed: 04/10/18 14:06> (1) Acute renal failure (ARF) Qualifiers: Acute renal failure type: unspecified Qualified Code(s): N17.9 - Acute kidney failure, unspecified (4) Hypertension Qualifiers: Hypertension type: renovascular hypertension Qualified Code(s): I15.0 - Renovascular hypertension <Kaden Kelley O - Last Filed: 04/09/18 15:37> (1) Acute renal failure (ARF) Qualifiers: Acute renal failure type: unspecified Qualified Code(s): N17.9 - Acute kidney failure, unspecified (4) Hypertension Qualifiers: Hypertension type: renovascular hypertension Qualified Code(s): I15.0 - Renovascular hypertension <Yulisa Reeves M - Last Filed: 04/10/18 14:06> (1) Acute renal failure (ARF) Qualifiers: Acute renal failure type: unspecified Qualified Code(s): N17.9 - Acute kidney failure, unspecified (4) Hypertension Qualifiers: Hypertension type: renovascular hypertension Qualified Code(s): I15.0 - Renovascular hypertension
[2018-04-09 14:51] LABS: Hemoglobin 10.9 gm/dL (13.0-17.0); Mean Corpuscular Hemoglobin 28.6 pg (27.0-34.0); Mean Corpuscular Volume 89.3 fL (80.0-100.0); Mean Platelet Volume 8.9 fL (7.0-11.0); Platelet Count 182 th/mm3 (150-450); Red Blood Count 3.81 mil/mm3 (4.50-5.90); White Blood Count 16.2 th/mm3 (4.0-11.0)
[2018-04-09 15:29] LABS: Alanine Aminotransferase 25 U/L (12-78); Albumin 3.7 g/dL (3.4-5.0); Anion Gap 19 meq/L (5-15); Aspartate Aminotransferase 49 U/L (15-37); Blood Urea Nitrogen 52 mg/dL (7-18); Calcium 8.8 mg/dL (8.5-10.1); Carbon Dioxide 19.6 meq/L (21.0-32.0); Chloride 99 meq/L (98-107); Glomerular Filtration Rate 7 mL/min (>89); Glucose,Random 63 mg/dL (74-106); Potassium 4.3 meq/L (3.5-5.1); Sodium 138 meq/L (136-145)
[2018-04-09 15:31] LABS: Alkaline Phosphatase 135 U/L (45-117); Total Protein 7.7 g/dL (6.4-8.2)
--- NOTE | 2018-04-09 16:33 | P.DS ---
<Kaden Kelley O - Last Filed: 04/18/18 18:44> Date of admission: 03/29/18 13:15 Primary care physician: Lauren Weller MD Brief History from admission: This is a 47-year-old -[place] male that presented to the ED, with complaints of diarrhea for 2 days. The patient was a poor historian. Patient was tachycardic in triage. He had history of kidney disease but was not on dialysis. 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 Duenas and had plans for initiation of access for April [address] Epifanio Greene. Laboratory studies revealed creatinine of 7.1 potassium 4.5. Patient was noted to have a severe acidosis with a bicarb level of 11. Critical care medicine was consulted and patient was admitted for symptomatic uremia. DS: Diagnosis - Discharge Diagnosis (1) Hepatitis B Status: Chronic (2) End stage renal disease Status: Chronic (3) Hypertension Status: Acute (4) GERD (gastroesophageal reflux disease) Status: Acute (5) Nutrition, metabolism, and development symptoms Status: Acute DS: Summary Hospital Course: After admission due to symptomatic uremia. Mr. Barnes received is initial dialysis on March 30, 2018. Nephrology was consulted and patient was put on a MWF dialysis schedule. Patient had Perma Cath procedure on 04/06/18 without issues and underwent right brachiocephalic AV fistula placement on April 08, [address] Hummel. While inpatient patient was noted to have elevated LFTs. Patient was found to have hepatitis B prior to admission, but according to patient he was unaware. His labs were negative for hep-B IGM, (+) for hep-Bs antigen and hep Be Ab, negative for hep-C or hep A. Throughout patient's hospital course he was found to have elevated liver enzymes with an AST of 655 and ALT of 599. It is possible that the patient's elevated LFTs were due to a combination of hepatitis B plus medications. Patient was also found to have a ferritin of 1974 , TIBC 164 35.4% saturated, iron of 58, ceruloplasmin of 34.. Patient was also found to be EVIE, antimitochondrial antibody, anti-smooth muscle negative and celiac panel negative. Per GI hemochromatosis workup was initiated, but was not available at time of discharge. On discharge liver enzymes down trended to an AST of 49 and ALT of 25 upon discharge. Patient to follow-up with GI outpatient. Patient was also found to have elevated bilirubin, and was placed on ursodiol. Patient has an appointment with Dr. Shiv lange on April 24. Of note: During inpatient course patient was also found to have diarrhea at one- point and he was evaluated for C. difficile which was negative. His diarrhea resolved. - Time Spent with Patient Total time spent providing and/or coordinating discharge services: Exam Vital signs: Vital Signs 04/08/18 16:49 04/08/18 17:00 04/08/18 17:15 Temperature 97.7 F Pulse Rate 119 H 119 H 118 H Respiratory Rate 17 17 18 Blood Pressure 102/49 L 107/54 L 114/58 L Pulse Oximetry 96 96 96 04/08/18 17:30 04/08/18 17:40 04/08/18 20:00 Temperature 97.7 F 97.9 F Pulse Rate 117 H 109 H Respiratory Rate 18 20 Blood Pressure 121/60 121/64 Pulse Oximetry 94 L 94 L 94 L 04/09/18 00:00 04/09/18 05:29 04/09/18 08:00 Temperature 97.8 F 97.2 F L 97.8 F Pulse Rate 113 H 98 H 100 H Respiratory Rate 20 18 18 Blood Pressure 118/64 128/77 132/72 Pulse Oximetry 93 L 93 L 93 L Intake & Output 04/08/18 04/09/18 04/09/18 18:59 06:59 18:59 Intake Total 1000 / 1000 Output Total 1999 Balance 980 / 980 -1999 Intake: IV 500 / 500 Heparin/NS PF Inj 500 ML @ 0 500 / 500 mls/hr .ROUTE .STK-MED ONE Rx#: [id number] Anesthesia Amount 500 / 500 Output: Hemodialysis Amount 1999 Estimated Blood Loss Other: # Voids 2 Date of Last Bowel Movement 04/06/18 04/08/18 04/08/18 # Bowel Movements 1 - Constitutional no acute distress, obese, cooperative - Routine HEENT Exam Head: Present: normocephalic, atraumatic - Routine Chest/Breast/Axilla Exam Comments: Patient has permacath placed in right upper chest. - Routine Respiratory Exam Present: CTA bilaterally. Absent: accessory muscle use, prolonged expiratory phase, rales, respiratory distress, rhonchi, stridor, wheezes, crackles, distant breath sounds, diminished air movement - Routine Cardiovascular Exam Present: RRR, S1, S2. Absent: murmur, gallop, rubs - Routine Abdominal Exam Present: soft, normoactive bowel sounds. Absent: tenderness, distended - Routine Extremities Exam Present: pulses intact, normal capillary refill, AV fistula, vascular access. Absent: calf tenderness Comments: Area fascial incision was clean without signs of debris or infection. Incision area was undressed at time of exam - Routine Skin Exam Present: intact, dry. Absent: cyanosis, erythema Comments: Patient has significant dry skin on legs and arms. - Routine Neurological Exam Present: alert, oriented X3, moving all extremities, normal tone, vision grossly intact, hearing grossly intact, normal speech. Absent: facial asymmetry - Routine Psychiatric Exam Present: normal affect, normal thought process, cooperative, good insight, good judgment. Absent: anxious, agitated, paranoid Results Procedures completed during hospitalization: Patient had Perma Cath procedure on 04/06/18 without issues and underwent right brachiocephalic AV fistula placement on April 08, [address] Hummel. Patient also underwent multiple hemodialysis session on a MWF schedule. Labs on day of discharge: Labs from last 24 hours 04/09/18 04/09/18 14:35 14:35 WBC 16.2 H RBC 3.81 L Hgb 10.9 L Hct 34.0 L MCV 89.3 MCH 28.6 MCHC 32.0 RDW 15.0 Plt Count 182 MPV 8.9 Sodium 138 Potassium 4.3 Chloride 99 Carbon Dioxide 19.6 L Anion Gap 19 H BUN 52 H Creatinine 9.70 H Estimated GFR 7 L Random Glucose 63 L Calcium 8.8 Total Bilirubin 1.6 H AST 49 H ALT 25 Alkaline Phosphatase 135 H Total Protein 7.7 Albumin 3.7 - Impressions ITS Impressions Upper Extremity Ultrasound 04/02/18 00:00 CONCLUSION: 1. Venous mapping as above Venous Doppler Study 04/02/18 00:00 CONCLUSION: No evidence of deep venous thrombosis. Catheter Placement 04/05/18 08:00 CONCLUSION: 1. Uncomplicated Dialysis catheter placement as above. <Yulisa Reeves - Last Filed: 04/20/18 13:08> Date of admission: 03/29/18 13:15 Primary care physician: Lauren Weller MD DS: Diagnosis - Discharge Diagnosis (1) Hepatitis B Status: Chronic (2) End stage renal disease Status: Chronic (3) Hypertension Status: Acute (4) GERD (gastroesophageal reflux disease) Status: Acute (5) Nutrition, metabolism, and development symptoms Status: Acute DS: Summary - Time Spent with Patient Total time spent providing and/or coordinating discharge services: Results - Impressions ITS Impressions Upper Extremity Ultrasound 04/02/18 00:00 CONCLUSION: 1. Venous mapping as above Venous Doppler Study 04/02/18 00:00 CONCLUSION: No evidence of deep venous thrombosis. Catheter Placement 04/05/18 08:00 CONCLUSION: 1. Uncomplicated Dialysis catheter placement as above. Discharge Plan - Discharge Order Discharge Orders: Discharge Order (Routine); Ordered 04/09/18 Ordered By: Kaden Kelley Vascular Surgery Clear for Discharge (Routine); Ordered 04/09/18 Ordered By: Bernadette Vee - Physicians Team Primary Care Provider: Lauren Weller Attending Provider: Yulisa Reeves Other Providers: Mason Bedoya MD ; Julia Krishnan MD ; Daysi Nelson MD ; Sandrine Montes MD ; Therese Perez MD ; Sherrie Hall MD ; [email or web address], [facility] - Rxs /Orders / Referrals /Forms Prescriptions: Continue lansoprazole 30 mg Capsule,Delayed Release(Dr/Ec) 30 mg PO BID ranitidine HCl 150 mg Capsule 150 mg PO DAILY Discontinued doxazosin 2 mg Tablet 2 mg PO DAILY metoprolol tartrate 50 mg Tablet 50 mg PO DAILY nifedipine 30 mg Tablet Extended Release 24hr 30 mg PO BID prednisone 20 mg Tablet 20 mg PO BID No Action acidophilus-sporogenes [Acidophilus Ex Str (L. sporog)] 35 million- 25 million cell Tablet 1 tab PO TID 5 Days Qty: 15 RF: 0 chlorhexidine gluconate 0.12 % Mouthwash 15 ml SWISH-SPIT BID Qty: 1 RF: 0 clindamycin HCl [Cleocin HCl] 300 mg Capsule 300 mg PO TID 5 Days Qty: 15 RF: 0 fluconazole 50 mg Tablet 50 mg PO DIRECTED Qty: 6 RF: 0 levofloxacin [Levaquin] 500 mg Tablet 500 mg PO EVERY OTHER DAY Qty: 2 RF: 0 Referrals: Daysi Nelson MD [Physician] - 04/24/18 9:00 am (Follow up with Dr. Nelson in 2 weeks.) Lauren Weller MD [Primary Care Provider] - 04/17/18 Rito Jose MD [Physician] - 04/16/18 (doctor will see patient at dialysis center) Tarun Hummel MD [Physician] - 05/01/18 3:00 am (Follow up with Dr. Hummel in 3 weeks. )
[2018-04-11 10:59] LABS: Specimen HFE WB Whole Blood
== END 2018-04-09 18:59 | disposition home or self-care (01) ==
LOC: HIMC 13:15 → N07 03-30 20:08
PROVIDERS: ADMIT Family Medicine; ATTEND Family Medicine

== ENCOUNTER 2018-04-12 15:49 | Inpatient (IN) ==
--- NOTE | 2018-04-12 16:50 | ED ---
HPI General Chief Complaint: Shortness of Breath/Dyspnea Stated Complaint: SOB Time Seen by Provider: 04/12/18 16:27 History of Present Illness Patient presents to the emergency department for shortness of breath. Also states that he thinks he is dehydrated. He goes to dialysis Sunday and Sunday he did not go to dialysis today, but he makes a small amount of urine. States that shortness of breath started today. It is present on exertion. This is new onset of symptoms as he has never had the shortness of breath before. He denies chest pain, fever, abdominal pain, lower extremity edema, or recent travel. He does report a dry cough. patient states that he has not been eating/drinking normally. Related Data Home Medications Medication Instructions Recorded Confirmed lansoprazole 30 mg PO BID 03/30/18 04/12/18 ranitidine HCl 150 mg PO DAILY 03/30/18 04/12/18 Allergies Allergy/AdvReac Type Severity Reaction Status Date / Time No Known Allergies AdvReac Unknown Uncoded 03/17/18 20:50 Review of Systems ROS Unobtainable All other systems reviewed negative except as stated in HPI [facility] Medical History Medical History Dialysis patient (Acute) GERD (gastroesophageal reflux disease) (Acute) HTN (hypertension) (Acute) Right testicular torsion (Acute) Surgical History Surgical History History of knee surgery (Acute) Social History Social History Substance History: No History of Abuse Second Hand Smoke Exposure: No Smoking Status: Never smoker How Often Do You Have a Drink Containing Alcohol: 2 to 4 times a month Hx Recent Travel: No Recent Travel in [facility] within the Last 8 Weeks: No Recent Out of Country Travel within the Last 8 Weeks: No Immunization History Tetanus Immunization: <5 Years Hx Influenza Vaccine This Season: No Exam Narrative Exam Narrative: GENERAL: No acute distress. SKIN: Focused skin assessment warm/dry. HEAD: Atraumatic. Normocephalic. EYES: Pupils equal and round. No scleral icterus. No injection or drainage. ENT: No nasal bleeding or discharge. Mucous membranes dry. NECK: Trachea midline. No JVD. CARDIOVASCULAR: Regular rate and rhythm. No murmur appreciated. RESPIRATORY: No accessory muscle use. Clear to auscultation. Breath sounds equal bilaterally. GASTROINTESTINAL: Abdomen soft, non-tender, obese. MUSCULOSKELETAL: No obvious deformities. No clubbing. No cyanosis. No edema. NEUROLOGICAL: Awake and alert. No obvious cranial nerve deficits. Motor grossly within normal limits. Normal speech. PSYCHIATRIC: Appropriate mood and affect; insight and judgment normal. Course Initial Documented Vital Signs Pulse Rate 115 H 04/12/18 16:06 Respiratory Rate 20 04/12/18 16:06 Blood Pressure 127/67 04/12/18 16:06 Pulse Oximetry 94 L 04/12/18 16:06 Last Documented Vital Signs Temperature 98.7 F 04/12/18 19:03 Pulse Rate 108 H 04/12/18 18:27 Respiratory Rate 14 04/12/18 18:27 Blood Pressure 95/67 L 04/12/18 18:27 Pulse Oximetry 98 04/12/18 18:27 Medical Decision Making MDM Narrative Medical decision making narrative: Patient presents to the emergency department complaining of shortness of breath. Patient placed on a general office assistant, continuous pulse ox, and IV access was obtained. EKG, chest x-ray, labs ordered. Chest x-ray shows minimal parenchymal changes at the right base without fluid overload. CBC shows leukocytosis and decreased hemoglobin hematocrit. Although patient has history of leukocytosis, will check blood cultures and lactate. Elevated d-dimer, T bili, creatinine, magnesium, BUN, AST , and anion gap. Since no evidence of fluid overlaod on CXR, BNP wnl, and patient states he has had decrease po intake, will give small amount of IVF ( 250cc IV NS). Lactic acid elevated. Patient given 500cc IV NS to bring total of IVF to 750cc. Written for 3.375g IV zosyn. Discussed with admit team, they will followup with VQ scan results and discuss with renal about dialysis and giving IV vancomycin-dose/day based on when they will dialyse patient. 1921: Admit MD spoke to nephrology, advised to give 1gram IV vancomycin in ER based on his conversation with nephrology, which I ordered in ER. Admit MD to followup on VQ scan. Differential Diagnosis Differential Diagnosis: ACS, PE, pneumonia, viral illness, pulmonary edema, pleural effusion, CHF Lab Data Result diagrams: 04/12/18 16:52 04/12/18 16:52 Lab Results 04/12/18 04/12/18 04/12/18 Range/Units 16:52 16:52 16:52 WBC 19.0 H (4.0-11.0) th/mm3 RBC 3.82 L (4.50-5.90) mil/mm3 Hgb 11.2 L (13.0-17.0) gm/dL Hct 35.5 L (39.0-51.0) % MCV 92.9 (80.0-100.0) fL MCH 29.4 (27.0-34.0) pg MCHC 31.6 L (32.0-36.0) % RDW 14.7 (11.6-17.2) % Plt Count 206 (150-450) th/mm3 MPV 9.2 (7.0-11.0) fL Prelim Diff (Auto) Slide review pending Neut % (Auto) 66.4 (16.0-70.0) % Lymph % (Auto) 16.6 (9.0-44.0) % Nelson % (Auto) 14.9 H (0.0-8.0) % Eos % (Auto) 1.8 (0.0-4.0) % Baso % (Auto) 0.3 (0.0-2.0) % Neut # (Auto) 12.6 H (1.8-7.7) th/mm3 Lymph # (Auto) 3.2 (1.0-4.8) th/mm3 Nelson # (Auto) 2.8 H (0.0-0.9) th/mm3 Eos # (Auto) 0.3 (0.0-0.4) th/mm3 Baso # (Auto) 0.1 (0.0-0.2) th/mm3 WBC Differential Manual diff final Seg Neuts % (Manual) 54 (16-70) % Band Neuts % (Manual) 14 H (0-6) % Lymphocytes % (Manual) 17 (9-44) % Monocytes % (Manual) 10 H (0-8) % Eosinophils % (Manual) 2 (0-4) % Metamyelocytes % (Man) 3 H (0-1) % Abs Neuts (Manual) 13.5 H (1.8-7.7) th/mm3 Nucleated RBCs/100 WBC 5 H (0-0) /100 WBC Differential Comment . Platelet Estimate Normal (Normal) Platelet Morphology Enlarged H (Normal) Stomatocytes 1+ H (None) PT 12.3 H (9.8-11.6) sec INR 1.2 Ratio APTT 24.4 (24.3-30.1) sec D-Dimer Quant (PE/DVT) 6.12 H (0.00-0.50) mg/L FEU Sodium 138 (136-145) meq/L Potassium 4.9 (3.5-5.1) meq/L Chloride 101 (98-107) meq/L Carbon Dioxide 19.3 L (21.0-32.0) meq/L Anion Gap 18 H (5-15) meq/L BUN 61 H (7-18) mg/dL Creatinine 12.02 H* D (0.60-1.30) mg/dL Estimated GFR 5 L (>89) mL/min Random Glucose 81 (74-106) mg/dL Lactic Acid (0.4-2.0) mmol/L Calcium 9.1 (8.5-10.1) mg/dL Magnesium 2.7 H (1.5-2.5) mg/dL Total Bilirubin 1.4 H (0.2-1.0) mg/dL AST 49 H (15-37) U/L ALT 20 (12-78) U/L Alkaline Phosphatase 111 (45-117) U/L Total Creatine Kinase 53 (39-308) U/L Troponin I Less than 0.02 L (0.02-0.05) ng/mL B-Natriuretic Peptide (0-100) pg/mL Total Protein 7.6 (6.4-8.2) g/dL Albumin 2.9 L (3.4-5.0) g/dL 04/12/18 04/12/18 Range/Units 16:52 17:50 WBC (4.0-11.0) th/mm3 RBC (4.50-5.90) mil/mm3 Hgb (13.0-17.0) gm/dL Hct (39.0-51.0) % MCV (80.0-100.0) fL MCH (27.0-34.0) pg MCHC (32.0-36.0) % RDW (11.6-17.2) % Plt Count (150-450) th/mm3 MPV (7.0-11.0) fL Prelim Diff (Auto) Neut % (Auto) (16.0-70.0) % Lymph % (Auto) (9.0-44.0) % Nelson % (Auto) (0.0-8.0) % Eos % (Auto) (0.0-4.0) % Baso % (Auto) (0.0-2.0) % Neut # (Auto) (1.8-7.7) th/mm3 Lymph # (Auto) (1.0-4.8) th/mm3 Nelson # (Auto) (0.0-0.9) th/mm3 Eos # (Auto) (0.0-0.4) th/mm3 Baso # (Auto) (0.0-0.2) th/mm3 WBC Differential Seg Neuts % (Manual) (16-70) % Band Neuts % (Manual) (0-6) % Lymphocytes % (Manual) (9-44) % Monocytes % (Manual) (0-8) % Eosinophils % (Manual) (0-4) % Metamyelocytes % (Man) (0-1) % Abs Neuts (Manual) (1.8-7.7) th/mm3 Nucleated RBCs/100 WBC (0-0) /100 WBC Differential Comment Platelet Estimate (Normal) Platelet Morphology (Normal) Stomatocytes (None) PT (9.8-11.6) sec INR Ratio APTT (24.3-30.1) sec D-Dimer Quant (PE/DVT) (0.00-0.50) mg/L FEU Sodium (136-145) meq/L Potassium (3.5-5.1) meq/L Chloride (98-107) meq/L Carbon Dioxide (21.0-32.0) meq/L Anion Gap (5-15) meq/L BUN (7-18) mg/dL Creatinine (0.60-1.30) mg/dL Estimated GFR (>89) mL/min Random Glucose (74-106) mg/dL Lactic Acid 2.7 H (0.4-2.0) mmol/L Calcium (8.5-10.1) mg/dL Magnesium (1.5-2.5) mg/dL Total Bilirubin (0.2-1.0) mg/dL AST (15-37) U/L ALT (12-78) U/L Alkaline Phosphatase (45-117) U/L Total Creatine Kinase (39-308) U/L Troponin I (0.02-0.05) ng/mL B-Natriuretic Peptide 13 (0-100) pg/mL Total Protein (6.4-8.2) g/dL Albumin (3.4-5.0) g/dL Imaging Data Radiologist's impression: Chest X-Ray 04/12/18 16:34 CONCLUSION: Minimal parenchymal changes right base without fluid overload. ECG Data EKG Prior to Arrival: No Attestation: I personally reviewed and interpreted this ECG as follows: (Sinus tachycardia, rate 120, left axis deviation, T-wave inversion in lead III and V1, ) Discharge Plan Discharge Disposition Patient Disposition: 30 Still Patient Discharge Condition Condition: Stable Discharge Details Diagnosis: End stage renal disease, Dyspnea, Sepsis Physicians Team ED Provider: Liberty Patel Primary Care Provider: Lauren Weller Attending Provider: Yulisa Reeves Discharge Interventions Interventions: Vital Signs Last Done: 04/12/18 19:03 Status ED Status: Admitted Patient
--- NOTE | 2018-04-12 17:07 | XR ---
EXAM DATE: 04/12/2018 4:50 PM EDT AGE/SEX: 47 years / Male INDICATIONS: Shortness of breath. CLINICAL DATA: This is the patient's initial encounter. Patient reports that signs and symptoms have been present for 1 day and indicates a pain score of 0/10. MEDICAL/SURGICAL HISTORY: Renal calculi. Anemia. Gastroesophageal reflux disease. TIA, Torsion of right testicle, Bronchitis, Ulcer . . Torsion repair on right testicle, Left kidney biopsy, Righ t lower extremity vein stripping COMPARISON: [facility] [place], CHEST PA & LAT, 11/05/2017. . FINDINGS: Dialysis catheter in good position on the right. Minimal parenchymal changes right base. Left lung is clear. The heart and pulmonary vascularity are normal. The portion of the bony skeleton visualized is unremarkable. CONCLUSION: Minimal parenchymal changes right base without fluid overload. Electronically signed by: Jaek Camilo MD 04/12/2018 5:06 PM EDT
[2018-04-12 17:27] LABS: Baso # (Auto) 0.1 th/mm3 (0.0-0.2); Baso % (Auto) 0.3 % (0.0-2.0); Eos # (Auto) 0.3 th/mm3 (0.0-0.4); Eos % (Auto) 1.8 % (0.0-4.0); Hematocrit 35.5 % (39.0-51.0); Hemoglobin 11.2 gm/dL (13.0-17.0); Lymph # (Auto) 3.2 th/mm3 (1.0-4.8); Lymph % (Auto) 16.6 % (9.0-44.0); Mean Corpuscular HGB Conc 31.6 % (32.0-36.0); Mean Corpuscular Hemoglobin 29.4 pg (27.0-34.0); Mean Corpuscular Volume 92.9 fL (80.0-100.0); Mean Platelet Volume 9.2 fL (7.0-11.0); Mono # (Auto) 2.8 th/mm3 (0.0-0.9); Mono % (Auto) 14.9 % (0.0-8.0); Neut # (Auto) 12.6 th/mm3 (1.8-7.7); Neut % (Auto) 66.4 % (16.0-70.0); Platelet Count 206 th/mm3 (150-450); Red Blood Count 3.82 mil/mm3 (4.50-5.90); Red Cell Distribution Width 14.7 % (11.6-17.2)
[2018-04-12 17:32] LABS: Anion Gap 18 meq/L (5-15)
[2018-04-12 17:38] LABS: Alanine Aminotransferase 20 U/L (12-78); Albumin 2.9 g/dL (3.4-5.0); Alkaline Phosphatase 111 U/L (45-117); Aspartate Aminotransferase 49 U/L (15-37); Blood Urea Nitrogen 61 mg/dL (7-18); Calcium 9.1 mg/dL (8.5-10.1); Carbon Dioxide 19.3 meq/L (21.0-32.0); Chloride 101 meq/L (98-107); Glomerular Filtration Rate 5 mL/min (>89); Glucose,Random 81 mg/dL (74-106); Magnesium 2.7 mg/dL (1.5-2.5); Potassium 4.9 meq/L (3.5-5.1); Sodium 138 meq/L (136-145); Total Protein 7.6 g/dL (6.4-8.2)
[2018-04-12 17:39] LABS: Creatine Kinase 53 U/L (39-308)
[2018-04-12 17:49] LABS: Activated Partial Thrombo Time 24.4 sec (24.3-30.1); INR 1.2 Ratio; Prothrombin Time 12.3 sec (9.8-11.6)
[2018-04-12 17:50] LABS: D-Dimer 6.12 mg/L FEU (0.00-0.50)
[2018-04-12 18:09] LABS: Eosinophils 2 % (0-4); Lymphocytes 17 % (9-44); Metamyelocytes 3 % (0-1); Monocytes 10 % (0-8); Tallied Nucleated RBC 5 (0-0)
[2018-04-12 18:10] LABS: Platelet Estimate Normal (Normal); Stomatocytes 1+
[2018-04-12] MEDS ORDERED: Sodium Chlor 0.9% Inj 250 ML IV.SIG ONE (18:18)
[2018-04-12] MEDS ORDERED: Piperacil/Tazo 3.375 GM Premix 50 ML IV.SIG ONE (19:01)
[2018-04-12] MEDS ORDERED: Sodium Chlor 0.9% Inj 500 ML IV.SIG ONE (19:03)
[2018-04-12] MEDS ORDERED: Vancomycin Inj 1 GM/200 ML PIGGYBACK IV.SIG ONE (19:21)
--- NOTE | 2018-04-12 19:38 | P.HPFP ---
History of Present Illness Primary Care Physician: Lauren Weller MD Chief Complaint: SOB, sepsis, ESRD History of Present Illness: Mr Barnes is a 47 YO male followed by Dr Weller with PMHx HTN, GERD, Hepatitis B , and ESRD started on HD 2-[address] Greene who presents to the ED with a co-worker SOB, tachycardia, Cr 12.02, and WBC 19.0. His co-worker reports that she talked the pt into coming to the ED and states "he decided he wants to live now and will go to dialysis". After she departed, pt states that while he was in the hospital, his lines never clotted while in dialysis, but when he discharged and went as an outpt, his line clotted, he got scared and stopped going. States that he has not gone for several days now. Pt has a vascath in place and prior to discharge, Dr Hummel performed a RUE fistula. Pt reports he has no pain anywhere. He is no longer SOB. He indicates he is hungry , but is not eating because food and drink no longer taste good to him. He has a dry mouth as he hasn't been eating or drinking, he says, for the last 3-4 weeks. Pt says he weighed 278 lbs before all this started 3-4 weeks ago, and on presentation weighs 266 lbs. Denies CP, N/V/D, fever, chills, constipation, black or bloody stools. He still makes a little urine. - Diagnosis (1) End stage renal disease (2) Acute renal failure (ARF) (3) Sepsis (4) Dyspnea (5) GERD (gastroesophageal reflux disease) (6) Nutrition, metabolism, and development symptoms Inpatient Certification: I certify that the inpatient services were ordered in accordance with Medicare regulations governing the order. This includes certification that hospital inpatient services are reasonable and necessary and in the case of services not specified as inpatient-only under 42 CFR 419.22(n), that they are appropriately provided as inpatient services in accordance to with the 2-midnight benchmark under 43 CFR 412.3(e) Review of Systems Constitutional: Reports weight loss, Denies chills, Denies fever(s), Denies headache(s), Denies night sweats Eyes: Denies change in vision Ears, Nose, Mouth, and Throat: Reports dry mouth, Denies nosebleed, Denies pain with swallowing Cardiovascular: Reports shortness of breath, Denies chest pain, Denies fainting , Denies irregular heart rhythm Respiratory: Reports cough (dry cough), Reports shortness of breath Gastrointestinal: Denies abdominal pain, Denies bright, red blood in stools, Denies loose stools, Denies nausea, Denies vomiting Genitourinary: Reports urinary hesitancy (can only pee a little bit), Denies painful urination Musculoskeletal: Denies abnormal walking, Denies back pain, Denies joint swelling Skin/Breast: Denies lesions, Denies rash Neurologic: Denies dizziness, Denies fainting Psychiatric: Denies anxiety, Denies depression Hematologic/Lymphatic: Denies easy bleeding, Denies easy bruising PMFSH - History History Provided By: Patient - Medical History Medical History: Medical History (Last Updated 04/12/18 @ 21:41 by Rahel Nielsen) Dialysis patient Vascular dialysis catheter in place Onset Date: ~03/31/18 GERD (gastroesophageal reflux disease) HTN (hypertension) Right testicular torsion - Surgical History Surgical History: Surgical History (Last Reviewed 04/12/18 @ 21:40 by Rahel Nielsen) History of knee surgery - Family History Family History: Family History (Last Updated 04/12/18 @ 19:37 by José Miguel Hall III, MD, R1) Mother Hx of renal failure Father Family hx of colon cancer - Tobacco History Second Hand Smoke Exposure: No Smoking Status: Never smoker - Alcohol History How Often Do You Have a Drink Containing Alcohol: 2 to 4 times a month - Substance Use History Substance History: No History of Abuse - Travel History History of Recent Travel: No Recent Travel in the [place] Within the Last 8 Weeks: No Recent Travel Out of the Country Within the Last 8 Weeks: No - Immunization History Tetanus Immunization: <5 Years Hx Influenza Vaccine This Season: No Medications and Allergies Active Medications: Active Medications Piperacillin/Tazobactam/Dextrose (Zosyn 3.375 Gm Premix) 50 mls @ 100 mls/hr IV.SIG ONCE ONE Stop: 04/12/18 19:30 Vancomycin/Sodium Chloride (Vancomycin Inj) 1 gm in 200 mls @ 200 mls/hr IV.SIG ONCE ONE Stop: 04/12/18 20:20 Allergies Allergy/AdvReac Type Severity Reaction Status Date / Time No Known Allergies Allergy Unverified 04/12/18 21:40 Home Medications Medication Instructions Recorded Confirmed Type lansoprazole 30 mg PO BID 03/30/18 04/12/18 History ranitidine HCl 150 mg PO DAILY 03/30/18 04/12/18 History Exam Vital signs: Vital Signs 04/12/18 16:06 04/12/18 18:27 04/12/18 19:03 Temperature 98.7 F Pulse Rate 115 H 108 H Respiratory Rate 20 14 Blood Pressure 127/67 95/67 L Pulse Oximetry 94 L 98 Intake & Output 04/12/18 04/12/18 04/13/18 06:59 18:59 06:59 Weight 121.563 kg Narrative: GENERAL: Morbidly obese middle aged male lying in bed in [facility]. SKIN: Warm and dry. No lesions or rash. There is dried salt over the back of his neck. HEAD: Atraumatic. Normocephalic. EYES: Pupils equal and round. No scleral icterus. No injection or drainage. ENT: No nasal bleeding or discharge. Mucous membranes dry. NECK: Trachea midline. No JVD. CARDIOVASCULAR: Tachycardia with regular rhythm. No murmur, rub or gallop. RESPIRATORY: No accessory muscle use. Clear to auscultation. Breath sounds equal bilaterally. No crackles or wheezing. GASTROINTESTINAL: Abdomen soft, non-tender, nondistended. No guarding or rebound. Normal BS. MUSCULOSKELETAL: Extremities without clubbing, cyanosis, or edema. No obvious deformities. NEUROLOGICAL: Awake and alert. No obvious cranial nerve deficits. Motor grossly within normal limits. Five out of 5 muscle strength in the arms and legs. Normal speech. PSYCHIATRIC: Appropriate mood and affect. Results - Labs Result diagrams: 04/12/18 16:52 04/12/18 16:52 Abnormal lab results 04/12/18 04/12/18 04/12/18 Range/Units 16:52 16:52 16:52 WBC 19.0 H (4.0-11.0) th/mm3 RBC 3.82 L (4.50-5.90) mil/mm3 Hgb 11.2 L (13.0-17.0) gm/dL Hct 35.5 L (39.0-51.0) % MCHC 31.6 L (32.0-36.0) % Ashe % (Auto) 14.9 H (0.0-8.0) % Neut # (Auto) 12.6 H (1.8-7.7) th/mm3 Ashe # (Auto) 2.8 H (0.0-0.9) th/mm3 Band Neuts % (Manual) 14 H (0-6) % Monocytes % (Manual) 10 H (0-8) % Metamyelocytes % (Man) 3 H (0-1) % Abs Neuts (Manual) 13.5 H (1.8-7.7) th/mm3 Nucleated RBCs/100 WBC 5 H (0-0) /100 WBC Platelet Morphology Enlarged H (Normal) Stomatocytes 1+ H (None) PT 12.3 H (9.8-11.6) sec D-Dimer Quant (PE/DVT) 6.12 H (0.00-0.50) mg/L FEU Carbon Dioxide 19.3 L (21.0-32.0) meq/L Anion Gap 18 H (5-15) meq/L BUN 61 H (7-18) mg/dL Creatinine 12.02 H* D (0.60-1.30) mg/dL Estimated GFR 5 L (>89) mL/min Lactic Acid (0.4-2.0) mmol/L Magnesium 2.7 H (1.5-2.5) mg/dL Total Bilirubin 1.4 H (0.2-1.0) mg/dL AST 49 H (15-37) U/L Troponin I Less than 0.02 L (0.02-0.05) ng/mL Albumin 2.9 L (3.4-5.0) g/dL 04/12/18 Range/Units 17:50 WBC (4.0-11.0) th/mm3 RBC (4.50-5.90) mil/mm3 Hgb (13.0-17.0) gm/dL Hct (39.0-51.0) % MCHC (32.0-36.0) % Ashe % (Auto) (0.0-8.0) % Neut # (Auto) (1.8-7.7) th/mm3 Ashe # (Auto) (0.0-0.9) th/mm3 Band Neuts % (Manual) (0-6) % Monocytes % (Manual) (0-8) % Metamyelocytes % (Man) (0-1) % Abs Neuts (Manual) (1.8-7.7) th/mm3 Nucleated RBCs/100 WBC (0-0) /100 WBC Platelet Morphology (Normal) Stomatocytes (None) PT (9.8-11.6) sec D-Dimer Quant (PE/DVT) (0.00-0.50) mg/L FEU Carbon Dioxide (21.0-32.0) meq/L Anion Gap (5-15) meq/L BUN (7-18) mg/dL Creatinine (0.60-1.30) mg/dL Estimated GFR (>89) mL/min Lactic Acid 2.7 H (0.4-2.0) mmol/L Magnesium (1.5-2.5) mg/dL Total Bilirubin (0.2-1.0) mg/dL AST (15-37) U/L Troponin I (0.02-0.05) ng/mL Albumin (3.4-5.0) g/dL Short CBC 04/12/18 Range/Units 16:52 WBC 19.0 H (4.0-11.0) th/mm3 Hgb 11.2 L (13.0-17.0) gm/dL Hct 35.5 L (39.0-51.0) % Plt Count 206 (150-450) th/mm3 BMP 04/12/18 16:52 Sodium 138 Potassium 4.9 Chloride 101 Carbon Dioxide 19.3 L BUN 61 H Creatinine 12.02 H* D Calcium 9.1 Cardiac Enzymes 04/12/18 Range/Units 16:52 Total Creatine Kinase 53 (39-308) U/L Troponin I Less than 0.02 L (0.02-0.05) ng/mL Liver Function 04/12/18 Range/Units 16:52 Total Bilirubin 1.4 H (0.2-1.0) mg/dL AST 49 H (15-37) U/L ALT 20 (12-78) U/L Alkaline Phosphatase 111 (45-117) U/L Albumin 2.9 L (3.4-5.0) g/dL - Imaging Impressions Chest X-Ray 04/12/18 16:34 CONCLUSION: Minimal parenchymal changes right base without fluid overload. - EKG Rate & rhythm: sinus tachycardia (121 bpm) Caprini VTE Risk Assessment Caprini VTE Risk Assessment: No/Low Risk (score <= 1) Caprini Risk Assessment Model: Point Value = 1 Point Value = 2 Point Value = 3 Point Value = 5 Age 41-60 Minor surgery BMI > 25 kg/m2 Swollen legs Varicose veins or History of unexplained or recurrent spontaneous Oral contraceptives or hormone replacement Sepsis (< 1 month) Serious lung disease, including pneumonia (< 1 month) Abnormal pulmonary function Acute myocardial infarction Congestive heart failure (< 1 month) History of inflammatory bowel disease Medical patient at bed rest Age 61-74 Arthroscopic surgery Major open surgery (> 45 min) Laparoscopic surgery (> 45 min) Malignancy Confined to bed (> 72 hours) Immobilizing plaster cast Central venous access Age >= 75 History of VTE Family history of VTE Factor V Leiden Prothrombin [id number] Lupus anticoagulant Anticardiolipin antibodies Elevated serum homocysteine Heparin-induced thrombocytopenia Other congenital or acquired thrombophilia Stroke (< 1 month) Elective arthroplasty Hip, pelvis, or leg fracture Acute spinal cord injury (< 1 month) Prophylaxis Regimen: Total Risk Factor Score Risk Level Prophylaxis Regimen 0-1 Low Early ambulation 2 Moderate Order ONE of the following: *Sequential Compression Device (SCD) *Heparin 5000 units SQ BID 3-4 Higher Order ONE of the following medications: *Heparin 5000 units SQ TID *Enoxaparin/Lovenox 40 mg SQ daily (WT < 150 kg, CrCl > 30 mL/min) *Enoxaparin/Lovenox 30 mg SQ daily (WT < 150 kg, CrCl > 10-29 mL/min) *Enoxaparin/Lovenox 30 mg SQ BID (WT < 150 kg, CrCl > 30 mL/min) AND/OR *Sequential Compression Device (SCD) 5 or more Highest Order ONE of the following medications: *Heparin 5000 units SQ TID (Preferred with Epidurals) *Enoxaparin/Lovenox 40 mg SQ daily (WT < 150 kg, CrCl > 30 mL/min) *Enoxaparin/Lovenox 30 mg SQ daily (WT < 150 kg, CrCl > 10-29 mL/min) *Enoxaparin/Lovenox 30 mg SQ BID (WT < 150 kg, CrCl > 30 mL/min) AND *Sequential Compression Device (SCD) Assessment and Plan - Assessment (1) End stage renal disease Code(s): N18.6 - End stage renal disease Status: Chronic (2) Acute renal failure (ARF) Code(s): N17.9 - Acute kidney failure, unspecified Status: Acute (3) Sepsis Code(s): A41.9 - Sepsis, unspecified organism Status: Acute (4) Dyspnea Code(s): R06.00 - Dyspnea, unspecified Status: Resolved (5) GERD (gastroesophageal reflux disease) Code(s): K21.9 - Gastro-esophageal reflux disease without esophagitis Status: Acute (6) Nutrition, metabolism, and development symptoms Code(s): R63.8 - Other symptoms and signs concerning food and fluid intake Status: Acute - Assessment and Plan 47 YO male followed by Dr Weller with HTN, GERD, Hep B and recent ESRD with start of HD in last 3 weeks presents with acute on chronic renal failure due to HD noncompliance and possible sepsis. Impression: -CMP with BUN 65 / Cr 12.02 / Tbili 1.4 / AST 49 / AG 18 -Mag 2.7 -Lactate 2.7 -CBC with WBC 19.0 -Zosyn 3.375g IV once in ED -Vancomycin 1g IV ordered in ED -NS IVF 500ml bolus in ED due to hypotension -NS IVF 250ml bolus in ED -Troponin <0.02 -BNP 13 -D-Dimer 6.12 -CXR showing parenchymal changes right base w/o fluid overload -VQ scan low probability for PE; however, perfusion mismatch between upper and lower lobes suggestive of atelectasis vs early consolidation vs effusion -EKG w/sinus tachycardia Plan: 1. Meets sepsis criteria (WBC 19.0, tachycardia, initially hypotensive responded to initial fluid boluses, but afebrile) -Vancomycin 1g IV q24h -Zosyn 3.375g IV q12h -NS IVF at 84ml/hr--gentle fluids as pt is very dry -Blood cx pending -Lactic acid at 10PM pending -UA pending -AM CBC, CMP 2. Acute on chronic kidney injury; ESRD non-compliant with HD BUN 65 / Cr 12.02 -Nephrology consult--spoke to Dr Ann -Repeat BMP 10PM -Gentle fluids as above to avoid fluid overload -Likely HD in AM 3. Dyspnea -SOB resolved shortly after arrival in ED -Supplemental O2 PRN with goal O2 sat >92% -CXR as above -D-Dimer 6.12; however, likely elevated due to ESRD on HD -VQ scan with low probability of PE 4. HTN -Pt takes no medications and states he has not had HTn since starting HD 5. GERD -Protonix 40mg daily -Pepcid 20 mg daily 6. FEN/GI/PPx: Fluids: as above--gently due to ESRD Electrolytes: will monitor with daily labs, replete, and allow nephro to help manage once pt begins HD Nutrition: renal diet GI: as above; continue home meds PPx: SCDs Tylenol 650mg q6h PO pain/fever PRN bowel regimen Restoril 15mg PRN Pt DW Dr Reeves (2) Acute renal failure (ARF) Qualifiers: Acute renal failure type: unspecified Qualified Code(s): N17.9 - Acute kidney failure, unspecified (3) Sepsis Qualifiers: Sepsis type: sepsis due to unspecified organism Qualified Code(s): A41.9 - Sepsis, unspecified organism (4) Dyspnea Qualifiers: Dyspnea type: unspecified Qualified Code(s): R06.00 - Dyspnea, unspecified
[2018-04-12] MEDS ORDERED: Temazepam 15 MG Capsule PO PRN (19:56)
[2018-04-12] MEDS ORDERED: Senna/Docusate Sodium 8.6/50 MG Tablet PO PRN (19:56)
[2018-04-12] MEDS ORDERED: Acetaminophen 325 MG Tablet PO PRN (19:56)
[2018-04-12] MEDS ORDERED: Vancomycin Consult Pharmacy 1 EACH OTHER SCH (20:07)
--- NOTE | 2018-04-12 20:28 | NM ---
EXAM DATE: 04/12/2018 8:20 PM EDT AGE/SEX: 47 years / Male INDICATIONS: Short of breath. CLINICAL DATA: This is the patient's initial encounter. Patient reports that signs and symptoms have been present for 1 day and indicates a pain score of 4/10. MEDICAL/SURGICAL HISTORY: Hypertension. . Right knee surgery. COMPARISON: [facility], CHEST 1V SINGLE AP, 04/12/2018. . DOSE: 1.6 mCi Tc99m DTPA aerosol 8.1 mCi Tc99m MAA IV TECHNIQUE: Following five minutes of tidal breathing of DTPA aerosol, planar images of the lungs wer e performed in eight projections. The patient was then injected with MAA, and eight-view perfusion s can was performed. FINDINGS: There appears to be matched decreased activity in the the lower lungs bilaterally on the perfusion an d ventilation portions of the study. The perfusion and ventilation portions of the study are normal i n the mid and upper lungs. CONCLUSION: Low probability for pulmonary embolus. There are matched defects at the posterior lower lobes likely from basilar areas of consolidation, atelectasis or effusion. Electronically signed by: To Mejia MD 04/12/2018 8:27 PM EDT
[2018-04-12] MEDS ORDERED: Vancomycin Inj 1,000 MG in Sodium Chlor 0.9% Inj 250 ML IV.SIG SCH (21:00)
[2018-04-12] MEDS ORDERED: Sod Chloride 0.9% Inj 1,000 ML IV.CONT ONE (21:00)
[2018-04-12] MEDS ORDERED: Vancomycin Inj 1,000 MG in Sodium Chlor 0.9% Inj 250 ML IV.SIG ONE (23:00)
[2018-04-13 00:22] LABS: Calcium 9.1 mg/dL (8.5-10.1)
[2018-04-13 07:32] LABS: Hemoglobin 10.3 gm/dL (13.0-17.0); Mean Corpuscular HGB Conc 31.3 % (32.0-36.0); Mean Corpuscular Volume 92.6 fL (80.0-100.0); Mean Platelet Volume 8.9 fL (7.0-11.0); Platelet Count 153 th/mm3 (150-450); Red Blood Count 3.56 mil/mm3 (4.50-5.90); White Blood Count 16.4 th/mm3 (4.0-11.0)
[2018-04-13] MEDS ORDERED: Piperacil/Tazo 3.375 GM Premix 50 ML IV.SIG SCH (08:00)
[2018-04-13 08:21] LABS: Alanine Aminotransferase 17 U/L (12-78); Albumin 2.6 g/dL (3.4-5.0); Alkaline Phosphatase 94 U/L (45-117); Anion Gap 20 meq/L (5-15); Aspartate Aminotransferase 37 U/L (15-37); Blood Urea Nitrogen 69 mg/dL (7-18); Calcium 8.8 mg/dL (8.5-10.1); Carbon Dioxide 16.1 meq/L (21.0-32.0); Chloride 105 meq/L (98-107); Glomerular Filtration Rate 5 mL/min (>89); Potassium 4.9 meq/L (3.5-5.1); Sodium 141 meq/L (136-145); Total Protein 6.7 g/dL (6.4-8.2)
--- NOTE | 2018-04-13 08:24 | ECG ---
Date Performed: 04/12/2018 Time Performed: 16:54:25 PTAGE: 47 years EKG: SINUS TACHYCARDIA ABNORMAL RHYTHM ECG PREVIOUS TRACING : 03/29/2018 14.26 DOCTOR: Meghan Minaya Interpretating Date/Time 04/13/2018 08:20:09
[2018-04-13 08:34] LABS: Eosinophils 1 % (0-4); Lymphocytes 14 % (9-44); Metamyelocytes 1 % (0-1); Monocytes 11 % (0-8); Myelocytes 1 % (0-0); Plasma Cells 1 % (0-0); Tallied Nucleated RBC 2 (0-0)
[2018-04-13 08:35] LABS: Platelet Estimate Normal (Normal); Platelet Morphology Clumped (Normal)
[2018-04-13 08:43] LABS: Glucose,Random 36 mg/dL (74-106)
[2018-04-13] MEDS: Famotidine 20 MG Tablet PO SCH (08:51)
--- NOTE | 2018-04-13 09:00 | P.PNFP ---
Subjective Interval history: Patient seen and examined this morning. Patient is fatigued, but has no other complaints at this time. No longer short of breath as he was on admission. Denies fever, chills, nausea, vomiting, chest pain, abdominal pain or leg pain. Patient to undergo dialysis today per overnight team. <Albania Garcia Bethany - 04/13/18 19:58> Results - Labs Result diagrams: 04/13/18 05:20 04/13/18 05:20 <JayneLauren yan - 04/13/18 20:57> Abnormal lab results 04/12/18 04/12/18 04/13/18 Range/Units 23:32 23:32 05:20 WBC 16.4 H (4.0-11.0) th/mm3 RBC 3.56 L (4.50-5.90) mil/mm3 Hgb 10.3 L (13.0-17.0) gm/dL Hct 33.0 L (39.0-51.0) % MCHC 31.3 L (32.0-36.0) % Band Neuts % (Manual) 33 H (0-6) % Monocytes % (Manual) 11 H (0-8) % Myelocytes % (Man) 1 H (0-0) % Plasma Cell % (Manual) 1 H (0-0) % Abs Neuts (Manual) 12.0 H (1.8-7.7) th/mm3 Nucleated RBCs/100 WBC 2 H (0-0) /100 WBC Platelet Morphology Clumped H (Normal) Carbon Dioxide 18.0 L (21.0-32.0) meq/L Anion Gap 19 H (5-15) meq/L BUN 67 H (7-18) mg/dL Creatinine 12.55 H* (0.60-1.30) mg/dL Estimated GFR 5 L (>89) mL/min POC Glucose (68-110) mg/dl Random Glucose 56 L (74-106) mg/dL Lactic Acid 2.1 H (0.4-2.0) mmol/L Total Bilirubin (0.2-1.0) mg/dL Albumin (3.4-5.0) g/dL 04/13/18 04/13/18 04/13/18 Range/Units 05:20 08:45 08:58 WBC (4.0-11.0) th/mm3 RBC (4.50-5.90) mil/mm3 Hgb (13.0-17.0) gm/dL Hct (39.0-51.0) % MCHC (32.0-36.0) % Band Neuts % (Manual) (0-6) % Monocytes % (Manual) (0-8) % Myelocytes % (Man) (0-0) % Plasma Cell % (Manual) (0-0) % Abs Neuts (Manual) (1.8-7.7) th/mm3 Nucleated RBCs/100 WBC (0-0) /100 WBC Platelet Morphology (Normal) Carbon Dioxide 16.1 L (21.0-32.0) meq/L Anion Gap 20 H (5-15) meq/L BUN 69 H (7-18) mg/dL Creatinine 13.13 H* (0.60-1.30) mg/dL Estimated GFR 5 L (>89) mL/min POC Glucose 53 L (68-110) mg/dl Random Glucose 36 L* (74-106) mg/dL Lactic Acid 2.4 H (0.4-2.0) mmol/L Total Bilirubin 1.4 H (0.2-1.0) mg/dL Albumin 2.6 L (3.4-5.0) g/dL 04/13/18 Range/Units 09:26 WBC (4.0-11.0) th/mm3 RBC (4.50-5.90) mil/mm3 Hgb (13.0-17.0) gm/dL Hct (39.0-51.0) % MCHC (32.0-36.0) % Band Neuts % (Manual) (0-6) % Monocytes % (Manual) (0-8) % Myelocytes % (Man) (0-0) % Plasma Cell % (Manual) (0-0) % Abs Neuts (Manual) (1.8-7.7) th/mm3 Nucleated RBCs/100 WBC (0-0) /100 WBC Platelet Morphology (Normal) Carbon Dioxide (21.0-32.0) meq/L Anion Gap (5-15) meq/L BUN (7-18) mg/dL Creatinine (0.60-1.30) mg/dL Estimated GFR (>89) mL/min POC Glucose 62 L (68-110) mg/dl Random Glucose (74-106) mg/dL Lactic Acid (0.4-2.0) mmol/L Total Bilirubin (0.2-1.0) mg/dL Albumin (3.4-5.0) g/dL Short CBC 04/13/18 Range/Units 05:20 WBC 16.4 H (4.0-11.0) th/mm3 Hgb 10.3 L (13.0-17.0) gm/dL Hct 33.0 L (39.0-51.0) % Plt Count 153 (150-450) th/mm3 BMP 04/12/18 04/13/18 23:32 05:20 Sodium 140 141 Potassium 5.0 4.9 Chloride 103 105 Carbon Dioxide 18.0 L 16.1 L BUN 67 H 69 H Creatinine 12.55 H* 13.13 H* Calcium 9.1 8.8 Liver Function 04/13/18 Range/Units 05:20 Total Bilirubin 1.4 H (0.2-1.0) mg/dL AST 37 (15-37) U/L ALT 17 (12-78) U/L Alkaline Phosphatase 94 (45-117) U/L Albumin 2.6 L (3.4-5.0) g/dL <Lauren Weller - 04/13/18 20:57> Abnormal lab results 04/12/18 04/12/18 04/12/18 Range/Units 16:52 16:52 16:52 WBC 19.0 H (4.0-11.0) th/mm3 RBC 3.82 L (4.50-5.90) mil/mm3 Hgb 11.2 L (13.0-17.0) gm/dL Hct 35.5 L (39.0-51.0) % MCHC 31.6 L (32.0-36.0) % Gentry % (Auto) 14.9 H (0.0-8.0) % Neut # (Auto) 12.6 H (1.8-7.7) th/mm3 Gentry # (Auto) 2.8 H (0.0-0.9) th/mm3 Band Neuts % (Manual) 14 H (0-6) % Monocytes % (Manual) 10 H (0-8) % Metamyelocytes % (Man) 3 H (0-1) % Myelocytes % (Man) (0-0) % Plasma Cell % (Manual) (0-0) % Abs Neuts (Manual) 13.5 H (1.8-7.7) th/mm3 Nucleated RBCs/100 WBC 5 H (0-0) /100 WBC Platelet Morphology Enlarged H (Normal) Stomatocytes 1+ H (None) PT 12.3 H (9.8-11.6) sec D-Dimer Quant (PE/DVT) 6.12 H (0.00-0.50) mg/L FEU Carbon Dioxide 19.3 L (21.0-32.0) meq/L Anion Gap 18 H (5-15) meq/L BUN 61 H (7-18) mg/dL Creatinine 12.02 H* D (0.60-1.30) mg/dL Estimated GFR 5 L (>89) mL/min POC Glucose (68-110) mg/dl Random Glucose (74-106) mg/dL Lactic Acid (0.4-2.0) mmol/L Magnesium 2.7 H (1.5-2.5) mg/dL Total Bilirubin 1.4 H (0.2-1.0) mg/dL AST 49 H (15-37) U/L Troponin I Less than 0.02 L (0.02-0.05) ng/mL Albumin 2.9 L (3.4-5.0) g/dL 04/12/18 04/12/18 04/12/18 Range/Units 17:50 23:32 23:32 WBC (4.0-11.0) th/mm3 RBC (4.50-5.90) mil/mm3 Hgb (13.0-17.0) gm/dL Hct (39.0-51.0) % MCHC (32.0-36.0) % Gentry % (Auto) (0.0-8.0) % Neut # (Auto) (1.8-7.7) th/mm3 Gentry # (Auto) (0.0-0.9) th/mm3 Band Neuts % (Manual) (0-6) % Monocytes % (Manual) (0-8) % Metamyelocytes % (Man) (0-1) % Myelocytes % (Man) (0-0) % Plasma Cell % (Manual) (0-0) % Abs Neuts (Manual) (1.8-7.7) th/mm3 Nucleated RBCs/100 WBC (0-0) /100 WBC Platelet Morphology (Normal) Stomatocytes (None) PT (9.8-11.6) sec D-Dimer Quant (PE/DVT) (0.00-0.50) mg/L FEU Carbon Dioxide 18.0 L (21.0-32.0) meq/L Anion Gap 19 H (5-15) meq/L BUN 67 H (7-18) mg/dL Creatinine 12.55 H* (0.60-1.30) mg/dL Estimated GFR 5 L (>89) mL/min POC Glucose (68-110) mg/dl Random Glucose 56 L (74-106) mg/dL Lactic Acid 2.7 H 2.1 H (0.4-2.0) mmol/L Magnesium (1.5-2.5) mg/dL Total Bilirubin (0.2-1.0) mg/dL AST (15-37) U/L Troponin I (0.02-0.05) ng/mL Albumin (3.4-5.0) g/dL 04/13/18 04/13/18 04/13/18 Range/Units 05:20 05:20 08:45 WBC 16.4 H (4.0-11.0) th/mm3 RBC 3.56 L (4.50-5.90) mil/mm3 Hgb 10.3 L (13.0-17.0) gm/dL Hct 33.0 L (39.0-51.0) % MCHC 31.3 L (32.0-36.0) % Gentry % (Auto) (0.0-8.0) % Neut # (Auto) (1.8-7.7) th/mm3 Gentry # (Auto) (0.0-0.9) th/mm3 Band Neuts % (Manual) 33 H (0-6) % Monocytes % (Manual) 11 H (0-8) % Metamyelocytes % (Man) (0-1) % Myelocytes % (Man) 1 H (0-0) % Plasma Cell % (Manual) 1 H (0-0) % Abs Neuts (Manual) 12.0 H (1.8-7.7) th/mm3 Nucleated RBCs/100 WBC 2 H (0-0) /100 WBC Platelet Morphology Clumped H (Normal) Stomatocytes (None) PT (9.8-11.6) sec D-Dimer Quant (PE/DVT) (0.00-0.50) mg/L FEU Carbon Dioxide 16.1 L (21.0-32.0) meq/L Anion Gap 20 H (5-15) meq/L BUN 69 H (7-18) mg/dL Creatinine 13.13 H* (0.60-1.30) mg/dL Estimated GFR 5 L (>89) mL/min POC Glucose 53 L (68-110) mg/dl Random Glucose 36 L* (74-106) mg/dL Lactic Acid (0.4-2.0) mmol/L Magnesium (1.5-2.5) mg/dL Total Bilirubin 1.4 H (0.2-1.0) mg/dL AST (15-37) U/L Troponin I (0.02-0.05) ng/mL Albumin 2.6 L (3.4-5.0) g/dL Short CBC 04/12/18 04/13/18 Range/Units 16:52 05:20 WBC 19.0 H 16.4 H (4.0-11.0) th/mm3 Hgb 11.2 L 10.3 L (13.0-17.0) gm/dL Hct 35.5 L 33.0 L (39.0-51.0) % Plt Count 206 153 (150-450) th/mm3 BMP 04/12/18 04/12/18 04/13/18 16:52 23:32 05:20 Sodium 138 140 141 Potassium 4.9 5.0 4.9 Chloride 101 103 105 Carbon Dioxide 19.3 L 18.0 L 16.1 L BUN 61 H 67 H 69 H Creatinine 12.02 H* D 12.55 H* 13.13 H* Calcium 9.1 9.1 8.8 Cardiac Enzymes 04/12/18 Range/Units 16:52 Total Creatine Kinase 53 (39-308) U/L Troponin I Less than 0.02 L (0.02-0.05) ng/mL Liver Function 04/12/18 04/13/18 Range/Units 16:52 05:20 Total Bilirubin 1.4 H 1.4 H (0.2-1.0) mg/dL AST 49 H 37 (15-37) U/L ALT 20 17 (12-78) U/L Alkaline Phosphatase 111 94 (45-117) U/L Albumin 2.9 L 2.6 L (3.4-5.0) g/dL <Albania Garcia - 04/13/18 09:00> - Imaging Impressions Upper Extremity Ultrasound 04/13/18 00:00 CONCLUSION: Negative targeted ultrasound examination. <Lauren Weller - 04/13/18 20:57> Impressions Chest X-Ray 04/12/18 16:34 CONCLUSION: Minimal parenchymal changes right base without fluid overload. Pulmonary Perfusion Imaging 04/12/18 17:53 CONCLUSION: Low probability for pulmonary embolus. There are matched defects at the posterior lower lobes likely from basilar areas of consolidation, atelectasis or effusion. <Albania Garcia - 04/13/18 09:00> Physical Exam Vital signs: Vital Signs 04/12/18 22:47 04/13/18 02:35 04/13/18 05:56 Temperature 98.7 F 99.3 F 98.3 F Pulse Rate 104 H 104 H 108 H Respiratory Rate 18 18 18 Blood Pressure 108/69 118/60 106/78 Pulse Oximetry 97 93 L 97 04/13/18 08:43 04/13/18 12:26 04/13/18 13:01 Temperature 98.2 F 96.8 F L Pulse Rate 70 78 Respiratory Rate 20 18 Blood Pressure 112/60 116/62 Pulse Oximetry 96 94 L 04/13/18 19:55 Temperature 98.9 F Pulse Rate 116 H Respiratory Rate 18 Blood Pressure 97/54 L Pulse Oximetry 96 Intake & Output 04/13/18 04/13/18 04/14/18 06:59 18:59 06:59 Intake Total 1800 / 1800 Output Total 700 / 700 Balance 1800 / 1800 -700 / -700 Weight 99.6 kg Intake: IV 1050 / 1050 Zosyn 3.375 GM Premix 50 ML @ 50 / 50 100 mls/hr IV.SIG ONCE ONE Rx#: [id number] NS Inj 250 ML @ Wide Open IV. 250 / 250 SIG BOLUS ONE Rx#:[id number] NS Inj 500 ML @ Wide Open IV. 500 / 500 SIG BOLUS ONE Rx#:[id number] Vancomycin Inj 1,000 MG In NS 250 / 250 Inj 250 ML @ 250 mls/hr IV.SIG ONCE ONE Rx#:[id number] Other 750 / 750 Output: Hemodialysis Amount 700 / 700 Other: Other Intake Source Saline Solution Weight On Admission 99.6 kg <Lauren Weller - 04/13/18 20:57> Vital Signs 04/12/18 16:06 04/12/18 18:27 04/12/18 19:03 Temperature 98.7 F Pulse Rate 115 H 108 H Respiratory Rate 20 14 Blood Pressure 127/67 95/67 L Pulse Oximetry 94 L 98 04/12/18 20:31 04/12/18 22:47 04/13/18 02:35 Temperature 98.7 F 99.3 F Pulse Rate 108 H 104 H 104 H Respiratory Rate 18 18 18 Blood Pressure 119/69 108/69 118/60 Pulse Oximetry 97 93 L 04/13/18 05:56 04/13/18 08:43 Temperature 98.3 F 98.2 F Pulse Rate 108 H 70 Respiratory Rate 18 20 Blood Pressure 106/78 112/60 Pulse Oximetry 97 96 Intake & Output 04/12/18 04/13/18 04/13/18 18:59 06:59 18:59 Intake Total 1800 / 1800 Balance 1800 / 1800 Weight 121.563 kg 99.6 kg Intake: IV 1050 / 1050 Zosyn 3.375 GM Premix 50 ML @ 50 / 50 100 mls/hr IV.SIG ONCE ONE Rx#: [id number] NS Inj 250 ML @ Wide Open IV. 250 / 250 SIG BOLUS ONE Rx#:[id number] NS Inj 500 ML @ Wide Open IV. 500 / 500 SIG BOLUS ONE Rx#:[id number] Vancomycin Inj 1,000 MG In NS 250 / 250 Inj 250 ML @ 250 mls/hr IV.SIG ONCE ONE Rx#:[id number] Other 750 / 750 Other: Other Intake Source Saline Solution Weight On Admission 99.6 kg <Albania Garcia - 04/13/18 09:00> Narrative: Narrative: GENERAL: Well nourished male laying in bed watching TV, in no acute distress. SKIN: Warm and dry. HEAD: Atraumatic. Normocephalic. Mucous membranes very dry, lips cracked and peeling. Thin white film covering tongue . EYES: No scleral icterus. No injection or drainage. ENT: No nasal bleeding or discharge. NECK: Trachea midline. No JVD. CARDIOVASCULAR: Regular rate and rhythm. Dual-lumen catheter in right chest without signs of infection, including pain to palpation, erythema or drainage. RESPIRATORY: No accessory muscle use. Breath sounds equal bilaterally. Mild bilateral crackles in lower lung almanzar. GASTROINTESTINAL: Abdomen soft, non-tender, nondistended. MUSCULOSKELETAL: : Extremities without clubbing, or cyanosis. No obvious deformities. 7 cm well-healing surgical scar from AVF fistula performed on . Small amount of serosanguineous drainage from middle of incision site. Warm to palpation, no fluctuance, induction, or erythema. Small amount of edema above surgical site. No active bleeding. NEUROLOGICAL: Awake and alert. No obvious cranial nerve deficits. Motor grossly within normal limits. Normal speech. <Albania Garcia - 04/13/18 19:58> Assessment and Plan - Assessment (1) End stage renal disease Code(s): N18.6 - End stage renal disease Status: Chronic (2) Acute renal failure (ARF) Code(s): N17.9 - Acute kidney failure, unspecified Status: Acute (3) Sepsis Code(s): A41.9 - Sepsis, unspecified organism Status: Acute (4) Dyspnea Code(s): R06.00 - Dyspnea, unspecified Status: Resolved (5) GERD (gastroesophageal reflux disease) Code(s): K21.9 - Gastro-esophageal reflux disease without esophagitis Status: Acute (6) Hepatitis B Code(s): B19.10 - Unspecified viral hepatitis B without hepatic coma Status: Chronic (7) Nutrition, metabolism, and development symptoms Code(s): R63.8 - Other symptoms and signs concerning food and fluid intake Status: Acute (8) DVT prophylaxis Status: Acute <Lauren Weller - 04/13/18 20:57> (1) End stage renal disease Code(s): N18.6 - End stage renal disease Status: Chronic Plan: Patient diagnosed with ESRD weeks ago. BUN 67, Cr 12.55 & estimated GFR 5L on admission. Started HD on 04/[address] Epifanio Greene and underwent AVF procedure on prior to recent hospital discharge with Dr. Hummel. He underwent dialysis 2 days ago, but stopped treatment, because the line clotted and he was scared. Patient to undergo dialysis in the hospital today. -Continue to trend BUN/Cr following dialysis -Gentle fluids NS IV at 84 mls/hr ordered -Nephrology consulted (2) Acute renal failure (ARF) Code(s): N17.9 - Acute kidney failure, unspecified Status: Acute Plan: Likely acute on chronic kidney injury. ESRD non-compliant with HD. -plan as above, ESRD (3) Sepsis Code(s): A41.9 - Sepsis, unspecified organism Status: Acute Plan: Patient met sepsis criteria on admission WBC 19.0, tachycardia and initially hypotensive responded to initial fluid boluses, but afebrile. LA and blood cultures ordered. LUE with small amount of serosanguinous drainage, no induration or fluctuance, but mild edema. Labs: -LA 2.4, lactic acid protocol ordered. -Blood cultures pending -UA pending -WBC trending down, 16.4 from 19 at admission Medications: -Day 1 Vancomycin 1g IV q24h -Day 1 Zosyn 3.375 g IV q12h -Will consider ordering LUE ultrasound to rule out possible infection of prior surgical site (4) Dyspnea Code(s): R06.00 - Dyspnea, unspecified Status: Resolved Plan: SOB currently resolved. ACS and PE ruled out in ED last night. D-Dimer 6.12, however, likely elevated due to ESRD on HD with VQ scan with low probability of PE. -Supplemental O2 PRN with goal O2 sat >92% (5) GERD (gastroesophageal reflux disease) Code(s): K21.9 - Gastro-esophageal reflux disease without esophagitis Status: Acute Plan: Patient with hx of GERD. -Protonix 40mg daily -Pepcid 20 mg daily (6) Hepatitis B Code(s): B19.10 - Unspecified viral hepatitis B without hepatic coma Status: Chronic Plan: Patient with hx of hepatitis B. LFTs show AST 49 and ALT 20. -Will continue to monitor (7) Nutrition, metabolism, and development symptoms Code(s): R63.8 - Other symptoms and signs concerning food and fluid intake Status: Acute Plan: Fluids: as above--gently due to ESRD Electrolytes: will monitor with daily labs, replete, and allow nephro to help manage once pt begins HD Nutrition: renal diet GI: as above; continue home meds (8) DVT prophylaxis Status: Acute Plan: DVT prophylaxis: Bilateral SCDs <Albania Garcia - 04/13/18 19:29> - Assessment and Plan 47 YO male followed by Dr Weller with HTN, GERD, Hep B and recent ESRD with start of HD in last 3 weeks presents with acute on chronic renal failure due to HD noncompliance and possible sepsis. Impression: -CMP with BUN 65 / Cr 12.02 / Tbili 1.4 / AST 49 / AG 18 -Mag 2.7 -Lactate 2.7 -CBC with WBC 19.0 -Zosyn 3.375g IV once in ED -Vancomycin 1g IV ordered in ED -NS IVF 500ml bolus in ED due to hypotension -NS IVF 250ml bolus in ED -Troponin <0.02 -BNP 13 -D-Dimer 6.12 -CXR showing parenchymal changes right base w/o fluid overload -VQ scan low probability for PE; however, perfusion mismatch between upper and lower lobes suggestive of atelectasis vs early consolidation vs effusion -EKG w/sinus tachycardia Plan: 1. Meets sepsis criteria (WBC 19.0, tachycardia, initially hypotensive responded to initial fluid boluses, but afebrile) -Vancomycin 1g IV q24h -Zosyn 3.375g IV q12h -NS IVF at 84ml/hr--gentle fluids as pt is very dry -Blood cx pending -Lactic acid at 10PM pending -UA pending -AM CBC, CMP 2. Acute on chronic kidney injury; ESRD non-compliant with HD BUN 65 / Cr 12.02 -Nephrology consult--spoke to Dr Ann -Repeat BMP 10PM -Gentle fluids as above to avoid fluid overload -Likely HD in AM 3. Dyspnea -SOB resolved shortly after arrival in ED -Supplemental O2 PRN with goal O2 sat >92% -CXR as above -D-Dimer 6.12; however, likely elevated due to ESRD on HD -VQ scan with low probability of PE 4. HTN -Pt takes no medications and states he has not had HTn since starting HD 5. GERD -Protonix 40mg daily -Pepcid 20 mg daily 6. FEN/GI/PPx: Fluids: as above--gently due to ESRD Electrolytes: will monitor with daily labs, replete, and allow nephro to help manage once pt begins HD Nutrition: renal diet GI: as above; continue home meds PPx: SCDs Tylenol 650mg q6h PO pain/fever PRN bowel regimen Restoril 15mg PRN Pt DW Dr Reeves <JoseAlbania Sims - 04/13/18 09:00> - Attending Attestation This attestation is to attest resident H&P dated 04/12/18 and resident note dated 04/13 (attached). Patient seen and examined this afternoon, discussed with resident team. I agree with assessment and management as documented and discussed with me. Giovani Barnes is a 47yo gentleman with HTN, hepatitis B, and ESRD recently started on dialysis. This Sunday (04/10) he had his first session of outpt dialysis, during which time he had some clotting of his line. He was nervous and due to this, he did not return to dialysis on Sunday. He subsequently developed SOB. Overnight, he had an episode of hypoglycemia early this morning. This afternoon, he is seen prior to his dialysis session. He complains of mouth and tongue pain, preventing him from eating. He reports SOB. He denies drainage or worsening pain at AV fistula site. We had a discussion about how important it is to keep/make dialysis appointments. ROS: Per resident H&P. PMH/PSxH/SocHx/FamHx: Per resident H&P. Sepsis: Vancomycin and zosyn have been started. VQ scan demonstrates either bibasilar infiltrates vs effusion vs atelectasis. ESRD: Appreciate nephrology. Pt to have dialysis today. Additional diagnoses: HTN: BP has been on the lower end. BP medications to be held as appropriate. Hypoglycemia: Likely secondary to decreased PO intake and ESRD. Treat as per protocol. Pain of tongue: Consider candidiasis. Add nystatin. <Lauren Weller - 04/13/18 20:57> <Albania Garcia - Last Filed: 04/13/18 19:29> (2) Acute renal failure (ARF) Qualifiers: Acute renal failure type: unspecified Qualified Code(s): N17.9 - Acute kidney failure, unspecified (3) Sepsis Qualifiers: Sepsis type: sepsis due to unspecified organism Qualified Code(s): A41.9 - Sepsis, unspecified organism (4) Dyspnea Qualifiers: Dyspnea type: unspecified Qualified Code(s): R06.00 - Dyspnea, unspecified <Lauren Weller - Last Filed: 04/13/18 20:57> (2) Acute renal failure (ARF) Qualifiers: Acute renal failure type: unspecified Qualified Code(s): N17.9 - Acute kidney failure, unspecified (3) Sepsis Qualifiers: Sepsis type: sepsis due to unspecified organism Qualified Code(s): A41.9 - Sepsis, unspecified organism (4) Dyspnea Qualifiers: Dyspnea type: unspecified Qualified Code(s): R06.00 - Dyspnea, unspecified <Albania Garcia - Last Filed: 04/13/18 19:29> (2) Acute renal failure (ARF) Qualifiers: Acute renal failure type: unspecified Qualified Code(s): N17.9 - Acute kidney failure, unspecified (3) Sepsis Qualifiers: Sepsis type: sepsis due to unspecified organism Qualified Code(s): A41.9 - Sepsis, unspecified organism (4) Dyspnea Qualifiers: Dyspnea type: unspecified Qualified Code(s): R06.00 - Dyspnea, unspecified <JayneyuriyLauren - Last Filed: 04/13/18 20:57> (2) Acute renal failure (ARF) Qualifiers: Acute renal failure type: unspecified Qualified Code(s): N17.9 - Acute kidney failure, unspecified (3) Sepsis Qualifiers: Sepsis type: sepsis due to unspecified organism Qualified Code(s): A41.9 - Sepsis, unspecified organism (4) Dyspnea Qualifiers: Dyspnea type: unspecified Qualified Code(s): R06.00 - Dyspnea, unspecified
[2018-04-13] MEDS ORDERED: Acetaminophen 325 MG Tablet PO PRN (11:42)
[2018-04-13] MEDS ORDERED: Gelatin 12 MM/7 MM Topical Foam TOPICAL PRN (11:42)
[2018-04-13] MEDS ORDERED: Sod Chloride 0.9% Inj 1,000 ML OTHER PRN ×2 (11:42)
[2018-04-13] MEDS ORDERED: Albumin Human 25% Inj 100 ML IV.SIG PRN (11:42)
[2018-04-13] MEDS ORDERED: Heparin 10,000 UNITS/10 ML Vial (for IV use) IV.FLUSH PRN (11:42)
[2018-04-13] MEDS ORDERED: Sod Chloride 0.9% Inj 1,000 ML IV.CONT PRN (11:42)
--- NOTE | 2018-04-13 13:32 | P.CONNP ---
<JeffluisAnnika flynn - Last Filed: 04/13/18 13:13> History of Present Illness Service: Nephrology Consult date: 04/12/18 Requesting Physician: José Miguel Hall III Reason for Consult: End stage renal disease on hemodialysis Primary Care Provider: Lauren Weller MD Family Provider: Lauren Weller MD Chief Complaint: SOB, sepsis, ESRD History of Present Illness: Patient is at 47 year old male with a past medical history of hepatitis B, hypertension, GERD, and end stage renal disease on hemodialysis. Presented to ED with shortness of breath which has now resolved. Nephrology is consulted for the management of hemodialysis. He has a right IJ permacath and has recently had a AVF in right upper arm which is not ready for use. Plan will be for hemodialysis today. Review of Systems Constitutional: Reports fatigue, Reports weakness Cardiovascular: Denies chest pain Respiratory: Denies chest congestion, Denies shortness of breath Gastrointestinal: Denies abdominal pain, Denies nausea, Denies vomiting PMFSH - History History Provided By: Patient - Medical History Medical History: Medical History (Last Reviewed 04/13/18 @ 04:11 by Rahel Nielsen) Dialysis patient Vascular dialysis catheter in place Onset Date: ~03/31/18 GERD (gastroesophageal reflux disease) HTN (hypertension) Right testicular torsion - Surgical History Surgical History: Surgical History (Last Reviewed 04/13/18 @ 04:11 by Rahel Nielsen) History of knee surgery - Family History Family History: Family History (Last Reviewed 04/13/18 @ 04:11 by Rahel Nielsen) Mother Hx of renal failure Father Family hx of colon cancer - Tobacco History Second Hand Smoke Exposure: No Smoking Status: Never smoker - Alcohol History How Often Do You Have a Drink Containing Alcohol: 2 to 4 times a month - Substance Use History Substance History: No History of Abuse - Travel History History of Recent Travel: No Recent Travel in the [place] Within the Last 8 Weeks: No Recent Travel Out of the Country Within the Last 8 Weeks: No - Immunization History Tetanus Immunization: <5 Years Hx Influenza Vaccine This Season: No Medications and Allergies Allergies Allergy/AdvReac Type Severity Reaction Status Date / Time No Known Allergies Allergy Verified 04/14/18 05:33 Home Medications Medication Instructions Recorded Confirmed Type lansoprazole 30 mg PO BID 03/30/18 04/12/18 History ranitidine HCl 150 mg PO DAILY 03/30/18 04/12/18 History Active Medications: Active Medications Acetaminophen (Tylenol) 650 mg PO Q4H PRN PRN Reason: Temp > 100.4 Acetaminophen (Tylenol) 650 mg PO UNSCH PRN PRN Reason: SEE LABEL COMMENTS Clonidine HCl (Catapres) 0.1 mg PO UNSCH PRN PRN Reason: SEE LABEL COMMENTS Diphenhydramine HCl (Benadryl) 25 mg PO UNSCH PRN PRN Reason: SEE LABEL COMMENTS Epoetin Josafat (Epogen Inj) 6,000 unit IV.PUSH MOWEFR PRN PRN Reason: SEE LABEL COMMENTS Famotidine (Pepcid) 20 mg PO DAILY [facility] Last Admin: 04/13/18 08:51 Dose: 20 mg Gelatin (Gelfoam 12 Mm/7 Mm Topical) 1 foam TOPICAL PRN PRN PRN Reason: help stop bleeding from site Gentamicin Sulfate (Gentamicin Inj) 20 mg OTHER WITH DIALYSIS PRN PRN Reason: Dwell Gentamycin Lock Heparin Sodium (Porcine) (Heparin Inj) 8,000 units IV.FLUSH WITH DIALYSIS PRN PRN Reason: for machine prime Heparin Sodium (Porcine) (Heparin Inj) 1,000 units OTHER WITH DIALYSIS PRN PRN Reason: Dwell Heparin to Fill Catheter Pharmacy Profile Note (Vancomycin Consult Pharmacy) 0 mls @ 0 mls/hr OTHER UNSCH [facility] Piperacillin/Tazobactam/Dextrose (Zosyn 3.375 Gm Premix) 50 mls @ 100 mls/hr IV.SIG Q12H [facility] Last Admin: 04/13/18 08:51 Dose: 100 mls/hr Albumin Human (Flexbumin 25% Inj) 100 mls @ 60 mls/hr IV.SIG WITH DIALYSIS PRN PRN Reason: hypotension / volume replace Sodium Chloride (Ns Inj) 1,000 mls @ 0 mls/hr OTHER .Q0M PRN PRN Reason: for prime and rinse back Sodium Chloride (Ns Inj) 1,000 mls @ 200 mls/hr OTHER .Q5H PRN PRN Reason: for dialyzer flush PRN Sodium Chloride (Ns Inj) 1,000 mls @ 0 mls/hr IV.CONT .Q0M PRN PRN Reason: hypotension / volume replace Vancomycin HCl 1,000 mg/ (Sodium Chloride) 250 mls @ 250 mls/hr IV.SIG WITH DIALYSIS [facility] Lactulose (Lactulose Liq) 30 ml PO DAILY PRN PRN Reason: SEVERE CONSITIPATION Mannitol (Mannitol Inj) 12.5 gm IV.PUSH PRN PRN PRN Reason: hypotension / volume replace Nitroglycerin (Nitrostat Sl) 0.4 mg SL Q5M PRN PRN Reason: CHEST PAIN Ondansetron HCl (Zofran Inj) 4 mg IV.PUSH Q6H PRN PRN Reason: NAUSEA OR VOMITING Ondansetron HCl (Zofran Inj) 4 mg IV.PUSH UNSCH PRN PRN Reason: NAUSEA OR VOMITING Pantoprazole Sodium (Protonix) 40 mg PO BID [facility] Last Admin: 04/13/18 08:51 Dose: 40 mg Senna/Docusate Sodium (Makenzie-Colace) 1 tab PO BID PRN PRN Reason: CONSTIPATION Sennosides (Senokot) 17.2 mg PO Q12H PRN PRN Reason: Moderate Constipation Sodium Chloride (Ns Flush) 5 ml IV.FLUSH PRN PRN PRN Reason: flush each lumen during HD Temazepam (Restoril) 15 mg PO HS PRN PRN Reason: INSOMNIA Exam Vital signs: Vital Signs 04/12/18 16:06 04/12/18 18:27 04/12/18 19:03 Temperature 98.7 F Pulse Rate 115 H 108 H Respiratory Rate 20 14 Blood Pressure 127/67 95/67 L Pulse Oximetry 94 L 98 04/12/18 20:31 04/12/18 22:47 04/13/18 02:35 Temperature 98.7 F 99.3 F Pulse Rate 108 H 104 H 104 H Respiratory Rate 18 18 18 Blood Pressure 119/69 108/69 118/60 Pulse Oximetry 97 93 L 04/13/18 05:56 04/13/18 08:43 04/13/18 12:26 Temperature 98.3 F 98.2 F Pulse Rate 108 H 70 Respiratory Rate 18 20 Blood Pressure 106/78 112/60 Pulse Oximetry 97 96 94 L 04/13/18 13:01 Temperature 96.8 F L Pulse Rate 78 Respiratory Rate 18 Blood Pressure 116/62 Pulse Oximetry Intake & Output 04/12/18 04/13/18 04/13/18 18:59 06:59 18:59 Intake Total 1800 / 1800 Balance 1800 / 1800 Weight 121.563 kg 99.6 kg Intake: IV 1050 / 1050 Zosyn 3.375 GM Premix 50 ML @ 50 / 50 100 mls/hr IV.SIG ONCE ONE Rx#: [id number] NS Inj 250 ML @ Wide Open IV. 250 / 250 SIG BOLUS ONE Rx#:[id number] NS Inj 500 ML @ Wide Open IV. 500 / 500 SIG BOLUS ONE Rx#:[id number] Vancomycin Inj 1,000 MG In NS 250 / 250 Inj 250 ML @ 250 mls/hr IV.SIG ONCE ONE Rx#:[id number] Other 750 / 750 Other: Other Intake Source Saline Solution Weight On Admission 99.6 kg - Constitutional no acute distress - Routine HEENT Exam Head: Present: normocephalic ENT: Present: mucous membranes moist - Routine Neck Exam Present: supple. Absent: JVD - Routine Respiratory Exam Present: decreased breath sounds. Absent: rales, rhonchi, wheezes - Routine Cardiovascular Exam Present: RRR. Absent: murmur - Routine Abdominal Exam Present: soft, normoactive bowel sounds. Absent: tenderness - Routine Extremities Exam Absent: edema - Routine Skin Exam Present: dry, warm - Routine Neurological Exam Present: alert, oriented X3 Results - Lab Results 04/13/18 05:20 04/13/18 05:20 Most recent lab results Calcium 8.8 mg/dL (8.5-10.1) 04/13/18 05:20 Magnesium 2.7 mg/dL (1.5-2.5) H 04/12/18 16:52 Assessment and Plan - Assessment (1) End stage renal disease Code(s): N18.6 - End stage renal disease Status: Chronic Plan: End stage renal disease on hemodialysis on Sunday, Sunday, and Sunday. Last Hemodialysis was on Sunday. He is a patient of Dr. Jose. Has right IJ permacath and AVF in right upper arm which is not ready for use Hemodialysis is planned for today at end of day secondary to hepatitis B. Avoid IVF Epogen with dialysis (2) Hypertension Code(s): I10 - Essential (primary) hypertension Status: Acute Plan: Well controlled no on any medications Will monitor (3) Sepsis Code(s): A41.9 - Sepsis, unspecified organism Status: Acute Plan: On antibiotics Please renal dose antibiotics. <Goyo Ann Q - Last Filed: 04/14/18 10:07> History of Present Illness Primary Care Provider: Lauren Weller MD Family Provider: Lauren Weller MD [facility] - Medical History Medical History: Medical History (Last Reviewed 04/13/18 @ 04:11 by Rahel Nielsen) Dialysis patient Vascular dialysis catheter in place Onset Date: ~03/31/18 GERD (gastroesophageal reflux disease) HTN (hypertension) Right testicular torsion - Surgical History Surgical History: Surgical History (Last Reviewed 04/13/18 @ 04:11 by Rahel Nielsen) History of knee surgery - Family History Family History: Family History (Last Reviewed 04/13/18 @ 04:11 by Rahel Nielsen) Mother Hx of renal failure Father Family hx of colon cancer Medications and Allergies Active Medications: Active Medications Acetaminophen (Tylenol) 650 mg PO Q4H PRN PRN Reason: Temp > 100.4 Acetaminophen (Tylenol) 650 mg PO UNSCH PRN PRN Reason: SEE LABEL COMMENTS Artificial Tears (Eucerin Cream) 1 applicatio TOPICAL QID [facility] Clonidine HCl (Catapres) 0.1 mg PO UNSCH PRN PRN Reason: SEE LABEL COMMENTS Diphenhydramine HCl (Benadryl) 25 mg PO UNSCH PRN PRN Reason: SEE LABEL COMMENTS Epoetin Josafat (Epogen Inj) 6,000 unit IV.PUSH MOWEFR PRN PRN Reason: SEE LABEL COMMENTS Last Admin: 04/13/18 19:57 Dose: 6,000 unit Famotidine (Pepcid) 20 mg PO DAILY [facility] Last Admin: 04/14/18 09:16 Dose: 20 mg Gelatin (Gelfoam 12 Mm/7 Mm Topical) 1 foam TOPICAL PRN PRN PRN Reason: help stop bleeding from site Gentamicin Sulfate (Gentamicin Inj) 20 mg OTHER WITH DIALYSIS PRN PRN Reason: Dwell Gentamycin Lock Last Admin: 04/13/18 19:57 Dose: 20 mg Heparin Sodium (Porcine) (Heparin Inj) 8,000 units IV.FLUSH WITH DIALYSIS PRN PRN Reason: for machine prime Last Admin: 04/13/18 19:57 Dose: 8,000 units Heparin Sodium (Porcine) (Heparin Inj) 1,000 units OTHER WITH DIALYSIS PRN PRN Reason: Dwell Heparin to Fill Catheter Pharmacy Profile Note (Vancomycin Consult Pharmacy) 0 mls @ 0 mls/hr OTHER UNSCH [facility] Albumin Human (Flexbumin 25% Inj) 100 mls @ 60 mls/hr IV.SIG WITH DIALYSIS PRN PRN Reason: hypotension / volume replace Sodium Chloride (Ns Inj) 1,000 mls @ 0 mls/hr OTHER .Q0M PRN PRN Reason: for prime and rinse back Sodium Chloride (Ns Inj) 1,000 mls @ 200 mls/hr OTHER .Q5H PRN PRN Reason: for dialyzer flush PRN Sodium Chloride (Ns Inj) 1,000 mls @ 0 mls/hr IV.CONT .Q0M PRN PRN Reason: hypotension / volume replace Vancomycin HCl 1,000 mg/ (Sodium Chloride) 250 mls @ 250 mls/hr IV.SIG WITH DIALYSIS [facility] Piperacillin/Tazobactam/Dextrose (Zosyn 2.25 Gm Premix) 50 mls @ 100 mls/hr IV.SIG Q12H [facility] Last Admin: 04/14/18 09:15 Dose: 100 mls/hr Albumin Human (Alburx 5% Inj) 500 mls @ 250 mls/hr IV.SIG ONCE ONE Stop: 04/14/18 10:42 Lactulose (Lactulose Liq) 30 ml PO DAILY PRN PRN Reason: SEVERE CONSITIPATION Mannitol (Mannitol Inj) 12.5 gm IV.PUSH PRN PRN PRN Reason: hypotension / volume replace Multi-Ingredient Mouthwash/Gargle (Magic Mouthwash Adult Liq) 10 ml SWISH-SWAL QID [facility] Last Admin: 04/13/18 21:26 Dose: 10 ml Nitroglycerin (Nitrostat Sl) 0.4 mg SL Q5M PRN PRN Reason: CHEST PAIN Nystatin (Mycostatin Liq) 5 ml SWISH-SWAL QID [facility] Last Admin: 04/14/18 09:16 Dose: 5 ml Ondansetron HCl (Zofran Inj) 4 mg IV.PUSH Q6H PRN PRN Reason: NAUSEA OR VOMITING Ondansetron HCl (Zofran Inj) 4 mg IV.PUSH UNSCH PRN PRN Reason: NAUSEA OR VOMITING Pantoprazole Sodium (Protonix) 40 mg PO BID [facility] Last Admin: 04/14/18 09:16 Dose: 40 mg Senna/Docusate Sodium (Makenzie-Colace) 1 tab PO BID PRN PRN Reason: CONSTIPATION Sennosides (Senokot) 17.2 mg PO Q12H PRN PRN Reason: Moderate Constipation Sodium Chloride (Ns Flush) 5 ml IV.FLUSH PRN PRN PRN Reason: flush each lumen during HD Temazepam (Restoril) 15 mg PO HS PRN PRN Reason: INSOMNIA Exam Vital signs: Vital Signs 04/13/18 12:26 04/13/18 13:01 04/13/18 19:55 Temperature 96.8 F L 98.9 F Pulse Rate 78 116 H Respiratory Rate 18 18 Blood Pressure 116/62 97/54 L Pulse Oximetry 94 L 96 04/13/18 19:59 04/13/18 23:31 04/14/18 02:10 Temperature 98.7 F Pulse Rate 113 H Respiratory Rate 24 Blood Pressure 84/50 L Pulse Oximetry 95 96 97 04/14/18 03:30 04/14/18 05:00 04/14/18 06:00 Temperature 98.8 F 97.6 F Pulse Rate 111 H 105 H 102 H Respiratory Rate 20 20 Blood Pressure 95/65 L 93/69 L Pulse Oximetry 95 94 L Intake & Output 04/13/18 04/14/18 04/14/18 18:59 06:59 18:59 Intake Total 50 / 50 Output Total 700 / 700 Balance -700 / -700 50 / 50 Weight 99.9 kg Intake: IV 50 / 50 Zosyn 2.25 GM Premix 50 ML @ 50 / 50 100 mls/hr IV.SIG Q12H [facility] Rx#: [id number] Output: Hemodialysis Amount 700 / 700 Other: Date of Last Bowel Movement 04/14/18 Results - Lab Results 04/14/18 01:21 04/14/18 03:40 Most recent lab results ABG pH 7.48 (7.380-7.420) H 04/14/18 01:21 ABG pCO2 33 mmHg (38-42) L 04/14/18 01:21 ABG pO2 61 mmHg (61-120) 04/14/18 01:21 ABG HCO3 24 mmol/L (22-26) 04/14/18 01:21 Calcium 7.8 mg/dL (8.5-10.1) L D 04/14/18 03:40 Phosphorus 5.4 mg/dL (2.5-4.9) H 04/14/18 03:40 Magnesium 2.7 mg/dL (1.5-2.5) H 04/12/18 16:52 Assessment and Plan - Assessment (1) End stage renal disease Code(s): N18.6 - End stage renal disease Status: Chronic (2) Hypertension Code(s): I10 - Essential (primary) hypertension Status: Acute (3) Sepsis Code(s): A41.9 - Sepsis, unspecified organism Status: Acute - Attending Attestation Patient seen and examined, agree with above. Missed HD yesterday. HD today, remove fluid as tolerated. <Annika Aguirre - Last Filed: 04/13/18 13:13> (2) Hypertension Qualifiers: Hypertension type: renovascular hypertension Qualified Code(s): I15.0 - Renovascular hypertension (3) Sepsis Qualifiers: Sepsis type: sepsis due to unspecified organism Qualified Code(s): A41.9 - Sepsis, unspecified organism <Goyo Ann Q - Last Filed: 04/14/18 10:07> (2) Hypertension Qualifiers: Qualified Code(s): I15.0 - Renovascular hypertension (3) Sepsis Qualifiers: Qualified Code(s): A41.9 - Sepsis, unspecified organism
[2018-04-13] MEDS ORDERED: Vancomycin Inj 1 GM/200 ML PIGGYBACK IV.SIG SCH (20:06)
--- NOTE | 2018-04-13 20:38 | US ---
EXAM DATE: 04/13/2018 8:21 PM EDT AGE/SEX: 47 years / Male INDICATIONS: Swelling at incision site. CLINICAL DATA: This is the patient's initial encounter. Patient reports that signs and symptoms have been present for 1 day and indicates a pain score of 0/10. MEDICAL/SURGICAL HISTORY: Gastroesophageal reflux disease. Hypertension. Hepatitis B. Dialys is. Right testicular torsion. Discectomy, lumbar. Knee surgery. AV Fistula. COMPARISON: [facility] – [place], [place] VENOUS MAPPING ARM BI, 04/02/2018. . FINDINGS: A targeted ultrasound of the right inner arm above the elbow at the area of concern has been performe d. No abnormality is seen in this region. CONCLUSION: Negative targeted ultrasound examination. Electronically signed by: To Mejia MD 04/13/2018 8:37 PM EDT
[2018-04-13] MEDS: Nystatin/Diphenhydramine/Lidocaine Mouthwash (Adult) 120 ML Botttle SWISH-SWAL SCH ×2 (20:56→21:26)
[2018-04-13] MEDS: Nystatin Liq 500,000 UNIT/5 ML UDC SWISH-SWAL SCH (21:31)
[2018-04-13] MEDS: Piperacil/Tazo 2.25 GM Premix 50 ML IV.SIG SCH (21:36)
[2018-04-13] MEDS ORDERED: Sodium Chlor 0.9% Inj 500 ML IV.SIG ONE (22:14)
[2018-04-14 01:46] LABS: Hematocrit 31.3 % (39.0-51.0); Hemoglobin 9.9 gm/dL (13.0-17.0); Mean Corpuscular HGB Conc 31.6 % (32.0-36.0); Mean Corpuscular Hemoglobin 29.2 pg (27.0-34.0); Mean Corpuscular Volume 92.4 fL (80.0-100.0); Mean Platelet Volume 8.6 fL (7.0-11.0); Platelet Count 178 th/mm3 (150-450); Red Blood Count 3.39 mil/mm3 (4.50-5.90); Red Cell Distribution Width 14.9 % (11.6-17.2); White Blood Count 19.1 th/mm3 (4.0-11.0)
[2018-04-14 02:14] LABS: ABG PCO2 33 mmHg (38-42); ABG PO2 61 mmHg (61-120)
[2018-04-14] MEDS ORDERED: Sodium Chlor 0.9% Inj 500 ML IV.SIG ONE (03:15)
[2018-04-14 04:30] LABS: Potassium 4.6 meq/L (3.5-5.1); Sodium 142 meq/L (136-145)
[2018-04-14 04:31] LABS: Albumin 2.5 g/dL (3.4-5.0); Anion Gap 15 meq/L (5-15); Blood Urea Nitrogen 43 mg/dL (7-18); Calcium 7.8 mg/dL (8.5-10.1); Carbon Dioxide 24.4 meq/L (21.0-32.0); Chloride 103 meq/L (98-107); Glomerular Filtration Rate 8 mL/min (>89); Glucose,Random 70 mg/dL (74-106); Phosphorus 5.4 mg/dL (2.5-4.9)
[2018-04-14] MEDS ORDERED: Albumin Human 5% Inj 500 ML IV.SIG ONE (08:43)
[2018-04-14] MEDS: Piperacil/Tazo 2.25 GM Premix 50 ML IV.SIG SCH ×2 (09:15→20:48)
[2018-04-14] MEDS: Famotidine 20 MG Tablet PO SCH (09:16)
[2018-04-14] MEDS: Nystatin Liq 500,000 UNIT/5 ML UDC SWISH-SWAL SCH ×4 (09:16→21:23)
--- NOTE | 2018-04-14 10:13 | P.PNNP ---
Subjective Interval history: Reports a poor appetite. Started on nystatin swish and swallow. Denies any shortness of breath. No edema. <Annika Aguirre - Last Filed: 04/14/18 10:03> Physical Exam Vital signs: Vital Signs 04/13/18 12:26 04/13/18 13:01 04/13/18 19:55 Temperature 96.8 F L 98.9 F Pulse Rate 78 116 H Respiratory Rate 18 18 Blood Pressure 116/62 97/54 L Pulse Oximetry 94 L 96 04/13/18 19:59 04/13/18 23:31 04/14/18 02:10 Temperature 98.7 F Pulse Rate 113 H Respiratory Rate 24 Blood Pressure 84/50 L Pulse Oximetry 95 96 97 04/14/18 03:30 04/14/18 05:00 04/14/18 06:00 Temperature 98.8 F 97.6 F Pulse Rate 111 H 105 H 102 H Respiratory Rate 20 20 Blood Pressure 95/65 L 93/69 L Pulse Oximetry 95 94 L Intake & Output 04/13/18 04/14/18 04/14/18 18:59 06:59 18:59 Intake Total 50 / 50 Output Total 700 / 700 Balance -700 / -700 50 / 50 Weight 99.9 kg Intake: IV 50 / 50 Zosyn 2.25 GM Premix 50 ML @ 50 / 50 100 mls/hr IV.SIG Q12H [facility] Rx#: [id number] Output: Hemodialysis Amount 700 / 700 Other: Date of Last Bowel Movement 04/14/18 - Constitutional no acute distress - Routine HEENT Exam Head: Present: normocephalic ENT: Present: mucous membranes dry - Routine Neck Exam Present: supple. Absent: JVD - Routine Respiratory Exam Present: decreased breath sounds, distant breath sounds. Absent: rales, rhonchi , wheezes - Routine Cardiovascular Exam Present: RRR - Routine Abdominal Exam Present: soft, normoactive bowel sounds. Absent: tenderness Comments: large - Routine Extremities Exam Absent: edema - Routine Skin Exam Present: dry, warm - Routine Neurological Exam Present: alert, oriented X3 - Routine Psychiatric Exam Present: cooperative <Annika Aguirre - Last Filed: 04/14/18 10:03> Vital signs: Vital Signs 04/14/18 12:00 04/14/18 13:00 04/14/18 14:00 Temperature 98.2 F Pulse Rate 104 H 102 H 106 H Respiratory Rate 18 Blood Pressure 137/81 Pulse Oximetry 04/14/18 15:00 04/14/18 16:00 04/14/18 17:00 Temperature 98.5 F Pulse Rate 104 H 100 H 94 H Respiratory Rate 18 Blood Pressure 117/70 Pulse Oximetry 04/14/18 18:00 04/14/18 19:09 04/14/18 19:20 Temperature 98.3 F Pulse Rate 98 H 105 H 96 H Respiratory Rate 18 Blood Pressure 114/63 Pulse Oximetry 92 L 04/14/18 19:37 04/14/18 20:01 04/14/18 21:07 Temperature Pulse Rate 101 H 103 H Respiratory Rate Blood Pressure Pulse Oximetry 93 L 04/14/18 22:08 04/14/18 23:05 04/14/18 23:52 Temperature Pulse Rate 101 H 96 H 103 H Respiratory Rate Blood Pressure Pulse Oximetry 04/15/18 00:00 04/15/18 00:56 04/15/18 02:11 Temperature 98.5 F Pulse Rate 92 H 105 H 109 H Respiratory Rate 16 Blood Pressure 114/60 Pulse Oximetry 95 04/15/18 03:04 04/15/18 03:57 04/15/18 04:21 Temperature 98.9 F Pulse Rate 101 H 96 H 95 H Respiratory Rate 16 Blood Pressure 99/59 L Pulse Oximetry 96 04/15/18 05:03 04/15/18 06:07 04/15/18 07:03 Temperature Pulse Rate 96 H 100 H 101 H Respiratory Rate Blood Pressure Pulse Oximetry 04/15/18 07:53 04/15/18 07:59 Temperature 98.3 F Pulse Rate 101 H Respiratory Rate 16 Blood Pressure 118/57 L Pulse Oximetry 97 97 Intake & Output 04/14/18 04/15/18 04/15/18 18:59 06:59 18:59 Intake Total 1080 / 1080 810 / 810 Balance 1080 / 1080 810 / 810 Weight 101.2 kg Intake: IV 600 / 600 570 / 570 Alburx 5% Inj 500 ML @ 250 mls/ 500 / 500 hr IV.SIG ONCE ONE Rx#:[id number] Zosyn 2.25 GM Premix 50 ML @ 100 / 100 55 / 55 100 mls/hr IV.SIG Q12H [facility] Rx#: [id number] Vancomycin Inj 1,500 MG In NS 515 / 515 Inj 500 ML @ 250 mls/hr IV.SIG ONCE ONE Rx#:[id number] Oral 480 / 480 240 / 240 Other: # Voids 1 Date of Last Bowel Movement 04/14/18 04/15/18 04/15/18 # Bowel Movements 4 1 <Ana Ann - Last Filed: 04/15/18 10:33> Assessment and Plan - Assessment (1) End stage renal disease Code(s): N18.6 - End stage renal disease Status: Chronic Plan: End stage renal disease on hemodialysis on Sunday, Sunday, and Sunday. Last Hemodialysis was on Sunday. He is a patient of Dr. Jose. Has right IJ permacath and AVF in right upper arm which is not ready for use Avoid IVF Epogen with dialysis Hemodialysis yesterday with minimal fluid removed at 700ml Hemodialysis planned for tomorrow (2) Hypertension Code(s): I10 - Essential (primary) hypertension Status: Acute Qualifiers: Hypertension type: renovascular hypertension Qualified Code(s): I15.0 - Renovascular hypertension Plan: Well controlled no on any medications Will monitor (3) Sepsis Code(s): A41.9 - Sepsis, unspecified organism Status: Acute Qualifiers: Sepsis type: sepsis due to unspecified organism Qualified Code(s): A41.9 - Sepsis, unspecified organism Plan: On antibiotics Renal dose antibiotics. (4) Oral candidiasis Code(s): B37.0 - Candidal stomatitis Status: Acute Plan: Nystatin swish and swallow <Annika Aguirre - Last Filed: 04/14/18 10:03> - Assessment (1) End stage renal disease Code(s): N18.6 - End stage renal disease Status: Chronic (2) Hypertension Code(s): I10 - Essential (primary) hypertension Status: Acute Qualifiers: Hypertension type: renovascular hypertension Qualified Code(s): I15.0 - Renovascular hypertension (3) Sepsis Code(s): A41.9 - Sepsis, unspecified organism Status: Acute Qualifiers: Sepsis type: sepsis due to unspecified organism Qualified Code(s): A41.9 - Sepsis, unspecified organism (4) Oral candidiasis Code(s): B37.0 - Candidal stomatitis Status: Acute - Attending Attestation Patient seen and examined, agree with above. BP was low, given IVF Bolus and Albumin. Has increase WBC, possible infection. BC done and Vanco. given. <Ana Ann - Last Filed: 04/15/18 10:33>
--- NOTE | 2018-04-14 11:05 | XR ---
EXAM DATE: 04/14/2018 11:00 AM EDT AGE/SEX: 47 years / Male INDICATIONS: Pneumonia CLINICAL DATA: This is the patient's subsequent encounter. Patient reports that signs and symptoms h ave been present for 3 weeks and indicates a pain score of 0/10. MEDICAL/SURGICAL HISTORY: . Gastroesophageal reflux disease. Hypertension. Hepatitis B. Dialys is. . . Right testicular torsion. Discectomy, lumbar. Knee surgery. AV Fistula COMPARISON: [facility], CHEST 1V SINGLE AP, 04/12/2018. . FINDINGS: 2 views of the semierect chest demonstrate stable appearance of a dialysis catheter with the tip over lying the mid SVC. The lungs are mildly hypoinflated with bilateral linear areas of platelike atelect asis. No evidence of focal airspace consolidation. The heart size appears normal. The pulmonary vascu lature appears mildly prominent. CONCLUSION: The lungs are mildly hypoinflated. Linear areas of atelectasis are seen. No evidence of airspace cons olidation to suggest pneumonia. Electronically signed by: Annamarie Burns MD 04/14/2018 11:03 AM EDT
[2018-04-14] MEDS: Nystatin/Diphenhydramine/Lidocaine Mouthwash (Adult) 120 ML Botttle SWISH-SWAL SCH ×4 (11:31→21:24)
--- NOTE | 2018-04-14 12:33 | P.PNFP ---
Subjective Interval history: Patient seen and evaluated this morning by medical team. Overnight patient became hypotensive to 84 systolic with a map of 59. Patient was symptomatic and reported chest tightness at that time. A 500 mL normal saline bolus was given which the patient minimally responded to. This morning the patient states that he feels that he is very "dry" and his chest pain continues. He also complained of hip and thigh pain he believes was due to the dialysis as well. He went on to state that he believes the mouthwash has improved his oral candidiasis and is now able to swallow. Otherwise he has no complaints and denied any fevers, chills, shortness of breath, NVD, abdominal pain, or calf tenderness. <Jez Hill H - 04/14/18 14:50> Results - Labs Result diagrams: 04/14/18 01:21 04/14/18 03:40 <Lauren Weller - 04/14/18 21:16> Abnormal lab results 04/13/18 04/14/18 04/14/18 Range/Units 20:34 01:21 01:21 WBC 19.1 H (4.0-11.0) th/mm3 RBC 3.39 L (4.50-5.90) mil/mm3 Hgb 9.9 L (13.0-17.0) gm/dL Hct 31.3 L (39.0-51.0) % MCHC 31.6 L (32.0-36.0) % O2 Saturation (90-100) % ABG pH (7.380-7.420) ABG pCO2 (38-42) mmHg Hemoglobin (12.0-16.0) G/DL BUN (7-18) mg/dL Creatinine (0.60-1.30) mg/dL Estimated GFR (>89) mL/min Random Glucose (74-106) mg/dL Lactic Acid 4.5 H* 3.5 H (0.4-2.0) mmol/L Calcium (8.5-10.1) mg/dL Phosphorus (2.5-4.9) mg/dL Total Creatine Kinase (39-308) U/L Troponin I (0.02-0.05) ng/mL Albumin (3.4-5.0) g/dL 04/14/18 04/14/18 04/14/18 Range/Units 01:21 03:40 03:40 WBC (4.0-11.0) th/mm3 RBC (4.50-5.90) mil/mm3 Hgb (13.0-17.0) gm/dL Hct (39.0-51.0) % MCHC (32.0-36.0) % O2 Saturation 89 L* (90-100) % ABG pH 7.48 H (7.380-7.420) ABG pCO2 33 L (38-42) mmHg Hemoglobin 9.6 L (12.0-16.0) G/DL BUN 43 H (7-18) mg/dL Creatinine 8.98 H (0.60-1.30) mg/dL Estimated GFR 8 L (>89) mL/min Random Glucose 70 L (74-106) mg/dL Lactic Acid 4.5 H* (0.4-2.0) mmol/L Calcium 7.8 L D (8.5-10.1) mg/dL Phosphorus 5.4 H (2.5-4.9) mg/dL Total Creatine Kinase (39-308) U/L Troponin I Less than 0.02 L (0.02-0.05) ng/mL Albumin 2.5 L (3.4-5.0) g/dL 04/14/18 04/14/18 04/14/18 Range/Units 11:50 18:18 18:18 WBC (4.0-11.0) th/mm3 RBC (4.50-5.90) mil/mm3 Hgb (13.0-17.0) gm/dL Hct (39.0-51.0) % MCHC (32.0-36.0) % O2 Saturation (90-100) % ABG pH (7.380-7.420) ABG pCO2 (38-42) mmHg Hemoglobin (12.0-16.0) G/DL BUN (7-18) mg/dL Creatinine (0.60-1.30) mg/dL Estimated GFR (>89) mL/min Random Glucose (74-106) mg/dL Lactic Acid 3.5 H (0.4-2.0) mmol/L Calcium (8.5-10.1) mg/dL Phosphorus (2.5-4.9) mg/dL Total Creatine Kinase 21 L (39-308) U/L Troponin I Less than 0.02 L (0.02-0.05) ng/mL Albumin (3.4-5.0) g/dL Short CBC 04/14/18 Range/Units 01:21 WBC 19.1 H (4.0-11.0) th/mm3 Hgb 9.9 L (13.0-17.0) gm/dL Hct 31.3 L (39.0-51.0) % Plt Count 178 (150-450) th/mm3 BMP 04/14/18 04/14/18 03:40 03:40 Sodium Cancelled 142 Potassium Cancelled 4.6 Chloride Cancelled 103 Carbon Dioxide Cancelled 24.4 BUN Cancelled 43 H Creatinine Cancelled 8.98 H Calcium Cancelled 7.8 L D Cardiac Enzymes 04/14/18 04/14/18 04/14/18 Range/Units 03:40 11:50 18:18 Total Creatine Kinase 21 L (39-308) U/L Troponin I Less than 0.02 L Less than 0.02 L (0.02-0.05) ng/mL Liver Function 04/14/18 04/14/18 Range/Units 03:40 03:40 Albumin Cancelled 2.5 L <Lauren Weller - 04/14/18 21:16> Abnormal lab results 04/13/18 04/14/18 04/14/18 Range/Units 20:34 01:21 01:21 WBC 19.1 H (4.0-11.0) th/mm3 RBC 3.39 L (4.50-5.90) mil/mm3 Hgb 9.9 L (13.0-17.0) gm/dL Hct 31.3 L (39.0-51.0) % MCHC 31.6 L (32.0-36.0) % O2 Saturation (90-100) % ABG pH (7.380-7.420) ABG pCO2 (38-42) mmHg Hemoglobin (12.0-16.0) G/DL BUN (7-18) mg/dL Creatinine (0.60-1.30) mg/dL Estimated GFR (>89) mL/min Random Glucose (74-106) mg/dL Lactic Acid 4.5 H* 3.5 H (0.4-2.0) mmol/L Calcium (8.5-10.1) mg/dL Phosphorus (2.5-4.9) mg/dL Troponin I (0.02-0.05) ng/mL Albumin (3.4-5.0) g/dL 04/14/18 04/14/18 04/14/18 Range/Units 01:21 03:40 03:40 WBC (4.0-11.0) th/mm3 RBC (4.50-5.90) mil/mm3 Hgb (13.0-17.0) gm/dL Hct (39.0-51.0) % MCHC (32.0-36.0) % O2 Saturation 89 L* (90-100) % ABG pH 7.48 H (7.380-7.420) ABG pCO2 33 L (38-42) mmHg Hemoglobin 9.6 L (12.0-16.0) G/DL BUN 43 H (7-18) mg/dL Creatinine 8.98 H (0.60-1.30) mg/dL Estimated GFR 8 L (>89) mL/min Random Glucose 70 L (74-106) mg/dL Lactic Acid 4.5 H* (0.4-2.0) mmol/L Calcium 7.8 L D (8.5-10.1) mg/dL Phosphorus 5.4 H (2.5-4.9) mg/dL Troponin I Less than 0.02 L (0.02-0.05) ng/mL Albumin 2.5 L (3.4-5.0) g/dL Short CBC 04/14/18 Range/Units 01:21 WBC 19.1 H (4.0-11.0) th/mm3 Hgb 9.9 L (13.0-17.0) gm/dL Hct 31.3 L (39.0-51.0) % Plt Count 178 (150-450) th/mm3 BMP 04/14/18 04/14/18 03:40 03:40 Sodium Cancelled 142 Potassium Cancelled 4.6 Chloride Cancelled 103 Carbon Dioxide Cancelled 24.4 BUN Cancelled 43 H Creatinine Cancelled 8.98 H Calcium Cancelled 7.8 L D Cardiac Enzymes 04/14/18 Range/Units 03:40 Troponin I Less than 0.02 L (0.02-0.05) ng/mL Liver Function 04/14/18 04/14/18 Range/Units 03:40 03:40 Albumin Cancelled 2.5 L <Jez Hill H - 04/14/18 12:33> - Imaging Impressions Chest X-Ray 04/14/18 00:00 CONCLUSION: The lungs are mildly hypoinflated. Linear areas of atelectasis are seen. No evidence of airspace consolidation to suggest pneumonia. <Lauren Weller - 04/14/18 21:16> Impressions Upper Extremity Ultrasound 04/13/18 00:00 CONCLUSION: Negative targeted ultrasound examination. Chest X-Ray 04/14/18 00:00 CONCLUSION: The lungs are mildly hypoinflated. Linear areas of atelectasis are seen. No evidence of airspace consolidation to suggest pneumonia. <Jez Hill H - 04/14/18 12:33> Physical Exam Vital signs: Vital Signs 04/13/18 23:31 04/14/18 02:10 04/14/18 03:30 Temperature 98.7 F 98.8 F Pulse Rate 113 H 111 H Respiratory Rate 24 20 Blood Pressure 84/50 L 95/65 L Pulse Oximetry 96 97 95 04/14/18 05:00 04/14/18 06:00 04/14/18 07:00 Temperature 97.6 F Pulse Rate 105 H 102 H 105 H Respiratory Rate 20 Blood Pressure 93/69 L Pulse Oximetry 94 L 04/14/18 08:00 04/14/18 09:00 04/14/18 10:00 Temperature 98 F Pulse Rate 108 H 108 H 108 H Respiratory Rate 18 Blood Pressure 93/64 L Pulse Oximetry 04/14/18 10:17 04/14/18 12:00 04/14/18 13:00 Temperature 98.2 F Pulse Rate 104 H 102 H Respiratory Rate 18 Blood Pressure 137/81 Pulse Oximetry 95 04/14/18 14:00 04/14/18 15:00 04/14/18 16:00 Temperature 98.5 F Pulse Rate 106 H 104 H 100 H Respiratory Rate 18 Blood Pressure 117/70 Pulse Oximetry 04/14/18 17:00 04/14/18 18:00 04/14/18 19:20 Temperature 98.3 F Pulse Rate 94 H 98 H 96 H Respiratory Rate 18 Blood Pressure 114/63 Pulse Oximetry 92 L 04/14/18 19:37 Temperature Pulse Rate Respiratory Rate Blood Pressure Pulse Oximetry 93 L Intake & Output 04/14/18 04/14/18 04/15/18 06:59 18:59 06:59 Intake Total 1080 / 1080 Output Total 700 / 700 Balance -700 / -700 1080 / 1080 Weight 99.9 kg Intake: IV 600 / 600 Alburx 5% Inj 500 ML @ 250 mls/ 500 / 500 hr IV.SIG ONCE ONE Rx#:[id number] Zosyn 2.25 GM Premix 50 ML @ 100 / 100 100 mls/hr IV.SIG Q12H [place] Rx#: [id number] Oral 480 / 480 Output: Hemodialysis Amount 700 / 700 Other: Date of Last Bowel Movement 04/14/18 04/14/18 04/14/18 # Bowel Movements 4 <Lauren Weller - 04/14/18 21:16> Vital Signs 04/13/18 13:01 04/13/18 19:55 04/13/18 19:59 Temperature 96.8 F L 98.9 F Pulse Rate 78 116 H Respiratory Rate 18 18 Blood Pressure 116/62 97/54 L Pulse Oximetry 96 95 04/13/18 23:31 04/14/18 02:10 04/14/18 03:30 Temperature 98.7 F 98.8 F Pulse Rate 113 H 111 H Respiratory Rate 24 20 Blood Pressure 84/50 L 95/65 L Pulse Oximetry 96 97 95 04/14/18 05:00 04/14/18 06:00 04/14/18 10:17 Temperature 97.6 F Pulse Rate 105 H 102 H Respiratory Rate 20 Blood Pressure 93/69 L Pulse Oximetry 94 L 95 Intake & Output 04/13/18 04/14/18 04/14/18 18:59 06:59 18:59 Intake Total 100 / 100 Output Total 700 / 700 Balance -700 / -700 100 / 100 Weight 99.9 kg Intake: IV 100 / 100 Zosyn 2.25 GM Premix 50 ML @ 100 / 100 100 mls/hr IV.SIG Q12H [facility] Rx#: [id number] Output: Hemodialysis Amount 700 / 700 Other: Date of Last Bowel Movement 04/14/18 <Jez Hill - 04/14/18 12:33> Narrative: GENERAL: -[place] male lying in bed in no acute distress watching television upon entering. SKIN: Cool and dry. No rash. Skin tenting with delayed capillary refill. AV fistula site on right upper extremity shows no signs of infection or drainage; mild edema surrounding surgical incision currently at baseline per previous exam. R IJ permacath without surrounding erythema, warmth, or other signs of infection. Port currently covered by bandage. Small sacral skin tear/wound on right buttock measuring less than 1 cm without surrounding erythema, edema, drainage, or bleeding at this time. HEENT: Atraumatic, normocephalic with extraocular motions intact. No rhinorrhea. Oropharynx with continued candidiasis, however greatly improved from prior exam. Mucous membranes mildly improved, however remain dry. No visible lymphadenopathy or jugulovenous distension appreciated. CARDIOVASCULAR: Regular rate and rhythm without obvious murmurs, gallops, or rubs. 2+ pulses in all four extremities. RESPIRATORY: Clear to auscultation bilaterally with no crackles, wheezes, or rhonchi. No increased work of breathing. GASTROINTESTINAL: Abdomen soft, non-tender, nondistended with positive bowel sounds. No masses appreciated. MUSCULOSKELETAL: No cyanosis or edema. Patient endorses mild calf tenderness. Homans sign negative. NEURO/PSYCH: Afocal. Awake, alert, and oriented x3. Normal speech and judgement. <Jez Hill - 04/14/18 14:50> Assessment and Plan - Assessment (1) Severe sepsis Code(s): A41.9 - Sepsis, unspecified organism; R65.20 - Severe sepsis without septic shock Status: Acute (2) Hypotension Code(s): I95.9 - Hypotension, unspecified Status: Acute (3) End stage renal disease Code(s): N18.6 - End stage renal disease Status: Chronic (4) Acute renal failure (ARF) Code(s): N17.9 - Acute kidney failure, unspecified Status: Acute (5) Sacral wound Code(s): S31.000A - Unspecified open wound of lower back and pelvis without penetration into retroperitoneum, initial encounter Status: Acute (6) Dyspnea Code(s): R06.00 - Dyspnea, unspecified Status: Resolved (7) GERD (gastroesophageal reflux disease) Code(s): K21.9 - Gastro-esophageal reflux disease without esophagitis Status: Acute (8) Hepatitis B Code(s): B19.10 - Unspecified viral hepatitis B without hepatic coma Status: Chronic (9) Nutrition, metabolism, and development symptoms Code(s): R63.8 - Other symptoms and signs concerning food and fluid intake Status: Acute (10) DVT prophylaxis Status: Acute <Lauren Weller - 04/14/18 21:16> (1) Severe sepsis Code(s): A41.9 - Sepsis, unspecified organism; R65.20 - Severe sepsis without septic shock Status: Acute Plan: Patient met sepsis criteria on admission WBC 19.0, tachycardia and initially hypotensive responded to initial fluid boluses, but afebrile. LA and blood cultures ordered. LUE with small amount of serosanguinous drainage, no induration or fluctuance, but mild edema. 04/14/18 patient with increasing lactic acid and hypotension after dialysis. Minimal improvement with 500 mL bolus due to ESRD. Unsure of infectious source at this time. -CXR 04/12: Minimal parenchymal changes in right base without fluid overload -Perfusion scan 04/12: Low probability for PE. Matched defects at posterior lower lobes likely from basilar areas of consolidation versus atelectasis versus effusion. -LUE US: Negative exam -CXR 04/14: Lungs are mildly hypoinflated. Linear areas of atelectasis seen. No evidence of airspace consolidation suggesting pneumonia. Labs: -LA: 2.7, 2.1, 2.4, 4.5, 3.5, 4.5, repeat pending -Blood cultures: Negative to date -UA: Negative for infectious process -WBC: 19.0, 16.4, 19.1 (with elevated bands and absolute neutrophil count) Medications: -Vancomycin 1g IV q24h ordered; Per chart review it does not appear patient received dose of medication in Dialysis; discussed with Nephrology will give 1.5g dose now with plans for dialysis tomorrow (04/14- ) -Zosyn 3.375 g IV q12h (04/13- ) -Albumin 5% 25 g ordered once per nephrology for hypotension (2) Hypotension Code(s): I95.9 - Hypotension, unspecified Status: Acute Plan: Patient with hypotension overnight 04/13/18 with chest tightness as well as hip/ thigh pain he attributes to being "dry" after hemodialysis. Minimal improvement with 500 mL normal saline bolus on 04/13/19. -EKG with sinus tachycardia per medical team read without any acute ST elevation /depression's or interval changes. -BMP: Electrolytes within normal limits -Phosphorus 5.4 -Magnesium: Ordered -CK: Ordered -Troponin: Less than 0.02, trend 1 (ACS previously ruled out) -Discussed with nephrology, recommend albumin 5% 25 g once -Per chart review, no IVF per nephrology -Medical team to contact nephrology with continued hypotension if patient becomes symptomatic. (3) End stage renal disease Code(s): N18.6 - End stage renal disease Status: Chronic Plan: Patient diagnosed with ESRD weeks ago. BUN 67, Cr 12.55 & estimated GFR 5L on admission. Started HD on 04/[address] Epifanio Greene and underwent AVF procedure on prior to recent hospital discharge with Dr. Hummel. He underwent dialysis 2 days ago, but stopped treatment, because the line clotted and he was scared. Patient to undergo dialysis in the hospital with Nephrology. -Nephrology consulted -Avoid IV fluid -Epogen with dialysis -Renally dose medications -Hemodialysis 04/14 with 700 mL fluid removal, discontinued early due to patient request as he was becoming "dry" -Hemodialysis planned for 04/15 (4) Acute renal failure (ARF) Code(s): N17.9 - Acute kidney failure, unspecified Status: Acute Plan: Likely acute on chronic kidney injury. ESRD non-compliant with HD. -plan as above, ESRD (5) Sacral wound Code(s): S31.000A - Unspecified open wound of lower back and pelvis without penetration into retroperitoneum, initial encounter Status: Acute Plan: Patient found to have small sacral wound on exam 04/14/18 -Patient to be rotated per protocol (6) Dyspnea Code(s): R06.00 - Dyspnea, unspecified Status: Resolved Plan: SOB currently resolved. ACS and PE ruled out in ED. D-Dimer 6.12, however, likely elevated due to ESRD on HD with VQ scan with low probability of PE. -Supplemental O2 PRN with goal O2 sat >92% -Incentive spirometry/Acapella -Echocardiogram ordered (7) GERD (gastroesophageal reflux disease) Code(s): K21.9 - Gastro-esophageal reflux disease without esophagitis Status: Acute Plan: Patient with hx of GERD. -Protonix 40mg daily -Pepcid 20 mg daily (8) Hepatitis B Code(s): B19.10 - Unspecified viral hepatitis B without hepatic coma Status: Chronic Plan: Patient with hx of hepatitis B. LFTs show AST 49 and ALT 20. -Will continue to monitor (9) Nutrition, metabolism, and development symptoms Code(s): R63.8 - Other symptoms and signs concerning food and fluid intake Status: Acute Plan: Fluids: No IV fluids per nephrology Electrolytes: will monitor with daily labs, replete, and allow nephro to help manage once pt begins HD Nutrition: renal diet GI: as above; continue home meds (10) DVT prophylaxis Status: Acute Plan: DVT prophylaxis: Bilateral SCDs <Jez Hill H - 04/14/18 16:01> - Assessment and Plan 47 YO male followed by Dr Weller with HTN, GERD, Hep B and recent ESRD with start of HD in last 3 weeks presents with acute on chronic renal failure due to HD noncompliance and possible sepsis. Impression: -CMP with BUN 65 / Cr 12.02 / Tbili 1.4 / AST 49 / AG 18 -Mag 2.7 -Lactate 2.7 -CBC with WBC 19.0 -Zosyn 3.375g IV once in ED -Vancomycin 1g IV ordered in ED -NS IVF 500ml bolus in ED due to hypotension -NS IVF 250ml bolus in ED -Troponin <0.02 -BNP 13 -D-Dimer 6.12 -CXR showing parenchymal changes right base w/o fluid overload -VQ scan low probability for PE; however, perfusion mismatch between upper and lower lobes suggestive of atelectasis vs early consolidation vs effusion -EKG w/sinus tachycardia Plan: 1. Meets sepsis criteria (WBC 19.0, tachycardia, initially hypotensive responded to initial fluid boluses, but afebrile) -Vancomycin 1g IV q24h -Zosyn 3.375g IV q12h -NS IVF at 84ml/hr--gentle fluids as pt is very dry -Blood cx pending -Lactic acid at 10PM pending -UA pending -AM CBC, CMP 2. Acute on chronic kidney injury; ESRD non-compliant with HD BUN 65 / Cr 12.02 -Nephrology consult--spoke to Dr Ann -Repeat BMP 10PM -Gentle fluids as above to avoid fluid overload -Likely HD in AM 3. Dyspnea -SOB resolved shortly after arrival in ED -Supplemental O2 PRN with goal O2 sat >92% -CXR as above -D-Dimer 6.12; however, likely elevated due to ESRD on HD -VQ scan with low probability of PE 4. HTN -Pt takes no medications and states he has not had HTn since starting HD 5. GERD -Protonix 40mg daily -Pepcid 20 mg daily 6. FEN/GI/PPx: Fluids: as above--gently due to ESRD Electrolytes: will monitor with daily labs, replete, and allow nephro to help manage once pt begins HD Nutrition: renal diet GI: as above; continue home meds PPx: SCDs Tylenol 650mg q6h PO pain/fever PRN bowel regimen Restoril 15mg PRN Pt DW Dr Reeves <Jez Hill - 04/14/18 12:33> - Attending Attestation Patient seen, examined, and discussed with resident team this morning on rounds. I agree with assessment and management as documented and discussed with me. Pt hypotensive overnight, and received 500mL bolus. Evidence on exam of dehydration - skin tenting and delayed capillary refill, as well as dry mucous membranes. Albumin ordered. Candidiasis improved after nystatin administration. <Lauren Weller - 04/14/18 21:16> <Jez Hill - Last Filed: 04/14/18 16:01> (2) Hypotension Qualifiers: Hypotension type: unspecified hypotension type Qualified Code(s): I95.9 - Hypotension, unspecified (4) Acute renal failure (ARF) Qualifiers: Acute renal failure type: unspecified Qualified Code(s): N17.9 - Acute kidney failure, unspecified (5) Sacral wound Qualifiers: Encounter type: initial encounter Qualified Code(s): S31.000A - Unspecified open wound of lower back and pelvis without penetration into retroperitoneum, initial encounter (6) Dyspnea Qualifiers: Dyspnea type: unspecified Qualified Code(s): R06.00 - Dyspnea, unspecified <Vey,Lauren - Last Filed: 04/14/18 21:16> (2) Hypotension Qualifiers: Hypotension type: unspecified hypotension type Qualified Code(s): I95.9 - Hypotension, unspecified (4) Acute renal failure (ARF) Qualifiers: Acute renal failure type: unspecified Qualified Code(s): N17.9 - Acute kidney failure, unspecified (5) Sacral wound Qualifiers: Encounter type: initial encounter Qualified Code(s): S31.000A - Unspecified open wound of lower back and pelvis without penetration into retroperitoneum, initial encounter (6) Dyspnea Qualifiers: Dyspnea type: unspecified Qualified Code(s): R06.00 - Dyspnea, unspecified <Jez Hill H - Last Filed: 04/14/18 16:01> (2) Hypotension Qualifiers: Hypotension type: unspecified hypotension type Qualified Code(s): I95.9 - Hypotension, unspecified (4) Acute renal failure (ARF) Qualifiers: Acute renal failure type: unspecified Qualified Code(s): N17.9 - Acute kidney failure, unspecified (5) Sacral wound Qualifiers: Encounter type: initial encounter Qualified Code(s): S31.000A - Unspecified open wound of lower back and pelvis without penetration into retroperitoneum, initial encounter (6) Dyspnea Qualifiers: Dyspnea type: unspecified Qualified Code(s): R06.00 - Dyspnea, unspecified <Vey,Lauren - Last Filed: 04/14/18 21:16> (2) Hypotension Qualifiers: Hypotension type: unspecified hypotension type Qualified Code(s): I95.9 - Hypotension, unspecified (4) Acute renal failure (ARF) Qualifiers: Acute renal failure type: unspecified Qualified Code(s): N17.9 - Acute kidney failure, unspecified (5) Sacral wound Qualifiers: Encounter type: initial encounter Qualified Code(s): S31.000A - Unspecified open wound of lower back and pelvis without penetration into retroperitoneum, initial encounter (6) Dyspnea Qualifiers: Dyspnea type: unspecified Qualified Code(s): R06.00 - Dyspnea, unspecified
[2018-04-14 13:55] LABS: Magnesium 1.9 mg/dL (1.5-2.5)
[2018-04-14] MEDS ORDERED: Vancomycin Inj 1,500 MG in Sodium Chlor 0.9% Inj 500 ML IV.SIG ONE (16:00)
[2018-04-15 06:33] LABS: Hematocrit 26.6 % (39.0-51.0); Hemoglobin 8.5 gm/dL (13.0-17.0); Mean Corpuscular HGB Conc 32.1 % (32.0-36.0); Mean Corpuscular Hemoglobin 30.2 pg (27.0-34.0); Mean Corpuscular Volume 94.4 fL (80.0-100.0); Mean Platelet Volume 8.9 fL (7.0-11.0); Platelet Count 159 th/mm3 (150-450); Red Blood Count 2.82 mil/mm3 (4.50-5.90); Red Cell Distribution Width 15.4 % (11.6-17.2); White Blood Count 22.8 th/mm3 (4.0-11.0)
[2018-04-15 07:22] LABS: Alanine Aminotransferase 27 U/L (12-78); Albumin 2.3 g/dL (3.4-5.0); Alkaline Phosphatase 81 U/L (45-117); Anion Gap 17 meq/L (5-15); Aspartate Aminotransferase 80 U/L (15-37); Blood Urea Nitrogen 58 mg/dL (7-18); Calcium 8.2 mg/dL (8.5-10.1); Carbon Dioxide 18.5 meq/L (21.0-32.0); Chloride 105 meq/L (98-107); Glomerular Filtration Rate 6 mL/min (>89); Magnesium 2.3 mg/dL (1.5-2.5); Potassium 4.7 meq/L (3.5-5.1); Sodium 140 meq/L (136-145); Total Protein 6.3 g/dL (6.4-8.2)
[2018-04-15 07:38] LABS: Glucose,Random 47 mg/dL (74-106)
[2018-04-15 07:54] LABS: Vancomycin,Random 48.4 Comment
[2018-04-15 08:18] LABS: Eosinophils 2 % (0-4); Lymphocytes 12 % (9-44); Metamyelocytes 3 % (0-1); Monocytes 4 % (0-8); Myelocytes 4 % (0-0); Promyelocyte 1 % (0-0); Tallied Nucleated RBC 1 (0-0)
[2018-04-15 08:19] LABS: Platelet Estimate Normal (Normal); Platelet Morphology Normal (Normal)
[2018-04-15] MEDS: Famotidine 20 MG Tablet PO SCH (10:04)
[2018-04-15] MEDS: Piperacil/Tazo 2.25 GM Premix 50 ML IV.SIG SCH (10:04)
[2018-04-15] MEDS: Nystatin Liq 500,000 UNIT/5 ML UDC SWISH-SWAL SCH ×4 (10:05→22:07)
[2018-04-15] MEDS: Nystatin/Diphenhydramine/Lidocaine Mouthwash (Adult) 120 ML Botttle SWISH-SWAL SCH ×4 (10:06→22:08)
--- NOTE | 2018-04-15 10:52 | P.PNNP ---
Subjective Interval history: patient is comfortable. BP has improved. Leukocytosis is worse. Afebrile. To have dialysis today. Physical Exam Vital signs: Vital Signs 04/14/18 12:00 04/14/18 13:00 04/14/18 14:00 Temperature 98.2 F Pulse Rate 104 H 102 H 106 H Respiratory Rate 18 Blood Pressure 137/81 Pulse Oximetry 04/14/18 15:00 04/14/18 16:00 04/14/18 17:00 Temperature 98.5 F Pulse Rate 104 H 100 H 94 H Respiratory Rate 18 Blood Pressure 117/70 Pulse Oximetry 04/14/18 18:00 04/14/18 19:09 04/14/18 19:20 Temperature 98.3 F Pulse Rate 98 H 105 H 96 H Respiratory Rate 18 Blood Pressure 114/63 Pulse Oximetry 92 L 04/14/18 19:37 04/14/18 20:01 04/14/18 21:07 Temperature Pulse Rate 101 H 103 H Respiratory Rate Blood Pressure Pulse Oximetry 93 L 04/14/18 22:08 04/14/18 23:05 04/14/18 23:52 Temperature Pulse Rate 101 H 96 H 103 H Respiratory Rate Blood Pressure Pulse Oximetry 04/15/18 00:00 04/15/18 00:56 04/15/18 02:11 Temperature 98.5 F Pulse Rate 92 H 105 H 109 H Respiratory Rate 16 Blood Pressure 114/60 Pulse Oximetry 95 04/15/18 03:04 04/15/18 03:57 04/15/18 04:21 Temperature 98.9 F Pulse Rate 101 H 96 H 95 H Respiratory Rate 16 Blood Pressure 99/59 L Pulse Oximetry 96 04/15/18 05:03 04/15/18 06:07 04/15/18 07:03 Temperature Pulse Rate 96 H 100 H 101 H Respiratory Rate Blood Pressure Pulse Oximetry 04/15/18 07:53 04/15/18 07:59 Temperature 98.3 F Pulse Rate 101 H Respiratory Rate 16 Blood Pressure 118/57 L Pulse Oximetry 97 97 Intake & Output 04/14/18 04/15/18 04/15/18 18:59 06:59 18:59 Intake Total 1080 / 1080 810 / 810 Balance 1080 / 1080 810 / 810 Weight 101.2 kg Intake: IV 600 / 600 570 / 570 Alburx 5% Inj 500 ML @ 250 mls/ 500 / 500 hr IV.SIG ONCE ONE Rx#:[id number] Zosyn 2.25 GM Premix 50 ML @ 100 / 100 55 / 55 100 mls/hr IV.SIG Q12H [place] Rx#: [id number] Vancomycin Inj 1,500 MG In NS 515 / 515 Inj 500 ML @ 250 mls/hr IV.SIG ONCE ONE Rx#:[id number] Oral 480 / 480 240 / 240 Other: # Voids 1 Date of Last Bowel Movement 04/14/18 04/15/18 04/15/18 # Bowel Movements 4 1 - Constitutional no acute distress, obese - Routine HEENT Exam Head: Present: normocephalic, atraumatic Eye: Present: EOMI, PERRL - Routine Neck Exam Present: supple, full ROM. Absent: JVD, carotid bruit - Routine Respiratory Exam Present: CTA bilaterally - Routine Cardiovascular Exam Present: RRR, S1, S2 - Routine Abdominal Exam Present: soft, normoactive bowel sounds - Routine Extremities Exam Present: full ROM. Absent: cyanosis, clubbing, edema - Routine Skin Exam Present: intact - Routine Neurological Exam Present: alert, oriented X3 - Routine Psychiatric Exam Present: normal affect Assessment and Plan - Assessment (1) End stage renal disease Code(s): N18.6 - End stage renal disease Status: Chronic Plan: End stage renal disease on hemodialysis on Sunday, Sunday, and Sunday. Has right IJ permacath and AVF in right upper arm which is not ready for use Avoid IVF Epogen with dialysis Hemodialysis planned for today. Add Midodrine for hypotension. Not on antihypertensives. (2) Hypertension Code(s): I10 - Essential (primary) hypertension Status: Acute Qualifiers: Hypertension type: renovascular hypertension Qualified Code(s): I15.0 - Renovascular hypertension Plan: Well controlled no on any medications Will monitor (3) Sepsis Code(s): A41.9 - Sepsis, unspecified organism Status: Acute Qualifiers: Sepsis type: sepsis due to unspecified organism Qualified Code(s): A41.9 - Sepsis, unspecified organism Plan: On antibiotics Renal dose antibiotics. Await culture results. (4) Oral candidiasis Code(s): B37.0 - Candidal stomatitis Status: Acute Plan: Nystatin swish and swallow
[2018-04-15] MEDS ORDERED: Epoetin Alfa Inj 4,000 UNIT/ML Vial IV.PUSH PRN (10:58)
--- NOTE | 2018-04-15 12:06 | ECG ---
Date Performed: 04/14/2018 Time Performed: 05:47:32 PTAGE: 47 years EKG: Sinus tachycardia Normal ECG except for rate PREVIOUS TRACING : 04/12/2018 16.54 DOCTOR: Meghan Minaya Interpretating Date/Time 04/15/2018 12:03:04
--- NOTE | 2018-04-15 12:18 | P.PNFP ---
Subjective Interval history: Patient seen and examined this morning. He states that he is feeling better. He does have a cough that is productive of white sputum of which he spits into a nearby container. He is scheduled for dialysis later this evening. No fevers or chills, he is still having some off and on left sided sharp chest pain that he was experiencing before, some shortness of breath , no abdominal pain, he is producing urine. <Sahra Ambrocio - 04/15/18 15:01> Results - Labs Result diagrams: 04/15/18 05:30 04/15/18 05:30 <Lauren Weller - 04/15/18 20:08> Abnormal lab results 04/14/18 04/15/18 04/15/18 Range/Units 23:42 05:30 05:30 WBC 22.8 H (4.0-11.0) th/mm3 RBC 2.82 L (4.50-5.90) mil/mm3 Hgb 8.5 L (13.0-17.0) gm/dL Hct 26.6 L (39.0-51.0) % Band Neuts % (Manual) 11 H (0-6) % Metamyelocytes % (Man) 3 H (0-1) % Myelocytes % (Man) 4 H (0-0) % Promyelocytes % (Man) 1 H (0-0) % Abs Neuts (Manual) 18.7 H (1.8-7.7) th/mm3 Nucleated RBCs/100 WBC 1 H (0-0) /100 WBC Carbon Dioxide 18.5 L (21.0-32.0) meq/L Anion Gap 17 H (5-15) meq/L BUN 58 H (7-18) mg/dL Creatinine 11.06 H* D (0.60-1.30) mg/dL Estimated GFR 6 L (>89) mL/min POC Glucose (68-110) mg/dl Random Glucose 47 L* (74-106) mg/dL Lactic Acid (0.4-2.0) mmol/L Calcium 8.2 L (8.5-10.1) mg/dL Phosphorus 6.0 H (2.5-4.9) mg/dL Total Bilirubin 1.6 H (0.2-1.0) mg/dL AST 80 H (15-37) U/L Troponin I Less than 0.02 L (0.02-0.05) ng/mL Total Protein 6.3 L (6.4-8.2) g/dL Albumin 2.3 L (3.4-5.0) g/dL 04/15/18 04/15/18 Range/Units 07:48 16:25 WBC (4.0-11.0) th/mm3 RBC (4.50-5.90) mil/mm3 Hgb (13.0-17.0) gm/dL Hct (39.0-51.0) % Band Neuts % (Manual) (0-6) % Metamyelocytes % (Man) (0-1) % Myelocytes % (Man) (0-0) % Promyelocytes % (Man) (0-0) % Abs Neuts (Manual) (1.8-7.7) th/mm3 Nucleated RBCs/100 WBC (0-0) /100 WBC Carbon Dioxide (21.0-32.0) meq/L Anion Gap (5-15) meq/L BUN (7-18) mg/dL Creatinine (0.60-1.30) mg/dL Estimated GFR (>89) mL/min POC Glucose 67 L (68-110) mg/dl Random Glucose (74-106) mg/dL Lactic Acid 2.1 H (0.4-2.0) mmol/L Calcium (8.5-10.1) mg/dL Phosphorus (2.5-4.9) mg/dL Total Bilirubin (0.2-1.0) mg/dL AST (15-37) U/L Troponin I (0.02-0.05) ng/mL Total Protein (6.4-8.2) g/dL Albumin (3.4-5.0) g/dL Short CBC 04/15/18 Range/Units 05:30 WBC 22.8 H (4.0-11.0) th/mm3 Hgb 8.5 L (13.0-17.0) gm/dL Hct 26.6 L (39.0-51.0) % Plt Count 159 (150-450) th/mm3 BMP 04/15/18 05:30 Sodium 140 Potassium 4.7 Chloride 105 Carbon Dioxide 18.5 L BUN 58 H Creatinine 11.06 H* D Calcium 8.2 L Cardiac Enzymes 04/14/18 Range/Units 23:42 Troponin I Less than 0.02 L (0.02-0.05) ng/mL Liver Function 04/15/18 Range/Units 05:30 Total Bilirubin 1.6 H (0.2-1.0) mg/dL AST 80 H (15-37) U/L ALT 27 (12-78) U/L Alkaline Phosphatase 81 (45-117) U/L Albumin 2.3 L (3.4-5.0) g/dL <Lauren Weller - 04/15/18 20:08> Abnormal lab results 04/14/18 04/14/18 04/14/18 Range/Units 11:50 18:18 18:18 WBC (4.0-11.0) th/mm3 RBC (4.50-5.90) mil/mm3 Hgb (13.0-17.0) gm/dL Hct (39.0-51.0) % Band Neuts % (Manual) (0-6) % Metamyelocytes % (Man) (0-1) % Myelocytes % (Man) (0-0) % Promyelocytes % (Man) (0-0) % Abs Neuts (Manual) (1.8-7.7) th/mm3 Nucleated RBCs/100 WBC (0-0) /100 WBC Carbon Dioxide (21.0-32.0) meq/L Anion Gap (5-15) meq/L BUN (7-18) mg/dL Creatinine (0.60-1.30) mg/dL Estimated GFR (>89) mL/min POC Glucose (68-110) mg/dl Random Glucose (74-106) mg/dL Lactic Acid 3.5 H (0.4-2.0) mmol/L Calcium (8.5-10.1) mg/dL Phosphorus (2.5-4.9) mg/dL Total Bilirubin (0.2-1.0) mg/dL AST (15-37) U/L Total Creatine Kinase 21 L (39-308) U/L Troponin I Less than 0.02 L (0.02-0.05) ng/mL Total Protein (6.4-8.2) g/dL Albumin (3.4-5.0) g/dL 04/14/18 04/15/18 04/15/18 Range/Units 23:42 05:30 05:30 WBC 22.8 H (4.0-11.0) th/mm3 RBC 2.82 L (4.50-5.90) mil/mm3 Hgb 8.5 L (13.0-17.0) gm/dL Hct 26.6 L (39.0-51.0) % Band Neuts % (Manual) 11 H (0-6) % Metamyelocytes % (Man) 3 H (0-1) % Myelocytes % (Man) 4 H (0-0) % Promyelocytes % (Man) 1 H (0-0) % Abs Neuts (Manual) 18.7 H (1.8-7.7) th/mm3 Nucleated RBCs/100 WBC 1 H (0-0) /100 WBC Carbon Dioxide 18.5 L (21.0-32.0) meq/L Anion Gap 17 H (5-15) meq/L BUN 58 H (7-18) mg/dL Creatinine 11.06 H* D (0.60-1.30) mg/dL Estimated GFR 6 L (>89) mL/min POC Glucose (68-110) mg/dl Random Glucose 47 L* (74-106) mg/dL Lactic Acid (0.4-2.0) mmol/L Calcium 8.2 L (8.5-10.1) mg/dL Phosphorus 6.0 H (2.5-4.9) mg/dL Total Bilirubin 1.6 H (0.2-1.0) mg/dL AST 80 H (15-37) U/L Total Creatine Kinase (39-308) U/L Troponin I Less than 0.02 L (0.02-0.05) ng/mL Total Protein 6.3 L (6.4-8.2) g/dL Albumin 2.3 L (3.4-5.0) g/dL 04/15/18 Range/Units 07:48 WBC (4.0-11.0) th/mm3 RBC (4.50-5.90) mil/mm3 Hgb (13.0-17.0) gm/dL Hct (39.0-51.0) % Band Neuts % (Manual) (0-6) % Metamyelocytes % (Man) (0-1) % Myelocytes % (Man) (0-0) % Promyelocytes % (Man) (0-0) % Abs Neuts (Manual) (1.8-7.7) th/mm3 Nucleated RBCs/100 WBC (0-0) /100 WBC Carbon Dioxide (21.0-32.0) meq/L Anion Gap (5-15) meq/L BUN (7-18) mg/dL Creatinine (0.60-1.30) mg/dL Estimated GFR (>89) mL/min POC Glucose 67 L (68-110) mg/dl Random Glucose (74-106) mg/dL Lactic Acid (0.4-2.0) mmol/L Calcium (8.5-10.1) mg/dL Phosphorus (2.5-4.9) mg/dL Total Bilirubin (0.2-1.0) mg/dL AST (15-37) U/L Total Creatine Kinase (39-308) U/L Troponin I (0.02-0.05) ng/mL Total Protein (6.4-8.2) g/dL Albumin (3.4-5.0) g/dL Short CBC 04/15/18 Range/Units 05:30 WBC 22.8 H (4.0-11.0) th/mm3 Hgb 8.5 L (13.0-17.0) gm/dL Hct 26.6 L (39.0-51.0) % Plt Count 159 (150-450) th/mm3 BMP 04/15/18 05:30 Sodium 140 Potassium 4.7 Chloride 105 Carbon Dioxide 18.5 L BUN 58 H Creatinine 11.06 H* D Calcium 8.2 L Cardiac Enzymes 04/14/18 04/14/18 04/14/18 Range/Units 11:50 18:18 23:42 Total Creatine Kinase 21 L (39-308) U/L Troponin I Less than 0.02 L Less than 0.02 L (0.02-0.05) ng/mL Liver Function 04/15/18 Range/Units 05:30 Total Bilirubin 1.6 H (0.2-1.0) mg/dL AST 80 H (15-37) U/L ALT 27 (12-78) U/L Alkaline Phosphatase 81 (45-117) U/L Albumin 2.3 L (3.4-5.0) g/dL <Sahra Ambrocio G - 04/15/18 12:18> Physical Exam Vital signs: Vital Signs 04/14/18 21:07 04/14/18 22:08 04/14/18 23:05 Temperature Pulse Rate 103 H 101 H 96 H Respiratory Rate Blood Pressure Pulse Oximetry 04/14/18 23:52 04/15/18 00:00 04/15/18 00:56 Temperature 98.5 F Pulse Rate 103 H 92 H 105 H Respiratory Rate 16 Blood Pressure 114/60 Pulse Oximetry 95 04/15/18 02:11 04/15/18 03:04 04/15/18 03:57 Temperature Pulse Rate 109 H 101 H 96 H Respiratory Rate Blood Pressure Pulse Oximetry 04/15/18 04:21 04/15/18 05:03 04/15/18 06:07 Temperature 98.9 F Pulse Rate 95 H 96 H 100 H Respiratory Rate 16 Blood Pressure 99/59 L Pulse Oximetry 96 04/15/18 07:00 04/15/18 07:03 04/15/18 07:53 Temperature Pulse Rate 105 H 101 H Respiratory Rate Blood Pressure Pulse Oximetry 97 04/15/18 07:59 04/15/18 08:00 04/15/18 09:00 Temperature 98.3 F Pulse Rate 101 H 102 H 108 H Respiratory Rate 16 Blood Pressure 118/57 L Pulse Oximetry 97 04/15/18 10:00 04/15/18 11:00 04/15/18 11:05 Temperature Pulse Rate 102 H 100 H 100 H Respiratory Rate Blood Pressure Pulse Oximetry 04/15/18 12:00 04/15/18 13:00 04/15/18 14:00 Temperature 98.2 F Pulse Rate 98 H 100 H 106 H Respiratory Rate 20 Blood Pressure 142/88 H Pulse Oximetry 95 04/15/18 15:00 04/15/18 15:05 04/15/18 16:00 Temperature 98.6 F Pulse Rate 98 H 93 H 93 H Respiratory Rate 16 Blood Pressure 108/62 Pulse Oximetry 97 04/15/18 17:00 04/15/18 18:00 Temperature Pulse Rate 95 H 100 H Respiratory Rate Blood Pressure Pulse Oximetry Intake & Output 04/15/18 04/15/18 04/16/18 06:59 18:59 06:59 Intake Total 810 / 810 530 / 530 Balance 810 / 810 530 / 530 Weight 101.2 kg Intake: IV 570 / 570 50 / 50 Zosyn 2.25 GM Premix 50 ML @ 55 / 55 50 / 50 100 mls/hr IV.SIG Q12H [place] Rx#: [id number] Vancomycin Inj 1,500 MG In NS 515 / 515 Inj 500 ML @ 250 mls/hr IV.SIG ONCE ONE Rx#:[id number] Oral 240 / 240 480 / 480 Other: # Voids 1 Date of Last Bowel Movement 04/15/18 04/15/18 # Bowel Movements 1 <Vey,Lauren - 04/15/18 20:08> Vital Signs 04/14/18 13:00 04/14/18 14:00 04/14/18 15:00 Temperature Pulse Rate 102 H 106 H 104 H Respiratory Rate Blood Pressure Pulse Oximetry 04/14/18 16:00 04/14/18 17:00 04/14/18 18:00 Temperature 98.5 F Pulse Rate 100 H 94 H 98 H Respiratory Rate 18 Blood Pressure 117/70 Pulse Oximetry 04/14/18 19:09 04/14/18 19:20 04/14/18 19:37 Temperature 98.3 F Pulse Rate 105 H 96 H Respiratory Rate 18 Blood Pressure 114/63 Pulse Oximetry 92 L 93 L 04/14/18 20:01 04/14/18 21:07 04/14/18 22:08 Temperature Pulse Rate 101 H 103 H 101 H Respiratory Rate Blood Pressure Pulse Oximetry 04/14/18 23:05 04/14/18 23:52 04/15/18 00:00 Temperature 98.5 F Pulse Rate 96 H 103 H 92 H Respiratory Rate 16 Blood Pressure 114/60 Pulse Oximetry 95 04/15/18 00:56 04/15/18 02:11 04/15/18 03:04 Temperature Pulse Rate 105 H 109 H 101 H Respiratory Rate Blood Pressure Pulse Oximetry 04/15/18 03:57 04/15/18 04:21 04/15/18 05:03 Temperature 98.9 F Pulse Rate 96 H 95 H 96 H Respiratory Rate 16 Blood Pressure 99/59 L Pulse Oximetry 96 04/15/18 06:07 04/15/18 07:03 04/15/18 07:53 Temperature Pulse Rate 100 H 101 H Respiratory Rate Blood Pressure Pulse Oximetry 97 04/15/18 07:59 Temperature 98.3 F Pulse Rate 101 H Respiratory Rate 16 Blood Pressure 118/57 L Pulse Oximetry 97 Intake & Output 04/14/18 04/15/18 04/15/18 18:59 06:59 18:59 Intake Total 1080 / 1080 810 / 810 Balance 1080 / 1080 810 / 810 Weight 101.2 kg Intake: IV 600 / 600 570 / 570 Alburx 5% Inj 500 ML @ 250 mls/ 500 / 500 hr IV.SIG ONCE ONE Rx#:[id number] Zosyn 2.25 GM Premix 50 ML @ 100 / 100 55 / 55 100 mls/hr IV.SIG Q12H [place] Rx#: [id number] Vancomycin Inj 1,500 MG In NS 515 / 515 Inj 500 ML @ 250 mls/hr IV.SIG ONCE ONE Rx#:[id number] Oral 480 / 480 240 / 240 Other: # Voids 1 Date of Last Bowel Movement 04/14/18 04/15/18 04/15/18 # Bowel Movements 4 1 <Sahra Ambrocio - 04/15/18 12:18> Narrative: GENERAL: Obese -[place] male laying in bed, in no acute distress SKIN: Warm and dry. HEAD: Atraumatic. Normocephalic. EYES: Pupils equal and round. No scleral icterus. No injection or drainage. ENT: No nasal bleeding or discharge. Mucous membranes pink and moist. Candidiasis on tongue but significantly improved from yesterday. NECK: Trachea midline. No JVD. CARDIOVASCULAR: Regular rate and rhythm. RESPIRATORY: No accessory muscle use. Clear to auscultation. Breath sounds distant, but equal bilaterally. GASTROINTESTINAL: Abdomen soft, obese, non-tender, nondistended. Hepatic and splenic margins not palpable. MUSCULOSKELETAL: Extremities without clubbing, cyanosis, or edema. No obvious deformities. Mild bilateral calf tenderness. NEUROLOGICAL: Awake and alert. No obvious cranial nerve deficits. Motor grossly within normal limits. Normal speech. Homans sign negative. PSYCHIATRIC: Appropriate mood and affect; insight and judgment normal. <Sahra Ambrocio - 04/15/18 15:01> Assessment and Plan - Assessment (1) Severe sepsis Code(s): A41.9 - Sepsis, unspecified organism; R65.20 - Severe sepsis without septic shock Status: Acute (2) Hypotension Code(s): I95.9 - Hypotension, unspecified Status: Acute (3) End stage renal disease Code(s): N18.6 - End stage renal disease Status: Chronic (4) Acute renal failure (ARF) Code(s): N17.9 - Acute kidney failure, unspecified Status: Acute (5) Sacral wound Code(s): S31.000A - Unspecified open wound of lower back and pelvis without penetration into retroperitoneum, initial encounter Status: Acute (6) Dyspnea Code(s): R06.00 - Dyspnea, unspecified Status: Resolved (7) GERD (gastroesophageal reflux disease) Code(s): K21.9 - Gastro-esophageal reflux disease without esophagitis Status: Acute (8) Hepatitis B Code(s): B19.10 - Unspecified viral hepatitis B without hepatic coma Status: Chronic (9) Nutrition, metabolism, and development symptoms Code(s): R63.8 - Other symptoms and signs concerning food and fluid intake Status: Acute (10) DVT prophylaxis Status: Acute <Lauren Weller - 04/15/18 20:08> (1) Severe sepsis Code(s): A41.9 - Sepsis, unspecified organism; R65.20 - Severe sepsis without septic shock Status: Acute Plan: Patient met sepsis criteria on admission WBC 19.0, tachycardia and initially hypotensive responded to initial fluid boluses, but afebrile. LA and blood cultures ordered. LUE with small amount of serosanguinous drainage, no induration or fluctuance, but mild edema. 04/15 Increasing leukocytosis overnight. Will rule out other sources of infections. -CXR 04/12: Minimal parenchymal changes in right base without fluid overload -Perfusion scan 04/12: Low probability for PE. Matched defects at posterior lower lobes likely from basilar areas of consolidation versus atelectasis versus effusion. -LUE US: Negative exam -CXR 04/14: Lungs are mildly hypoinflated. Linear areas of atelectasis seen. No evidence of airspace consolidation suggesting pneumonia. Labs: -LA: 2.7, 2.1, 2.4, 4.5, 3.5, 4.5, 3.5, repeat pending -Blood cultures: Negative to date -UA: Negative for infectious process -WBC: 19.0, 16.4, 19.1, 22.8 (with elevated bands and absolute neutrophil count) -Sputum cx pending Medications: -Vancomycin 1g IV q24h ordered; Per chart review it does not appear patient received dose of medication in Dialysis; discussed with Nephrology will give 1.5g dose now with plans for dialysis tomorrow (04/14- ) -Zosyn 3.375 g IV q12h (04/13- ) -Albumin 5% 25 g ordered once per nephrology for hypotension (2) Hypotension Code(s): I95.9 - Hypotension, unspecified Status: Acute Plan: Patient with hypotension overnight 04/13/18 with chest tightness as well as hip/ thigh pain he attributes to being "dry" after hemodialysis. Minimal improvement with 2x 500 mL normal saline bolus on 04/13/19. -EKG with sinus tachycardia per medical team read without any acute ST elevation /depression's or interval changes. -BMP: Electrolytes within normal limits -Phosphorus 6.0 -Magnesium: 2.3 -CK: Ordered -Troponin: negative x 3 -Discussed with nephrology, recommend albumin 5% 25 g once -Add midodrine for hypotension -no IVF (3) End stage renal disease Code(s): N18.6 - End stage renal disease Status: Chronic Plan: Patient diagnosed with ESRD weeks ago. BUN 67, Cr 12.55 & estimated GFR 5L on admission. Started HD on 04/[address] Epifanio Greene and underwent AVF procedure on prior to recent hospital discharge with Dr. Hummel. He underwent dialysis 2 days ago, but stopped treatment, because the line clotted and he was scared. Patient to undergo dialysis in the hospital with Nephrology. -Nephrology consulted -Avoid IV fluid -Epogen with dialysis -Renally dose medications -Hemodialysis 04/14 with 700 mL fluid removal, discontinued early due to patient request as he was becoming "dry" -Hemodialysis planned for 04/15 (4) Acute renal failure (ARF) Code(s): N17.9 - Acute kidney failure, unspecified Status: Acute Plan: Likely acute on chronic kidney injury. ESRD non-compliant with HD. -plan as above, ESRD (5) Sacral wound Code(s): S31.000A - Unspecified open wound of lower back and pelvis without penetration into retroperitoneum, initial encounter Status: Acute Plan: Patient found to have small sacral wound on exam 04/14/18 -Patient to be rotated per protocol (6) Dyspnea Code(s): R06.00 - Dyspnea, unspecified Status: Resolved Plan: SOB currently resolved. ACS and PE ruled out in ED. D-Dimer 6.12, however, likely elevated due to ESRD on HD with VQ scan with low probability of PE. -Supplemental O2 PRN with goal O2 sat >92% -Incentive spirometry/Acapella -Echocardiogram ordered (7) GERD (gastroesophageal reflux disease) Code(s): K21.9 - Gastro-esophageal reflux disease without esophagitis Status: Acute Plan: Patient with hx of GERD. -Protonix 40mg daily -Pepcid 20 mg daily (8) Hepatitis B Code(s): B19.10 - Unspecified viral hepatitis B without hepatic coma Status: Chronic Plan: Patient with hx of hepatitis B. LFTs show AST 49 and ALT 20. -Will continue to monitor (9) Nutrition, metabolism, and development symptoms Code(s): R63.8 - Other symptoms and signs concerning food and fluid intake Status: Acute Plan: Fluids: tolerating po, No IV fluids per nephrology Electrolytes: will monitor with daily labs, replete, and allow nephro to help manage once pt begins HD Nutrition: renal diet GI: as above; continue home meds (10) DVT prophylaxis Status: Acute Plan: DVT prophylaxis: Bilateral SCDs <Sahra Ambrocio - 04/15/18 14:25> - Assessment and Plan 47 YO male followed by Dr Weller with HTN, GERD, Hep B and recent ESRD with start of HD in last 3 weeks presents with acute on chronic renal failure due to HD noncompliance and possible sepsis. <Sahra Ambrocio - 04/15/18 15:01> Discussed Condition With: Dr. Jose Huerta <Sahra Ambrocio - 04/15/18 15:01> - Attending Attestation Patient seen and examined this morning, discussed with resident team. I agree with assessment and management as documented and discussed with me. Pt reports feeling a little better. Nursing at bedside, who reports blood pressure has looked better overnight. He continues to have mouth pain, but states it is improving overall. He complains of diarrhea - check stool studies. <Lauren Weller - 04/15/18 20:08> <Sahra Ambrocio - Last Filed: 04/15/18 14:25> (2) Hypotension Qualifiers: Hypotension type: unspecified hypotension type Qualified Code(s): I95.9 - Hypotension, unspecified (4) Acute renal failure (ARF) Qualifiers: Acute renal failure type: unspecified Qualified Code(s): N17.9 - Acute kidney failure, unspecified (5) Sacral wound Qualifiers: Encounter type: initial encounter Qualified Code(s): S31.000A - Unspecified open wound of lower back and pelvis without penetration into retroperitoneum, initial encounter (6) Dyspnea Qualifiers: Dyspnea type: unspecified Qualified Code(s): R06.00 - Dyspnea, unspecified <Lauren Weller - Last Filed: 04/15/18 20:08> (2) Hypotension Qualifiers: Hypotension type: unspecified hypotension type Qualified Code(s): I95.9 - Hypotension, unspecified (4) Acute renal failure (ARF) Qualifiers: Acute renal failure type: unspecified Qualified Code(s): N17.9 - Acute kidney failure, unspecified (5) Sacral wound Qualifiers: Encounter type: initial encounter Qualified Code(s): S31.000A - Unspecified open wound of lower back and pelvis without penetration into retroperitoneum, initial encounter (6) Dyspnea Qualifiers: Dyspnea type: unspecified Qualified Code(s): R06.00 - Dyspnea, unspecified <Sahra Ambrocio - Last Filed: 04/15/18 14:25> (2) Hypotension Qualifiers: Hypotension type: unspecified hypotension type Qualified Code(s): I95.9 - Hypotension, unspecified (4) Acute renal failure (ARF) Qualifiers: Acute renal failure type: unspecified Qualified Code(s): N17.9 - Acute kidney failure, unspecified (5) Sacral wound Qualifiers: Encounter type: initial encounter Qualified Code(s): S31.000A - Unspecified open wound of lower back and pelvis without penetration into retroperitoneum, initial encounter (6) Dyspnea Qualifiers: Dyspnea type: unspecified Qualified Code(s): R06.00 - Dyspnea, unspecified <Lauren Weller - Last Filed: 04/15/18 20:08> (2) Hypotension Qualifiers: Hypotension type: unspecified hypotension type Qualified Code(s): I95.9 - Hypotension, unspecified (4) Acute renal failure (ARF) Qualifiers: Acute renal failure type: unspecified Qualified Code(s): N17.9 - Acute kidney failure, unspecified (5) Sacral wound Qualifiers: Encounter type: initial encounter Qualified Code(s): S31.000A - Unspecified open wound of lower back and pelvis without penetration into retroperitoneum, initial encounter (6) Dyspnea Qualifiers: Dyspnea type: unspecified Qualified Code(s): R06.00 - Dyspnea, unspecified
[2018-04-15] MEDS: guaiFENesin 600 MG ER Tablet PO SCH ×2 (14:36→22:07)
[2018-04-15] MEDS: Lactobacillus Acidophilus/L. Spores Tablet PO SCH ×2 (14:36→17:05)
[2018-04-15] MEDS: Calcium Acetate 667 MG Capsule PO SCH ×2 (14:36→17:05)
[2018-04-15] MEDS: Vancomycin Inj 1,000 MG in Sodium Chlor 0.9% Inj 250 ML IV.SIG SCH (21:19)
[2018-04-15] MEDS: Heparin 10,000 UNITS/10 ML Vial (for IV use) OTHER PRN (21:22)
[2018-04-16] MEDS: Piperacil/Tazo 2.25 GM Premix 50 ML IV.SIG SCH ×3 (00:45→22:25)
[2018-04-16 06:19] LABS: Hematocrit 28.6 % (39.0-51.0); Hemoglobin 9.4 gm/dL (13.0-17.0); Mean Corpuscular HGB Conc 32.7 % (32.0-36.0); Mean Corpuscular Hemoglobin 30.5 pg (27.0-34.0); Mean Corpuscular Volume 93.2 fL (80.0-100.0); Mean Platelet Volume 8.7 fL (7.0-11.0); Platelet Count 161 th/mm3 (150-450); Red Blood Count 3.07 mil/mm3 (4.50-5.90); Red Cell Distribution Width 15.1 % (11.6-17.2); White Blood Count 22.4 th/mm3 (4.0-11.0)
[2018-04-16 07:05] LABS: Alanine Aminotransferase 38 U/L (12-78); Albumin 2.3 g/dL (3.4-5.0); Alkaline Phosphatase 95 U/L (45-117); Anion Gap 15 meq/L (5-15); Aspartate Aminotransferase 121 U/L (15-37); Blood Urea Nitrogen 31 mg/dL (7-18); Calcium 8.4 mg/dL (8.5-10.1); Carbon Dioxide 24.9 meq/L (21.0-32.0); Chloride 99 meq/L (98-107); Glomerular Filtration Rate 10 mL/min (>89); Glucose,Random 53 mg/dL (74-106); Potassium 4.3 meq/L (3.5-5.1); Sodium 139 meq/L (136-145); Total Protein 6.9 g/dL (6.4-8.2)
[2018-04-16 07:15] LABS: Blast Cells 2 % (0-0); Eosinophils 1 % (0-4); Lymphocytes 9 % (9-44); Metamyelocytes 5 % (0-1); Monocytes 7 % (0-8); Myelocytes 14 % (0-0); Tallied Nucleated RBC 10 (0-0)
[2018-04-16 07:16] LABS: Platelet Estimate Normal (Normal); Platelet Morphology Normal (Normal); Stomatocytes 2+
[2018-04-16] MEDS: Famotidine 20 MG Tablet PO SCH (09:41)
[2018-04-16] MEDS: Nystatin Liq 500,000 UNIT/5 ML UDC SWISH-SWAL SCH ×4 (09:42→22:25)
[2018-04-16] MEDS: Lactobacillus Acidophilus/L. Spores Tablet PO SCH ×3 (09:42→17:30)
[2018-04-16] MEDS: Calcium Acetate 667 MG Capsule PO SCH ×3 (09:42→17:30)
[2018-04-16] MEDS: guaiFENesin 600 MG ER Tablet PO SCH ×2 (09:42→22:25)
[2018-04-16] MEDS: Nystatin/Diphenhydramine/Lidocaine Mouthwash (Adult) 120 ML Botttle SWISH-SWAL SCH ×4 (09:44→22:27)
--- NOTE | 2018-04-16 11:38 | P.PNNP ---
Subjective Interval history: Resting. Had dialysis yesterday. WBC increasing. <Yulisa Dunn - Last Filed: 04/16/18 11:34> Physical Exam Vital signs: Vital Signs 04/15/18 12:00 04/15/18 13:00 04/15/18 14:00 Temperature 98.2 F Pulse Rate 98 H 100 H 106 H Respiratory Rate 20 Blood Pressure 142/88 H Pulse Oximetry 95 04/15/18 15:00 04/15/18 15:05 04/15/18 16:00 Temperature 98.6 F Pulse Rate 98 H 93 H 93 H Respiratory Rate 16 Blood Pressure 108/62 Pulse Oximetry 97 04/15/18 17:00 04/15/18 18:00 04/15/18 19:00 Temperature Pulse Rate 95 H 100 H 90 Respiratory Rate Blood Pressure Pulse Oximetry 04/15/18 20:00 04/15/18 21:00 04/15/18 22:00 Temperature Pulse Rate 96 H 98 H 100 H Respiratory Rate Blood Pressure Pulse Oximetry 04/15/18 22:29 04/15/18 22:36 04/15/18 23:00 Temperature 98.1 F 98.9 F Pulse Rate 100 H 97 H Respiratory Rate 16 16 Blood Pressure 127/69 106/65 Pulse Oximetry 97 97 97 04/16/18 00:00 04/16/18 01:00 04/16/18 02:00 Temperature Pulse Rate 100 H 99 H 105 H Respiratory Rate Blood Pressure Pulse Oximetry 04/16/18 03:00 04/16/18 04:00 04/16/18 05:00 Temperature 98.1 F Pulse Rate 100 H 100 H 95 H Respiratory Rate 16 Blood Pressure 101/59 L Pulse Oximetry 93 L 04/16/18 06:00 04/16/18 08:00 04/16/18 09:00 Temperature 98.2 F Pulse Rate 99 H 92 H 99 H Respiratory Rate 16 Blood Pressure 115/59 L Pulse Oximetry 91 L 04/16/18 10:00 Temperature Pulse Rate 98 H Respiratory Rate Blood Pressure Pulse Oximetry Intake & Output 04/15/18 04/16/18 04/16/18 18:59 06:59 18:59 Intake Total 530 / 530 290 / 290 Output Total 3000 / 3000 0 / 0 Balance -2470 / -2470 290 / 290 Weight 100.1 kg Intake: IV 50 / 50 50 / 50 Zosyn 2.25 GM Premix 50 ML @ 50 / 50 50 / 50 100 mls/hr IV.SIG Q12H [facility] Rx#: [id number] Oral 480 / 480 240 / 240 Output: Urine 0 / 0 Hemodialysis Amount 3000 / 3000 Other: Date of Last Bowel Movement 04/15/18 04/16/18 # Bowel Movements 0 - Constitutional no acute distress - Routine HEENT Exam Head: Present: normocephalic Eye: Present: EOMI ENT: Present: mucous membranes moist - Routine Neck Exam Present: supple, full ROM - Routine Respiratory Exam Present: CTA bilaterally. Absent: accessory muscle use - Routine Cardiovascular Exam Present: RRR, S1, S2 - Routine Abdominal Exam Present: soft, normoactive bowel sounds - Routine Skin Exam Present: intact, warm - Routine Neurological Exam Present: alert, oriented X3, CN II-XII intact - Detailed Neurological Exam: Coma Scale Eye Opening: Spontaneous Verbal Response: Oriented Motor Response: Obey commands Nida Coma Scale Total: 15 - Routine Psychiatric Exam Present: normal affect, normal thought process <Yulisa Dunn - Last Filed: 04/16/18 11:34> Vital signs: Vital Signs 04/15/18 20:00 04/15/18 21:00 04/15/18 22:00 Temperature Pulse Rate 96 H 98 H 100 H Respiratory Rate Blood Pressure Pulse Oximetry 04/15/18 22:29 04/15/18 22:36 04/15/18 23:00 Temperature 98.1 F 98.9 F Pulse Rate 100 H 97 H Respiratory Rate 16 16 Blood Pressure 127/69 106/65 Pulse Oximetry 97 97 97 04/16/18 00:00 04/16/18 01:00 04/16/18 02:00 Temperature Pulse Rate 100 H 99 H 105 H Respiratory Rate Blood Pressure Pulse Oximetry 04/16/18 03:00 04/16/18 04:00 04/16/18 05:00 Temperature 98.1 F Pulse Rate 100 H 100 H 95 H Respiratory Rate 16 Blood Pressure 101/59 L Pulse Oximetry 93 L 04/16/18 06:00 04/16/18 08:00 04/16/18 09:00 Temperature 98.2 F Pulse Rate 99 H 92 H 99 H Respiratory Rate 16 Blood Pressure 115/59 L Pulse Oximetry 91 L 04/16/18 10:00 04/16/18 11:00 04/16/18 12:00 Temperature 98.2 F Pulse Rate 98 H 88 92 H Respiratory Rate 16 Blood Pressure 100/62 Pulse Oximetry 96 04/16/18 13:00 04/16/18 14:00 04/16/18 15:00 Temperature Pulse Rate 94 H 97 H 102 H Respiratory Rate Blood Pressure Pulse Oximetry 04/16/18 15:17 04/16/18 15:52 04/16/18 16:00 Temperature 98.2 F Pulse Rate 92 H 92 H Respiratory Rate 16 Blood Pressure 115/66 Pulse Oximetry 96 92 L 04/16/18 17:00 04/16/18 18:00 Temperature Pulse Rate 95 H 101 H Respiratory Rate Blood Pressure Pulse Oximetry Intake & Output 04/16/18 04/16/18 04/17/18 06:59 18:59 06:59 Intake Total 290 / 290 1090 / 1090 Output Total 0 / 0 Balance 290 / 290 1090 / 1090 Weight 100.1 kg Intake: IV 50 / 50 50 / 50 Zosyn 2.25 GM Premix 50 ML @ 50 / 50 50 / 50 100 mls/hr IV.SIG Q12H [facility] Rx#: [id number] Oral 240 / 240 1040 / 1040 Output: Urine 0 / 0 Other: Date of Last Bowel Movement 04/16/18 # Bowel Movements 0 2 <Rito Jose - Last Filed: 04/16/18 19:31> Assessment and Plan - Assessment (1) End stage renal disease Code(s): N18.6 - End stage renal disease Status: Chronic Plan: End stage renal disease on hemodialysis on Sunday, Sunday, and Sunday. Had 3L UF yesterday. Has right IJ PermCath and AVF in RUE (not mature) Avoid IVF Continue Epogen with dialysis On Midodrine for hypotension. Not on antihypertensives. He has outpatient HD arranged at [facility]. (2) Hypertension Code(s): I10 - Essential (primary) hypertension Status: Acute Qualifiers: Hypertension type: renovascular hypertension Qualified Code(s): I15.0 - Renovascular hypertension Plan: Diet controlled. Now requiring midodrine for intradialytic hypotension. Continue to monitor. (3) Sepsis Code(s): A41.9 - Sepsis, unspecified organism Status: Acute Qualifiers: Sepsis type: sepsis due to unspecified organism Qualified Code(s): A41.9 - Sepsis, unspecified organism Plan: On Vancomycin and Zosyn. Lactic acid elevated. Renal dose antibiotics if applicable. . BC negative to date. (4) Oral candidiasis Code(s): B37.0 - Candidal stomatitis Status: Acute Plan: Nystatin swish and swallow <Yulisa Dunn - Last Filed: 04/16/18 11:34> - Assessment (1) End stage renal disease Code(s): N18.6 - End stage renal disease Status: Chronic (2) Hypertension Code(s): I10 - Essential (primary) hypertension Status: Acute Qualifiers: Hypertension type: renovascular hypertension Qualified Code(s): I15.0 - Renovascular hypertension (3) Sepsis Code(s): A41.9 - Sepsis, unspecified organism Status: Acute Qualifiers: Sepsis type: sepsis due to unspecified organism Qualified Code(s): A41.9 - Sepsis, unspecified organism (4) Oral candidiasis Code(s): B37.0 - Candidal stomatitis Status: Acute - Attending Attestation patient was seen and examined. Agree with above assessment and plan. If leukocytosis worsens, may need to have PermCath removed. He appears depressed about the whole situation, was crying in the morning. Wants to continue dialysis <Rito Jose - Last Filed: 04/16/18 19:31>
--- NOTE | 2018-04-16 12:20 | P.PNFP ---
Subjective Interval history: Patient seen and examined this morning. That he is doing okay. He states that he is still having some mouth pain from his teeth. He is due for an appointment at the dentist next month, where he states that he believes he might have them extracted. He has some holes in his teeth and they are cutting against his tongue. He has not had a bowel movement since yesterday , therefore his stool has not been collected. He also has not been able to collect a urine sample for sputum sample. Otherwise, no fevers or chills, no chest pain, no abdominal pain. Does feel some dizziness when sitting up and standing and is still experiencing some shortness of breath. <Sahra Ambrocio - 04/16/18 12:20> Results - Labs Result diagrams: 04/16/18 05:03 04/16/18 05:03 <JayneEmily yane - 04/16/18 20:59> Abnormal lab results 04/16/18 04/16/18 Range/Units 05:03 05:03 WBC 22.4 H (4.0-11.0) th/mm3 RBC 3.07 L (4.50-5.90) mil/mm3 Hgb 9.4 L (13.0-17.0) gm/dL Hct 28.6 L (39.0-51.0) % Band Neuts % (Manual) 10 H (0-6) % Metamyelocytes % (Man) 5 H (0-1) % Myelocytes % (Man) 14 H (0-0) % Blast Cells % (Manual) 2 H (0-0) % Abs Neuts (Manual) 18.1 H (1.8-7.7) th/mm3 Nucleated RBCs/100 WBC 10 H (0-0) /100 WBC Basophilic Stippling Faint H (None) Stomatocytes 2+ H (None) BUN 31 H (7-18) mg/dL Creatinine 7.34 H (0.60-1.30) mg/dL Estimated GFR 10 L (>89) mL/min Random Glucose 53 L (74-106) mg/dL Calcium 8.4 L (8.5-10.1) mg/dL Total Bilirubin 2.0 H (0.2-1.0) mg/dL AST 121 H (15-37) U/L Albumin 2.3 L (3.4-5.0) g/dL Short CBC 04/16/18 Range/Units 05:03 WBC 22.4 H (4.0-11.0) th/mm3 Hgb 9.4 L (13.0-17.0) gm/dL Hct 28.6 L (39.0-51.0) % Plt Count 161 (150-450) th/mm3 BMP 04/16/18 05:03 Sodium 139 Potassium 4.3 Chloride 99 Carbon Dioxide 24.9 BUN 31 H Creatinine 7.34 H Calcium 8.4 L Liver Function 04/16/18 Range/Units 05:03 Total Bilirubin 2.0 H (0.2-1.0) mg/dL AST 121 H (15-37) U/L ALT 38 (12-78) U/L Alkaline Phosphatase 95 (45-117) U/L Albumin 2.3 L (3.4-5.0) g/dL <Lauren Weller - 04/16/18 20:59> Abnormal lab results 04/15/18 04/16/18 04/16/18 Range/Units 16:25 05:03 05:03 WBC 22.4 H (4.0-11.0) th/mm3 RBC 3.07 L (4.50-5.90) mil/mm3 Hgb 9.4 L (13.0-17.0) gm/dL Hct 28.6 L (39.0-51.0) % Band Neuts % (Manual) 10 H (0-6) % Metamyelocytes % (Man) 5 H (0-1) % Myelocytes % (Man) 14 H (0-0) % Blast Cells % (Manual) 2 H (0-0) % Abs Neuts (Manual) 18.1 H (1.8-7.7) th/mm3 Nucleated RBCs/100 WBC 10 H (0-0) /100 WBC Basophilic Stippling Faint H (None) Stomatocytes 2+ H (None) BUN 31 H (7-18) mg/dL Creatinine 7.34 H (0.60-1.30) mg/dL Estimated GFR 10 L (>89) mL/min Random Glucose 53 L (74-106) mg/dL Lactic Acid 2.1 H (0.4-2.0) mmol/L Calcium 8.4 L (8.5-10.1) mg/dL Total Bilirubin 2.0 H (0.2-1.0) mg/dL AST 121 H (15-37) U/L Albumin 2.3 L (3.4-5.0) g/dL Short CBC 04/16/18 Range/Units 05:03 WBC 22.4 H (4.0-11.0) th/mm3 Hgb 9.4 L (13.0-17.0) gm/dL Hct 28.6 L (39.0-51.0) % Plt Count 161 (150-450) th/mm3 BMP 04/16/18 05:03 Sodium 139 Potassium 4.3 Chloride 99 Carbon Dioxide 24.9 BUN 31 H Creatinine 7.34 H Calcium 8.4 L Liver Function 04/16/18 Range/Units 05:03 Total Bilirubin 2.0 H (0.2-1.0) mg/dL AST 121 H (15-37) U/L ALT 38 (12-78) U/L Alkaline Phosphatase 95 (45-117) U/L Albumin 2.3 L (3.4-5.0) g/dL <Sahra Ambrocio G - 04/16/18 12:20> Physical Exam Vital signs: Vital Signs 04/15/18 21:00 04/15/18 22:00 04/15/18 22:29 Temperature Pulse Rate 98 H 100 H Respiratory Rate Blood Pressure Pulse Oximetry 97 04/15/18 22:36 04/15/18 23:00 04/16/18 00:00 Temperature 98.1 F 98.9 F Pulse Rate 100 H 97 H 100 H Respiratory Rate 16 16 Blood Pressure 127/69 106/65 Pulse Oximetry 97 97 04/16/18 01:00 04/16/18 02:00 04/16/18 03:00 Temperature Pulse Rate 99 H 105 H 100 H Respiratory Rate Blood Pressure Pulse Oximetry 04/16/18 04:00 04/16/18 05:00 04/16/18 06:00 Temperature 98.1 F Pulse Rate 100 H 95 H 99 H Respiratory Rate 16 Blood Pressure 101/59 L Pulse Oximetry 93 L 04/16/18 08:00 04/16/18 09:00 04/16/18 10:00 Temperature 98.2 F Pulse Rate 92 H 99 H 98 H Respiratory Rate 16 Blood Pressure 115/59 L Pulse Oximetry 91 L 04/16/18 11:00 04/16/18 12:00 04/16/18 13:00 Temperature 98.2 F Pulse Rate 88 92 H 94 H Respiratory Rate 16 Blood Pressure 100/62 Pulse Oximetry 96 04/16/18 14:00 04/16/18 15:00 04/16/18 15:17 Temperature Pulse Rate 97 H 102 H Respiratory Rate Blood Pressure Pulse Oximetry 96 04/16/18 15:52 04/16/18 16:00 04/16/18 17:00 Temperature 98.2 F Pulse Rate 92 H 92 H 95 H Respiratory Rate 16 Blood Pressure 115/66 Pulse Oximetry 92 L 04/16/18 18:00 04/16/18 19:00 04/16/18 20:00 Temperature Pulse Rate 101 H 96 H 96 H Respiratory Rate Blood Pressure Pulse Oximetry 96 Intake & Output 04/16/18 04/16/18 04/17/18 06:59 18:59 06:59 Intake Total 290 / 290 1090 / 1090 Output Total 0 / 0 Balance 290 / 290 1090 / 1090 Weight 100.1 kg Intake: IV 50 / 50 50 / 50 Zosyn 2.25 GM Premix 50 ML @ 50 / 50 50 / 50 100 mls/hr IV.SIG Q12H [facility] Rx#: [id number] Oral 240 / 240 1040 / 1040 Output: Urine 0 / 0 Other: Date of Last Bowel Movement 04/16/18 # Bowel Movements 0 2 <Vey,Lauren - 04/16/18 20:59> Vital Signs 04/15/18 12:00 04/15/18 13:00 04/15/18 14:00 Temperature 98.2 F Pulse Rate 98 H 100 H 106 H Respiratory Rate 20 Blood Pressure 142/88 H Pulse Oximetry 95 04/15/18 15:00 04/15/18 15:05 04/15/18 16:00 Temperature 98.6 F Pulse Rate 98 H 93 H 93 H Respiratory Rate 16 Blood Pressure 108/62 Pulse Oximetry 97 04/15/18 17:00 04/15/18 18:00 04/15/18 19:00 Temperature Pulse Rate 95 H 100 H 90 Respiratory Rate Blood Pressure Pulse Oximetry 04/15/18 20:00 04/15/18 21:00 04/15/18 22:00 Temperature Pulse Rate 96 H 98 H 100 H Respiratory Rate Blood Pressure Pulse Oximetry 04/15/18 22:29 04/15/18 22:36 04/15/18 23:00 Temperature 98.1 F 98.9 F Pulse Rate 100 H 97 H Respiratory Rate 16 16 Blood Pressure 127/69 106/65 Pulse Oximetry 97 97 97 04/16/18 00:00 04/16/18 01:00 04/16/18 02:00 Temperature Pulse Rate 100 H 99 H 105 H Respiratory Rate Blood Pressure Pulse Oximetry 04/16/18 03:00 04/16/18 04:00 04/16/18 05:00 Temperature 98.1 F Pulse Rate 100 H 100 H 95 H Respiratory Rate 16 Blood Pressure 101/59 L Pulse Oximetry 93 L 04/16/18 06:00 04/16/18 08:00 04/16/18 09:00 Temperature 98.2 F Pulse Rate 99 H 92 H 99 H Respiratory Rate 16 Blood Pressure 115/59 L Pulse Oximetry 91 L 04/16/18 10:00 Temperature Pulse Rate 98 H Respiratory Rate Blood Pressure Pulse Oximetry Intake & Output 04/15/18 04/16/18 04/16/18 18:59 06:59 18:59 Intake Total 530 / 530 290 / 290 Output Total 3000 / 3000 0 / 0 Balance -2470 / -2470 290 / 290 Weight 100.1 kg Intake: IV 50 / 50 50 / 50 Zosyn 2.25 GM Premix 50 ML @ 50 / 50 50 / 50 100 mls/hr IV.SIG Q12H [facility] Rx#: [id number] Oral 480 / 480 240 / 240 Output: Urine 0 / 0 Hemodialysis Amount 3000 / 3000 Other: Date of Last Bowel Movement 04/15/18 04/16/18 # Bowel Movements 0 <Sahra Ambrocio G - 04/16/18 12:20> Narrative: GENERAL: Obese -[place] male laying in bed, in no acute distress SKIN: Warm and dry. HEAD: Atraumatic. Normocephalic. EYES: Pupils equal and round. No scleral icterus. No injection or drainage. ENT: No nasal bleeding or discharge. Mucous membranes pink and moist. Candidiasis on tongue. Dental caries on teeth with plaque buildup and decay NECK: Trachea midline. No JVD. CARDIOVASCULAR: Regular rate and rhythm. RESPIRATORY: No accessory muscle use. Crackles at lung bases. Breath sounds distant, but equal bilaterally. GASTROINTESTINAL: Abdomen soft, obese, non-tender, nondistended. Hepatic and splenic margins not palpable. MUSCULOSKELETAL: Extremities without clubbing, cyanosis, or edema. No obvious deformities. Mild bilateral calf tenderness. NEUROLOGICAL: Awake and alert. No obvious cranial nerve deficits. Motor grossly within normal limits. Normal speech. Homans sign negative. PSYCHIATRIC: Appropriate mood and affect; insight and judgment normal. <Sahra Ambrocio - 04/16/18 12:20> Assessment and Plan - Assessment (1) Severe sepsis Code(s): A41.9 - Sepsis, unspecified organism; R65.20 - Severe sepsis without septic shock Status: Acute (2) Hypotension Code(s): I95.9 - Hypotension, unspecified Status: Acute (3) End stage renal disease Code(s): N18.6 - End stage renal disease Status: Chronic (4) Acute renal failure (ARF) Code(s): N17.9 - Acute kidney failure, unspecified Status: Acute (5) Sacral wound Code(s): S31.000A - Unspecified open wound of lower back and pelvis without penetration into retroperitoneum, initial encounter Status: Acute (6) Dyspnea Code(s): R06.00 - Dyspnea, unspecified Status: Resolved (7) GERD (gastroesophageal reflux disease) Code(s): K21.9 - Gastro-esophageal reflux disease without esophagitis Status: Acute (8) Hepatitis B Code(s): B19.10 - Unspecified viral hepatitis B without hepatic coma Status: Chronic (9) Nutrition, metabolism, and development symptoms Code(s): R63.8 - Other symptoms and signs concerning food and fluid intake Status: Acute (10) DVT prophylaxis Status: Acute <Lauren Weller - 04/16/18 20:59> (1) Severe sepsis Code(s): A41.9 - Sepsis, unspecified organism; R65.20 - Severe sepsis without septic shock Status: Acute Plan: Patient met sepsis criteria on admission WBC 19.0, tachycardia and initially hypotensive responded to initial fluid boluses, but afebrile. LA and blood cultures ordered. LUE with small amount of serosanguinous drainage, no induration or fluctuance, but mild edema. 04/16 Leukocytosis is stable at 22. Will continue to rule out other sources of infections. Labs pending collections. -CXR 04/12: Minimal parenchymal changes in right base without fluid overload -Perfusion scan 04/12: Low probability for PE. Matched defects at posterior lower lobes likely from basilar areas of consolidation versus atelectasis versus effusion. -LUE US: Negative exam -CXR 04/14: Lungs are mildly hypoinflated. Linear areas of atelectasis seen. No evidence of airspace consolidation suggesting pneumonia. Labs: -LA: 2.7, 2.1, 2.4, 4.5, 3.5, 4.5, 3.5, 2.1, 1.9, has normalized. -Blood cultures: Negative to date -UA: Negative for infectious process -WBC: 19.0, 16.4, 19.1, 22.8, 22.4 (with elevated bands and absolute neutrophil count) -Sputum cx pending, gram stain reveals: Few budding yeast cells, moderate WBCs, light mixed elliott with no predominant morphology Medications: -Vancomycin 1g IV q24h ordered; Per chart review it does not appear patient received dose of medication in Dialysis; discussed with Nephrology will give 1.5g dose now with plans for dialysis tomorrow (04/14- ) -Zosyn 3.375 g IV q12h (04/13- ) -Albumin 5% 25 g ordered once per nephrology for hypotension (2) Hypotension Code(s): I95.9 - Hypotension, unspecified Status: Acute Plan: Patient with hypotension overnight 04/13/18 with chest tightness as well as hip/ thigh pain he attributes to being "dry" after hemodialysis. Minimal improvement with 2x 500 mL normal saline bolus on 04/13/19. -EKG with sinus tachycardia per medical team read without any acute ST elevation /depression's or interval changes. -BMP: Electrolytes within normal limits -Phosphorus 6.0 -Magnesium: 2.3 -CK: Ordered -Troponin: negative x 3 -Discussed with nephrology, recommend albumin 5% 25 g once -Add midodrine for hypotension -no IVF (3) End stage renal disease Code(s): N18.6 - End stage renal disease Status: Chronic Plan: Patient diagnosed with ESRD weeks ago. BUN 67, Cr 12.55 & estimated GFR 5L on admission. Started HD on 04/[address] Epifanio Greene and underwent AVF procedure on prior to recent hospital discharge with Dr. Hummel. He underwent dialysis 2 days ago, but stopped treatment, because the line clotted and he was scared. Patient to undergo dialysis in the hospital with Nephrology. -Nephrology consulted -Avoid IV fluid -Epogen with dialysis -Renally dose medications -Hemodialysis 04/13 with 700 mL fluid removal, discontinued early due to patient request as he was becoming "dry" -Hemodialysis on 04/15 removed 3L (4) Acute renal failure (ARF) Code(s): N17.9 - Acute kidney failure, unspecified Status: Acute Plan: Likely acute on chronic kidney injury. ESRD non-compliant with HD. -plan as above, ESRD (5) Sacral wound Code(s): S31.000A - Unspecified open wound of lower back and pelvis without penetration into retroperitoneum, initial encounter Status: Acute Plan: Patient found to have small sacral wound on exam 04/14/18 -Patient to be rotated per protocol (6) Dyspnea Code(s): R06.00 - Dyspnea, unspecified Status: Resolved Plan: SOB currently resolved. ACS and PE ruled out in ED. D-Dimer 6.12, however, likely elevated due to ESRD on HD with VQ scan with low probability of PE. -Supplemental O2 PRN with goal O2 sat >92% -Incentive spirometry/Acapella -Echocardiogram ordered (7) GERD (gastroesophageal reflux disease) Code(s): K21.9 - Gastro-esophageal reflux disease without esophagitis Status: Acute Plan: Patient with hx of GERD. -Protonix 40mg daily -Pepcid 20 mg daily (8) Hepatitis B Code(s): B19.10 - Unspecified viral hepatitis B without hepatic coma Status: Chronic Plan: Patient with hx of hepatitis B. LFTs show AST 49 and ALT 20. -Will continue to monitor (9) Nutrition, metabolism, and development symptoms Code(s): R63.8 - Other symptoms and signs concerning food and fluid intake Status: Acute Plan: Fluids: tolerating po, No IV fluids per nephrology Electrolytes: will monitor with daily labs, replete, and allow nephro to help manage once pt begins HD Nutrition: renal diet GI: as above; continue home meds (10) DVT prophylaxis Status: Acute Plan: DVT prophylaxis: Bilateral SCDs <Sahra Ambrocio G - 04/16/18 17:30> - Assessment and Plan 47 YO male followed by Dr Weller with HTN, GERD, Hep B and recent ESRD with start of HD in last 3 weeks presents with acute on chronic renal failure due to HD noncompliance and possible sepsis. <Sahra Ambrocio - 04/16/18 12:20> - Attending Attestation Patient seen and examined, discussed with resident team this morning. I agree with assessment and management as documented with me. Pt reports tongue is improved; he now complains of pain at his teeth. He denies any further diarrhea. BP is improved with midodrine; he had 3L removed yesterday in dialysis. He reports to me that he is uncertain he wants to continue with dialysis. He does not want to spend 4 hours 3x per week at dialysis. He says he understands that he will if he does not do dialysis. When offered palliative care consult to help him explore goals of care, pt expresses desire to speak with palliative care team. He also expresses feeling nervous about returning home, due to lightheadedness and weakness. When offered the possibility of arranging SNF placement, pt says he would like to first speak with his cousin before making this decision. <Lauren Weller - 04/16/18 20:59> <Sahra Ambrocio - Last Filed: 04/16/18 17:30> (2) Hypotension Qualifiers: Hypotension type: unspecified hypotension type Qualified Code(s): I95.9 - Hypotension, unspecified (4) Acute renal failure (ARF) Qualifiers: Acute renal failure type: unspecified Qualified Code(s): N17.9 - Acute kidney failure, unspecified (5) Sacral wound Qualifiers: Encounter type: initial encounter Qualified Code(s): S31.000A - Unspecified open wound of lower back and pelvis without penetration into retroperitoneum, initial encounter (6) Dyspnea Qualifiers: Dyspnea type: unspecified Qualified Code(s): R06.00 - Dyspnea, unspecified <Vey,Lauren - Last Filed: 04/16/18 20:59> (2) Hypotension Qualifiers: Hypotension type: unspecified hypotension type Qualified Code(s): I95.9 - Hypotension, unspecified (4) Acute renal failure (ARF) Qualifiers: Acute renal failure type: unspecified Qualified Code(s): N17.9 - Acute kidney failure, unspecified (5) Sacral wound Qualifiers: Encounter type: initial encounter Qualified Code(s): S31.000A - Unspecified open wound of lower back and pelvis without penetration into retroperitoneum, initial encounter (6) Dyspnea Qualifiers: Dyspnea type: unspecified Qualified Code(s): R06.00 - Dyspnea, unspecified <Sahra Ambrocio G - Last Filed: 04/16/18 17:30> (2) Hypotension Qualifiers: Hypotension type: unspecified hypotension type Qualified Code(s): I95.9 - Hypotension, unspecified (4) Acute renal failure (ARF) Qualifiers: Acute renal failure type: unspecified Qualified Code(s): N17.9 - Acute kidney failure, unspecified (5) Sacral wound Qualifiers: Encounter type: initial encounter Qualified Code(s): S31.000A - Unspecified open wound of lower back and pelvis without penetration into retroperitoneum, initial encounter (6) Dyspnea Qualifiers: Dyspnea type: unspecified Qualified Code(s): R06.00 - Dyspnea, unspecified <Vey,Lauren - Last Filed: 07/17/18 20:59> (2) Hypotension Qualifiers: Hypotension type: unspecified hypotension type Qualified Code(s): I95.9 - Hypotension, unspecified (4) Acute renal failure (ARF) Qualifiers: Acute renal failure type: unspecified Qualified Code(s): N17.9 - Acute kidney failure, unspecified (5) Sacral wound Qualifiers: Encounter type: initial encounter Qualified Code(s): S31.000A - Unspecified open wound of lower back and pelvis without penetration into retroperitoneum, initial encounter (6) Dyspnea Qualifiers: Dyspnea type: unspecified Qualified Code(s): R06.00 - Dyspnea, unspecified
--- NOTE | 2018-04-16 16:20 | ECHRPT ---
Indication: CHEST PAIN CONCLUSIONS The left ventricular systolic function is normal with an estimated ejection fraction in the range of 60-65%. Normal left ventricular size. Wall thickness is normal. No regional wall motion abnormalities are present. Anterior mitral valve leaflet prolapse. There is trace tricuspid valve regurgitation. Normal estimated pulmonary pressures. The pulmonary valve is not well visualized. BP: / HR: Rhythm: Sinus Technical Quality:Fair FINDINGS LEFT VENTRICLE The left ventricular systolic function is normal with an estimated ejection fraction in the range of 60-65%. Normal left ventricular size. Wall thickness is normal. No regional wall motion abnormalities are present. RIGHT VENTRICLE Normal right ventricular size and systolic function. LEFT ATRIUM The left atrial size is normal. RIGHT ATRIUM The right atrial size is normal. ATRIAL SEPTUM Normal atrial septal thickness without atrial level shunting by limited color doppler interrogation. AORTA The aortic root and proximal ascending aorta are normal in size on limited imaging. MITRAL VALVE Anterior mitral valve leaflet prolapse. AORTIC VALVE Trileaflet aortic valve. No aortic valve stenosis or regurgitation. TRICUSPID VALVE Structurally normal tricuspid valve. There is trace tricuspid valve regurgitation. Normal estimated pulmonary pressures. PULMONARY VALVE The pulmonary valve is not well visualized. VESSELS The inferior vena cava is normal in size. PERICARDIUM No pericardial effusion. Chandler Tong MD, FACC, FSCAI (Electronically Signed) Final Date:16 April 2018 16:19
--- NOTE | 2018-04-16 17:04 | P.PNPAL ---
Palliative care consulted to assist with goals of care. Met with patient. Brother and sister at bedside. Mr. Barnes does not engage much in conversation. Reports he is not feeling well. Denies pain, verbalizes he is uncomfortable. Verbalizes continued plan for dialysis tomorrow. Did not wish to engage in psychosocial or medical history review at this time. Brother at bedside also on dialysis. Completed HCS. Mr. Barnes appointed his cousin, Johnny Feng ([phone]) as primary HCS and his sister, Mariama Disla ([phone]) as alternate HCS. Medical visit planned for tomorrow. Mr. Barnes verbalizes palliative care can meet with him tomorrow, do not need to plan a time when family can also be present. Although he is acceptable to meeting with family if they happen to be at the hospital when palliative care visits. Palliative care contact information provided. Full consultation to follow tomorrow, Sunday04/16/18.
[2018-04-16] MEDS ORDERED: Chlorhexidine Gluconate 0.12% Liq 15 ML UDC SWISH-SPIT SCH (21:00)
[2018-04-16] MEDS: Chlorhexidine Gluconate 0.12% Liq 15 ML UDC SWISH-SPIT SCH (22:27)
[2018-04-17] MEDS: guaiFENesin 600 MG ER Tablet PO SCH ×2 (08:47→21:46)
[2018-04-17] MEDS: Famotidine 20 MG Tablet PO SCH (08:47)
[2018-04-17] MEDS: Lactobacillus Acidophilus/L. Spores Tablet PO SCH ×3 (08:47→18:09)
[2018-04-17] MEDS: Calcium Acetate 667 MG Capsule PO SCH ×3 (08:47→18:09)
[2018-04-17] MEDS: Piperacil/Tazo 2.25 GM Premix 50 ML IV.SIG SCH ×2 (08:47→21:44)
[2018-04-17] MEDS: Nystatin/Diphenhydramine/Lidocaine Mouthwash (Adult) 120 ML Botttle SWISH-SWAL SCH ×4 (08:49→21:46)
[2018-04-17] MEDS: Nystatin Liq 500,000 UNIT/5 ML UDC SWISH-SWAL SCH ×4 (08:50→21:45)
--- NOTE | 2018-04-17 10:08 | P.CONPAL ---
Consult Service: Palliative Care Requesting Physician: Albania Garcia Reason for Consult: a. To assist with evaluation and management of symptoms including: shortness of breath, debility b. To assist medical decision maker(s) with: better understanding of current medical conditions; weighing benefits/burdens of medical treatment options; making medical treatment decisions. Primary Care Provider: Lauren Weller MD History of Present Illness History of Present Illness: Mr. Barnes is a 47-year-old male with a past medical history significant for end-stage renal disease on dialysis, hypertension, hepatitis B, right testicular torsion and GERD. Patient was started on hemodialysis on 04/02/18 during his last hospitalization and he had an AV fistula placed as well to his right upper arm prior to discharge. Patient follows with Dr. Greene. He presented to the ER on 04/12/18 with complaints of shortness of breath. Patient goes to dialysis Sunday and he reported that he did not go to the dialysis on the day he presented to ER. Patient reported that he had a bad experience after his first outpatient hemodialysis experience and he stopped going for hemodialysis.Patient mentioned that he felt so sick and he was not able to drive himself back home. Patient reported in the ER he had never had a problem with shortness of breath and he denied fever, abdominal pain , chest pain, lower extremity deep edema in the ER. Patient reported that he has had a dry cough and has not been eating or drinking like he normally does. ER course: * Vital signs: Pulse 115, respirations 20, blood pressure 127/67 and O2 saturation 94% on room air * EKG reveals sinus tachycardia * Chest x-ray revealed minimal parenchymal changes right base without fluid overload. * Laboratory workup revealed WBC 19.0, hemoglobin 11.2, hematocrit 35.5, platelet count 206, potassium 4.9, BUN/creatinine 61/12.02, random glucose 81, calcium 9.1, AST 49, ALT 20, troponin less than 0.02, total protein 7.6, albumin 2.9, PT 12.3, INR 1.2, d-dimer 6.12 * Pulmonary perfusion imaging revealed low probability for pulmonary embolus. * Vancomycin 1 g administered in ER * Blood cultures collected showed no growth in 4 days. Nephrology consulted for evaluation and management of a patient with end-stage renal disease on HD, recommended continuing with hemodialysis. Chest x-ray on revealed mild hypoinflation of lungs and linear areas of atelectasis. Patient expressed to the medical team that he was uncertain if he wanted to continue with hemodialysis and did not want to spend 2 hours 3 times per week at hemodialysis. Palliative care consulted to assist with establishing goals of care and symptom management. Patient met with Alejandra Soto LCSW from palliative care and completed healthcare surrogate forms on 04/16/18. Sputum culture collected 04/16/18 positive for gram-negative rods. Patient currently on vancomycin and Zosyn. Laboratory workup today revealing WBC 26.1 ( worsening leukocytosis), hemoglobin 9.5, hematocrit 29.4, platelet count 179, sodium 132, potassium 4.6, BUN/creatinine 51/10.36, random glucose 72, calcium 9.2. Patient seen and examined in his room in the presence of his cousin Johnny who is also his health care surrogate, his sister Alyssa Hill and niece Suyapa Barnes. Obtained psychosocial, past medical history and events leading to this hospitalization. Patient is alert and oriented to self, place and situation and appears to understand his medical condition. Patient at this time is able to weigh benefits and burdens of treatment. Patient has had at least 2 hospitalizations since March of this year, one at [facility]. His last hospitalization was approximately 2-3 weeks here at [facility] when he was started on hemodialysis. Patient was to continue with outpatient hemodialysis and he had HD once after discharge from the hospital. Patient expresses that he had a bad experience after his first outpatient hemodialysis and was not able to drive himself back home because he felt very sick. He had to call his sister to drive him back home. Patient states that he has been very sick lately and he knows that "it`s time to go". Patient expresses that he does not want to continue going through aggressive treatment when he knows that the outcome will not be great and he cannot imagine himself going through hemodialysis for the rest of his life. Patient`s mother had ESRD and was on HD for 5 years before she , he also has a brother who is on HD and a brother-in law. Patient verbalizes that he understands what dialysis entails and after he was started on it he realized that it is not for him. Patient expresses that quality of life is important to him and he cannot foresee himself having the quality of life he wants if he is to continue with hemodialysis. Patient`s cousin stated that nephrology came by and discussed an option of peritoneal dialysis and patient is not sure if he even wants to go through that despite his family members present in the room, who are encouraging him to try hemodialysis. Patient stated tearfully that he wants to sign himself up for hospice, he is "ready to and he is not scared". Addressed code status, discussed CPR limitations and complications, patient elected do not resuscitate and don intubate. Patient`s cousin who is his his healthcare surrogate stated that he would like to make that decision for the patient but patient mentioned that he is able to speak for himself. Patient mentioned said, "if it is my time to go, please let me go". Explored to see if patient understands what would happen if he stops hemodialysis. Patient knows that he will . Patient requested that he wants hospice, explained to patient that an informative hospice consult will be placed and he can still try peritoneal dialysis and if his condition continues to deteriorate he has an option to call hospice if he chooses to forgo aggressive treatment and opt for comfort care only. Patient tearfully said , "i might as well sign myself up for hospice because i do not want to go through this". Patient`s sister tearfully encouraging patient to at least try peritoneal dialysis. Palliative care contact information provided. Function/Cognitive Trajectory: Patient has had 6 ER visits this year for bronchitis, right foot pain, left flank pain. Patient is also been hospitalized at [facility] for about a week in March and his last hospitalization was at [facility] from [facility] when he was in acute renal failure and was started on hemodialysis. Per patient`s cousin Johnny (DIEUDONNE) who lives with patient mentioned that after patient`s last hospitalization, patient has been weak and unable to perform ADLs he used to be able to without assistance. He explained how patient drove himself to the dialysis center and was not able to drive himself back and had to call his sister to drive him back home. Review of Systems Constitutional: Reports lack of energy, Reports weakness, Denies fever(s), Denies increased appetite, Denies weight loss Eyes: Denies blurry vision, Denies irritation, Denies itchy eyes Ears, Nose, Mouth, and Throat: Denies abnormal hearing, Denies hearing loss, Denies nasal congestion, Denies nasal discharge Cardiovascular: Reports shortness of breath, Denies chest pain, Denies foot swelling, Denies leg swelling, Denies rapid, pounding, or irregular heartbeat Respiratory: Reports cough, Reports shortness of breath Gastrointestinal: Denies abdominal pain, Denies change in bowel habits, Denies difficulty swallowing, Denies nausea, Denies vomiting Genitourinary: Denies blood in urine, Denies urinary incontinence (Patient mentions that he still voids though he hasn`t this hospitalization) Musculoskeletal: Denies limited joint movement, Denies muscle cramps Neurologic: Denies confusion, Denies frequent falls, Denies tingling/numbness/ burning sensations Psychiatric: Reports change in appetite (Decreased appetite) Endocrine: Denies rapid, pounding, or irregular heartbeat Hematologic/Lymphatic: Denies easy bleeding complaining of dry skin and itching PMFSH - History History Provided By: Patient - Medical History Medical History: Medical History (Last Updated 04/17/18 @ 10:22 by Zena Hunter) Dialysis patient End stage renal disease Hepatitis B GERD (gastroesophageal reflux disease) HTN (hypertension) Right testicular torsion - Surgical History Surgical History: Surgical History (Last Updated 04/17/18 @ 10:39 by Zena Hunter) AV fistula Vascular dialysis catheter in place Onset Date: ~03/31/18 History of knee surgery - Family History Family History: Family History (Last Updated 04/17/18 @ 13:46 by Zena Hunter) Mother Hx of renal failure Father Family hx of colon cancer Brother End stage renal disease - Tobacco History Second Hand Smoke Exposure: No Smoking Status: Never smoker - Alcohol History How Often Do You Have a Drink Containing Alcohol: 2 to 4 times a month - Substance Use History Substance History: No History of Abuse - Travel History History of Recent Travel: No Recent Travel in the [place] Within the Last 8 Weeks: No Recent Travel Out of the Country Within the Last 8 Weeks: No - Immunization History Tetanus Immunization: <5 Years Hx Influenza Vaccine This Season: No Medications and Allergies Allergies Allergy/AdvReac Type Severity Reaction Status Date / Time No Known Allergies Allergy Verified 04/14/18 05:33 Home Medications Medication Instructions Recorded Confirmed Type lansoprazole 30 mg PO BID 03/30/18 04/12/18 History ranitidine HCl 150 mg PO DAILY 03/30/18 04/12/18 History Active Medications: Active Medications Acetaminophen (Tylenol) 650 mg PO Q4H PRN PRN Reason: Temp > 100.4 Acetaminophen (Tylenol) 650 mg PO UNSCH PRN PRN Reason: SEE LABEL COMMENTS Artificial Tears (Eucerin Cream) 1 applicatio TOPICAL QID [facility] Last Admin: 04/16/18 22:27 Dose: 1 applicatio Calcium Acetate (Phoslo) 667 mg PO TID [facility] Last Admin: 04/17/18 08:47 Dose: 667 mg Chlorhexidine Gluconate (Peridex 0.12% Liq) 15 ml SWISH-SPIT BID [facility] Last Admin: 04/16/18 22:27 Dose: 15 ml Clonidine HCl (Catapres) 0.1 mg PO UNSCH PRN PRN Reason: SEE LABEL COMMENTS Diphenhydramine HCl (Benadryl) 25 mg PO UNSCH PRN PRN Reason: SEE LABEL COMMENTS Epoetin Josafat (Epogen Inj) 10,000 unit IV.PUSH MOWEFR PRN PRN Reason: SEE LABEL COMMENTS Last Admin: 04/15/18 21:21 Dose: 10,000 unit Famotidine (Pepcid) 20 mg PO DAILY [facility] Last Admin: 04/17/18 08:47 Dose: 20 mg Gelatin (Gelfoam 12 Mm/7 Mm Topical) 1 foam TOPICAL PRN PRN PRN Reason: help stop bleeding from site Gentamicin Sulfate (Gentamicin Inj) 20 mg OTHER WITH DIALYSIS PRN PRN Reason: Dwell Gentamycin Lock Last Admin: 04/15/18 21:21 Dose: 20 mg Guaifenesin (Mucinex Er) 600 mg PO BID [facility] Last Admin: 04/17/18 08:47 Dose: Not Given Heparin Sodium (Porcine) (Heparin Inj) 8,000 units IV.FLUSH WITH DIALYSIS PRN PRN Reason: for machine prime Last Admin: 04/13/18 19:57 Dose: 8,000 units Heparin Sodium (Porcine) (Heparin Inj) 1,000 units OTHER WITH DIALYSIS PRN PRN Reason: Dwell Heparin to Fill Catheter Last Admin: 04/15/18 21:22 Dose: 1,000 units Albumin Human (Flexbumin 25% Inj) 100 mls @ 60 mls/hr IV.SIG WITH DIALYSIS PRN PRN Reason: hypotension / volume replace Sodium Chloride (Ns Inj) 1,000 mls @ 0 mls/hr OTHER .Q0M PRN PRN Reason: for prime and rinse back Sodium Chloride (Ns Inj) 1,000 mls @ 200 mls/hr OTHER .Q5H PRN PRN Reason: for dialyzer flush PRN Sodium Chloride (Ns Inj) 1,000 mls @ 0 mls/hr IV.CONT .Q0M PRN PRN Reason: hypotension / volume replace Vancomycin HCl 1,000 mg/ (Sodium Chloride) 250 mls @ 250 mls/hr IV.SIG WITH DIALYSIS [facility] Last Admin: 04/15/18 21:19 Dose: 250 mls/hr Piperacillin/Tazobactam/Dextrose (Zosyn 2.25 Gm Premix) 50 mls @ 100 mls/hr IV.SIG Q12H [facility] Last Admin: 04/17/18 08:47 Dose: 100 mls/hr Lactobacillus Acidophilus (Lactinex) 1 tab PO TID [facility] Last Admin: 04/17/18 08:47 Dose: 1 tab Lactulose (Lactulose Liq) 30 ml PO DAILY PRN PRN Reason: SEVERE CONSITIPATION Mannitol (Mannitol Inj) 12.5 gm IV.PUSH PRN PRN PRN Reason: hypotension / volume replace Midodrine (Proamatine) 5 mg PO TID@0700,1200,1700 [facility] Last Admin: 04/16/18 18:07 Dose: Not Given Multi-Ingredient Mouthwash/Gargle (Magic Mouthwash Adult Liq) 10 ml SWISH-SWAL QID [facility] Last Admin: 04/17/18 08:49 Dose: Not Given Nitroglycerin (Nitrostat Sl) 0.4 mg SL Q5M PRN PRN Reason: CHEST PAIN Nystatin (Mycostatin Liq) 5 ml SWISH-SWAL QID [facility] Last Admin: 04/17/18 08:50 Dose: Not Given Ondansetron HCl (Zofran Inj) 4 mg IV.PUSH UNSCH PRN PRN Reason: NAUSEA OR VOMITING Last Admin: 04/15/18 10:05 Dose: 4 mg Ondansetron HCl (Zofran Odt) 4 mg PO Q6H PRN PRN Reason: NAUSEA OR VOMITING Pantoprazole Sodium (Protonix) 40 mg PO BID [facility] Last Admin: 04/17/18 08:47 Dose: 40 mg Senna/Docusate Sodium (Makenzie-Colace) 1 tab PO BID PRN PRN Reason: CONSTIPATION Sennosides (Senokot) 17.2 mg PO Q12H PRN PRN Reason: Moderate Constipation Sodium Chloride (Ns Flush) 5 ml IV.FLUSH PRN PRN PRN Reason: flush each lumen during HD Last Admin: 04/14/18 21:28 Dose: 2 ml Temazepam (Restoril) 15 mg PO HS PRN PRN Reason: INSOMNIA Advance Directives Living Will: No Healthcare Surrogate: Yes Health Care Surrogate Name and Number: [facility]-Johnny Feng ([phone]) Alt HCS : Mariama Disla ([phone]) Power of Behavioral Health Worker: No Today's verbally stated goals: Patient does not want to pursue aggressive treatment and wants comfort care through hospice. His family is encouraging him to at least try peritoneal dialysis before transitioning to comfort care. Informative hospice consult will be consulted. Family/friends goals: Family would like patient to at least peritoneal dialysis before he considers stopping aggressive treatment. Ethical and Legal Issues: None identified at this time Physical Exam Vital Signs: Vital Signs - 24 hr 04/16/18 10:00 04/16/18 11:00 04/16/18 12:00 Temperature 98.2 F Pulse Rate 98 H 88 92 H Respiratory Rate 16 Blood Pressure 100/62 Pulse Oximetry 96 04/16/18 13:00 04/16/18 14:00 04/16/18 15:00 Temperature Pulse Rate 94 H 97 H 102 H Respiratory Rate Blood Pressure Pulse Oximetry 04/16/18 15:17 04/16/18 15:52 04/16/18 16:00 Temperature 98.2 F Pulse Rate 92 H 92 H Respiratory Rate 16 Blood Pressure 115/66 Pulse Oximetry 96 92 L 04/16/18 17:00 04/16/18 18:00 04/16/18 19:00 Temperature Pulse Rate 95 H 101 H 96 H Respiratory Rate Blood Pressure Pulse Oximetry 04/16/18 20:00 04/16/18 21:00 04/16/18 22:00 Temperature 98.2 F Pulse Rate 88 90 94 H Respiratory Rate 20 Blood Pressure 115/60 Pulse Oximetry 94 L 04/16/18 23:00 04/17/18 00:00 04/17/18 01:00 Temperature Pulse Rate 98 H 95 H 88 Respiratory Rate 18 Blood Pressure 99/55 L Pulse Oximetry 95 04/17/18 02:00 04/17/18 03:00 04/17/18 04:00 Temperature Pulse Rate 86 84 85 Respiratory Rate 18 Blood Pressure 103/57 L Pulse Oximetry 93 L 04/17/18 05:00 04/17/18 06:00 04/17/18 07:00 Temperature Pulse Rate 88 85 85 Respiratory Rate Blood Pressure Pulse Oximetry 04/17/18 07:37 Temperature Pulse Rate Respiratory Rate Blood Pressure Pulse Oximetry 96 I&O: Intake & Output 04/15/18 04/16/18 04/17/18 04/18/18 06:59 06:59 06:59 06:59 Intake Total 1890 / 1890 820 / 820 1380 / 1380 Output Total 3000 / 3000 100 / 100 Balance 1890 / 1890 -2180 / -2180 1280 / 1280 Weight 101.2 kg 100.1 kg 100.7 kg Physical Exam: CONSTITUTIONAL/GENERAL: This is an obese patient, in no apparent distress. TUBES/LINES/DRAINS: AV Fistula Right arm, Perm Cath R IJ, PIV, SCDs SKIN: Dry, flaky and ashy. No wounds seen anteriorly. Skin temperature appropriate. Not diaphoretic. HEAD: Atraumatic. Normocephalic. EYES: Pupils equal and round and reactive. Extraocular motions intact. No scleral icterus. No injection or drainage. Fundi not examined. ENT: Hearing grossly normal. Nose without bleeding or purulent drainage. Moist oral mucosa NECK: Trachea midline. Supple, nontender. CARDIOVASCULAR: Regular rate and rhythm without murmurs, gallops, or rubs. No JVD. Peripheral pulses symmetric. RESPIRATORY/CHEST: Symmetric, unlabored respirations. Lungs clear but diminished in the basis No wheezes, rales, or rhonchi. GASTROINTESTINAL: Abdomen soft, non-tender, nondistended. No guarding. Bowel sounds present. GENITOURINARY: Without palpable bladder distension. MUSCULOSKELETAL: Extremities without clubbing, cyanosis, or edema. No joint tenderness or effusion noted. No calf tenderness. No mottling or clubbing. NEUROLOGICAL: Awake and alert. Motor and sensory grossly within normal limits. Follows commands. Moves all extremities. PSYCHIATRIC: No obvious anxiety/depression. no apparent hallucinations or other psychotic thought process. Diagnostic Tests Laboratory: Laboratory Results - last 72 hr 04/14/18 04/14/18 04/14/18 11:37 11:50 18:18 WBC RBC Hgb Hct MCV MCH MCHC RDW Plt Count MPV Prelim Diff (Auto) WBC Differential Seg Neuts % (Manual) Band Neuts % (Manual) Lymphocytes % (Manual) Monocytes % (Manual) Eosinophils % (Manual) Metamyelocytes % (Man) Myelocytes % (Man) Promyelocytes % (Man) Blast Cells % (Manual) Abs Neuts (Manual) Nucleated RBCs/100 WBC Differential Comment Platelet Estimate Platelet Morphology Basophilic Stippling Stomatocytes Sodium Potassium Chloride Carbon Dioxide Anion Gap BUN Creatinine Estimated GFR POC Glucose 90 Random Glucose Lactic Acid 3.5 H Calcium Phosphorus Magnesium 1.9 D Total Bilirubin AST ALT Alkaline Phosphatase Total Creatine Kinase 21 L Troponin I Total Protein Albumin Random Vancomycin 04/14/18 04/14/18 04/15/18 18:18 23:42 05:30 WBC RBC Hgb Hct MCV MCH MCHC RDW Plt Count MPV Prelim Diff (Auto) WBC Differential Seg Neuts % (Manual) Band Neuts % (Manual) Lymphocytes % (Manual) Monocytes % (Manual) Eosinophils % (Manual) Metamyelocytes % (Man) Myelocytes % (Man) Promyelocytes % (Man) Blast Cells % (Manual) Abs Neuts (Manual) Nucleated RBCs/100 WBC Differential Comment Platelet Estimate Platelet Morphology Basophilic Stippling Stomatocytes Sodium 140 Potassium 4.7 Chloride 105 Carbon Dioxide 18.5 L Anion Gap 17 H BUN 58 H Creatinine 11.06 H* D Estimated GFR 6 L POC Glucose Random Glucose 47 L* Lactic Acid Calcium 8.2 L Phosphorus 6.0 H Magnesium 2.3 Total Bilirubin 1.6 H AST 80 H ALT 27 Alkaline Phosphatase 81 Total Creatine Kinase Troponin I Less than 0.02 L Less than 0.02 L Total Protein 6.3 L Albumin 2.3 L Random Vancomycin 48.4 04/15/18 04/15/18 04/15/18 05:30 07:48 08:04 WBC 22.8 H RBC 2.82 L Hgb 8.5 L Hct 26.6 L MCV 94.4 MCH 30.2 MCHC 32.1 RDW 15.4 Plt Count 159 MPV 8.9 Prelim Diff (Auto) Manual diff required WBC Differential Manual diff final Seg Neuts % (Manual) 63 Band Neuts % (Manual) 11 H Lymphocytes % (Manual) 12 Monocytes % (Manual) 4 Eosinophils % (Manual) 2 Metamyelocytes % (Man) 3 H Myelocytes % (Man) 4 H Promyelocytes % (Man) 1 H Blast Cells % (Manual) Abs Neuts (Manual) 18.7 H Nucleated RBCs/100 WBC 1 H Differential Comment . Platelet Estimate Normal Platelet Morphology Normal Basophilic Stippling Stomatocytes Sodium Potassium Chloride Carbon Dioxide Anion Gap BUN Creatinine Estimated GFR POC Glucose 67 L 75 Random Glucose Lactic Acid Calcium Phosphorus Magnesium Total Bilirubin AST ALT Alkaline Phosphatase Total Creatine Kinase Troponin I Total Protein Albumin Random Vancomycin 04/15/18 04/15/18 04/16/18 16:25 20:45 05:03 WBC 22.4 H RBC 3.07 L Hgb 9.4 L Hct 28.6 L MCV 93.2 MCH 30.5 MCHC 32.7 RDW 15.1 Plt Count 161 MPV 8.7 Prelim Diff (Auto) Manual diff required WBC Differential Manual diff final Seg Neuts % (Manual) 52 Band Neuts % (Manual) 10 H Lymphocytes % (Manual) 9 Monocytes % (Manual) 7 Eosinophils % (Manual) 1 Metamyelocytes % (Man) 5 H Myelocytes % (Man) 14 H Promyelocytes % (Man) Blast Cells % (Manual) 2 H Abs Neuts (Manual) 18.1 H Nucleated RBCs/100 WBC 10 H Differential Comment . Platelet Estimate Normal Platelet Morphology Normal Basophilic Stippling Faint H Stomatocytes 2+ H Sodium Potassium Chloride Carbon Dioxide Anion Gap BUN Creatinine Estimated GFR POC Glucose Random Glucose Lactic Acid 2.1 H 1.9 Calcium Phosphorus Magnesium Total Bilirubin AST ALT Alkaline Phosphatase Total Creatine Kinase Troponin I Total Protein Albumin Random Vancomycin 04/16/18 04/16/18 04/16/18 05:03 13:56 14:36 WBC RBC Hgb Hct MCV MCH MCHC RDW Plt Count MPV Prelim Diff (Auto) WBC Differential Seg Neuts % (Manual) Band Neuts % (Manual) Lymphocytes % (Manual) Monocytes % (Manual) Eosinophils % (Manual) Metamyelocytes % (Man) Myelocytes % (Man) Promyelocytes % (Man) Blast Cells % (Manual) Abs Neuts (Manual) Nucleated RBCs/100 WBC Differential Comment Platelet Estimate Platelet Morphology Basophilic Stippling Stomatocytes Sodium 139 Potassium 4.3 Chloride 99 Carbon Dioxide 24.9 Anion Gap 15 BUN 31 H Creatinine 7.34 H Estimated GFR 10 L POC Glucose 84 82 Random Glucose 53 L Lactic Acid Calcium 8.4 L Phosphorus Magnesium Total Bilirubin 2.0 H AST 121 H ALT 38 Alkaline Phosphatase 95 Total Creatine Kinase Troponin I Total Protein 6.9 D Albumin 2.3 L Random Vancomycin 04/16/18 16:15 WBC RBC Hgb Hct MCV MCH MCHC RDW Plt Count MPV Prelim Diff (Auto) WBC Differential Seg Neuts % (Manual) Band Neuts % (Manual) Lymphocytes % (Manual) Monocytes % (Manual) Eosinophils % (Manual) Metamyelocytes % (Man) Myelocytes % (Man) Promyelocytes % (Man) Blast Cells % (Manual) Abs Neuts (Manual) Nucleated RBCs/100 WBC Differential Comment Platelet Estimate Platelet Morphology Basophilic Stippling Stomatocytes Sodium Potassium Chloride Carbon Dioxide Anion Gap BUN Creatinine Estimated GFR POC Glucose 96 Random Glucose Lactic Acid Calcium Phosphorus Magnesium Total Bilirubin AST ALT Alkaline Phosphatase Total Creatine Kinase Troponin I Total Protein Albumin Random Vancomycin Result Diagrams: 04/20/18 03:52 04/20/18 03:52 Microbiology: Microbiology 04/16/18 10:42 Enteric Pathogens (PCR) - Final Stool 04/16/18 12:00 Gram Stain - Final Sputum - Oral Tracheal Aspirate 04/12/18 17:50 Aerobic Blood Culture - Preliminary Blood - Peripheral No growth in 4 days Anaerobic Blood Culture - Preliminary No growth in 4 days 04/12/18 17:45 Aerobic Blood Culture - Preliminary Blood - Peripheral No growth in 4 days Anaerobic Blood Culture - Preliminary No growth in 4 days Imaging: Pulmonary Perfusion Imaging 04/12/18 17:53 CONCLUSION: Low probability for pulmonary embolus. There are matched defects at the posterior lower lobes likely from basilar areas of consolidation, atelectasis or effusion. Upper Extremity Ultrasound 04/13/18 00:00 CONCLUSION: Negative targeted ultrasound examination. Chest X-Ray 04/14/18 00:00 CONCLUSION: The lungs are mildly hypoinflated. Linear areas of atelectasis are seen. No evidence of airspace consolidation to suggest pneumonia. Patient/Family Conference Family Conference Location: Bedside Issues Discussed: * Palliative care role, purpose, approach * Additional medical, psychosocial, and spiritual history * Patients general health, functional status, and cognitive changes in the months leading up to the current hospitalization * Patient/family understanding of the current medical problems * Patient/family understanding of prognosis * Patients goals of care as best understood from advance directives and/or conversations and/or values * Current medical treatment options and benefits/burdens of those options * Likely scenarios comparing ongoing aggressive care with a transition to comfort measures only * Questions answered to the best of my ability * Introduced hospice philosophy and benefits * Palliative care contact information provided Assessment and Plan - Symptom Scale (1) Shortness of breath 0-10 Scale: Unable to quantify (Came in with a complaint of shortness of breath. ) Comment: Sputum culture collected on 04/18/18 positive for CLL pneumonia and MRSA. (2) Debility 0-10 Scale: Unable to quantify Comment: Progressive Pertinent Non-Medical Issues: Psychosocial: Patient was born and raised in [place]. Patient never and never had children. 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 Spiritual: Patient is [employer]-requested corporate scheduler services Legal: Completed healthcare surrogate form on 04/16/18 Ethical issues impacting care: None identified at this time Important Contacts: [facility]-Johnny Feng ([phone]) Alt HCS: Mariama Disla ([phone]) Prognosis: Mr. Barnes is a 47-year-old male with a past medical history significant for end-stage renal disease on dialysis, hypertension, hepatitis B right testicular torsion and GERD. Patient was started on hemodialysis on 04/02/18 during his last hospitalization and he has an AV fistula placed as well to his right upper arm prior to discharge. Patient presented to the ER on 04/12/18 with complaints of shortness of breath. Patient did not go to the dialysis on the day he presented to ER. With patient`s multiple comorbidities, he still remains at high risk for further complications, deterioration and decline. If patient choses to continue with hemodialysis and is compliant he may be able to live for a few more years but if he chooses to stop all aggressive treatment then it will be appropriate for him to transition to comfort care through hospice services. Code Status: No Code DNR Plan: PLAN: Legal decision maker: Patient is able to participate in medical decision making at this time. In the event that he is incapacitated, he designated his cousin Johnny Feng is his healthcare surrogate and his sister Mariama Disla is his alternate healthcare surrogate Goals: Aggressive short of no code. Patient is leaning more towards comfort care through hospice. He definitely does not want to continue with hemodialysis and his family is encouraging him to at least try peritoneal dialysis before he forgoes aggressive treatment and transition to comfort care through hospice. Informative hospice consultation placed per patient`s request. CODE STATUS: No code DNR, DNI SYMPTOMS: * Shortness of breath: Patient came in complaining of shortness of breath. Patient is currently on room air but has a dry cough.He denies SOB at this time. Patient's sputum culture collected on 04/16/18 grew gram-negative rods. Patient is currently on Zosyn and vancomycin. Continue to monitor for SOB. * Debility: Progressive. Patient has had approximately 2 hospitalizations this year and since then he has sick to a oint where he needs assistance with some of his ADLs. Patient has been getting physical therapy at home and states that he will not able to do it if he is on Hemodialysis. Recommending PT and OT consult if goals remain aggressive. Palliative care will continue to follow the patient during hospital course as condition evolves, to assist patient/decision-maker with understanding of their medical conditions, weighing benefits/burdens of treatment options, for clarification of goals of treatment. Additionally will assist with any symptoms of palliative concern Appreciation Thank you for the opportunity to participate in the care of Giovani Barnes. Attestation Collaborating Comments: Chart reviewed. Case discussed with palliative care nurse practitioner. Above CONTENT PUBLISHER note reviewed and I concur. . Attestation: To help prompt me to consider important information that might be impacting today's encounter and assessment, information from prior notes written by myself or my colleagues may have been "brought forward" into today's note. My signature on this note, however, is an attestation that I personally performed the exam, history, and/or decision-making noted today, and, unless otherwise indicated, the interactions with patient, family, and staff as well as the review of records all occurred today. I also attest that the listed assessment and stated plan reflect my best clinical judgment today based on the combination of historical information, prior notes, and today's exam/ interactions. When time spent is documented, it refers only to time spent today by the signer, or if indicated, combined time spent today by collaborating physician/nurse practitioner.
[2018-04-17] MEDS: Chlorhexidine Gluconate 0.12% Liq 15 ML UDC SWISH-SPIT SCH ×2 (10:37→21:47)
--- NOTE | 2018-04-17 11:18 | P.PNFP ---
Subjective Interval history: Patient seen and examined this morning. Patient sitting up in bed with family at bedside. Patient states that he experiences episodes of dizziness in the evenings following dialysis, which resolve on their own. Patient is tolerating food with out issue, no nausea, vomiting, or abdominal pain. Patient states he feels weak and that he is unable to walk from the bed to the bathroom. He has not yet been seen by physical therapy today. Patient has refused recent nystatin and magic mouthwash treatments because he doesn't like the numbing feeling, stating that it makes him feel like can't swallow well. Denies shortness of breath, chest pain, leg swelling or leg pain. Patient yesterday stated that he was unsure if he wanted to continue with dialysis on an outpatient basis. Palliative care consulted and seen briefly yesterday to discuss goals of care, but patient did not want to discuss psychosocial or medical history at the time. They plan to return to discuss these issues later today. Following patient's complaint of decreased ability to walk to and from bed to the bathroom without feeling weak, we added PT evaluation and treatment, which is to do be done later today. <Albania Garcia - 04/17/18 23:05> Results - Labs Result diagrams: 04/18/18 04:51 04/18/18 04:51 <Lauren Weller - 04/18/18 07:41> Abnormal lab results 04/17/18 04/17/18 04/18/18 Range/Units 11:15 11:15 04:51 WBC 26.1 H 23.7 H (4.0-11.0) th/mm3 RBC 3.12 L 2.59 L (4.50-5.90) mil/mm3 Hgb 9.5 L 8.0 L (13.0-17.0) gm/dL Hct 29.4 L 24.4 L (39.0-51.0) % Plt Count 130 L (150-450) th/mm3 Sodium 132 L (136-145) meq/L Chloride 93 L (98-107) meq/L Anion Gap 17 H (5-15) meq/L BUN 51 H (7-18) mg/dL Creatinine 10.36 H* D (0.60-1.30) mg/dL Estimated GFR 6 L (>89) mL/min POC Glucose (68-110) mg/dl Random Glucose 72 L (74-106) mg/dL Calcium (8.5-10.1) mg/dL 04/18/18 04/18/18 Range/Units 04:51 06:34 WBC (4.0-11.0) th/mm3 RBC (4.50-5.90) mil/mm3 Hgb (13.0-17.0) gm/dL Hct (39.0-51.0) % Plt Count (150-450) th/mm3 Sodium (136-145) meq/L Chloride (98-107) meq/L Anion Gap (5-15) meq/L BUN 26 H (7-18) mg/dL Creatinine 6.51 H (0.60-1.30) mg/dL Estimated GFR 11 L (>89) mL/min POC Glucose 60 L (68-110) mg/dl Random Glucose 45 L* (74-106) mg/dL Calcium 8.0 L D (8.5-10.1) mg/dL Short CBC 04/17/18 04/18/18 Range/Units 11:15 04:51 WBC 26.1 H 23.7 H (4.0-11.0) th/mm3 Hgb 9.5 L 8.0 L (13.0-17.0) gm/dL Hct 29.4 L 24.4 L (39.0-51.0) % Plt Count 179 130 L (150-450) th/mm3 BMP 04/17/18 04/18/18 11:15 04:51 Sodium 132 L 137 Potassium 4.6 4.5 Chloride 93 L 101 D Carbon Dioxide 22.2 25.3 BUN 51 H 26 H Creatinine 10.36 H* D 6.51 H Calcium 9.2 D 8.0 L D <Lauren Weller - 04/18/18 07:41> Physical Exam Vital signs: Vital Signs 04/17/18 08:00 04/17/18 09:00 04/17/18 10:00 Temperature 98.5 F Pulse Rate 84 94 H 95 H Respiratory Rate 16 Blood Pressure 112/58 L Pulse Oximetry 93 L 04/17/18 11:00 04/17/18 11:40 04/17/18 12:00 Temperature 97.9 F Pulse Rate 94 H 91 H 90 Respiratory Rate 16 Blood Pressure 118/75 Pulse Oximetry 97 04/17/18 13:00 04/17/18 14:00 04/17/18 15:00 Temperature Pulse Rate 97 H 85 87 Respiratory Rate Blood Pressure Pulse Oximetry 04/17/18 16:00 04/17/18 17:00 04/17/18 18:00 Temperature Pulse Rate 83 81 96 H Respiratory Rate Blood Pressure Pulse Oximetry 04/17/18 19:00 04/17/18 20:00 04/17/18 21:00 Temperature Pulse Rate 87 87 88 Respiratory Rate 16 Blood Pressure 105/55 L Pulse Oximetry 96 04/17/18 21:14 04/17/18 22:00 04/17/18 23:00 Temperature Pulse Rate 94 H 94 H Respiratory Rate Blood Pressure Pulse Oximetry 94 L 04/18/18 00:00 04/18/18 01:00 04/18/18 02:00 Temperature Pulse Rate 92 H 90 90 Respiratory Rate 18 Blood Pressure 117/67 Pulse Oximetry 93 L 04/18/18 03:00 04/18/18 04:00 04/18/18 05:00 Temperature Pulse Rate 91 H 101 H 86 Respiratory Rate 18 Blood Pressure 121/63 Pulse Oximetry 93 L 04/18/18 06:00 Temperature Pulse Rate 68 Respiratory Rate Blood Pressure Pulse Oximetry Intake & Output 04/17/18 04/18/18 04/18/18 18:59 06:59 18:59 Intake Total 1340 / 1340 530 / 530 Output Total 1500 / 1500 150 / 150 Balance -160 / -160 380 / 380 Weight 101.6 kg Intake: IV 300 / 300 50 / 50 Zosyn 2.25 GM Premix 50 ML @ 50 / 50 50 / 50 100 mls/hr IV.SIG Q12H [facility] Rx#: [id number] Vancomycin Inj 1,000 MG In NS 250 / 250 Inj 250 ML @ 250 mls/hr IV.SIG WITH DIALYSIS [facility] Rx#:[id number] Oral 1040 / 1040 480 / 480 Output: Urine 150 / 150 Hemodialysis Amount 1500 / 1500 Other: Date of Last Bowel Movement 04/17/18 <Lauren Weller - 04/18/18 07:41> Vital Signs 04/16/18 12:00 04/16/18 13:00 04/16/18 14:00 Temperature 98.2 F Pulse Rate 92 H 94 H 97 H Respiratory Rate 16 Blood Pressure 100/62 Pulse Oximetry 96 04/16/18 15:00 04/16/18 15:17 04/16/18 15:52 Temperature 98.2 F Pulse Rate 102 H 92 H Respiratory Rate 16 Blood Pressure 115/66 Pulse Oximetry 96 92 L 04/16/18 16:00 04/16/18 17:00 04/16/18 18:00 Temperature Pulse Rate 92 H 95 H 101 H Respiratory Rate Blood Pressure Pulse Oximetry 04/16/18 19:00 04/16/18 20:00 04/16/18 21:00 Temperature 98.2 F Pulse Rate 96 H 88 90 Respiratory Rate 20 Blood Pressure 115/60 Pulse Oximetry 94 L 04/16/18 22:00 04/16/18 23:00 04/17/18 00:00 Temperature Pulse Rate 94 H 98 H 95 H Respiratory Rate 18 Blood Pressure 99/55 L Pulse Oximetry 95 04/17/18 01:00 04/17/18 02:00 04/17/18 03:00 Temperature Pulse Rate 88 86 84 Respiratory Rate Blood Pressure Pulse Oximetry 04/17/18 04:00 04/17/18 05:00 04/17/18 06:00 Temperature Pulse Rate 85 88 85 Respiratory Rate 18 Blood Pressure 103/57 L Pulse Oximetry 93 L 04/17/18 07:00 04/17/18 07:37 04/17/18 08:00 Temperature 98.5 F Pulse Rate 85 84 Respiratory Rate 16 Blood Pressure 112/58 L Pulse Oximetry 96 93 L 04/17/18 09:00 04/17/18 10:00 Temperature Pulse Rate 94 H 95 H Respiratory Rate Blood Pressure Pulse Oximetry Intake & Output 04/16/18 04/17/18 04/17/18 18:59 06:59 18:59 Intake Total 1090 / 1090 290 / 290 0 / 0 Output Total 100 / 100 Balance 1090 / 1090 190 / 190 0 / 0 Weight 100.7 kg Intake: IV 50 / 50 50 / 50 0 / 0 Zosyn 2.25 GM Premix 50 ML @ 50 / 50 50 / 50 0 / 0 100 mls/hr IV.SIG Q12H [facility] Rx#: [id number] Oral 1040 / 1040 240 / 240 Output: Urine 100 / 100 Other: Date of Last Bowel Movement 04/16/18 04/17/18 # Bowel Movements 2 1 <Albania Garcia Bethany - 04/17/18 11:18> Narrative: GENERAL: Obese -Dominican male laying in bed, in no acute distress SKIN: Warm and dry. HEAD: Atraumatic. Normocephalic. EYES: Pupils equal and round. No scleral icterus. No injection or drainage. ENT: No nasal bleeding or discharge. Mucous membranes pink and moist. Candidiasis on tongue. Dental caries on teeth with plaque buildup and decay NECK: Trachea midline. No JVD. CARDIOVASCULAR: Regular rate and rhythm. Catheter site clean and dry without tenderness or active bleeding. RESPIRATORY: No accessory muscle use. Crackles at lung bases. Breath sounds distant, but equal bilaterally. GASTROINTESTINAL: Abdomen soft, obese, non-tender, nondistended. Hepatic and splenic margins not palpable. MUSCULOSKELETAL: Extremities without clubbing, cyanosis, or edema. No obvious deformities. Mild bilateral calf tenderness. Well-healing 10 cm AVF surgical site on RUE without erythema, induration, edema or drainage. NEUROLOGICAL: Awake and alert. No obvious cranial nerve deficits. Motor grossly within normal limits. Normal speech. Homans sign negative. PSYCHIATRIC: Appropriate mood and affect; insight and judgment normal. <Albania Garcia Bethany - 04/17/18 12:23> Assessment and Plan - Assessment (1) Severe sepsis Code(s): A41.9 - Sepsis, unspecified organism; R65.20 - Severe sepsis without septic shock Status: Acute (2) Hypotension Code(s): I95.9 - Hypotension, unspecified Status: Acute (3) End stage renal disease Code(s): N18.6 - End stage renal disease Status: Chronic (4) Acute renal failure (ARF) Code(s): N17.9 - Acute kidney failure, unspecified Status: Acute (5) Oral candidiasis Code(s): B37.0 - Candidal stomatitis Status: Acute (6) Sacral wound Code(s): S31.000A - Unspecified open wound of lower back and pelvis without penetration into retroperitoneum, initial encounter Status: Acute (7) Dyspnea Code(s): R06.00 - Dyspnea, unspecified Status: Resolved (8) GERD (gastroesophageal reflux disease) Code(s): K21.9 - Gastro-esophageal reflux disease without esophagitis Status: Acute (9) Hepatitis B Code(s): B19.10 - Unspecified viral hepatitis B without hepatic coma Status: Chronic (10) Nutrition, metabolism, and development symptoms Code(s): R63.8 - Other symptoms and signs concerning food and fluid intake Status: Acute (11) DVT prophylaxis Status: Acute <Lauren Weller - 04/18/18 07:41> (1) Severe sepsis Code(s): A41.9 - Sepsis, unspecified organism; R65.20 - Severe sepsis without septic shock Status: Acute Plan: Patient met sepsis criteria on admission WBC 19.0, tachycardia and initially hypotensive responded to initial fluid boluses, but afebrile. LA and blood cultures ordered. LUE with small amount of serosanguinous drainage, no induration or fluctuance, but mild edema. 04/17 Leukocytosis continuing to increase, now 26.1. Will continue to rule out other sources of infections. C.diff, viral respiratory panel and urine pending. Will discountiue Vancomycin after today's dose at dialysis, will continue Zosyn and add Levaquin to start empiric treatment for possible UTI. Few budding yeast cells seen in sputum culture, will consent for HIV testing and start on Diflucan for candidial infection. -CXR 04/12: Minimal parenchymal changes in right base without fluid overload -Perfusion scan 04/12: Low probability for PE. Matched defects at posterior lower lobes likely from basilar areas of consolidation versus atelectasis versus effusion. -LUE US: Negative exam -CXR 04/14: Lungs are mildly hypoinflated. Linear areas of atelectasis seen. No evidence of airspace consolidation suggesting pneumonia. Labs: -LA: 2.7, 2.1, 2.4, 4.5, 3.5, 4.5, 3.5, 2.1, 1.9, has normalized. -Blood cultures: Negative to date -WBC: 19.0, 16.4, 19.1, 22.8, 22.4, 26.1 (with elevated bands and absolute neutrophil count) -Sputum cx pending, gram stain reveals: Few budding yeast cells, moderate WBCs, light mixed elliott with no predominant morphology -UA, viral respiratory panel and C.diff pending -Patient consented and agreed to HIV testing Medications: -Will receive last dose of Vancomycin 1g IV q24h today at dialysis (04/14-04/17) -Day 4 Zosyn 3.375 g IV q12h (04/13- ) -Will order Diflucan 200mg for initial dose following dialysis. Continuing on patient is to receive Diflucan 100mg follow dialysis and 50mg on non-dialysis days for empiric treatment for oropharyngeal candidiasis -Albumin 5% 25 g ordered once per nephrology for hypotension, may consider again if patient is acutely hypotensive (2) Hypotension Code(s): I95.9 - Hypotension, unspecified Status: Acute Plan: Patient with hypotension overnight 04/13/18 with chest tightness as well as hip/ thigh pain he attributes to being "dry" after hemodialysis. Minimal improvement with 2x 500 mL normal saline bolus on 04/13/19. -EKG with sinus tachycardia per medical team read without any acute ST elevation /depression's or interval changes. -BMP: Electrolytes within normal limits -Phosphorus 6.0 -Magnesium: 2.3 -CK: Ordered -Troponin: negative x 3 -Discussed with nephrology, recommend albumin 5% 25 g once -Midodrine added for hypotension -avoid IVF (3) End stage renal disease Code(s): N18.6 - End stage renal disease Status: Chronic Plan: Patient diagnosed with ESRD weeks ago. BUN 67, Cr 12.55 & estimated GFR 5L on admission. Started HD on 04/[address] Epifanio Greene and underwent AVF procedure on prior to recent hospital discharge with Dr. Hummel. He underwent dialysis 2 days ago, but stopped treatment, because the line clotted and he was scared. Patient to undergo dialysis in the hospital with Nephrology. Hemodialysis 04/13 with 700 mL fluid removal, discontinued early due to patient request as he was becoming "dry". Patient tolerated hemodialysis on 04/15 removed 3L without issue. Nephrology consulted and recommends to -Avoid IV fluid -Give epogen with dialysis -Renally dose medications -Hemodialysis today. Per nephrology, patient has shown an interest in peritoneal dialysis. -Patient may need to undergo permcath removal and temporary HD catheter placed if leukocytosis continues -Consider PD catheter placed at discharge (4) Acute renal failure (ARF) Code(s): N17.9 - Acute kidney failure, unspecified Status: Acute Plan: Likely acute on chronic kidney injury. ESRD non-compliant with HD. -plan as above, ESRD (5) Oral candidiasis Code(s): B37.0 - Candidal stomatitis Status: Acute Plan: Patient complaining of painful swallowing, noted to have white plaque covering tongue on exam. Preliminary sputum culture few shows budding yeast. -Nystatin swish and swallow started on 04/13 for white plaques in mouth, most likely oral muriel -Magic mouthwash started on 04/13 for mouth pain -Consider starting on diflucan with pharmacy consult for renal dosing to treat oropharyngeal candidiasis. Waiting final sputum cultures. (6) Sacral wound Code(s): S31.000A - Unspecified open wound of lower back and pelvis without penetration into retroperitoneum, initial encounter Status: Acute Plan: Patient found to have small sacral wound on exam 04/14/18 -Patient to be rotated per protocol. (7) Dyspnea Code(s): R06.00 - Dyspnea, unspecified Status: Resolved Plan: SOB currently resolved. ACS and PE ruled out in ED. D-Dimer 6.12, however, likely elevated due to ESRD on HD with VQ scan with low probability of PE. Echocardiogram showed: The left ventricular systolic function is normal with an estimated ejection fraction in the range of 60-65%. Normal left ventricular size. Trace tricuspid valve regurgitation. No pericardial effusion. -Supplemental O2 PRN with goal O2 sat >92% -Incentive spirometry/Acapella (8) GERD (gastroesophageal reflux disease) Code(s): K21.9 - Gastro-esophageal reflux disease without esophagitis Status: Acute Plan: Patient with hx of GERD. -Protonix 40mg daily -Pepcid 20 mg daily (9) Hepatitis B Code(s): B19.10 - Unspecified viral hepatitis B without hepatic coma Status: Chronic Plan: Patient with hx of hepatitis B. LFTs show AST 49 and ALT 20. -Will continue to monitor (10) Nutrition, metabolism, and development symptoms Code(s): R63.8 - Other symptoms and signs concerning food and fluid intake Status: Acute Plan: Fluids: tolerating po, No IV fluids per nephrology Electrolytes: will monitor with daily labs, replete, and allow nephro to help manage once pt begins HD Nutrition: renal diet GI: as above; continue home meds Palliative care consulted ordered yesterday. Plan to speak with patient about psychosocial and medical history today. PT consulted for evaluation and treatment. (11) DVT prophylaxis Status: Acute Plan: DVT prophylaxis: Bilateral SCDs <Albania Garcia - 04/18/18 01:17> - Assessment and Plan 47 YO male followed by Dr Weller with HTN, GERD, Hep B and recent ESRD with start of HD in last 3 weeks presents with acute on chronic renal failure due to HD noncompliance and possible sepsis. <Albania Garcia - 04/18/18 01:25> - Attending Attestation Patient seen and examined on 04/17/2018, discussed with resident team. I agree with assessment and management as documented and discussed with me. Pt reports feeling tired and lightheaded. He is joined by his family at the bedside. He is deciding between home with home health PT and rehab, and will wait until he works with PT to determine that. He is looking forward to speaking with palliative care to help him decide his goals. He is agreeable to go to dialysis today. <Lauren Weller - 04/18/18 07:41> <Albania Garcia - Last Filed: 04/18/18 01:17> (2) Hypotension Qualifiers: Hypotension type: unspecified hypotension type Qualified Code(s): I95.9 - Hypotension, unspecified (4) Acute renal failure (ARF) Qualifiers: Acute renal failure type: unspecified Qualified Code(s): N17.9 - Acute kidney failure, unspecified (6) Sacral wound Qualifiers: Encounter type: initial encounter Qualified Code(s): S31.000A - Unspecified open wound of lower back and pelvis without penetration into retroperitoneum, initial encounter (7) Dyspnea Qualifiers: Dyspnea type: unspecified Qualified Code(s): R06.00 - Dyspnea, unspecified <Lauren Weller - Last Filed: 04/18/18 07:41> (2) Hypotension Qualifiers: Hypotension type: unspecified hypotension type Qualified Code(s): I95.9 - Hypotension, unspecified (4) Acute renal failure (ARF) Qualifiers: Acute renal failure type: unspecified Qualified Code(s): N17.9 - Acute kidney failure, unspecified (6) Sacral wound Qualifiers: Encounter type: initial encounter Qualified Code(s): S31.000A - Unspecified open wound of lower back and pelvis without penetration into retroperitoneum, initial encounter (7) Dyspnea Qualifiers: Dyspnea type: unspecified Qualified Code(s): R06.00 - Dyspnea, unspecified <JoseAlbania B - Last Filed: 04/18/18 01:17> (2) Hypotension Qualifiers: Hypotension type: unspecified hypotension type Qualified Code(s): I95.9 - Hypotension, unspecified (4) Acute renal failure (ARF) Qualifiers: Acute renal failure type: unspecified Qualified Code(s): N17.9 - Acute kidney failure, unspecified (6) Sacral wound Qualifiers: Encounter type: initial encounter Qualified Code(s): S31.000A - Unspecified open wound of lower back and pelvis without penetration into retroperitoneum, initial encounter (7) Dyspnea Qualifiers: Dyspnea type: unspecified Qualified Code(s): R06.00 - Dyspnea, unspecified <Lauren Weller - Last Filed: 04/18/18 07:41> (2) Hypotension Qualifiers: Hypotension type: unspecified hypotension type Qualified Code(s): I95.9 - Hypotension, unspecified (4) Acute renal failure (ARF) Qualifiers: Acute renal failure type: unspecified Qualified Code(s): N17.9 - Acute kidney failure, unspecified (6) Sacral wound Qualifiers: Encounter type: initial encounter Qualified Code(s): S31.000A - Unspecified open wound of lower back and pelvis without penetration into retroperitoneum, initial encounter (7) Dyspnea Qualifiers: Dyspnea type: unspecified Qualified Code(s): R06.00 - Dyspnea, unspecified
--- NOTE | 2018-04-17 11:21 | P.PNNP ---
Subjective Interval history: Seen by palliative care. He has agreed to continue dialysis, but has shown interest in home dialysis (PD). Due for HD today. Leukocytosis persists. <Yulisa Dunn - Last Filed: 04/17/18 11:09> Physical Exam Vital signs: Vital Signs 04/16/18 12:00 04/16/18 13:00 04/16/18 14:00 Temperature 98.2 F Pulse Rate 92 H 94 H 97 H Respiratory Rate 16 Blood Pressure 100/62 Pulse Oximetry 96 04/16/18 15:00 04/16/18 15:17 04/16/18 15:52 Temperature 98.2 F Pulse Rate 102 H 92 H Respiratory Rate 16 Blood Pressure 115/66 Pulse Oximetry 96 92 L 04/16/18 16:00 04/16/18 17:00 04/16/18 18:00 Temperature Pulse Rate 92 H 95 H 101 H Respiratory Rate Blood Pressure Pulse Oximetry 04/16/18 19:00 04/16/18 20:00 04/16/18 21:00 Temperature 98.2 F Pulse Rate 96 H 88 90 Respiratory Rate 20 Blood Pressure 115/60 Pulse Oximetry 94 L 04/16/18 22:00 04/16/18 23:00 04/17/18 00:00 Temperature Pulse Rate 94 H 98 H 95 H Respiratory Rate 18 Blood Pressure 99/55 L Pulse Oximetry 95 04/17/18 01:00 04/17/18 02:00 04/17/18 03:00 Temperature Pulse Rate 88 86 84 Respiratory Rate Blood Pressure Pulse Oximetry 04/17/18 04:00 04/17/18 05:00 04/17/18 06:00 Temperature Pulse Rate 85 88 85 Respiratory Rate 18 Blood Pressure 103/57 L Pulse Oximetry 93 L 04/17/18 07:00 04/17/18 07:37 04/17/18 08:00 Temperature 98.5 F Pulse Rate 85 84 Respiratory Rate 16 Blood Pressure 112/58 L Pulse Oximetry 96 93 L 04/17/18 09:00 04/17/18 10:00 Temperature Pulse Rate 94 H 95 H Respiratory Rate Blood Pressure Pulse Oximetry Intake & Output 04/16/18 04/17/18 04/17/18 18:59 06:59 18:59 Intake Total 1090 / 1090 290 / 290 0 / 0 Output Total 100 / 100 Balance 1090 / 1090 190 / 190 0 / 0 Weight 100.7 kg Intake: IV 50 / 50 50 / 50 0 / 0 Zosyn 2.25 GM Premix 50 ML @ 50 / 50 50 / 50 0 / 0 100 mls/hr IV.SIG Q12H [facility] Rx#: [id number] Oral 1040 / 1040 240 / 240 Output: Urine 100 / 100 Other: Date of Last Bowel Movement 04/16/18 04/17/18 # Bowel Movements 2 1 - Constitutional no acute distress - Routine HEENT Exam Head: Present: normocephalic ENT: Present: mucous membranes moist - Routine Neck Exam Present: supple, full ROM. Absent: JVD, carotid bruit - Routine Respiratory Exam Present: CTA bilaterally. Absent: accessory muscle use - Routine Cardiovascular Exam Present: RRR, S1, S2 - Routine Abdominal Exam Present: soft, normoactive bowel sounds. Absent: guarding - Routine Extremities Exam Present: full ROM, pulses intact, AV fistula. Absent: edema Comments: Immature but patent AVF on right. - Routine Skin Exam Present: intact, dry, warm - Routine Neurological Exam Present: alert, oriented X3, CN II-XII intact - Detailed Neurological Exam: Coma Scale Eye Opening: Spontaneous Verbal Response: Oriented Motor Response: Obey commands Nida Coma Scale Total: 15 - Routine Psychiatric Exam Present: normal affect, normal thought process <Yulisa Dunn - Last Filed: 04/17/18 11:09> Vital signs: Vital Signs 04/16/18 20:00 04/16/18 21:00 04/16/18 22:00 Temperature 98.2 F Pulse Rate 88 90 94 H Respiratory Rate 20 Blood Pressure 115/60 Pulse Oximetry 94 L 04/16/18 23:00 04/17/18 00:00 04/17/18 01:00 Temperature Pulse Rate 98 H 95 H 88 Respiratory Rate 18 Blood Pressure 99/55 L Pulse Oximetry 95 04/17/18 02:00 04/17/18 03:00 04/17/18 04:00 Temperature Pulse Rate 86 84 85 Respiratory Rate 18 Blood Pressure 103/57 L Pulse Oximetry 93 L 04/17/18 05:00 04/17/18 06:00 04/17/18 07:00 Temperature Pulse Rate 88 85 85 Respiratory Rate Blood Pressure Pulse Oximetry 04/17/18 07:37 04/17/18 08:00 04/17/18 09:00 Temperature 98.5 F Pulse Rate 84 94 H Respiratory Rate 16 Blood Pressure 112/58 L Pulse Oximetry 96 93 L 04/17/18 10:00 04/17/18 11:00 04/17/18 11:40 Temperature 97.9 F Pulse Rate 95 H 94 H 91 H Respiratory Rate 16 Blood Pressure 118/75 Pulse Oximetry 97 04/17/18 12:00 04/17/18 13:00 04/17/18 14:00 Temperature Pulse Rate 90 97 H 85 Respiratory Rate Blood Pressure Pulse Oximetry 04/17/18 15:00 04/17/18 16:00 04/17/18 17:00 Temperature Pulse Rate 87 83 81 Respiratory Rate Blood Pressure Pulse Oximetry 04/17/18 18:00 Temperature Pulse Rate 96 H Respiratory Rate Blood Pressure Pulse Oximetry Intake & Output 04/17/18 04/17/18 04/18/18 06:59 18:59 06:59 Intake Total 290 / 290 1340 / 1340 Output Total 100 / 100 1500 / 1500 Balance 190 / 190 -160 / -160 Weight 100.7 kg Intake: IV 50 / 50 300 / 300 Zosyn 2.25 GM Premix 50 ML @ 50 / 50 50 / 50 100 mls/hr IV.SIG Q12H [facility] Rx#: [id number] Vancomycin Inj 1,000 MG In NS 250 / 250 Inj 250 ML @ 250 mls/hr IV.SIG WITH DIALYSIS [facility] Rx#:[id number] Oral 240 / 240 1040 / 1040 Output: Urine 100 / 100 Hemodialysis Amount 1500 / 1500 Other: Date of Last Bowel Movement 04/17/18 # Bowel Movements 1 <Rito Jose - Last Filed: 04/17/18 19:36> Assessment and Plan - Assessment (1) End stage renal disease Code(s): N18.6 - End stage renal disease Status: Chronic Plan: HD currently MWF. Has outpatient arrangements at [facility]. Has right IJ PermCath and AVF in RUE (not mature) He does not want to continue HD, is open to converting to PD as his mother did this type of dialysis. Will have PD nurses come to bedside for education purposes. Monitor electrolytes intermittently. Avoid IVF Continue Epogen with dialysis On Calcium Acetate for metabolic bone disorder. (2) Sepsis Code(s): A41.9 - Sepsis, unspecified organism Status: Acute Qualifiers: Sepsis type: sepsis due to unspecified organism Qualified Code(s): A41.9 - Sepsis, unspecified organism Plan: On Vancomycin and Zosyn. Lactic acid normalized. Source unclear. Multiple tests pending. BC negative to date. He may need Permcath removal and temporary HD catheter placed if leukocytosis continues. It would be ideal to have PD catheter placed prior to discharge. Will monitor labs, presence of fever, etc. (3) Hypotension Code(s): I95.9 - Hypotension, unspecified Status: Acute Qualifiers: Hypotension type: unspecified hypotension type Qualified Code(s): I95.9 - Hypotension, unspecified Plan: Ordered midodrine for intradialytic hypotension. Continue to monitor BP. (4) Oral candidiasis Code(s): B37.0 - Candidal stomatitis Status: Acute Plan: Nystatin swish and swallow, improved. <Yulisa Dunn - Last Filed: 04/17/18 11:09> - Assessment (1) End stage renal disease Code(s): N18.6 - End stage renal disease Status: Chronic (2) Sepsis Code(s): A41.9 - Sepsis, unspecified organism Status: Acute Qualifiers: Sepsis type: sepsis due to unspecified organism Qualified Code(s): A41.9 - Sepsis, unspecified organism (3) Hypotension Code(s): I95.9 - Hypotension, unspecified Status: Acute Qualifiers: Hypotension type: unspecified hypotension type Qualified Code(s): I95.9 - Hypotension, unspecified (4) Oral candidiasis Code(s): B37.0 - Candidal stomatitis Status: Acute <Rito Jose - Last Filed: 04/17/18 19:36>
[2018-04-17 11:28] LABS: Hematocrit 29.4 % (39.0-51.0); Hemoglobin 9.5 gm/dL (13.0-17.0); Mean Corpuscular HGB Conc 32.5 % (32.0-36.0); Mean Corpuscular Hemoglobin 30.6 pg (27.0-34.0); Mean Corpuscular Volume 94.1 fL (80.0-100.0); Platelet Count 179 th/mm3 (150-450); Red Blood Count 3.12 mil/mm3 (4.50-5.90); Red Cell Distribution Width 15.6 % (11.6-17.2); White Blood Count 26.1 th/mm3 (4.0-11.0)
[2018-04-17 11:55] LABS: Calcium 9.2 mg/dL (8.5-10.1); Carbon Dioxide 22.2 meq/L (21.0-32.0); Potassium 4.6 meq/L (3.5-5.1)
[2018-04-17] MEDS: Vancomycin Inj 1,000 MG in Sodium Chlor 0.9% Inj 250 ML IV.SIG SCH (15:22)
[2018-04-17] MEDS: Heparin 10,000 UNITS/10 ML Vial (for IV use) OTHER PRN (15:23)
[2018-04-18 06:18] LABS: Hematocrit 24.4 % (39.0-51.0); Mean Corpuscular HGB Conc 32.7 % (32.0-36.0); Mean Corpuscular Hemoglobin 30.8 pg (27.0-34.0); Mean Corpuscular Volume 94.2 fL (80.0-100.0); Mean Platelet Volume 8.7 fL (7.0-11.0); Platelet Count 130 th/mm3 (150-450); Red Blood Count 2.59 mil/mm3 (4.50-5.90); Red Cell Distribution Width 15.9 % (11.6-17.2); White Blood Count 23.7 th/mm3 (4.0-11.0)
[2018-04-18 06:27] LABS: Carbon Dioxide 25.3 meq/L (21.0-32.0); Potassium 4.5 meq/L (3.5-5.1)
--- NOTE | 2018-04-18 12:15 | P.PNFP ---
Subjective Interval history: Patient seen and examined this morning. He states that he is still having a cough. Otherwise, he is doing okay. No fever/chills, no chest pain, no shortness of breath, no abdominal pain. He has decided to continue with HD and is exploring the possibility of peritoneal dialysis. <Sahra Ambrocio Hudson - 04/18/18 14:59> Results - Labs Result diagrams: 04/18/18 04:51 04/18/18 04:51 <Lauren Weller - 04/18/18 20:29> Abnormal lab results 04/18/18 04/18/18 04/18/18 Range/Units 04:51 04:51 06:34 WBC 23.7 H (4.0-11.0) th/mm3 RBC 2.59 L (4.50-5.90) mil/mm3 Hgb 8.0 L (13.0-17.0) gm/dL Hct 24.4 L (39.0-51.0) % Plt Count 130 L (150-450) th/mm3 BUN 26 H (7-18) mg/dL Creatinine 6.51 H (0.60-1.30) mg/dL Estimated GFR 11 L (>89) mL/min POC Glucose 60 L (68-110) mg/dl Random Glucose 45 L* (74-106) mg/dL Calcium 8.0 L D (8.5-10.1) mg/dL 04/18/18 04/18/18 Range/Units 12:12 14:08 WBC (4.0-11.0) th/mm3 RBC (4.50-5.90) mil/mm3 Hgb (13.0-17.0) gm/dL Hct (39.0-51.0) % Plt Count (150-450) th/mm3 BUN (7-18) mg/dL Creatinine (0.60-1.30) mg/dL Estimated GFR (>89) mL/min POC Glucose 65 L 58 L (68-110) mg/dl Random Glucose (74-106) mg/dL Calcium (8.5-10.1) mg/dL Short CBC 04/18/18 Range/Units 04:51 WBC 23.7 H (4.0-11.0) th/mm3 Hgb 8.0 L (13.0-17.0) gm/dL Hct 24.4 L (39.0-51.0) % Plt Count 130 L (150-450) th/mm3 BMP 04/18/18 04:51 Sodium 137 Potassium 4.5 Chloride 101 D Carbon Dioxide 25.3 BUN 26 H Creatinine 6.51 H Calcium 8.0 L D <Lauren Weller - 04/18/18 20:29> Abnormal lab results 04/18/18 04/18/18 04/18/18 Range/Units 04:51 04:51 06:34 WBC 23.7 H (4.0-11.0) th/mm3 RBC 2.59 L (4.50-5.90) mil/mm3 Hgb 8.0 L (13.0-17.0) gm/dL Hct 24.4 L (39.0-51.0) % Plt Count 130 L (150-450) th/mm3 BUN 26 H (7-18) mg/dL Creatinine 6.51 H (0.60-1.30) mg/dL Estimated GFR 11 L (>89) mL/min POC Glucose 60 L (68-110) mg/dl Random Glucose 45 L* (74-106) mg/dL Calcium 8.0 L D (8.5-10.1) mg/dL Short CBC 04/18/18 Range/Units 04:51 WBC 23.7 H (4.0-11.0) th/mm3 Hgb 8.0 L (13.0-17.0) gm/dL Hct 24.4 L (39.0-51.0) % Plt Count 130 L (150-450) th/mm3 [facility] 04/18/18 04:51 Sodium 137 Potassium 4.5 Chloride 101 D Carbon Dioxide 25.3 BUN 26 H Creatinine 6.51 H Calcium 8.0 L D <Evangelista Ambrocioin G - 04/18/18 12:15> Physical Exam Vital signs: Vital Signs 04/17/18 21:00 04/17/18 21:14 04/17/18 22:00 Temperature Pulse Rate 88 94 H Respiratory Rate Blood Pressure Pulse Oximetry 94 L 04/17/18 23:00 04/18/18 00:00 04/18/18 01:00 Temperature Pulse Rate 94 H 92 H 90 Respiratory Rate 18 Blood Pressure 117/67 Pulse Oximetry 93 L 04/18/18 02:00 04/18/18 03:00 04/18/18 04:00 Temperature Pulse Rate 90 91 H 101 H Respiratory Rate 18 Blood Pressure 121/63 Pulse Oximetry 93 L 04/18/18 05:00 04/18/18 06:00 04/18/18 08:00 Temperature 98 F Pulse Rate 86 68 91 H Respiratory Rate 18 Blood Pressure 114/72 Pulse Oximetry 97 04/18/18 12:00 Temperature 98.8 F Pulse Rate 88 Respiratory Rate 16 Blood Pressure 110/66 Pulse Oximetry 93 L Intake & Output 04/18/18 04/18/18 04/19/18 06:59 18:59 06:59 Intake Total 530 / 530 Output Total 150 / 150 Balance 380 / 380 Weight 101.6 kg Intake: IV 50 / 50 Zosyn 2.25 GM Premix 50 ML @ 50 / 50 100 mls/hr IV.SIG Q12H [facility] Rx#: [id number] Oral 480 / 480 Output: Urine 150 / 150 Other: Date of Last Bowel Movement 04/17/18 04/17/18 <Lauren Weller - 04/18/18 20:29> Vital Signs 04/17/18 13:00 04/17/18 14:00 04/17/18 15:00 Temperature Pulse Rate 97 H 85 87 Respiratory Rate Blood Pressure Pulse Oximetry 04/17/18 16:00 04/17/18 17:00 04/17/18 18:00 Temperature Pulse Rate 83 81 96 H Respiratory Rate Blood Pressure Pulse Oximetry 04/17/18 19:00 04/17/18 20:00 04/17/18 21:00 Temperature Pulse Rate 87 87 88 Respiratory Rate 16 Blood Pressure 105/55 L Pulse Oximetry 96 04/17/18 21:14 04/17/18 22:00 04/17/18 23:00 Temperature Pulse Rate 94 H 94 H Respiratory Rate Blood Pressure Pulse Oximetry 94 L 04/18/18 00:00 04/18/18 01:00 04/18/18 02:00 Temperature Pulse Rate 92 H 90 90 Respiratory Rate 18 Blood Pressure 117/67 Pulse Oximetry 93 L 04/18/18 03:00 04/18/18 04:00 04/18/18 05:00 Temperature Pulse Rate 91 H 101 H 86 Respiratory Rate 18 Blood Pressure 121/63 Pulse Oximetry 93 L 04/18/18 06:00 04/18/18 08:00 Temperature 98 F Pulse Rate 68 91 H Respiratory Rate 18 Blood Pressure 114/72 Pulse Oximetry 97 Intake & Output 04/17/18 04/18/18 04/18/18 18:59 06:59 18:59 Intake Total 1340 / 1340 530 / 530 Output Total 1500 / 1500 150 / 150 Balance -160 / -160 380 / 380 Weight 101.6 kg Intake: IV 300 / 300 50 / 50 Zosyn 2.25 GM Premix 50 ML @ 50 / 50 50 / 50 100 mls/hr IV.SIG Q12H [facility] Rx#: [id number] Vancomycin Inj 1,000 MG In NS 250 / 250 Inj 250 ML @ 250 mls/hr IV.SIG WITH DIALYSIS [facility] Rx#:[id number] Oral 1040 / 1040 480 / 480 Output: Urine 150 / 150 Hemodialysis Amount 1500 / 1500 Other: Date of Last Bowel Movement 04/17/18 <Sahra Ambrocio - 04/18/18 12:15> Narrative: GENERAL: Obese -Malaysian male laying in bed, in no acute distress SKIN: Warm and dry. Scaly and flaky HEAD: Atraumatic. Normocephalic. EYES: Pupils equal and round. No scleral icterus. No injection or drainage. ENT: No nasal bleeding or discharge. Mucous membranes pink and moist. Candidiasis on tongue. Dental caries on teeth with plaque buildup and decay NECK: Trachea midline. No JVD. CARDIOVASCULAR: Regular rate and rhythm. Catheter site clean and dry without tenderness or active bleeding. RESPIRATORY: No accessory muscle use. Crackles at lung bases. Breath sounds distant, but equal bilaterally. GASTROINTESTINAL: Abdomen soft, obese, non-tender, nondistended. Hepatic and splenic margins not palpable. MUSCULOSKELETAL: Extremities without clubbing, cyanosis, or edema. No obvious deformities. No calf tenderness. Well-healing 10 cm AVF surgical site on RUE without erythema, induration, edema or drainage. NEUROLOGICAL: Awake and alert. No obvious cranial nerve deficits. Motor grossly within normal limits. Normal speech. PSYCHIATRIC: Appropriate mood and affect; insight and judgment normal. <Sahra Ambrocio - 04/18/18 14:59> Assessment and Plan - Assessment (1) Severe sepsis Code(s): A41.9 - Sepsis, unspecified organism; R65.20 - Severe sepsis without septic shock Status: Acute (2) Hypotension Code(s): I95.9 - Hypotension, unspecified Status: Acute (3) End stage renal disease Code(s): N18.6 - End stage renal disease Status: Chronic (4) Acute renal failure (ARF) Code(s): N17.9 - Acute kidney failure, unspecified Status: Resolved (5) Oral candidiasis Code(s): B37.0 - Candidal stomatitis Status: Acute (6) Sacral wound Code(s): S31.000A - Unspecified open wound of lower back and pelvis without penetration into retroperitoneum, initial encounter Status: Acute (7) Dyspnea Code(s): R06.00 - Dyspnea, unspecified Status: Resolved (8) GERD (gastroesophageal reflux disease) Code(s): K21.9 - Gastro-esophageal reflux disease without esophagitis Status: Acute (9) Hepatitis B Code(s): B19.10 - Unspecified viral hepatitis B without hepatic coma Status: Chronic (10) Nutrition, metabolism, and development symptoms Code(s): R63.8 - Other symptoms and signs concerning food and fluid intake Status: Acute (11) DVT prophylaxis Status: Acute <Lauren Weller - 04/18/18 20:29> (1) Severe sepsis Code(s): A41.9 - Sepsis, unspecified organism; R65.20 - Severe sepsis without septic shock Status: Acute Plan: Patient met sepsis criteria on admission WBC 19.0, tachycardia and initially hypotensive responded to initial fluid boluses, but afebrile. LA and blood cultures ordered. LUE with small amount of serosanguinous drainage, no induration or fluctuance, but mild edema. 04/18 Leukocytosis continuing to increase, now 23.7. Will continue to rule out other sources of infections. C.diff, viral respiratory panel and urine pending. Few budding yeast cells seen in sputum culture, HIV pending and started on Diflucan for candidal infection. MRSA and Klebsiella pneumonia on sputum culture, Zosyn was DC'd due to resistance. Vancomycin does not seem to be proficient for the MRSA due to DOMI of 2. -CXR 04/12: Minimal parenchymal changes in right base without fluid overload -Perfusion scan 04/12: Low probability for PE. Matched defects at posterior lower lobes likely from basilar areas of consolidation versus atelectasis versus effusion. -LUE US: Negative exam -CXR 04/14: Lungs are mildly hypoinflated. Linear areas of atelectasis seen. No evidence of airspace consolidation suggesting pneumonia. Labs: -LA: 2.7, 2.1, 2.4, 4.5, 3.5, 4.5, 3.5, 2.1, 1.9, has normalized. -Blood cultures: Negative to date -WBC: 19.0, 16.4, 19.1, 22.8, 22.4, 26.1 (with elevated bands and absolute neutrophil count) -Sputum cx Klebsiella pneumonia, staph aureus MRSA, Gram stain reveals: Few budding yeast cells, moderate WBCs, light mixed elliott with no predominant morphology -UA, viral respiratory panel and C.diff pending -HIV pending Medications: -Vancomycin 1g IV q24h at dialysis (04/14-04/17) -Zosyn 3.375 g IV q12h (04/13-) -Clindamycin 600 mg IV 3 times daily (04/18- ) -Levaquin 750 mg IV today followed by 500 mg every 48 hours (04/18- ) -Will order Diflucan 100mg for initial dose (50% reduction due to ESRD). Continuing on patient is to receive Diflucan 100mg follow dialysis and 50mg on non-dialysis days for empiric treatment for oropharyngeal candidiasis -Albumin 5% 25 g ordered once per nephrology for hypotension, may consider again if patient is acutely hypotensive (2) Hypotension Code(s): I95.9 - Hypotension, unspecified Status: Acute Plan: Patient with hypotension overnight 04/13/18 with chest tightness as well as hip/ thigh pain he attributes to being "dry" after hemodialysis. Minimal improvement with 2x 500 mL normal saline bolus on 04/13/19. -EKG with sinus tachycardia per medical team read without any acute ST elevation /depression's or interval changes. -BMP: Electrolytes within normal limits -Phosphorus 6.0 -Magnesium: 2.3 -CK: Ordered -Troponin: negative x 3 -Discussed with nephrology, recommend albumin 5% 25 g once -Midodrine added for hypotension -avoid IVF (3) End stage renal disease Code(s): N18.6 - End stage renal disease Status: Chronic Plan: Patient diagnosed with ESRD weeks ago. BUN 67, Cr 12.55 & estimated GFR 5L on admission. Started HD on 04/[address] Epifanio Greene and underwent AVF procedure on prior to recent hospital discharge with Dr. Hummel. He underwent dialysis 2 days ago, but stopped treatment, because the line clotted and he was scared. Patient to undergo dialysis in the hospital with Nephrology. Hemodialysis 04/13 with 700 mL fluid removal, discontinued early due to patient request as he was becoming "dry". Patient has tolerated hemodialysis on 04/15 and 04/17 without issue. Nephrology consulted and recommends to -Avoid IV fluid -Give Epogen with dialysis -Renally dose medications -Hemodialysis MWF. Per nephrology, patient has shown an interest in peritoneal dialysis. -Patient may need to undergo permcath removal and temporary HD catheter placed if leukocytosis continues -Consider PD catheter placed at discharge (4) Acute renal failure (ARF) Code(s): N17.9 - Acute kidney failure, unspecified Status: Resolved Plan: Likely acute on chronic kidney injury. ESRD non-compliant with HD. -plan as above, ESRD (5) Oral candidiasis Code(s): B37.0 - Candidal stomatitis Status: Acute Plan: Patient complaining of painful swallowing, noted to have white plaque covering tongue on exam. Preliminary sputum culture few shows budding yeast. -Nystatin swish and swallow started on 04/13 for white plaques in mouth, most likely oral muriel -Magic mouthwash started on 04/13 for mouth pain -Started on diflucan as above to treat oropharyngeal candidiasis. (6) Sacral wound Code(s): S31.000A - Unspecified open wound of lower back and pelvis without penetration into retroperitoneum, initial encounter Status: Acute Plan: Patient found to have small sacral wound on exam 04/14/18 -Patient to be rotated per protocol. (7) Dyspnea Code(s): R06.00 - Dyspnea, unspecified Status: Resolved Plan: SOB currently resolved. ACS and PE ruled out in ED. D-Dimer 6.12, however, likely elevated due to ESRD on HD with VQ scan with low probability of PE. Echocardiogram showed: The left ventricular systolic function is normal with an estimated ejection fraction in the range of 60-65%. Normal left ventricular size. Trace tricuspid valve regurgitation. No pericardial effusion. -Supplemental O2 PRN with goal O2 sat >92% -Incentive spirometry/Acapella (8) GERD (gastroesophageal reflux disease) Code(s): K21.9 - Gastro-esophageal reflux disease without esophagitis Status: Acute Plan: Patient with hx of GERD. -Protonix 40mg daily -Pepcid 20 mg daily (9) Hepatitis B Code(s): B19.10 - Unspecified viral hepatitis B without hepatic coma Status: Chronic Plan: Patient with hx of hepatitis B. LFTs show AST 49 and ALT 20. -Will continue to monitor (10) Nutrition, metabolism, and development symptoms Code(s): R63.8 - Other symptoms and signs concerning food and fluid intake Status: Acute Plan: Fluids: tolerating po, No IV fluids per nephrology Electrolytes: will monitor with daily labs, replete, and allow nephro to help manage once pt begins HD Nutrition: renal diet GI: as above; continue home meds PT consulted for evaluation and treatment. (11) DVT prophylaxis Status: Acute Plan: DVT prophylaxis: Bilateral SCDs <Sahra Ambrocio - 04/18/18 16:05> - Assessment and Plan 47 YO male followed by Dr Weller with HTN, GERD, Hep B and recent ESRD with start of HD in last 3 weeks presents with acute on chronic renal failure due to HD noncompliance and possible sepsis. <Sahra Ambrocio - 04/18/18 16:14> Discussed Condition With: Dr. Weller <Sahra Ambrocio - 04/18/18 16:14> Discharge Planning: pending clinical course <Sahra Ambrocio - 04/18/18 16:14> - Attending Attestation Patient seen and examined, discussed with resident team. I agree with assessment and management as documented and discussed with me. Pt reports he is feeling a little better today. 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 He also states that he would not go to rehab and plans to go home with home health/PT. <Lauren Weller - 04/18/18 20:29> <Sahra Ambrocio - Last Filed: 04/18/18 16:05> (2) Hypotension Qualifiers: Hypotension type: unspecified hypotension type Qualified Code(s): I95.9 - Hypotension, unspecified (4) Acute renal failure (ARF) Qualifiers: Acute renal failure type: unspecified Qualified Code(s): N17.9 - Acute kidney failure, unspecified (6) Sacral wound Qualifiers: Encounter type: initial encounter Qualified Code(s): S31.000A - Unspecified open wound of lower back and pelvis without penetration into retroperitoneum, initial encounter (7) Dyspnea Qualifiers: Dyspnea type: unspecified Qualified Code(s): R06.00 - Dyspnea, unspecified <Lauren Weller - Last Filed: 04/18/18 20:29> (2) Hypotension Qualifiers: Hypotension type: unspecified hypotension type Qualified Code(s): I95.9 - Hypotension, unspecified (4) Acute renal failure (ARF) Qualifiers: Acute renal failure type: unspecified Qualified Code(s): N17.9 - Acute kidney failure, unspecified (6) Sacral wound Qualifiers: Encounter type: initial encounter Qualified Code(s): S31.000A - Unspecified open wound of lower back and pelvis without penetration into retroperitoneum, initial encounter (7) Dyspnea Qualifiers: Dyspnea type: unspecified Qualified Code(s): R06.00 - Dyspnea, unspecified <Sahra Ambrocio - Last Filed: 04/18/18 16:05> (2) Hypotension Qualifiers: Hypotension type: unspecified hypotension type Qualified Code(s): I95.9 - Hypotension, unspecified (4) Acute renal failure (ARF) Qualifiers: Acute renal failure type: unspecified Qualified Code(s): N17.9 - Acute kidney failure, unspecified (6) Sacral wound Qualifiers: Encounter type: initial encounter Qualified Code(s): S31.000A - Unspecified open wound of lower back and pelvis without penetration into retroperitoneum, initial encounter (7) Dyspnea Qualifiers: Dyspnea type: unspecified Qualified Code(s): R06.00 - Dyspnea, unspecified <Lauren Weller - Last Filed: 04/18/18 20:29> (2) Hypotension Qualifiers: Hypotension type: unspecified hypotension type Qualified Code(s): I95.9 - Hypotension, unspecified (4) Acute renal failure (ARF) Qualifiers: Acute renal failure type: unspecified Qualified Code(s): N17.9 - Acute kidney failure, unspecified (6) Sacral wound Qualifiers: Encounter type: initial encounter Qualified Code(s): S31.000A - Unspecified open wound of lower back and pelvis without penetration into retroperitoneum, initial encounter (7) Dyspnea Qualifiers: Dyspnea type: unspecified Qualified Code(s): R06.00 - Dyspnea, unspecified
[2018-04-18] MEDS: Nystatin Liq 500,000 UNIT/5 ML UDC SWISH-SWAL SCH ×3 (14:20→21:05)
[2018-04-18] MEDS: Chlorhexidine Gluconate 0.12% Liq 15 ML UDC SWISH-SPIT SCH ×2 (14:21→21:06)
[2018-04-18] MEDS: guaiFENesin 600 MG ER Tablet PO SCH (14:21)
[2018-04-18] MEDS: Famotidine 20 MG Tablet PO SCH (14:21)
[2018-04-18] MEDS: Nystatin/Diphenhydramine/Lidocaine Mouthwash (Adult) 120 ML Botttle SWISH-SWAL SCH ×3 (14:21→21:05)
[2018-04-18] MEDS: Lactobacillus Acidophilus/L. Spores Tablet PO SCH ×2 (14:21→17:50)
[2018-04-18] MEDS: Calcium Acetate 667 MG Capsule PO SCH ×2 (14:21→17:50)
[2018-04-18] MEDS: Piperacil/Tazo 2.25 GM Premix 50 ML IV.SIG SCH (14:22)
[2018-04-18] MEDS ORDERED: Dextrose 50% in Water 50 ML Vial IV.PUSH PRN (14:48)
--- NOTE | 2018-04-18 16:24 | P.PNNP ---
Subjective Interval history: He is awake and alert. Not having any new issues. <Yulisa Dunn - Last Filed: 04/18/18 16:16> Physical Exam Vital signs: Vital Signs 04/17/18 17:00 04/17/18 18:00 04/17/18 19:00 Temperature Pulse Rate 81 96 H 87 Respiratory Rate Blood Pressure Pulse Oximetry 04/17/18 20:00 04/17/18 21:00 04/17/18 21:14 Temperature Pulse Rate 87 88 Respiratory Rate 16 Blood Pressure 105/55 L Pulse Oximetry 96 94 L 04/17/18 22:00 04/17/18 23:00 04/18/18 00:00 Temperature Pulse Rate 94 H 94 H 92 H Respiratory Rate 18 Blood Pressure 117/67 Pulse Oximetry 93 L 04/18/18 01:00 04/18/18 02:00 04/18/18 03:00 Temperature Pulse Rate 90 90 91 H Respiratory Rate Blood Pressure Pulse Oximetry 04/18/18 04:00 04/18/18 05:00 04/18/18 06:00 Temperature Pulse Rate 101 H 86 68 Respiratory Rate 18 Blood Pressure 121/63 Pulse Oximetry 93 L 04/18/18 08:00 Temperature 98 F Pulse Rate 91 H Respiratory Rate 18 Blood Pressure 114/72 Pulse Oximetry 97 Intake & Output 04/17/18 04/18/18 04/18/18 18:59 06:59 18:59 Intake Total 1340 / 1340 530 / 530 Output Total 1500 / 1500 150 / 150 Balance -160 / -160 380 / 380 Weight 101.6 kg Intake: IV 300 / 300 50 / 50 Zosyn 2.25 GM Premix 50 ML @ 50 / 50 50 / 50 100 mls/hr IV.SIG Q12H [facility] Rx#: [id number] Vancomycin Inj 1,000 MG In NS 250 / 250 Inj 250 ML @ 250 mls/hr IV.SIG WITH DIALYSIS [facility] Rx#:[id number] Oral 1040 / 1040 480 / 480 Output: Urine 150 / 150 Hemodialysis Amount 1500 / 1500 Other: Date of Last Bowel Movement 04/17/18 - Constitutional no acute distress - Routine HEENT Exam Head: Present: normocephalic Eye: Present: EOMI - Routine Neck Exam Present: supple, full ROM - Routine Respiratory Exam Present: CTA bilaterally. Absent: accessory muscle use - Routine Cardiovascular Exam Present: RRR, S1, S2 - Routine Abdominal Exam Present: soft, normoactive bowel sounds - Routine Extremities Exam Present: full ROM, vascular access. Absent: edema - Routine Skin Exam Present: intact, warm - Routine Neurological Exam Present: alert, oriented X3 - Detailed Neurological Exam: Coma Scale Eye Opening: Spontaneous Verbal Response: Oriented Motor Response: Obey commands Mchenry Coma Scale Total: 15 - Routine Psychiatric Exam Present: normal affect, normal thought process <Yulisa Dunn - Last Filed: 04/18/18 16:16> Vital signs: Vital Signs 04/17/18 21:00 04/17/18 21:14 04/17/18 22:00 Temperature Pulse Rate 88 94 H Respiratory Rate Blood Pressure Pulse Oximetry 94 L 04/17/18 23:00 04/18/18 00:00 04/18/18 01:00 Temperature Pulse Rate 94 H 92 H 90 Respiratory Rate 18 Blood Pressure 117/67 Pulse Oximetry 93 L 04/18/18 02:00 04/18/18 03:00 04/18/18 04:00 Temperature Pulse Rate 90 91 H 101 H Respiratory Rate 18 Blood Pressure 121/63 Pulse Oximetry 93 L 04/18/18 05:00 04/18/18 06:00 04/18/18 08:00 Temperature 98 F Pulse Rate 86 68 91 H Respiratory Rate 18 Blood Pressure 114/72 Pulse Oximetry 97 04/18/18 12:00 Temperature 98.8 F Pulse Rate 88 Respiratory Rate 16 Blood Pressure 110/66 Pulse Oximetry 93 L Intake & Output 04/18/18 04/18/18 04/19/18 06:59 18:59 06:59 Intake Total 530 / 530 Output Total 150 / 150 Balance 380 / 380 Weight 101.6 kg Intake: IV 50 / 50 Zosyn 2.25 GM Premix 50 ML @ 50 / 50 100 mls/hr IV.SIG Q12H [facility] Rx#: [id number] Oral 480 / 480 Output: Urine 150 / 150 Other: Date of Last Bowel Movement 04/17/18 04/17/18 <Rito Jose - Last Filed: 04/18/18 20:31> Assessment and Plan - Assessment (1) End stage renal disease Code(s): N18.6 - End stage renal disease Status: Chronic Plan: HD currently MWF. Due tomorrow. Has outpatient arrangements at [facility]. Has right IJ PermCath and AVF in RUE (not mature) Tentative plan is to convert to PD at a later date; the PD nurse was able to come give preliminary education to the patient and family. Continue to monitor electrolytes intermittently. Avoid IVF Epogen ordered to be given during dialysis On Calcium Acetate for metabolic bone disorder. (2) Sepsis Code(s): A41.9 - Sepsis, unspecified organism Status: Acute Plan: On Vancomycin and Zosyn. Sputum with Klebsiella and MRSA On Levaquin, Clindamycin, and fluconazole. It would be ideal to have PD catheter placed prior to discharge. Will monitor labs, presence of fever, etc. (3) Hypotension Code(s): I95.9 - Hypotension, unspecified Status: Acute Plan: Improved. He is on midodrine for intradialytic hypotension. Continue to monitor BP. (4) Oral candidiasis Code(s): B37.0 - Candidal stomatitis Status: Acute Plan: Nystatin swish and swallow, improved. <Yulisa Dunn - Last Filed: 04/18/18 16:16> - Assessment (1) End stage renal disease Code(s): N18.6 - End stage renal disease Status: Chronic (2) Sepsis Code(s): A41.9 - Sepsis, unspecified organism Status: Acute Qualifiers: Qualified Code(s): A41.9 - Sepsis, unspecified organism (3) Hypotension Code(s): I95.9 - Hypotension, unspecified Status: Acute Qualifiers: Qualified Code(s): I95.9 - Hypotension, unspecified (4) Oral candidiasis Code(s): B37.0 - Candidal stomatitis Status: Acute - Attending Attestation patient was seen and examined. He has agreed to continue dialysis. Interested in transitioning to PD. We will need to resolve infection related issues before PD catheter can be placed. <Rito Jose - Last Filed: 04/18/18 20:31>
[2018-04-18] MEDS: Fluconazole 100 MG Tablet PO SCH (17:49)
[2018-04-18] MEDS: Clindamycin 600 mg/NS Premix 600 MG/50 ML PIGGYBACK IV.SIG SCH ×2 (17:49→21:12)
[2018-04-19] MEDS: Clindamycin 600 mg/NS Premix 600 MG/50 ML PIGGYBACK IV.SIG SCH ×3 (05:24→21:14)
--- NOTE | 2018-04-19 10:21 | P.PNFP ---
Subjective Interval history: Patient seen and examined this morning. He states that he is doing well this morning. He still has a cough. He had one episode of vomiting yesterday evening right after eating due to coughing. He is concerned about his dry and flakey skin. No fever/chills, no chest pain, no shortness of breath , no abdominal pain, has decreased urine output, some constipation. He is also concerned that his incision from his AVF surgery is opening up and draining. <Sahra Ambrocio - 04/19/18 10:21> Results - Labs Result diagrams: 04/18/18 04:51 04/18/18 04:51 <Lauren Weller - 04/19/18 20:57> Abnormal lab results 04/18/18 Range/Units 16:09 HIV 1&2 Ab/P24 Ag 4thGn Reflex H (Nonreactive) <Lauren Weller - 04/19/18 20:57> Abnormal lab results 04/18/18 04/18/18 04/18/18 Range/Units 12:12 14:08 16:09 POC Glucose 65 L 58 L (68-110) mg/dl HIV 1&2 Ab/P24 Ag 4thGn Reflex H (Nonreactive) <Sahra Ambrocio - 04/19/18 10:21> Physical Exam Vital signs: Vital Signs 04/19/18 00:00 Temperature 98 F Pulse Rate 81 Respiratory Rate 16 Blood Pressure 122/76 Pulse Oximetry 95 Intake & Output 04/19/18 04/19/18 04/20/18 06:59 18:59 06:59 Intake Total 100 / 100 50 / 50 Output Total 2800 / 2800 Balance 100 / 100 -2750 / -2750 Intake: IV 100 / 100 50 / 50 Cleocin 600 mg/NS Premix 600 mg 100 / 100 50 / 50 In 50 ml @ 100 mls/hr IV.SIG Q8H [facility] Rx#:[id number] Output: Hemodialysis Amount 2800 / 2800 Other: Date of Last Bowel Movement 04/17/18 <Lauren Weller - 04/19/18 20:57> Vital Signs 04/18/18 11:00 04/18/18 12:00 04/18/18 13:00 Temperature 98.8 F Pulse Rate 88 94 H 82 Respiratory Rate 16 Blood Pressure 110/66 Pulse Oximetry 93 L 04/18/18 14:00 04/18/18 15:00 04/18/18 16:00 Temperature 98 F Pulse Rate 84 82 90 Respiratory Rate 18 Blood Pressure 112/76 Pulse Oximetry 98 04/18/18 17:00 04/18/18 18:00 04/18/18 19:00 Temperature Pulse Rate 86 88 86 Respiratory Rate Blood Pressure Pulse Oximetry 04/18/18 20:00 04/19/18 00:00 Temperature 98 F 98 F Pulse Rate 80 81 Respiratory Rate 16 16 Blood Pressure 113/67 122/76 Pulse Oximetry 95 95 Intake & Output 04/18/18 04/19/18 04/19/18 18:59 06:59 18:59 Intake Total 50 / 50 50 / 50 Balance 50 / 50 50 / 50 Intake: IV 50 / 50 50 / 50 Cleocin 600 mg/NS Premix 600 mg 50 / 50 50 / 50 In 50 ml @ 100 mls/hr IV.SIG Q8H [facility] Rx#:[id number] Other: Date of Last Bowel Movement 04/17/18 04/17/18 <Sahra Ambrocio - 04/19/18 10:21> Narrative: GENERAL: Obese -Pakistani male laying in bed, in no acute distress SKIN: Warm and dry. Scaly and flaky HEAD: Atraumatic. Normocephalic. EYES: Pupils equal and round. No scleral icterus. No injection or drainage. ENT: No nasal bleeding or discharge. Mucous membranes pink and moist. Candidiasis on tongue. Dental caries on teeth with plaque buildup and decay NECK: Trachea midline. No JVD. CARDIOVASCULAR: Regular rate and rhythm. Catheter site clean and dry without tenderness or active bleeding. RESPIRATORY: No accessory muscle use. Crackles at lung bases. Breath sounds distant, but equal bilaterally. GASTROINTESTINAL: Abdomen soft, obese, non-tender, nondistended. Hepatic and splenic margins not palpable. MUSCULOSKELETAL: Extremities without clubbing, cyanosis, or edema. No obvious deformities. No calf tenderness. Well-healing 10 cm AVF surgical site on RUE without erythema, induration, edema or drainage. ~1cm opening at distal end of site with serous drainage. NEUROLOGICAL: Awake and alert. No obvious cranial nerve deficits. Motor grossly within normal limits. Normal speech. PSYCHIATRIC: Appropriate mood and affect; insight and judgment normal. <Sahra Ambrocio - 04/19/18 10:25> Assessment and Plan - Assessment (1) Severe sepsis Code(s): A41.9 - Sepsis, unspecified organism; R65.20 - Severe sepsis without septic shock Status: Acute (2) Hypotension Code(s): I95.9 - Hypotension, unspecified Status: Acute (3) End stage renal disease Code(s): N18.6 - End stage renal disease Status: Chronic (4) Oral candidiasis Code(s): B37.0 - Candidal stomatitis Status: Acute (5) Sacral wound Code(s): S31.000A - Unspecified open wound of lower back and pelvis without penetration into retroperitoneum, initial encounter Status: Acute (6) Dyspnea Code(s): R06.00 - Dyspnea, unspecified Status: Resolved (7) GERD (gastroesophageal reflux disease) Code(s): K21.9 - Gastro-esophageal reflux disease without esophagitis Status: Acute (8) Hepatitis B Code(s): B19.10 - Unspecified viral hepatitis B without hepatic coma Status: Chronic (9) Nutrition, metabolism, and development symptoms Code(s): R63.8 - Other symptoms and signs concerning food and fluid intake Status: Acute (10) DVT prophylaxis Status: Acute <Lauren Weller - 04/19/18 20:57> (1) Severe sepsis Code(s): A41.9 - Sepsis, unspecified organism; R65.20 - Severe sepsis without septic shock Status: Acute Plan: Patient met sepsis criteria on admission WBC 19.0, tachycardia and initially hypotensive responded to initial fluid boluses, but afebrile. LA and blood cultures ordered. LUE with small amount of serosanguinous drainage, no induration or fluctuance, but mild edema. 04/18 Leukocytosis continuing to increase, now 23.7. Will continue to rule out other sources of infections. C.diff, viral respiratory panel and urine pending. Few budding yeast cells seen in sputum culture, HIV pending and started on Diflucan for candidal infection. MRSA and Klebsiella pneumonia on sputum culture, Zosyn was DC'd due to resistance. Vancomycin does not seem to be proficient for the MRSA due to DOMI of 2. 7/20 AM labs are still pending. Pt seems stable on exam. -CXR 04/12: Minimal parenchymal changes in right base without fluid overload -Perfusion scan 04/12: Low probability for PE. Matched defects at posterior lower lobes likely from basilar areas of consolidation versus atelectasis versus effusion. -LUE US: Negative exam -CXR 04/14: Lungs are mildly hypoinflated. Linear areas of atelectasis seen. No evidence of airspace consolidation suggesting pneumonia. Labs: -LA: 2.7, 2.1, 2.4, 4.5, 3.5, 4.5, 3.5, 2.1, 1.9, has normalized. -Blood cultures: Negative to date -WBC: 19.0, 16.4, 19.1, 22.8, 22.4, 26.1 (with elevated bands and absolute neutrophil count) -Sputum cx Klebsiella pneumonia, staph aureus MRSA, Gram stain reveals: Few budding yeast cells, moderate WBCs, light mixed elliott with no predominant morphology -UA, viral respiratory panel and C.diff pending -HIV pending Medications: -Vancomycin 1g IV q24h at dialysis (04/14-04/17) -Zosyn 3.375 g IV q12h (04/13-) -Clindamycin 600 mg IV 3 times daily (04/18- ) -Levaquin 750 mg IV today followed by 500 mg every 48 hours (04/18- ) -Will order Diflucan 100mg for initial dose (50% reduction due to ESRD). Continuing on patient is to receive Diflucan 100mg follow dialysis and 50mg on non-dialysis days for empiric treatment for oropharyngeal candidiasis -Albumin 5% 25 g ordered once per nephrology for hypotension, may consider again if patient is acutely hypotensive (2) Hypotension Code(s): I95.9 - Hypotension, unspecified Status: Acute Plan: Patient with hypotension overnight 04/13/18 with chest tightness as well as hip/ thigh pain he attributes to being "dry" after hemodialysis. Minimal improvement with 2x 500 mL normal saline bolus on 04/13/19. -EKG with sinus tachycardia per medical team read without any acute ST elevation /depression's or interval changes. -BMP: Electrolytes within normal limits -Phosphorus 6.0 -Magnesium: 2.3 -CK: Ordered -Troponin: negative x 3 -Discussed with nephrology, recommend albumin 5% 25 g once -Midodrine added for hypotension -avoid IVF (3) End stage renal disease Code(s): N18.6 - End stage renal disease Status: Chronic Plan: Patient diagnosed with ESRD weeks ago. BUN 67, Cr 12.55 & estimated GFR 5L on admission. Started HD on 04/[address] Epifanio Greene and underwent AVF procedure on prior to recent hospital discharge with Dr. Hummel. He underwent dialysis 2 days ago, but stopped treatment, because the line clotted and he was scared. Patient to undergo dialysis in the hospital with Nephrology. Hemodialysis 04/13 with 700 mL fluid removal, discontinued early due to patient request as he was becoming "dry". Patient has tolerated hemodialysis on 04/15 and 04/17 without issue. Nephrology consulted and recommends to -Avoid IV fluid -Give Epogen with dialysis -Renally dose medications -Hemodialysis MWF. Per nephrology, patient has shown an interest in peritoneal dialysis. -Patient may need to undergo permcath removal and temporary HD catheter placed if leukocytosis continues -Consider PD catheter placed at discharge (4) Oral candidiasis Code(s): B37.0 - Candidal stomatitis Status: Acute Plan: Patient complaining of painful swallowing, noted to have white plaque covering tongue on exam. Preliminary sputum culture few shows budding yeast. -Nystatin swish and swallow started on 04/13 for white plaques in mouth, most likely oral muriel -Magic mouthwash started on 04/13 for mouth pain -Started on diflucan as above to treat oropharyngeal candidiasis. (5) Sacral wound Code(s): S31.000A - Unspecified open wound of lower back and pelvis without penetration into retroperitoneum, initial encounter Status: Acute Plan: Patient found to have small sacral wound on exam 04/14/18 -Patient to be rotated per protocol. (6) Dyspnea Code(s): R06.00 - Dyspnea, unspecified Status: Resolved Plan: SOB currently resolved. ACS and PE ruled out in ED. D-Dimer 6.12, however, likely elevated due to ESRD on HD with VQ scan with low probability of PE. Echocardiogram showed: The left ventricular systolic function is normal with an estimated ejection fraction in the range of 60-65%. Normal left ventricular size. Trace tricuspid valve regurgitation. No pericardial effusion. -Supplemental O2 PRN with goal O2 sat >92% -Incentive spirometry/Acapella (7) GERD (gastroesophageal reflux disease) Code(s): K21.9 - Gastro-esophageal reflux disease without esophagitis Status: Acute Plan: Patient with hx of GERD. -Protonix 40mg daily -Pepcid 20 mg daily (8) Hepatitis B Code(s): B19.10 - Unspecified viral hepatitis B without hepatic coma Status: Chronic Plan: Patient with hx of hepatitis B. LFTs show AST 49 and ALT 20. -Will continue to monitor (9) Nutrition, metabolism, and development symptoms Code(s): R63.8 - Other symptoms and signs concerning food and fluid intake Status: Acute Plan: Fluids: tolerating po, No IV fluids per nephrology Electrolytes: will monitor with daily labs, replete, and allow nephro to help manage once pt begins HD Nutrition: renal diet GI: as above; continue home meds PT consulted for evaluation and treatment. (10) DVT prophylaxis Status: Acute Plan: DVT prophylaxis: Bilateral SCDs <Sahra Ambrocio - 04/19/18 16:53> - Assessment and Plan 47 YO male followed by Dr Weller with HTN, GERD, Hep B and recent ESRD with start of HD in last 3 weeks presents with acute on chronic renal failure due to HD noncompliance and possible sepsis. <Sahra Ambrocio - 04/19/18 10:21> Discharge Planning: pending clinical course <Sahra Ambrocio - 04/19/18 10:21> - Attending Attestation Patient seen and examined, discussed this morning with Dr. Ambrocio. I agree with assessment and management as documented and discussed with me. Long discussion with patient today re: + HIV antibody screen. Pt understands confirmatory testing is to be sent out to [facility] at next blood draw. He reports he is feeling a little better. He is to have dialysis today. Appt made with me for 04/25 at for hospital follow up. <Lauren Weller - 04/19/18 20:57> <Cristóbal,Sahra G - Last Filed: 04/19/18 16:53> (2) Hypotension Qualifiers: Hypotension type: unspecified hypotension type Qualified Code(s): I95.9 - Hypotension, unspecified (5) Sacral wound Qualifiers: Encounter type: initial encounter Qualified Code(s): S31.000A - Unspecified open wound of lower back and pelvis without penetration into retroperitoneum, initial encounter (6) Dyspnea Qualifiers: Dyspnea type: unspecified Qualified Code(s): R06.00 - Dyspnea, unspecified <Vey,Lauren - Last Filed: 04/19/18 20:57> (2) Hypotension Qualifiers: Hypotension type: unspecified hypotension type Qualified Code(s): I95.9 - Hypotension, unspecified (5) Sacral wound Qualifiers: Encounter type: initial encounter Qualified Code(s): S31.000A - Unspecified open wound of lower back and pelvis without penetration into retroperitoneum, initial encounter (6) Dyspnea Qualifiers: Dyspnea type: unspecified Qualified Code(s): R06.00 - Dyspnea, unspecified <Cristóbal,Sahra G - Last Filed: 04/19/18 16:53> (2) Hypotension Qualifiers: Hypotension type: unspecified hypotension type Qualified Code(s): I95.9 - Hypotension, unspecified (5) Sacral wound Qualifiers: Encounter type: initial encounter Qualified Code(s): S31.000A - Unspecified open wound of lower back and pelvis without penetration into retroperitoneum, initial encounter (6) Dyspnea Qualifiers: Dyspnea type: unspecified Qualified Code(s): R06.00 - Dyspnea, unspecified <Lauren Weller - Last Filed: 04/19/18 20:57> (2) Hypotension Qualifiers: Hypotension type: unspecified hypotension type Qualified Code(s): I95.9 - Hypotension, unspecified (5) Sacral wound Qualifiers: Encounter type: initial encounter Qualified Code(s): S31.000A - Unspecified open wound of lower back and pelvis without penetration into retroperitoneum, initial encounter (6) Dyspnea Qualifiers: Dyspnea type: unspecified Qualified Code(s): R06.00 - Dyspnea, unspecified
[2018-04-19] MEDS: Famotidine 20 MG Tablet PO SCH (11:08)
[2018-04-19] MEDS: Nystatin/Diphenhydramine/Lidocaine Mouthwash (Adult) 120 ML Botttle SWISH-SWAL SCH ×4 (11:09→21:05)
[2018-04-19] MEDS: Fluconazole 100 MG Tablet PO SCH (11:09)
[2018-04-19] MEDS: Calcium Acetate 667 MG Capsule PO SCH ×3 (11:09→20:22)
[2018-04-19] MEDS: Lactobacillus Acidophilus/L. Spores Tablet PO SCH ×3 (11:09→20:22)
[2018-04-19] MEDS: Nystatin Liq 500,000 UNIT/5 ML UDC SWISH-SWAL SCH ×4 (11:09→21:06)
[2018-04-19] MEDS: Chlorhexidine Gluconate 0.12% Liq 15 ML UDC SWISH-SPIT SCH ×2 (11:10→21:32)
[2018-04-19] MEDS: guaiFENesin 600 MG ER Tablet PO SCH ×3 (11:10→21:15)
--- NOTE | 2018-04-19 11:48 | P.PNPAL ---
Reason for Visit Reason for visit: a. To assist with evaluation and management of symptoms including: fatigue/ weakness, debility b. To assist medical decision maker(s) with: better understanding of current medical conditions; weighing benefits/burdens of medical treatment options; making medical treatment decisions. Subjective Subjective/Interval History: Follow-up medically necessary for further clarification of goals of care. Patient seen and examined in his room. Patient is currently sitting up in a recliner chair. Patient denies pain, endorsing fatigue/weakness. Patient states that he is feeling tired and he wants to go back to bed. Nursing staff notified. Oral tracheal aspirate culture collected on 04/16/18 positive for Klebsiella pneumonia and Staphylococcus aureus MRSA. C. difficile negative. HIV pending. Patient also has oral candidiasis and he was started on nystatin. Persistent leucocytosis, labwork today revealed WBC 23.7, Hgb 8.0, hematocrit 24.4, platelet count 130, potassium 4.5, BUN/creatinine 26/6.51, random glucose 45, calcium 8.0. No recent imaging. Patient mentioned that he wants to try peritoneal dialysis at home. Patient and family met with peritoneal criminal intelligence specialist for preliminary education. He also met with a lidar analyst and was appreciative for information received. Patient mentioned that at this time he is not ready for hospice he would like to try peritoneal dialysis. Patient also stated that he has changed his mind regarding his CODE STATUS, he wants to be resuscitated and intubated if needed and if he gets worse his cousin Johnny Feng will make decisions whether to stop aggressive treatment or decide to remove him from life support. Attempted to explore whether they have further discussed what his wishes would be with Johnny. Patient politely dismissive. He appears not interested in discussing further what his wishes are. Gave patient copies of his HCS form he signed as requested. Physical therapy at bedside to assist with transferring patient back to bed. PD catheter will most likely be placed after the infection is resolved. Case discussed with bedside RN. Family/Friend Interactions: No family at bedside Advance Directives Living Will: Never completed Health Care Surrogate: Copy in medical record Durable Power of Rn Internal Medicine: Never completed Advance Directives Date on File: 04/16/18 Health Care Surrogate Name and Number: [facility] Feng ([phone]) Alt [facility] : Mariama Disla ([phone]) Significant change in goals:: Patient wants to try peritoneal hemodialysis at home. Patient also rescinded his DNR status back to full code. Patient would like to be resuscitated and intubated if needed. Goals aggressive. Objective Vital Signs: Vital Signs 04/18/18 12:00 04/18/18 13:00 04/18/18 14:00 Temperature 98.8 F Pulse Rate 94 H 82 84 Respiratory Rate 16 Blood Pressure 110/66 Pulse Oximetry 93 L 04/18/18 15:00 04/18/18 16:00 04/18/18 17:00 Temperature 98 F Pulse Rate 82 90 86 Respiratory Rate 18 Blood Pressure 112/76 Pulse Oximetry 98 04/18/18 18:00 04/18/18 19:00 04/18/18 20:00 Temperature 98 F Pulse Rate 88 86 80 Respiratory Rate 16 Blood Pressure 113/67 Pulse Oximetry 95 04/19/18 00:00 Temperature 98 F Pulse Rate 81 Respiratory Rate 16 Blood Pressure 122/76 Pulse Oximetry 95 Intake & Output 04/18/18 04/19/18 04/19/18 18:59 06:59 18:59 Intake Total 50 / 50 50 / 50 Balance 50 / 50 50 / 50 Intake: IV 50 / 50 50 / 50 Cleocin 600 mg/NS Premix 600 mg 50 / 50 50 / 50 In 50 ml @ 100 mls/hr IV.SIG Q8H [facility] Rx#:[id number] Other: Date of Last Bowel Movement 04/17/18 04/17/18 Physical Exam: CONSTITUTIONAL/GENERAL: This is an obese patient, in no apparent distress. TUBES/LINES/DRAINS: AV Fistula Right arm, Perm Cath R IJ, PIV, SCDs SKIN: Dry, flaky and ashy. No wounds seen anteriorly. Skin temperature appropriate. Not diaphoretic. EYES: PERRLA. No scleral icterus. No injection or drainage. Fundi not examined. ENT: Hearing grossly normal. Nose without bleeding or purulent drainage. White plaque on tongue CARDIOVASCULAR: Regular rate and rhythm without murmurs, gallops, or rubs. No JVD. Peripheral pulses symmetric. RESPIRATORY/CHEST: Symmetric, unlabored respirations. Lungs clear but diminished in the bases. No wheezes, rales, or rhonchi. GASTROINTESTINAL: Abdomen soft, non-tender, nondistended. No guarding. Bowel sounds present. MUSCULOSKELETAL: Extremities without clubbing, cyanosis, or edema. No joint tenderness or effusion noted. No calf tenderness. No mottling or clubbing. NEUROLOGICAL: Awake and alert. Motor and sensory grossly within normal limits. Follows commands with all extremities. PSYCHIATRIC: No obvious anxiety/depression. no apparent hallucinations or other psychotic thought process. Diagnostic Tests Laboratory: Laboratory Results - last 72 hr 04/15/18 04/16/18 04/16/18 10:42 10:42 13:56 WBC RBC Hgb Hct MCV MCH MCHC RDW Plt Count MPV Sodium Potassium Chloride Carbon Dioxide Anion Gap BUN Creatinine Estimated GFR POC Glucose 84 Random Glucose Calcium Stl C.difficile Tox PCR Negative St C. diff Tox Epid 027 Negative Adenovirus (PCR) Cancelled Bordetella holmesii PCR Cancelled B. pertussis DNA (PCR) Cancelled B. paraper/bronch (PCR) Cancelled HIV 1&2 Ab/P24 Ag 4thGn Human Metapneumovir PCR Cancelled Influenza A (RT-PCR) Cancelled Influenza A (H1) PCR Cancelled Influenza A (H3) PCR Cancelled Influenza B (RT-PCR) Cancelled Parainfluenza 1 (PCR) Cancelled Parainfluenza 2 (PCR) Cancelled Parainfluenza 3 (PCR) Cancelled Parainfluenza 4 (PCR) Cancelled RSV Type A (PCR) Cancelled RSV Type B (PCR) Cancelled Rhinovirus (PCR) Cancelled 04/16/18 04/16/18 04/17/18 14:36 16:15 11:15 WBC 26.1 H RBC 3.12 L Hgb 9.5 L Hct 29.4 L MCV 94.1 MCH 30.6 MCHC 32.5 RDW 15.6 Plt Count 179 MPV 9.0 Sodium Potassium Chloride Carbon Dioxide Anion Gap BUN Creatinine Estimated GFR POC Glucose 82 96 Random Glucose Calcium Stl C.difficile Tox PCR St C. diff Tox Epid 027 Adenovirus (PCR) Bordetella holmesii PCR B. pertussis DNA (PCR) B. paraper/bronch (PCR) HIV 1&2 Ab/P24 Ag 4thGn Human Metapneumovir PCR Influenza A (RT-PCR) Influenza A (H1) PCR Influenza A (H3) PCR Influenza B (RT-PCR) Parainfluenza 1 (PCR) Parainfluenza 2 (PCR) Parainfluenza 3 (PCR) Parainfluenza 4 (PCR) RSV Type A (PCR) RSV Type B (PCR) Rhinovirus (PCR) 04/17/18 04/18/18 04/18/18 11:15 04:51 04:51 WBC 23.7 H RBC 2.59 L Hgb 8.0 L Hct 24.4 L MCV 94.2 MCH 30.8 MCHC 32.7 RDW 15.9 Plt Count 130 L MPV 8.7 Sodium 132 L 137 Potassium 4.6 4.5 Chloride 93 L 101 D Carbon Dioxide 22.2 25.3 Anion Gap 17 H 11 BUN 51 H 26 H Creatinine 10.36 H* D 6.51 H Estimated GFR 6 L 11 L POC Glucose Random Glucose 72 L 45 L* Calcium 9.2 D 8.0 L D Stl C.difficile Tox PCR St C. diff Tox Epid 027 Adenovirus (PCR) Bordetella holmesii PCR B. pertussis DNA (PCR) B. paraper/bronch (PCR) HIV 1&2 Ab/P24 Ag 4thGn Human Metapneumovir PCR Influenza A (RT-PCR) Influenza A (H1) PCR Influenza A (H3) PCR Influenza B (RT-PCR) Parainfluenza 1 (PCR) Parainfluenza 2 (PCR) Parainfluenza 3 (PCR) Parainfluenza 4 (PCR) RSV Type A (PCR) RSV Type B (PCR) Rhinovirus (PCR) 04/18/18 04/18/18 04/18/18 06:34 08:27 12:12 WBC RBC Hgb Hct MCV MCH MCHC RDW Plt Count MPV Sodium Potassium Chloride Carbon Dioxide Anion Gap BUN Creatinine Estimated GFR POC Glucose 60 L 74 65 L Random Glucose Calcium Stl C.difficile Tox PCR St C. diff Tox Epid 027 Adenovirus (PCR) Bordetella holmesii PCR B. pertussis DNA (PCR) B. paraper/bronch (PCR) HIV 1&2 Ab/P24 Ag 4thGn Human Metapneumovir PCR Influenza A (RT-PCR) Influenza A (H1) PCR Influenza A (H3) PCR Influenza B (RT-PCR) Parainfluenza 1 (PCR) Parainfluenza 2 (PCR) Parainfluenza 3 (PCR) Parainfluenza 4 (PCR) RSV Type A (PCR) RSV Type B (PCR) Rhinovirus (PCR) 04/18/18 04/18/18 04/18/18 14:08 15:09 16:09 WBC RBC Hgb Hct MCV MCH MCHC RDW Plt Count MPV Sodium Potassium Chloride Carbon Dioxide Anion Gap BUN Creatinine Estimated GFR POC Glucose 58 L 100 Random Glucose Calcium Stl C.difficile Tox PCR St C. diff Tox Epid 027 Adenovirus (PCR) Bordetella holmesii PCR B. pertussis DNA (PCR) B. paraper/bronch (PCR) HIV 1&2 Ab/P24 Ag 4thGn Reflex H Human Metapneumovir PCR Influenza A (RT-PCR) Influenza A (H1) PCR Influenza A (H3) PCR Influenza B (RT-PCR) Parainfluenza 1 (PCR) Parainfluenza 2 (PCR) Parainfluenza 3 (PCR) Parainfluenza 4 (PCR) RSV Type A (PCR) RSV Type B (PCR) Rhinovirus (PCR) Result Diagrams: 04/20/18 03:52 04/20/18 03:52 Microbiology: Microbiology 04/16/18 12:00 Gram Stain - Final Sputum - Oral Tracheal Aspirate Sputum Culture - Final Klebsiella pneumoniae S. aureus MRSA 04/16/18 10:42 Stool for WBCs - Final Stool Rare WBC's Enteric Pathogens (PCR) - Final 04/12/18 17:50 Aerobic Blood Culture - Final Blood - Peripheral No growth in 5 days Anaerobic Blood Culture - Final No growth in 5 days 04/12/18 17:45 Aerobic Blood Culture - Final Blood - Peripheral No growth in 5 days Anaerobic Blood Culture - Final No growth in 5 days Imaging: Pulmonary Perfusion Imaging 04/12/18 17:53 CONCLUSION: Low probability for pulmonary embolus. There are matched defects at the posterior lower lobes likely from basilar areas of consolidation, atelectasis or effusion. Upper Extremity Ultrasound 04/13/18 00:00 CONCLUSION: Negative targeted ultrasound examination. Chest X-Ray 04/14/18 00:00 CONCLUSION: The lungs are mildly hypoinflated. Linear areas of atelectasis are seen. No evidence of airspace consolidation to suggest pneumonia. Assessment and Plan - Symptom Scale (1) Shortness of breath 0-10 Scale: Unable to quantify Comment: Sputum culture collected on 04/18/18 positive for CLL pneumonia and MRSA. (2) Debility Comment: Progressive (3) Fatigue 0-10 Scale: Unable to quantify Comment: Patient endorsing fatigue. Hemoglobin 04/18/18 8.0, hematocrit 24.4 Pertinent Non-Medical Issues: Psychosocial: Patient was born and raised in [place]. Patient never and never had children. 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 Barnes is a 47-year-old male with a past medical history significant for end-stage renal disease on dialysis, hypertension, hepatitis B right testicular torsion and GERD. Patient was started on hemodialysis on 04/02/18 during his last hospitalization and he has an AV fistula placed as well to his right upper arm prior to discharge. Patient presented to the ER on 04/12/18 with complaints of shortness of breath. Patient did not go to the dialysis on the day he presented to ER. With patient`s multiple comorbidities, he still remains at high risk for further complications, deterioration and decline. If patient choses to continue with hemodialysis and is compliant he may be able to live for a few more years but if he chooses to stop all aggressive treatment then it will be appropriate for him to transition to comfort care through hospice services. Code Status: No Code DNR Plan: PLAN: Legal decision maker: Patient is able to participate in medical decision making at this time. In the event that he is incapacitated, he designated his cousin Johnny Feng is his healthcare surrogate and his sister Mariama Disla is his alternate healthcare surrogate Goals: Patient wants to try peritoneal hemodialysis at home. Patient also rescinded his DNR status back to full code. Patient would like to be resuscitated and intubated if needed. Goals aggressive. CODE STATUS: Full code SYMPTOMS: * Shortness of breath: Patient came in complaining of shortness of breath. Patient is currently on room air but has a dry cough.He denies SOB at this time. Patient's sputum culture collected on 04/16/18 positive for Klebsiella pneumonia and Staphylococcus aureus MRSA. Patient is on antibiotics. Continue to monitor for SOB. * Fatigue/weakness: Patient endorsing feeling fatigued. Hemoglobin 04/18/18 8.0, hematocrit 24.4. Physical therapy following. * Debility: Progressive. Patient has had approximately 2 hospitalizations this year and since then he has sick to a oint where he needs assistance with some of his ADLs. Patient has been getting physical therapy at home and states that he will not able to do it if he is on Hemodialysis. Recommending PT and OT consult if goals remain aggressive. Palliative care will continue to follow the patient during hospital course as condition evolves, to assist patient/decision-maker with understanding of their medical conditions, weighing benefits/burdens of treatment options, for clarification of goals of treatment. Additionally will assist with any symptoms of palliative concern Attestation Collaborating MD Comments: Chart reviewed. Case discussed with palliative care ACID TANK LINER. Above ACID TANK LINER note reviewed and I concur. . Attestation: To help prompt me to consider important information that might be impacting today's encounter and assessment, information from prior notes written by myself or my colleagues may have been "brought forward" into today's note. My signature on this note, however, is an attestation that I personally performed the exam, history, and/or decision-making noted today, and, unless otherwise indicated, the interactions with patient, family, and staff as well as the review of records all occurred today. I also attest that the listed assessment and stated plan reflect my best clinical judgment today based on the combination of historical information, prior notes, and today's exam/ interactions. When time spent is documented, it refers only to time spent today by the signer, or if indicated, combined time spent today by collaborating physician/nurse practitioner.
--- NOTE | 2018-04-19 14:21 | P.PNNP ---
Subjective Interval history: Seen during dialysis. His newly created access incision has dehisced. <Yulisa Dunn - Last Filed: 04/19/18 14:16> Physical Exam Vital signs: Vital Signs 04/18/18 15:00 04/18/18 16:00 04/18/18 17:00 Temperature 98 F Pulse Rate 82 90 86 Respiratory Rate 18 Blood Pressure 112/76 Pulse Oximetry 98 04/18/18 18:00 04/18/18 19:00 04/18/18 20:00 Temperature 98 F Pulse Rate 88 86 80 Respiratory Rate 16 Blood Pressure 113/67 Pulse Oximetry 95 04/19/18 00:00 Temperature 98 F Pulse Rate 81 Respiratory Rate 16 Blood Pressure 122/76 Pulse Oximetry 95 Intake & Output 04/18/18 04/19/18 04/19/18 18:59 06:59 18:59 Intake Total 50 / 50 100 / 100 Balance 50 / 50 100 / 100 Intake: IV 50 / 50 100 / 100 Cleocin 600 mg/NS Premix 600 mg 50 / 50 100 / 100 In 50 ml @ 100 mls/hr IV.SIG Q8H [facility] Rx#:[id number] Other: Date of Last Bowel Movement 04/17/18 04/17/18 - Constitutional no acute distress, average body habitus - Routine HEENT Exam Head: Present: normocephalic Eye: Present: EOMI - Routine Neck Exam Present: supple, full ROM - Routine Respiratory Exam Present: crackles. Absent: accessory muscle use Comments: left side crackles. - Routine Cardiovascular Exam Present: RRR, S1, S2 - Routine Abdominal Exam Present: soft, normoactive bowel sounds - Routine Skin Exam Present: warm - Detailed Skin Exam right arm Comments: Right arm AVG, incision was healing well. Distal end of incision has began to open. Some yellow slough noted. Non tender. - Routine Neurological Exam Present: alert, oriented X3 - Detailed Neurological Exam: Coma Scale Eye Opening: Spontaneous Verbal Response: Oriented Motor Response: Obey commands Nida Coma Scale Total: 15 - Routine Psychiatric Exam Present: normal affect, normal thought process <Yulisa Dunn - Last Filed: 04/19/18 14:16> Vital signs: Vital Signs 04/19/18 12:00 04/19/18 13:00 04/19/18 19:00 Temperature Pulse Rate 82 84 87 Respiratory Rate Blood Pressure Pulse Oximetry 04/19/18 20:00 04/19/18 21:00 04/19/18 22:00 Temperature 98.7 F Pulse Rate 88 94 H 96 H Respiratory Rate 20 Blood Pressure 112/63 Pulse Oximetry 97 04/19/18 23:00 04/20/18 00:00 04/20/18 01:00 Temperature 97.7 F Pulse Rate 89 88 84 Respiratory Rate 18 Blood Pressure 104/60 Pulse Oximetry 98 04/20/18 02:00 04/20/18 03:00 04/20/18 04:00 Temperature 99.2 F Pulse Rate 84 85 69 Respiratory Rate 20 Blood Pressure 95/59 L Pulse Oximetry 93 L 04/20/18 05:00 04/20/18 06:00 04/20/18 07:00 Temperature Pulse Rate 68 74 82 Respiratory Rate Blood Pressure Pulse Oximetry 04/20/18 08:00 04/20/18 09:00 04/20/18 10:00 Temperature Pulse Rate 86 86 87 Respiratory Rate 16 Blood Pressure 119/70 Pulse Oximetry Intake & Output 04/19/18 04/20/18 04/20/18 18:59 06:59 18:59 Intake Total 50 / 50 820 / 820 Output Total 2800 / 2800 Balance -2750 / -2750 820 / 820 Weight 100.2 kg Intake: IV 50 / 50 100 / 100 Cleocin 600 mg/NS Premix 600 mg 50 / 50 100 / 100 In 50 ml @ 100 mls/hr IV.SIG Q8H [facility] Rx#:[id number] Oral 720 / 720 Output: Hemodialysis Amount 2800 / 2800 Other: Date of Last Bowel Movement 04/20/18 <Rito Jose - Last Filed: 04/20/18 11:07> Assessment and Plan - Assessment (1) End stage renal disease Code(s): N18.6 - End stage renal disease Status: Chronic Plan: HD currently MWF. Seen during dialysis today on 2K, 350 BFR, goal 2L. Has outpatient arrangements at [facility], 6:30am chair time. Has right IJ PermCath and AVF in RUE (not mature). Incision has dehisced, wound care consulted. Tentative plan is to convert to PD at a later date;will need to wait to place PD catheter given current infection. Continue to monitor electrolytes intermittently. Avoid IVF Epogen ordered to be given during dialysis On Calcium Acetate for metabolic bone disorder. (2) Sepsis Code(s): A41.9 - Sepsis, unspecified organism Status: Acute Qualifiers: Sepsis type: sepsis due to unspecified organism Qualified Code(s): A41.9 - Sepsis, unspecified organism Plan: On Vancomycin and Zosyn. Sputum with Klebsiella and MRSA, on droplet and contact isolation. On Levaquin, Clindamycin, vancomycin, and fluconazole. (3) Hypotension Code(s): I95.9 - Hypotension, unspecified Status: Acute Qualifiers: Hypotension type: unspecified hypotension type Qualified Code(s): I95.9 - Hypotension, unspecified Plan: Improved. He is on midodrine for intradialytic hypotension. Continue to monitor BP. (4) Oral candidiasis Code(s): B37.0 - Candidal stomatitis Status: Acute Plan: Nystatin swish and swallow, improved. <Yulisa Dunn - Last Filed: 04/19/18 14:16> - Assessment (1) End stage renal disease Code(s): N18.6 - End stage renal disease Status: Chronic (2) Sepsis Code(s): A41.9 - Sepsis, unspecified organism Status: Acute Qualifiers: Sepsis type: sepsis due to unspecified organism Qualified Code(s): A41.9 - Sepsis, unspecified organism (3) Hypotension Code(s): I95.9 - Hypotension, unspecified Status: Acute Qualifiers: Hypotension type: unspecified hypotension type Qualified Code(s): I95.9 - Hypotension, unspecified (4) Oral candidiasis Code(s): B37.0 - Candidal stomatitis Status: Acute - Attending Attestation patient was seen and examined. Agree with above assessment and plan. Seen during dialysis. <Rito Jose - Last Filed: 04/20/18 11:07>
[2018-04-19 22:03] LABS: Hematocrit 28.3 % (39.0-51.0); Hemoglobin 9.3 gm/dL (13.0-17.0); Mean Corpuscular HGB Conc 32.9 % (32.0-36.0); Mean Corpuscular Hemoglobin 31.2 pg (27.0-34.0); Mean Platelet Volume 8.8 fL (7.0-11.0); Platelet Count 120 th/mm3 (150-450); Red Blood Count 2.98 mil/mm3 (4.50-5.90); Red Cell Distribution Width 15.8 % (11.6-17.2); White Blood Count 19.1 th/mm3 (4.0-11.0)
[2018-04-19 22:26] LABS: Calcium 7.8 mg/dL (8.5-10.1); Carbon Dioxide 31.5 meq/L (21.0-32.0); Potassium 5.8 meq/L (3.5-5.1)
[2018-04-19 22:39] LABS: Eosinophils 1 % (0-4); Lymphocytes 12 % (9-44); Metamyelocytes 5 % (0-1); Monocytes 9 % (0-8); Myelocytes 1 % (0-0); Tallied Nucleated RBC 7 (0-0)
[2018-04-19 22:41] LABS: Polychromasia 2.6 % (0.0-1.9)
[2018-04-19 22:42] LABS: Platelet Morphology Normal (Normal); Target Cells 2+
[2018-04-20] MEDS: Clindamycin 600 mg/NS Premix 600 MG/50 ML PIGGYBACK IV.SIG SCH ×2 (03:45→12:06)
[2018-04-20 05:07] LABS: Hematocrit 27.9 % (39.0-51.0); Hemoglobin 9.2 gm/dL (13.0-17.0); Mean Corpuscular Hemoglobin 31.2 pg (27.0-34.0); Mean Corpuscular Volume 94.4 fL (80.0-100.0); Mean Platelet Volume 8.8 fL (7.0-11.0); Platelet Count 112 th/mm3 (150-450); Red Blood Count 2.96 mil/mm3 (4.50-5.90); Red Cell Distribution Width 15.7 % (11.6-17.2); White Blood Count 19.8 th/mm3 (4.0-11.0)
[2018-04-20 05:25] LABS: Calcium 8.2 mg/dL (8.5-10.1); Carbon Dioxide 26.8 meq/L (21.0-32.0); Potassium 4.3 meq/L (3.5-5.1)
[2018-04-20] MEDS: Nystatin Liq 500,000 UNIT/5 ML UDC SWISH-SWAL SCH ×3 (09:11→17:51)
[2018-04-20] MEDS: guaiFENesin 600 MG ER Tablet PO SCH (09:12)
[2018-04-20] MEDS: Chlorhexidine Gluconate 0.12% Liq 15 ML UDC SWISH-SPIT SCH (09:12)
[2018-04-20] MEDS: Calcium Acetate 667 MG Capsule PO SCH ×3 (09:12→17:51)
[2018-04-20] MEDS: Lactobacillus Acidophilus/L. Spores Tablet PO SCH ×3 (09:12→17:51)
[2018-04-20] MEDS: Famotidine 20 MG Tablet PO SCH (09:12)
[2018-04-20] MEDS: Nystatin/Diphenhydramine/Lidocaine Mouthwash (Adult) 120 ML Botttle SWISH-SWAL SCH ×3 (09:12→17:51)
[2018-04-20] MEDS ORDERED: Fluconazole 100 MG Tablet PO ONE (09:32)
--- NOTE | 2018-04-20 09:44 | P.DCO ---
- Physical Therapy Order: Evaluate and treat, Improve ambulation - Home Health Nursing Order: Signs/symptoms of disease process, Nursing assessment with vital signs - Case Management Consult Yes - Certification I have seen patient Giovani Barnes on 04/20/18. My clinical findings support the need for the requested home health care services because: Limited mobility due to disease progression, Deconditioned with increased weakness, Infection with risk of complications I certify that my clinical findings support that this patient is homebound because: Unsteady gait/balance, Unsafe to leave home unassisted
[2018-04-20 09:54] LABS: Eosinophils 1 % (0-4); Lymphocytes 13 % (9-44); Monocytes 13 % (0-8); Myelocytes 6 % (0-0); Tallied Nucleated RBC 2 (0-0)
[2018-04-20 09:55] LABS: Platelet Morphology Normal (Normal)
[2018-04-20 09:57] LABS: Target Cells 1+
--- NOTE | 2018-04-20 10:43 | P.PNFP ---
Subjective Interval history: Patient seen and examined this morning. Patient states that he is feeling well and would like to return home. He notes mild serous fluid drainage at his AVF site. Vascular surgery was consulted yesterday for recommendations and discharge clearance. He currently complains of dry, scaly skin, but has moisturizer at the bedside which he plans to use. Per patient the peridex mouthwash has relieved much of his tooth pain. He has a mild dry cough, but it is not particularly bothersome today. Patient denies fevers, chills, nausea, vomiting, chest pain, shortness of breath, abdominal pain or leg pain. He has an outpatient appointment with Dr. Weller on for hospital follow- up and discussion of pending lab results. Discussed with patient at bedside that he is not a good candidate for peritoneal dialysis due to current infection and that he should continue to receive hemodialysis on a Sunday, Sunday, Sunday schedule at this time. Discussed treatment plan for MRSA and Klebsiella pneumonia, in addition to candidial infection per sputum cultures at bedside. Patient is agreeable to current plan. <[place] Garcia - 04/20/18 11:56> Results - Labs Result diagrams: 04/20/18 03:52 04/20/18 03:52 <Lauren Weller - 04/20/18 15:43> Abnormal lab results 04/19/18 04/19/18 04/20/18 Range/Units 21:02 21:02 03:52 WBC 19.1 H 19.8 H (4.0-11.0) th/mm3 RBC 2.98 L 2.96 L (4.50-5.90) mil/mm3 Hgb 9.3 L 9.2 L (13.0-17.0) gm/dL Hct 28.3 L 27.9 L (39.0-51.0) % Plt Count 120 L 112 L (150-450) th/mm3 Band Neuts % (Manual) 7 H 10 H (0-6) % Monocytes % (Manual) 9 H 13 H (0-8) % Metamyelocytes % (Man) 5 H (0-1) % Myelocytes % (Man) 1 H 6 H (0-0) % Abs Neuts (Manual) 14.9 H 14.5 H (1.8-7.7) th/mm3 Nucleated RBCs/100 WBC 7 H 2 H (0-0) /100 WBC Platelet Estimate Low L Low L (Normal) Polychromasia 2.6 H 2.0 H (0.0-1.9) % Target Cells 2+ H 1+ H (None) Potassium 5.8 H D (3.5-5.1) meq/L Chloride (98-107) meq/L BUN 20 H (7-18) mg/dL Creatinine 5.43 H (0.60-1.30) mg/dL Estimated GFR 14 L (>89) mL/min Random Glucose 42 L* (74-106) mg/dL Calcium 7.8 L (8.5-10.1) mg/dL 04/20/18 Range/Units 03:52 WBC (4.0-11.0) th/mm3 RBC (4.50-5.90) mil/mm3 Hgb (13.0-17.0) gm/dL Hct (39.0-51.0) % Plt Count (150-450) th/mm3 Band Neuts % (Manual) (0-6) % Monocytes % (Manual) (0-8) % Metamyelocytes % (Man) (0-1) % Myelocytes % (Man) (0-0) % Abs Neuts (Manual) (1.8-7.7) th/mm3 Nucleated RBCs/100 WBC (0-0) /100 WBC Platelet Estimate (Normal) Polychromasia (0.0-1.9) % Target Cells (None) Potassium (3.5-5.1) meq/L Chloride 97 L (98-107) meq/L BUN 24 H (7-18) mg/dL Creatinine 6.29 H (0.60-1.30) mg/dL Estimated GFR 12 L (>89) mL/min Random Glucose (74-106) mg/dL Calcium 8.2 L (8.5-10.1) mg/dL Short CBC 04/19/18 04/20/18 Range/Units 21:02 03:52 WBC 19.1 H 19.8 H (4.0-11.0) th/mm3 Hgb 9.3 L 9.2 L (13.0-17.0) gm/dL Hct 28.3 L 27.9 L (39.0-51.0) % Plt Count 120 L 112 L (150-450) th/mm3 BMP 04/19/18 04/20/18 21:02 03:52 Sodium 136 138 Potassium 5.8 H D 4.3 D Chloride 98 97 L Carbon Dioxide 31.5 26.8 BUN 20 H 24 H Creatinine 5.43 H 6.29 H Calcium 7.8 L 8.2 L <Lauren Weller - 04/20/18 15:43> Abnormal lab results 04/19/18 04/19/18 04/20/18 Range/Units 21:02 21:02 03:52 WBC 19.1 H 19.8 H (4.0-11.0) th/mm3 RBC 2.98 L 2.96 L (4.50-5.90) mil/mm3 Hgb 9.3 L 9.2 L (13.0-17.0) gm/dL Hct 28.3 L 27.9 L (39.0-51.0) % Plt Count 120 L 112 L (150-450) th/mm3 Band Neuts % (Manual) 7 H 10 H (0-6) % Monocytes % (Manual) 9 H 13 H (0-8) % Metamyelocytes % (Man) 5 H (0-1) % Myelocytes % (Man) 1 H 6 H (0-0) % Abs Neuts (Manual) 14.9 H 14.5 H (1.8-7.7) th/mm3 Nucleated RBCs/100 WBC 7 H 2 H (0-0) /100 WBC Platelet Estimate Low L Low L (Normal) Polychromasia 2.6 H 2.0 H (0.0-1.9) % Target Cells 2+ H 1+ H (None) Potassium 5.8 H D (3.5-5.1) meq/L Chloride (98-107) meq/L BUN 20 H (7-18) mg/dL Creatinine 5.43 H (0.60-1.30) mg/dL Estimated GFR 14 L (>89) mL/min Random Glucose 42 L* (74-106) mg/dL Calcium 7.8 L (8.5-10.1) mg/dL 04/20/18 Range/Units 03:52 WBC (4.0-11.0) th/mm3 RBC (4.50-5.90) mil/mm3 Hgb (13.0-17.0) gm/dL Hct (39.0-51.0) % Plt Count (150-450) th/mm3 Band Neuts % (Manual) (0-6) % Monocytes % (Manual) (0-8) % Metamyelocytes % (Man) (0-1) % Myelocytes % (Man) (0-0) % Abs Neuts (Manual) (1.8-7.7) th/mm3 Nucleated RBCs/100 WBC (0-0) /100 WBC Platelet Estimate (Normal) Polychromasia (0.0-1.9) % Target Cells (None) Potassium (3.5-5.1) meq/L Chloride 97 L (98-107) meq/L BUN 24 H (7-18) mg/dL Creatinine 6.29 H (0.60-1.30) mg/dL Estimated GFR 12 L (>89) mL/min Random Glucose (74-106) mg/dL Calcium 8.2 L (8.5-10.1) mg/dL Short CBC 04/19/18 04/20/18 Range/Units 21:02 03:52 WBC 19.1 H 19.8 H (4.0-11.0) th/mm3 Hgb 9.3 L 9.2 L (13.0-17.0) gm/dL Hct 28.3 L 27.9 L (39.0-51.0) % Plt Count 120 L 112 L (150-450) th/mm3 BMP 04/19/18 04/20/18 21:02 03:52 Sodium 136 138 Potassium 5.8 H D 4.3 D Chloride 98 97 L Carbon Dioxide 31.5 26.8 BUN 20 H 24 H Creatinine 5.43 H 6.29 H Calcium 7.8 L 8.2 L <[place]ia Garcia B - 04/20/18 10:42> Physical Exam Vital signs: Vital Signs 04/19/18 19:00 04/19/18 20:00 04/19/18 21:00 Temperature 98.7 F Pulse Rate 87 88 94 H Respiratory Rate 20 Blood Pressure 112/63 Pulse Oximetry 97 04/19/18 22:00 04/19/18 23:00 04/20/18 00:00 Temperature 97.7 F Pulse Rate 96 H 89 88 Respiratory Rate 18 Blood Pressure 104/60 Pulse Oximetry 98 04/20/18 01:00 04/20/18 02:00 04/20/18 03:00 Temperature Pulse Rate 84 84 85 Respiratory Rate Blood Pressure Pulse Oximetry 04/20/18 04:00 04/20/18 05:00 04/20/18 06:00 Temperature 99.2 F Pulse Rate 69 68 74 Respiratory Rate 20 Blood Pressure 95/59 L Pulse Oximetry 93 L 04/20/18 07:00 04/20/18 08:00 04/20/18 09:00 Temperature Pulse Rate 82 86 86 Respiratory Rate 16 Blood Pressure 119/70 Pulse Oximetry 04/20/18 10:00 04/20/18 11:00 04/20/18 12:00 Temperature 98.3 F Pulse Rate 87 99 H 91 H Respiratory Rate 14 Blood Pressure 111/64 Pulse Oximetry 94 L 04/20/18 13:00 04/20/18 14:00 Temperature Pulse Rate 92 H 90 Respiratory Rate Blood Pressure Pulse Oximetry Intake & Output 04/19/18 04/20/18 04/20/18 18:59 06:59 18:59 Intake Total 50 / 50 820 / 820 150 / 150 Output Total 2800 / 2800 Balance -2750 / -2750 820 / 820 150 / 150 Weight 100.2 kg Intake: IV 50 / 50 100 / 100 150 / 150 Cleocin 600 mg/NS Premix 600 mg 50 / 50 100 / 100 50 / 50 In 50 ml @ 100 mls/hr IV.SIG Q8H [facility] Rx#:[id number] Levaquin 500 mg Premix Inj 500 100 / 100 mg In 100 ml @ 100 mls/hr IV. SIG Q48H [facility] Rx#:[id number] Oral 720 / 720 Output: Hemodialysis Amount 2800 / 2800 Other: Date of Last Bowel Movement 04/20/18 <Lauren Weller - 04/20/18 15:43> Vital Signs 04/19/18 11:00 04/19/18 12:00 04/19/18 13:00 Temperature Pulse Rate 98 H 82 84 Respiratory Rate Blood Pressure Pulse Oximetry 04/19/18 19:00 04/19/18 20:00 04/19/18 21:00 Temperature 98.7 F Pulse Rate 87 88 94 H Respiratory Rate 20 Blood Pressure 112/63 Pulse Oximetry 97 07/20/18 22:00 04/19/18 23:00 04/20/18 00:00 Temperature 97.7 F Pulse Rate 96 H 89 88 Respiratory Rate 18 Blood Pressure 104/60 Pulse Oximetry 98 04/20/18 01:00 04/20/18 02:00 04/20/18 03:00 Temperature Pulse Rate 84 84 85 Respiratory Rate Blood Pressure Pulse Oximetry 04/20/18 04:00 04/20/18 05:00 04/20/18 06:00 Temperature 99.2 F Pulse Rate 69 68 74 Respiratory Rate 20 Blood Pressure 95/59 L Pulse Oximetry 93 L 04/20/18 07:00 04/20/18 08:00 04/20/18 09:00 Temperature Pulse Rate 82 86 86 Respiratory Rate 16 Blood Pressure 119/70 Pulse Oximetry 04/20/18 10:00 Temperature Pulse Rate 87 Respiratory Rate Blood Pressure Pulse Oximetry Intake & Output 04/19/18 04/20/18 04/20/18 18:59 06:59 18:59 Intake Total 50 / 50 820 / 820 Output Total 2800 / 2800 Balance -2750 / -2750 820 / 820 Weight 100.2 kg Intake: IV 50 / 50 100 / 100 Cleocin 600 mg/NS Premix 600 mg 50 / 50 100 / 100 In 50 ml @ 100 mls/hr IV.SIG Q8H [facility] Rx#:[id number] Oral 720 / 720 Output: Hemodialysis Amount 2800 / 2800 Other: Date of Last Bowel Movement 04/20/18 <EulaliaradhaAlbania B - 04/20/18 10:42> Narrative: GENERAL: Obese -[place] male laying in bed, in no acute distress SKIN: Warm and dry. Scaly and flaky HEAD: Atraumatic. Normocephalic. EYES: Pupils equal and round. No scleral icterus. No injection or drainage. ENT: No nasal bleeding or discharge. Mucous membranes pink and moist. Candidiasis on tongue. Dental caries on teeth with plaque buildup and decay NECK: Trachea midline. No JVD. CARDIOVASCULAR: Regular rate and rhythm. Catheter site clean and dry without tenderness or active bleeding. RESPIRATORY: No accessory muscle use. Crackles at lung bases. Breath sounds distant, but equal bilaterally. GASTROINTESTINAL: Abdomen soft, obese, non-tender, nondistended. Hepatic and splenic margins not palpable. MUSCULOSKELETAL: Extremities without clubbing, cyanosis, or edema. No obvious deformities. No calf tenderness. Well-healing 10 cm AVF surgical site on RUE without erythema, induration, edema or drainage. ~1cm opening at distal end of site with serous drainage. NEUROLOGICAL: Awake and alert. No obvious cranial nerve deficits. Motor grossly within normal limits. Normal speech. PSYCHIATRIC: Appropriate mood and affect; insight and judgment normal. <Al[place]ia Garcia - 04/20/18 11:53> Assessment and Plan - Assessment (1) Severe sepsis Code(s): A41.9 - Sepsis, unspecified organism; R65.20 - Severe sepsis without septic shock Status: Acute (2) Hypotension Code(s): I95.9 - Hypotension, unspecified Status: Acute (3) Wound dehiscence Code(s): T81.30XA - Disruption of wound, unspecified, initial encounter Status : Acute (4) End stage renal disease Code(s): N18.6 - End stage renal disease Status: Chronic (5) Oral candidiasis Code(s): B37.0 - Candidal stomatitis Status: Acute (6) Sacral wound Code(s): S31.000A - Unspecified open wound of lower back and pelvis without penetration into retroperitoneum, initial encounter Status: Acute (7) Dyspnea Code(s): R06.00 - Dyspnea, unspecified Status: Resolved (8) GERD (gastroesophageal reflux disease) Code(s): K21.9 - Gastro-esophageal reflux disease without esophagitis Status: Acute (9) Hepatitis B Code(s): B19.10 - Unspecified viral hepatitis B without hepatic coma Status: Chronic (10) Nutrition, metabolism, and development symptoms Code(s): R63.8 - Other symptoms and signs concerning food and fluid intake Status: Acute (11) DVT prophylaxis Status: Acute <Lauren Weller - 04/20/18 15:43> (1) Severe sepsis Code(s): A41.9 - Sepsis, unspecified organism; R65.20 - Severe sepsis without septic shock Status: Acute Plan: Patient met sepsis criteria on admission WBC 19.0, tachycardia and initially hypotensive responded to initial fluid boluses, but afebrile. LA and blood cultures ordered. LUE with small amount of serosanguinous drainage, no induration or fluctuance, but mild edema. 04/18 Leukocytosis continuing to increase, now 23.7. Will continue to rule out other sources of infections. C.diff, viral respiratory panel and urine pending. Few budding yeast cells seen in sputum culture, HIV pending and started on Diflucan for candidal infection. MRSA and Klebsiella pneumonia on sputum culture, Zosyn was DC'd due to resistance. Vancomycin does not seem to be proficient for the MRSA due to DOMI of 2. Pt seems stable on exam. -CXR 04/12: Minimal parenchymal changes in right base without fluid overload -Perfusion scan 04/12: Low probability for PE. Matched defects at posterior lower lobes likely from basilar areas of consolidation versus atelectasis versus effusion. -LUE US: Negative exam -CXR 04/14: Lungs are mildly hypoinflated. Linear areas of atelectasis seen. No evidence of airspace consolidation suggesting pneumonia. Labs: -LA: 2.7, 2.1, 2.4, 4.5, 3.5, 4.5, 3.5, 2.1, 1.9, has normalized. -Blood cultures: Negative to date -WBC: trending down since 04/17, now 19.8 (with elevated bands and absolute neutrophil count) -Sputum cx Klebsiella pneumonia, staph aureus MRSA, Gram stain reveals: Few budding yeast cells, moderate WBCs, light mixed elliott with no predominant morphology -HIV reflexed positive, awaiting confirmatory testing -Recommend CBC w/ diff & BMP for 04/23, prior to outpatient hospital follow up Medications: -Vancomycin 1g IV q24h at dialysis (04/14-04/17), stopped due to DOMI of 2 -Zosyn 3.375 g IV q12h (04/13-04/18) -Clindamycin 600 mg IV 3 times daily (04/18- ) -Levaquin 750 mg IV today followed by 500 mg every 48 hours (04/18- ) -Will order Diflucan 100mg for initial dose (50% reduction due to ESRD). Continuing on patient is to receive Diflucan 100mg follow dialysis and 50mg on non-dialysis days for empiric treatment for oropharyngeal candidiasis -Albumin 5% 25 g ordered once per nephrology for hypotension, may consider again if patient is acutely hypotensive (2) Hypotension Code(s): I95.9 - Hypotension, unspecified Status: Acute Plan: Patient with hypotension overnight 04/13/18 with chest tightness as well as hip/ thigh pain he attributes to being "dry" after hemodialysis. Minimal improvement with 2x 500 mL normal saline bolus on 04/13/19. Stable since 04/17 with addition of midodrine. -EKG with sinus tachycardia per medical team read without any acute ST elevation /depression's or interval changes. -BMP: Electrolytes within normal limits -Phosphorus 6.0 -Magnesium: 2.3 -Discussed with nephrology, recommend albumin 5% 25 g once -Midodrine added for hypotension -avoid IVF (3) Wound dehiscence Code(s): T81.30XA - Disruption of wound, unspecified, initial encounter Status : Acute Plan: Patient noted to have wound dehiscence at distal 1cm of AVF surgical site with scant serous discharge on 04/19. -Vascular surgery consulted, appreciate recommendations (4) End stage renal disease Code(s): N18.6 - End stage renal disease Status: Chronic Plan: Patient diagnosed with ESRD weeks ago. BUN 67, Cr 12.55 & estimated GFR 5L on admission. Started HD on 04/[address] Epifanio Greene and underwent AVF procedure on prior to recent hospital discharge with Dr. Hummel. He underwent dialysis 2 days ago, but stopped treatment, because the line clotted and he was scared. Patient to undergo dialysis in the hospital with Nephrology. Hemodialysis 04/13 with 700 mL fluid removal, discontinued early due to patient request as he was becoming "dry". Patient has tolerated hemodialysis on 04/15 and 04/17 without issue. Nephrology consulted and recommends to -Avoid IV fluid -Give Epogen with dialysis -Renally dose medications -Hemodialysis MWF. Per nephrology, patient has shown an interest in peritoneal dialysis, but is not a good candidate at the moment, due to current infection. May continue to discuss with PCP. -Patient may need to undergo permcath removal and temporary HD catheter placed if leukocytosis continues -Consider PD catheter placed at discharge (5) Oral candidiasis Code(s): B37.0 - Candidal stomatitis Status: Acute Plan: Patient complaining of painful swallowing, noted to have white plaque covering tongue on exam. Preliminary sputum culture few shows budding yeast. -Nystatin swish and swallow started on 04/13 for white plaques in mouth, most likely oral muriel -Magic mouthwash started on 04/13 for mouth pain -Started on diflucan as above to treat oropharyngeal candidiasis. (6) Sacral wound Code(s): S31.000A - Unspecified open wound of lower back and pelvis without penetration into retroperitoneum, initial encounter Status: Acute Plan: Patient found to have small sacral wound on exam 04/14/18 -Patient to be rotated per protocol. (7) Dyspnea Code(s): R06.00 - Dyspnea, unspecified Status: Resolved Plan: SOB currently resolved. ACS and PE ruled out in ED. D-Dimer 6.12, however, likely elevated due to ESRD on HD with VQ scan with low probability of PE. Echocardiogram showed: The left ventricular systolic function is normal with an estimated ejection fraction in the range of 60-65%. Normal left ventricular size. Trace tricuspid valve regurgitation. No pericardial effusion. -Supplemental O2 PRN with goal O2 sat >92% -Incentive spirometry/Acapella (8) GERD (gastroesophageal reflux disease) Code(s): K21.9 - Gastro-esophageal reflux disease without esophagitis Status: Acute Plan: Patient with hx of GERD. -Protonix 40mg daily -Pepcid 20 mg daily (9) Hepatitis B Code(s): B19.10 - Unspecified viral hepatitis B without hepatic coma Status: Chronic Plan: Patient with hx of hepatitis B. LFTs show AST 49 and ALT 20. -Will continue to monitor (10) Nutrition, metabolism, and development symptoms Code(s): R63.8 - Other symptoms and signs concerning food and fluid intake Status: Acute Plan: Fluids: tolerating po, No IV fluids per nephrology Electrolytes: will monitor with daily labs, replete, and allow nephro to help manage once pt begins HD Nutrition: renal diet GI: as above; continue home meds PT consulted for evaluation and treatment. (11) DVT prophylaxis Status: Acute Plan: DVT prophylaxis: Bilateral SCDs <[place] Garcia - 04/20/18 11:53> - Assessment and Plan 47 YO male followed by Dr Weller with HTN, GERD, Hep B and recent ESRD with start of HD in last 3 weeks presents with acute on chronic renal failure due to HD noncompliance and possible sepsis. Plan for discharge today pending vascular surgery recommendations. <Albania Garcia - 04/20/18 11:53> Discharge Planning: Plan for discharge to home with home health today, pending vascular surgery clearance. <Al[place]ia Garcia - 04/20/18 11:53> - Attending Attestation Patient seen, examined, and discussed with Dr aGrcia this morning. I agree with assessment and management as documented and discussed with me. Pt without any new complaints. He feels well today and feels well enough to go home. Discussed with case management regarding discharge needs - HHPT, HH nurse, and DME. Greater than 30 minutes spent counselling and coordinating care at discharge. <Lauren Weller - 04/20/18 15:43> <Al[place]ia Garcia - Last Filed: 04/20/18 11:53> (2) Hypotension Qualifiers: Hypotension type: unspecified hypotension type Qualified Code(s): I95.9 - Hypotension, unspecified (6) Sacral wound Qualifiers: Encounter type: initial encounter Qualified Code(s): S31.000A - Unspecified open wound of lower back and pelvis without penetration into retroperitoneum, initial encounter (7) Dyspnea Qualifiers: Dyspnea type: unspecified Qualified Code(s): R06.00 - Dyspnea, unspecified <Lauren Weller - Last Filed: 04/20/18 15:43> (2) Hypotension Qualifiers: Hypotension type: unspecified hypotension type Qualified Code(s): I95.9 - Hypotension, unspecified (6) Sacral wound Qualifiers: Encounter type: initial encounter Qualified Code(s): S31.000A - Unspecified open wound of lower back and pelvis without penetration into retroperitoneum, initial encounter (7) Dyspnea Qualifiers: Dyspnea type: unspecified Qualified Code(s): R06.00 - Dyspnea, unspecified <Al[place] Garcia - Last Filed: 04/20/18 11:53> (2) Hypotension Qualifiers: Hypotension type: unspecified hypotension type Qualified Code(s): I95.9 - Hypotension, unspecified (6) Sacral wound Qualifiers: Encounter type: initial encounter Qualified Code(s): S31.000A - Unspecified open wound of lower back and pelvis without penetration into retroperitoneum, initial encounter (7) Dyspnea Qualifiers: Dyspnea type: unspecified Qualified Code(s): R06.00 - Dyspnea, unspecified <Lauren Weller - Last Filed: 04/20/18 15:43> (2) Hypotension Qualifiers: Hypotension type: unspecified hypotension type Qualified Code(s): I95.9 - Hypotension, unspecified (6) Sacral wound Qualifiers: Encounter type: initial encounter Qualified Code(s): S31.000A - Unspecified open wound of lower back and pelvis without penetration into retroperitoneum, initial encounter (7) Dyspnea Qualifiers: Dyspnea type: unspecified Qualified Code(s): R06.00 - Dyspnea, unspecified
[2018-04-20] MEDS ORDERED: Levofloxacin 500 mg Premix Inj 500 MG/100 ML PIGGYBACK IV.SIG SCH (11:00)
--- NOTE | 2018-04-20 13:40 | P.PNCA ---
- Note Subjective/Hospital Course: 04/20/18 A-V fistula R arm. Excellent thrill/bruit. Well healed but for a tiny 1" dehiscence of skin distally. This is partial dehiscence, very shallow and does not require any revision or care other than keeping it clean. Will close and granulate on its own. Thanks J Objective: Vital Signs - 24 hr 04/19/18 19:00 04/19/18 20:00 04/19/18 21:00 Temperature 98.7 F Pulse Rate 87 88 94 H Respiratory Rate 20 Blood Pressure 112/63 Pulse Oximetry 97 04/19/18 22:00 04/19/18 23:00 04/20/18 00:00 Temperature 97.7 F Pulse Rate 96 H 89 88 Respiratory Rate 18 Blood Pressure 104/60 Pulse Oximetry 98 04/20/18 01:00 04/20/18 02:00 04/20/18 03:00 Temperature Pulse Rate 84 84 85 Respiratory Rate Blood Pressure Pulse Oximetry 04/20/18 04:00 04/20/18 05:00 04/20/18 06:00 Temperature 99.2 F Pulse Rate 69 68 74 Respiratory Rate 20 Blood Pressure 95/59 L Pulse Oximetry 93 L 04/20/18 07:00 04/20/18 08:00 04/20/18 09:00 Temperature Pulse Rate 82 86 86 Respiratory Rate 16 Blood Pressure 119/70 Pulse Oximetry 04/20/18 10:00 04/20/18 11:00 04/20/18 12:00 Temperature 98.3 F Pulse Rate 87 99 H 91 H Respiratory Rate 14 Blood Pressure 111/64 Pulse Oximetry 94 L Labs: Laboratory Results - last 12 hr 04/20/18 04/20/18 03:52 03:52 WBC 19.8 H RBC 2.96 L Hgb 9.2 L Hct 27.9 L MCV 94.4 MCH 31.2 MCHC 33.0 RDW 15.7 Plt Count 112 L MPV 8.8 Prelim Diff (Auto) Manual diff required WBC Differential Manual diff final Seg Neuts % (Manual) 57 Band Neuts % (Manual) 10 H Lymphocytes % (Manual) 13 Monocytes % (Manual) 13 H Eosinophils % (Manual) 1 Myelocytes % (Man) 6 H Abs Neuts (Manual) 14.5 H Nucleated RBCs/100 WBC 2 H Differential Comment . Platelet Estimate Low L Platelet Morphology Normal Polychromasia 2.0 H Target Cells 1+ H Sodium 138 Potassium 4.3 D Chloride 97 L Carbon Dioxide 26.8 Anion Gap 14 BUN 24 H Creatinine 6.29 H Estimated GFR 12 L Random Glucose 77 Calcium 8.2 L Result Diagrams: 04/20/18 03:52 04/20/18 03:52
--- NOTE | 2018-04-20 15:27 | P.PNNP ---
Subjective Interval history: Patient doing okay has decubitus ulcer clean Physical Exam Vital signs: Vital Signs 04/19/18 19:00 04/19/18 20:00 04/19/18 21:00 Temperature 98.7 F Pulse Rate 87 88 94 H Respiratory Rate 20 Blood Pressure 112/63 Pulse Oximetry 97 04/19/18 22:00 04/19/18 23:00 04/20/18 00:00 Temperature 97.7 F Pulse Rate 96 H 89 88 Respiratory Rate 18 Blood Pressure 104/60 Pulse Oximetry 98 04/20/18 01:00 04/20/18 02:00 04/20/18 03:00 Temperature Pulse Rate 84 84 85 Respiratory Rate Blood Pressure Pulse Oximetry 04/20/18 04:00 04/20/18 05:00 04/20/18 06:00 Temperature 99.2 F Pulse Rate 69 68 74 Respiratory Rate 20 Blood Pressure 95/59 L Pulse Oximetry 93 L 04/20/18 07:00 04/20/18 08:00 04/20/18 09:00 Temperature Pulse Rate 82 86 86 Respiratory Rate 16 Blood Pressure 119/70 Pulse Oximetry 04/20/18 10:00 04/20/18 11:00 04/20/18 12:00 Temperature 98.3 F Pulse Rate 87 99 H 91 H Respiratory Rate 14 Blood Pressure 111/64 Pulse Oximetry 94 L 04/20/18 13:00 04/20/18 14:00 Temperature Pulse Rate 92 H 90 Respiratory Rate Blood Pressure Pulse Oximetry Intake & Output 04/19/18 04/20/18 04/20/18 18:59 06:59 18:59 Intake Total 50 / 50 820 / 820 150 / 150 Output Total 2800 / 2800 Balance -2750 / -2750 820 / 820 150 / 150 Weight 100.2 kg Intake: IV 50 / 50 100 / 100 150 / 150 Cleocin 600 mg/NS Premix 600 mg 50 / 50 100 / 100 50 / 50 In 50 ml @ 100 mls/hr IV.SIG Q8H [facility] Rx#:[id number] Levaquin 500 mg Premix Inj 500 100 / 100 mg In 100 ml @ 100 mls/hr IV. SIG Q48H [facility] Rx#:[id number] Oral 720 / 720 Output: Hemodialysis Amount 2800 / 2800 Other: Date of Last Bowel Movement 04/20/18 - Constitutional no acute distress - Routine HEENT Exam Head: Present: normocephalic - Routine Respiratory Exam Present: CTA bilaterally - Routine Cardiovascular Exam Present: RRR - Routine Abdominal Exam Present: soft, normoactive bowel sounds - Routine Extremities Exam Present: edema Assessment and Plan - Assessment (1) End stage renal disease Code(s): N18.6 - End stage renal disease Status: Chronic Plan: Hemodialysis on Sunday, Sunday and Sunday wound care continue sepsis care on IV vancomycin and Levaquin Follows with Dr. Jose (2) Hypertension Code(s): I10 - Essential (primary) hypertension Status: Acute Qualifiers: Hypertension type: renovascular hypertension Qualified Code(s): I15.0 - Renovascular hypertension (3) Hepatitis B Code(s): B19.10 - Unspecified viral hepatitis B without hepatic coma Status: Chronic (4) Sepsis Code(s): A41.9 - Sepsis, unspecified organism Status: Acute Qualifiers: Sepsis type: sepsis due to unspecified organism Qualified Code(s): A41.9 - Sepsis, unspecified organism Plan: Patient is on vancomycin and Levaquin for MRSA and Klebsiella in sputum
[2018-04-20 15:52] VITALS: BP 108/70; RESP 16; TEMP 98; O2SAT 95
[2018-04-20 17:41] VITALS: PULSE 87
[2018-04-22 15:07] LABS: HIV 1 Antibody Positive (Negative); HIV 2 Antibody Negative (Negative)
[2018-04-24 23:00] LABS: Darunavir w Ritonavir SUSC; Fosamprenavir w Ritonavir SUSC; HIV 1 Genotyping INTERP; Indinavir w Ritonavir SUSC; Lopinavir w Ritonavir SUSC; Nefinavir SUSC; Saquinavir w Ritonavir SUSC; Tipranavir with Ritanavir SUSC
--- NOTE | 2018-04-26 20:07 | P.DS ---
Date of admission: 04/12/18 19:16 Primary care physician: Lauren Weller MD Brief History from admission: Mr Barnes is a 47 YO male followed by Dr Weller with PMHx HTN, GERD, Hepatitis B , and ESRD started on HD 2-[address] Greene who presents to the ED with a co-worker SOB, tachycardia, Cr 12.02, and WBC 19.0. His co-worker reports that she talked the pt into coming to the ED and states "he decided he wants to live now and will go to dialysis". After she departed, pt states that while he was in the hospital, his lines never clotted while in dialysis, but when he discharged and went as an outpt, his line clotted, he got scared and stopped going. States that he has not gone for several days now. Pt has a vascath in place and prior to discharge, Dr Hummel performed a RUE fistula. Pt reports he has no pain anywhere. He is no longer SOB. He indicates he is hungry , but is not eating because food and drink no longer taste good to him. He has a dry mouth as he hasn't been eating or drinking, he says, for the last 3-4 weeks. Pt says he weighed 278 lbs before all this started 3-4 weeks ago, and on presentation weighs 266 lbs. Denies CP, N/V/D, fever, chills, constipation, black or bloody stools. He still makes a little urine. DS: Diagnosis - Discharge Diagnosis (1) Severe sepsis Status: Acute (2) Hypotension Status: Acute (3) Wound dehiscence Status: Acute (4) End stage renal disease Status: Chronic (5) Oral candidiasis Status: Acute (6) Sacral wound Status: Acute (7) Dyspnea Status: Resolved (8) GERD (gastroesophageal reflux disease) Status: Acute (9) Hepatitis B Status: Chronic (10) Nutrition, metabolism, and development symptoms Status: Acute (11) DVT prophylaxis Status: Acute DS: Medications - Discharge Medications Prescriptions: chlorhexidine gluconate 15 ml SWISH-SPIT BID #1 bottle fluconazole 50 mg PO DIRECTED #6 tab levofloxacin [Levaquin] 500 mg PO EVERY OTHER DAY #2 tab DS: Summary Hospital Course: There is a 47-year-old male with history of hypertension hepatitis B and end- stage renal disease recently started on hemodialysis who was admitted for ESRD with noncompliance for hemodialysis, whom it sepsis criteria. On admission patient's BUN was 69 and creatinine was 13. Nephrology consulted who patient started on dialysis and recommended to give Epogen with dialysis, avoid IV fluid and give albumin if hemodynamically unstable. Patient's white blood cell count on admission was 19, slowly increased to 26.15 due to the hospital stay, despite antibiotic treatment with vancomycin and Zosyn. Chest x-ray showed minimal parenchymal changes in right lung base without pleural fluid, upper extremity ultrasound of aVF site negative for cellulitis or abscess, and D- dimer was high however VQ scan showed low probability of PE. Possible sources of infection include oral sputum culture which was positive for Klebsiella pneumonia and MRSA, poor dentition for which antimicrobial mouthwash was helpful. HIV screening was positive. Confirmatory testing not available on discharge however patient had follow-up with primary care provider to discuss results. Patient spoke to palliative care and prior to discharge consider hospice care versus being discharged home with home health. After discussing treatment family, patient decided to continue to undergo hemodialysis as an outpatient and he can consider to need dialysis once he was stable. Patient discharged in stable condition to home with home health service due to patient' s inability to care for self. Patient sent home on renally dosed levofloxacin and fluconazole patient to follow-up with primary care provider for hospital follow-up and sales promotion representative in the next week. - Time Spent with Patient Total time spent providing and/or coordinating discharge services: - Quality: VTE Deep Vein Thrombosis/Pulmonary Embolism Present on Admission: No Results Procedures completed during hospitalization: none Labs on day of discharge: Labs from last 24 hours 04/19/18 21:02 HIV RNA copies/mL Ultra 29634.0 H HIV RNA logcopies/mL Ult 4.15 H - Impressions ITS Impressions Pulmonary Perfusion Imaging 04/12/18 17:53 CONCLUSION: Low probability for pulmonary embolus. There are matched defects at the posterior lower lobes likely from basilar areas of consolidation, atelectasis or effusion. Upper Extremity Ultrasound 04/13/18 00:00 CONCLUSION: Negative targeted ultrasound examination. Chest X-Ray 04/14/18 00:00 CONCLUSION: The lungs are mildly hypoinflated. Linear areas of atelectasis are seen. No evidence of airspace consolidation to suggest pneumonia. Discharge Plan - Discharge Disposition Patient Disposition: 06 Disch W/Home Health Service - Discharge Condition Condition: Stable - Discharge Order Discharge Orders: Discharge Order (Routine); Ordered 04/20/18 Ordered By: Albania Garcia - Discharge Details Anticipated Discharge Date: 04/20/18 - Physicians Team Primary Care Provider: Lauren Weller Attending Provider: Lauren Weller Other Providers: Ana Ann MD ; [facility] ; Anibal Black MD ; Julia Krishnan MD
== END 2018-04-20 19:45 | disposition home health service (06) ==
LOC: NEPE 15:49 → NEDA 19:16 → NEPGCP 20:51 → HCIS 04-14 04:46
PROVIDERS: ADMIT Family Medicine; ATTEND Family Medicine
DX: Z99.2 Dependence on renal dialysis; I95.9 Hypotension, unspecified; L89.159 Pressure ulcer of sacral region, unspecified stage; Z68.35 Body mass index [BMI] 35.0-35.9, adult; N17.9 Acute kidney failure, unspecified; N18.6 End stage renal disease; A41.9 Sepsis, unspecified organism; E66.01 Morbid (severe) obesity due to excess calories; K02.9 Dental caries, unspecified; B19.10 Unspecified viral hepatitis B without hepatic coma; R65.20 Severe sepsis without septic shock; B37.0 Candidal stomatitis; K21.9 Gastro-esophageal reflux disease without esophagitis; T81.30XA Disruption of wound, unspecified, initial encounter; I12.0 Hypertensive chronic kidney disease with stage 5 chronic kidney disease or end stage renal disease; Z91.15 Patient's noncompliance with renal dialysis

== ENCOUNTER 2018-08-01 05:29 | Observation (INO) ==
[2018-08-01] MEDS ORDERED: Sodium Chlor 0.9% Inj 500 ML IV.CONT ONE (06:00)
[2018-08-01] MEDS ORDERED: Metoprolol Tartrate 25 MG Tablet PO ONE (06:00)
[2018-08-01] MEDS ORDERED: Chlorhexidine Gluconate 2% 1 Pack (2 Cloths) TOPICAL ONE (06:00)
--- NOTE | 2018-08-01 06:29 | XR ---
EXAM DATE: 08/01/2018 6:17 AM EDT AGE/SEX: 48 years / Male INDICATIONS: Evaluate for pneumonia, pneumothorax, or communicable diseases. CLINICAL DATA: This is the patient's initial encounter. Patient reports that signs and symptoms have been present for 1 day and indicates a pain score of 0/10. MEDICAL/SURGICAL HISTORY: None. . Dialysis catheter. COMPARISON: C, CHEST 1V SINGLE AP, 04/23/2018. . FINDINGS: Very mild atelectasis seen of both lung bases. No pneumonia demonstrated. No pleural effusion or pneu mothorax. Heart size stable, within normal limits. There is a tunneled double lumen right internal jugular central venous catheter with distal tip in th e right atrium. CONCLUSION: Trace bibasilar atelectasis and a right IJ dialysis catheter. Otherwise negative. Electronically signed by: To Ayala MD 08/01/2018 6:28 AM EDT
[2018-08-01 06:52] LABS: Baso # (Auto) 0.1 th/mm3 (0.0-0.2); Baso % (Auto) 0.8 % (0.0-2.0); Eos # (Auto) 0.4 th/mm3 (0.0-0.4); Eos % (Auto) 2.7 % (0.0-4.0); Hematocrit 32.4 % (39.0-51.0); Hemoglobin 10.2 gm/dL (13.0-17.0); Lymph # (Auto) 3.4 th/mm3 (1.0-4.8); Lymph % (Auto) 25.9 % (9.0-44.0); Mean Corpuscular HGB Conc 31.6 % (32.0-36.0); Mean Corpuscular Hemoglobin 32.5 pg (27.0-34.0); Mean Corpuscular Volume 102.7 fL (80.0-100.0); Mean Platelet Volume 7.8 fL (7.0-11.0); Mono # (Auto) 1.6 th/mm3 (0.0-0.9); Neut # (Auto) 7.7 th/mm3 (1.8-7.7); Neut % (Auto) 58.6 % (16.0-70.0); Platelet Count 302 th/mm3 (150-450); Red Blood Count 3.15 mil/mm3 (4.50-5.90); White Blood Count 13.2 th/mm3 (4.0-11.0)
[2018-08-01 07:04] LABS: Activated Partial Thrombo Time 24.3 sec (24.3-30.1); Prothrombin Time 10.6 sec (9.8-11.6)
--- NOTE | 2018-08-01 07:18 | P.HPVS ---
History of Present Illness Chief Complaint: HD, need for AVF History of Present Illness: 48 yo male with ESRD who underwent R UE AVF (1st stage BB AVF) on 04/08/18. Presents for second stage. No F/C/N/V or changes in health that would preclude OR today. - Inpatient Certification If this patient has been admitted as an Inpatient: I certify that the inpatient services were ordered in accordance with Medicare regulations governing the order. This includes certification that hospital inpatient services are reasonable and necessary and in the case of services not specified as inpatient-only under 42 CFR 419.22(n), that they are appropriately provided as inpatient services in accordance to with the 2-midnight benchmark under 43 CFR 412.3(e) Estimated Total Length of Stay (Days): 2 Plans for Post Hospital Care: Home Review of Systems Constitutional: Denies chills, Denies fever(s) PMFSH - History History Provided By: Patient - Medical History Medical History: Medical History (Last Reviewed 08/01/18 @ 07:16 by Tarun Hummel MD) AV fistula Dialysis patient End stage renal disease GERD (gastroesophageal reflux disease) HTN (hypertension) Hepatitis B Right testicular torsion - Surgical History Surgical History: Surgical History (Last Reviewed 08/01/18 @ 07:16 by Tarun Hummel MD) History of knee surgery AV fistula Vascular dialysis catheter in place Onset Date: ~03/31/18 - Family History Family History: Family History (Last Reviewed 08/01/18 @ 07:01 by Jesika West) Mother Hx of renal failure Father Family hx of colon cancer Brother End stage renal disease - Tobacco History Second Hand Smoke Exposure: No Smoking Status: Never smoker - Alcohol History How Often Do You Have a Drink Containing Alcohol: Never - Substance Use History Substance History: No History of Abuse - Travel History History of Recent Travel: No Medications and Allergies Active Medications: Active Medications Lactated Ringer's (Lr 1000 Ml Inj) 1,000 mls @ 30 mls/hr IV.CONT .Q24H ONE Stop: 08/02/18 05:59 Sodium Chloride (Ns Inj) 500 mls @ 30 mls/hr IV.CONT .[id number] ONE Stop: 08/01/18 22:39 Allergies Allergy/AdvReac Type Severity Reaction Status Date / Time No Known Allergies Allergy Verified 08/01/18 07:01 Home Medications Medication Instructions Recorded Confirmed Type lansoprazole 30 mg PO BID 03/30/18 08/01/18 History ranitidine HCl 150 mg PO DAILY 03/30/18 08/01/18 History Physical Exam Vital Signs / I&O: Intake & Output 07/31/18 08/01/18 08/01/18 18:59 06:59 18:59 Weight 86.1 kg Other: Weight On Admission 86.1 kg Neuro: alert, oriented, no distress HEENT: NC/AT; anicteric Neck: no JVD Heart: reg rate Lungs: clear Vascular: R UE incision healed + thrill good hand strength Laboratory Results - last 24 hr 08/01/18 08/01/18 06:15 06:15 WBC 13.2 H RBC 3.15 L Hgb 10.2 L Hct 32.4 L MCV 102.7 H MCH 32.5 MCHC 31.6 L RDW 19.0 H Plt Count 302 MPV 7.8 Neut % (Auto) 58.6 Lymph % (Auto) 25.9 Sawyer % (Auto) 12.0 H Eos % (Auto) 2.7 Baso % (Auto) 0.8 Neut # (Auto) 7.7 Lymph # (Auto) 3.4 Sawyer # (Auto) 1.6 H Eos # (Auto) 0.4 Baso # (Auto) 0.1 WBC Differential . Differential Comment Auto diff final PT 10.6 INR 1.0 APTT 24.3 Impressions Chest X-Ray 08/01/18 00:00 CONCLUSION: Trace bibasilar atelectasis and a right IJ dialysis catheter. Otherwise negative. Caprini VTE Risk Assessment Caprini VTE Risk Assessment: No/Low Risk (score <= 1) (intraop heparin) Caprini Risk Assessment Model: Point Value = 1 Point Value = 2 Point Value = 3 Point Value = 5 Age 41-60 Minor surgery BMI > 25 kg/m2 Swollen legs Varicose veins or History of unexplained or recurrent spontaneous Oral contraceptives or hormone replacement Sepsis (< 1 month) Serious lung disease, including pneumonia (< 1 month) Abnormal pulmonary function Acute myocardial infarction Congestive heart failure (< 1 month) History of inflammatory bowel disease Medical patient at bed rest Age 61-74 Arthroscopic surgery Major open surgery (> 45 min) Laparoscopic surgery (> 45 min) Malignancy Confined to bed (> 72 hours) Immobilizing plaster cast Central venous access Age >= 75 History of VTE Family history of VTE Factor V Leiden Prothrombin [id number] Lupus anticoagulant Anticardiolipin antibodies Elevated serum homocysteine Heparin-induced thrombocytopenia Other congenital or acquired thrombophilia Stroke (< 1 month) Elective arthroplasty Hip, pelvis, or leg fracture Acute spinal cord injury (< 1 month) Prophylaxis Regimen: Total Risk Factor Score Risk Level Prophylaxis Regimen 0-1 Low Early ambulation 2 Moderate Order ONE of the following: *Sequential Compression Device (SCD) *Heparin 5000 units SQ BID 3-4 Higher Order ONE of the following medications: *Heparin 5000 units SQ TID *Enoxaparin/Lovenox 40 mg SQ daily (WT < 150 kg, CrCl > 30 mL/min) *Enoxaparin/Lovenox 30 mg SQ daily (WT < 150 kg, CrCl > 10-29 mL/min) *Enoxaparin/Lovenox 30 mg SQ BID (WT < 150 kg, CrCl > 30 mL/min) AND/OR *Sequential Compression Device (SCD) 5 or more Highest Order ONE of the following medications: *Heparin 5000 units SQ TID (Preferred with Epidurals) *Enoxaparin/Lovenox 40 mg SQ daily (WT < 150 kg, CrCl > 30 mL/min) *Enoxaparin/Lovenox 30 mg SQ daily (WT < 150 kg, CrCl > 10-29 mL/min) *Enoxaparin/Lovenox 30 mg SQ BID (WT < 150 kg, CrCl > 30 mL/min) AND *Sequential Compression Device (SCD) Assessment and Plan - Assessment (1) End stage renal disease Code(s): N18.6 - End stage renal disease Status: Chronic - Plan RIGHT arm access revision (2nd stage superficialization/transposition) To OR today Mr. Feng (cousin): [phone]
[2018-08-01] MEDS ORDERED: Bupivacaine 0.5% Inj 50 ML MDV Vial ONE (07:21)
[2018-08-01] MEDS ORDERED: Heparin 10,000 UNITS/10 ML Vial (for IV use) ONE (07:21)
[2018-08-01] MEDS ORDERED: Thrombin Topical 20,000 UNIT Spray Kit TOPICAL ONE (07:21)
[2018-08-01] MEDS ORDERED: Protamine Sulfate Inj 50 MG/5 ML Vial ONE (07:21)
[2018-08-01] MEDS ORDERED: Heparin/NS PF Inj 500 ML ONE (07:21)
[2018-08-01] MEDS ORDERED: Famotidine PF Inj 20 MG/2 ML Vial ONE (07:34)
[2018-08-01 08:03] LABS: Calcium 8.2 mg/dL (8.5-10.1); Carbon Dioxide 27.7 meq/L (21.0-32.0); Potassium 3.4 meq/L (3.5-5.1)
[2018-08-01] MEDS ORDERED: Bisacodyl 10 MG Supp RECTAL PRN (09:13)
[2018-08-01] MEDS ORDERED: Morphine Inj 4 MG/ML Vial IV.PUSH PRN (09:13)
--- NOTE | 2018-08-01 09:13 | P.OP ---
- Preoperative Diagnosis (1) End stage renal disease - Postoperative Diagnosis (1) End stage renal disease Date of procedure: 08/01/18 Procedure: R UE access revision (transposition of brachiobasilic AVF) Implants: none Anesthesia: FELICITASA Surgeon: Tarun Hummel MD Branch Manager Trainee: Georgie Knott Estimated blood loss (mL): 30 IV fluids (mL): 550 Pathology: none sent Operation and Findings: + thrilll and good radial Doppler signal after transposition
[2018-08-01] MEDS ORDERED: fentaNYL Citrate Inj 100 MCG/2 ML Ampul ONE (09:54)
[2018-08-01] MEDS ORDERED: *morphine SULFATE 4 MG/ML PERIprocedure ONLY ONE ×2 (10:03→13:41)
--- NOTE | 2018-08-01 11:58 | MP ---
cc: Tarun Hummel MD DATE OF OPERATION: 08/01/2018 PREOPERATIVE DIAGNOSIS: End-stage renal disease, need for dialysis access. POSTOPERATIVE DIAGNOSIS: End-stage renal disease, need for dialysis access. PROCEDURE: Right brachiobasilic arteriovenous fistula revision (transposition). ATTENDING SURGEON: Tarun Hummel MD. TREASURY ANALYST SURGEON: SHERI Gamboa PA/[employer] Machine Operator. ANESTHESIA: General. INDICATIONS: Mr. Barnes is a 48-year-old gentleman with end-stage renal disease. He underwent a right first stage brachiobasilic in March. This is matured by ultrasound and by physical examination. He was taken to the operating room for a second stage. DESCRIPTION OF PROCEDURE: Informed consent was obtained from the patient. He was taken to the operating room and placed supine on the operating table. An appropriate timeout was taken to ensure the patient's identity, operative site and planned procedure. Administration of 1 gram of vancomycin was initiated prior to skin incision and will be discontinued after single preoperative dose. Vancomycin was chosen because the patient has end-stage renal disease. Everyone in the room agreed with the timeout and we proceeded. His right arm was prepped and draped. An incision was made over the medial aspect of the upper arm, carried down through subcutaneous tissue with electrocautery. Basilic vein was identified, dissected free from the arteriovenous anastomosis all the way up to the axilla. Side branches were ligated with 3-0 silk. The vein was marked for orientation, transected proximally after clamping proximally and distally and the proximal end was oversewn with a 3-0 silk and a large Hemoclip. A tunnel was then created in the anterior aspect of the upper arm. The fistula was passed in the tunnel, taking caution not to twist it. The brachial artery was identified in the medial aspect of the upper arm, dissected free for several centimeters. The patient was systemically heparinized with 3000 units of IV heparin. Proximal and distal control of the brachial artery was obtained with profunda clamps and longitudinal arteriotomy was made with an 11 blade, extended with [place] scissors. The vein was spatulated and sewn end-to-side with running 6-0 Prolene suture. At the completion, it was flushed and noted to be hemostatic. There was a nice thrill in the fistula and a Doppler signal in the wrist. The heparin was reversed with protamine. The wound was infiltrated with Marcaine and made hemostatic and closed with 2-0 Polysorb, 3-0 Polysorb and 4-0 Monocryl. Sponge and needle counts were correct at the end of the case. I was present and scrubbed for the entire procedure. MD LINA Amaya/suki/moe , 09:32 AM , 09:37 AM
--- NOTE | 2018-08-01 18:01 | ECG ---
Date Performed: 08/01/2018 Time Performed: 07:08:15 PTAGE: 48 years EKG: Sinus rhythm MODERATE VOLTAGE CRITERIA FOR LVH, CONSIDER NORMAL VARIANT When compared to previous tracing, sinus rate is slower. BORDERLINE ECG PREVIOUS TRACING : 04/23/2018 05.58 DOCTOR: Lupillo Reed Interpretating Date/Time 08/01/2018 18:00:39
[2018-08-01] MEDS: Senna/Docusate Sodium 8.6/50 MG Tablet PO SCH (20:48)
[2018-08-01] MEDS ORDERED: Albumin Human 25% Inj 100 ML IV.SIG PRN (22:15)
[2018-08-01] MEDS ORDERED: Acetaminophen 325 MG Tablet PO PRN (22:15)
[2018-08-01] MEDS ORDERED: Sod Chloride 0.9% Inj 1,000 ML IV.CONT PRN (22:15)
[2018-08-01] MEDS ORDERED: Gelatin 12 MM/7 MM Topical Foam TOPICAL PRN (22:15)
[2018-08-01] MEDS ORDERED: Heparin 10,000 UNITS/10 ML Vial (for IV use) OTHER PRN ×2 (22:15)
[2018-08-01] MEDS ORDERED: Sod Chloride 0.9% Inj 1,000 ML OTHER PRN ×2 (22:15)
[2018-08-02 06:13] LABS: Hematocrit 30.1 % (39.0-51.0); Hemoglobin 9.8 gm/dL (13.0-17.0); Mean Corpuscular HGB Conc 32.4 % (32.0-36.0); Mean Corpuscular Hemoglobin 33.6 pg (27.0-34.0); Mean Corpuscular Volume 103.6 fL (80.0-100.0); Mean Platelet Volume 7.8 fL (7.0-11.0); Platelet Count 266 th/mm3 (150-450); Red Cell Distribution Width 18.7 % (11.6-17.2); White Blood Count 10.7 th/mm3 (4.0-11.0)
[2018-08-02 06:53] LABS: Calcium 7.9 mg/dL (8.5-10.1); Potassium 3.8 meq/L (3.5-5.1)
--- NOTE | 2018-08-02 07:55 | P.PNVS ---
Subjective Post Op Day #: 1 Procedure: R UE access revision (transposition of brachiobasilic AVF) Subjective/Hospital Course: looks great, slept well pain controlled hand ok Objective Vital Signs / I&O: Vital Signs 08/01/18 09:43 08/01/18 10:00 08/01/18 10:15 Temperature 97.7 F Pulse Rate 80 83 87 Respiratory Rate 14 17 16 Blood Pressure 145/78 H 125/73 123/72 Pulse Oximetry 100 100 100 08/01/18 10:30 08/01/18 10:45 08/01/18 11:00 Temperature Pulse Rate 87 86 86 Respiratory Rate 15 17 16 Blood Pressure 118/73 120/75 124/76 Pulse Oximetry 100 100 100 08/01/18 11:30 08/01/18 12:00 08/01/18 13:00 Temperature Pulse Rate 85 85 86 Respiratory Rate 16 16 16 Blood Pressure 117/72 117/67 116/69 Pulse Oximetry 100 100 100 08/01/18 13:39 08/01/18 14:00 08/01/18 14:45 Temperature 98 F 98.2 F Pulse Rate 85 84 90 Respiratory Rate 20 15 16 Blood Pressure 119/74 115/76 118/77 Pulse Oximetry 98 98 100 08/01/18 16:00 08/01/18 20:00 08/02/18 00:00 Temperature 97.8 F 97.5 F L 97.9 F Pulse Rate 81 94 H 92 H Respiratory Rate 20 17 16 Blood Pressure 132/82 144/51 H 118/71 Pulse Oximetry 96 96 94 L 08/02/18 04:00 Temperature 97.0 F L Pulse Rate 91 H Respiratory Rate 16 Blood Pressure 134/69 Pulse Oximetry 97 Intake & Output 08/01/18 08/02/18 08/02/18 18:59 06:59 18:59 Intake Total 790 / 790 600 / 600 Output Total 50 / 50 Balance 740 / 740 600 / 600 Weight 89 kg Intake: IV 500 / 500 Heparin/NS PF Inj 500 ML @ 0 0 / 0 mls/hr .ROUTE .STK-MED ONE Rx#: [id number] NS Inj 500 ML @ 30 mls/hr IV. 500 / 500 CONT .[id number] [facility] Rx#:[id number] Oral 240 / 240 600 / 600 Anesthesia Amount 50 / 50 Output: Estimated Blood Loss 50 / 50 Other: Date of Last Bowel Movement 08/01/18 08/01/18 Exam: R UE incision c/d/i + thrill upper arm good hand strength Laboratory Results - last 24 hr 08/01/18 08/02/18 08/02/18 07:30 05:01 05:01 WBC 10.7 RBC 2.90 L Hgb 9.8 L Hct 30.1 L MCV 103.6 H MCH 33.6 MCHC 32.4 RDW 18.7 H Plt Count 266 MPV 7.8 Sodium 141 142 Potassium 3.4 L 3.8 Chloride 105 106 Carbon Dioxide 27.7 27.0 Anion Gap 8 9 BUN 6 L 11 Creatinine 3.26 H 4.35 H Estimated GFR 25 L 18 L Random Glucose 82 73 L Calcium 8.2 L 7.9 L Assessment and Plan - Assessment (1) End stage renal disease Code(s): N18.6 - End stage renal disease Status: Chronic - Plan POD#1 s/p R UE access revision 1. Looks great; access patent, hand ok 2. HD this morning 3. D/C after HD 4. Has f/u already scheduled for my office on 08/30/18 at 1:15p Of note, PDMP queried and the patient received a narcotic prescription on so no additional pain medications will be prescribed. Discharge Planning: today after HD - nephrology consulted immediately post-op
--- NOTE | 2018-08-02 07:58 | P.DS ---
Discharge Summary - Admission Date 08/01/18 15:02 - Admission Diagnosis (1) AV fistula - Discharge Diagnosis (1) AV fistula Status: Acute - Summary Brief History from admission: 48 yo male with ESRD who underwent R UE AVF (1st stage BB AVF) on 04/08/18. Presents for second stage. No F/C/N/V or changes in health that would preclude OR today. Procedure: R UE access revision (transposition of brachiobasilic AVF) Significant Findings: Abnormal Lab Results 08/01/18 08/02/18 08/02/18 07:30 05:01 05:01 WBC 10.7 RBC 2.90 L Hgb 9.8 L Hct 30.1 L MCV 103.6 H MCH 33.6 MCHC 32.4 RDW 18.7 H Plt Count 266 MPV 7.8 Sodium 141 142 Potassium 3.4 L 3.8 Chloride 105 106 Carbon Dioxide 27.7 27.0 Anion Gap 8 9 BUN 6 L 11 Creatinine 3.26 H 4.35 H Estimated GFR 25 L 18 L Random Glucose 82 73 L Calcium 8.2 L 7.9 L Hospital Course: The patient tolerated the procedure well. On POD#1, his pain was controlled, his incision looked good and he is set for regularly scheduled HD and the d/c home. I queried the [facility] database and he was prescribed narcotics on 07/29/18 so no additional prescriptions will be provided. - Discharge Instructions May shower starting Sunday. Please call with any questions or concerns: [phone] F/U appointment 08/30 at 1:15p Any questions or concerns: Call [facility] at [facility] [phone] Discharge Plan - Discharge Disposition Patient Disposition: Discharge Home - Discharge Condition Condition: Good - Discharge Order Discharge Orders: Discharge Order (Routine); Ordered 08/02/18 Ordered By: Tarun Hummel - Physicians Team Primary Care Provider: Lauren Weller Attending Provider: Tarun Hummel Other Providers: Rito Jose MD - Rxs /Orders / Referrals /Forms Prescriptions: No Action lansoprazole 30 mg Capsule,Delayed Release(Dr/Ec) 30 mg PO BID ranitidine HCl 150 mg Capsule 150 mg PO DAILY Referrals: Lauren Weller MD [Primary Care Provider] - See Instructions - Discharge Instructions Patient Printed Instructions: Fall Prevention (DC), Arteriovenous Graft Creation for Hemodialysis (DC), Arteriovenous Fistula Creation for Hemodialysis (DC), Deep Vein Thrombosis Prevention (DC) Additional Instructions: TAKE MEDICATIONS PRESCRIBED GO TO ALL FOLLOW UP APPOINTMENTS IN CASE OF EMERGENCY CALL 911 OR RETURN TO EMERGENCY ROOM - Post Discharge Care Plan Care Plan Goals: Your Health Problems: Goals to Promote Your Health: * To prevent worsening of your condition * To maintain your health at the optimal level Directions to Meet Your Goals: * Take your medications as prescribed * Follow your dietary instruction * Follow activity as directed * Keep your appointments as scheduled * Take your immunizations and boosters as scheduled * If your symptoms worsen call your PCP * If no PCP go to Urgent Care or Emergency Room Smoking is dangerous to your health. Avoid second hand smoke. You may reach the 24-hour crisis hotline for domestic abuse at .
[2018-08-02] MEDS: Senna/Docusate Sodium 8.6/50 MG Tablet PO SCH (08:54)
[2018-08-02] MEDS ORDERED: Heparin - SQ 10,000 UNITS/ML Vial SQ SCH (09:00)
[2018-08-02] MEDS ORDERED: Famotidine 20 MG Tablet PO SCH (09:00)
--- NOTE | 2018-08-02 16:28 | P.CONNP ---
Addendum entered and electronically signed by Kati Meza APRN 08/02/18 17:20: Assessment and Plan: ESRD Patient gets dialyzed MWF. Patient to be dialyzed today. Monitor fluid and electrolytes. Patient to be discharged after dialysis today. Anemia Patient gets Epogen with Dialysis. Metabolic Bone Disease. Monitor Phosphorus intermittently. Phosphorus should be below 5.5. Original Note: <Kati Meza - Last Filed: 08/02/18 16:38> History of Present Illness Consult date: 08/02/18 Requesting Physician: Rito Jose Reason for Consult: ESRD on dialysis Primary Care Provider: Lauren Weller MD History of Present Illness: Patient is a 48 year old male with ESRD who underwent R UE AVF placement on . Patient presents for second stage. Patient gets dialysis MWF. Patient to be dialyzed today. Patient to be discharged after dialysis today. Patient has a history of ESRD, Hep B, HTN, GERD. Patient's mother had ESRD and his brother currently has ESRD and is on dialysis. Review of Systems All other systems reviewed negative except as stated in HPI PMFSH - History History Provided By: Patient - Medical History Medical History: Medical History (Last Reviewed 08/01/18 @ 07:16 by Tarun Hummel MD) AV fistula Dialysis patient End stage renal disease GERD (gastroesophageal reflux disease) HTN (hypertension) Hepatitis B Right testicular torsion - Surgical History Surgical History: Surgical History (Last Reviewed 08/01/18 @ 07:16 by Tarun Hummel MD) History of knee surgery AV fistula Vascular dialysis catheter in place Onset Date: ~03/31/18 - Family History Family History: Family History (Last Reviewed 08/01/18 @ 07:01 by Jesika West) Mother Hx of renal failure Father Family hx of colon cancer Brother End stage renal disease - Tobacco History Second Hand Smoke Exposure: No Smoking Status: Never smoker - Alcohol History How Often Do You Have a Drink Containing Alcohol: Never - Substance Use History Substance History: No History of Abuse - Travel History History of Recent Travel: No Recent Travel in the [place] Within the Last 8 Weeks: No Recent Travel Out of the Country Within the Last 8 Weeks: No - Immunization History Tetanus Immunization: <5 Years Hx Influenza Vaccine This Season: Yes Medications and Allergies Allergies Allergy/AdvReac Type Severity Reaction Status Date / Time No Known Allergies Allergy Verified 08/01/18 07:01 Home Medications Medication Instructions Recorded Confirmed Type lansoprazole 30 mg PO BID 03/30/18 08/01/18 History ranitidine HCl 150 mg PO DAILY 03/30/18 08/01/18 History Active Medications: Active Medications Acetaminophen (Tylenol) 650 mg PO UNSCH PRN PRN Reason: SEE LABEL COMMENTS Bisacodyl (Dulcolax Supp) 10 mg RECTAL DAILY PRN PRN Reason: SEVERE CONSITIPATION Clonidine HCl (Catapres) 0.1 mg PO UNSCH PRN PRN Reason: SEE LABEL COMMENTS Diphenhydramine HCl (Benadryl) 25 mg PO UNSCH PRN PRN Reason: SEE LABEL COMMENTS Epoetin Josafat (Epogen Inj) 10,000 unit IV.PUSH UNSCH PRN PRN Reason: SEE LABEL COMMENTS Famotidine (Pepcid) 10 mg PO BID [facility] Last Admin: 08/02/18 08:53 Dose: 10 mg Gelatin (Gelfoam 12 Mm/7 Mm Topical) 1 foam TOPICAL PRN PRN PRN Reason: help stop bleeding from site Gentamicin Sulfate (Gentamicin Inj) 20 mg OTHER WITH DIALYSIS PRN PRN Reason: Dwell Gentamycin Lock Heparin Sodium (Porcine) (Heparin Inj) 5,000 units SQ Q8H [facility] Last Admin: 08/02/18 08:54 Dose: Not Given Heparin Sodium (Porcine) (Heparin Inj) 8,000 units OTHER WITH DIALYSIS PRN PRN Reason: for machine prime Heparin Sodium (Porcine) (Heparin Inj) 1,000 units OTHER WITH DIALYSIS PRN PRN Reason: Dwell Heparin to Fill Catheter Hydromorphone HCl (Dilaudid) 2 mg PO Q4H PRN PRN Reason: PAIN SCALE 6 TO 10 Albumin Human (Flexbumin 25% Inj) 100 mls @ 60 mls/hr IV.SIG WITH DIALYSIS PRN PRN Reason: hypotension / volume replace Sodium Chloride (Ns Inj) 1,000 mls @ 0 mls/hr OTHER .Q0M PRN PRN Reason: for prime and rinse back Sodium Chloride (Ns Inj) 1,000 mls @ 200 mls/hr OTHER .Q5H PRN PRN Reason: for dialyzer flush PRN Sodium Chloride (Ns Inj) 1,000 mls @ 0 mls/hr IV.CONT .Q0M PRN PRN Reason: hypotension / volume replace Lactulose (Lactulose Liq) 30 ml PO DAILY PRN PRN Reason: SEVERE CONSITIPATION Mannitol (Mannitol Inj) 12.5 gm IV.PUSH UNSCH PRN PRN Reason: hypotension / volume replace Morphine Sulfate (Morphine Inj) 2 mg IV.PUSH Q1H PRN PRN Reason: BREAKTHROUGH PAIN Nitroglycerin (Nitrostat Sl) 0.4 mg SL Q5M PRN PRN Reason: CHEST PAIN Ondansetron HCl (Zofran Inj) 4 mg IV.PUSH UNSCH PRN PRN Reason: NAUSEA OR VOMITING Oxycodone HCl (Roxicodone) 5 mg PO Q4H PRN PRN Reason: PAIN SCALE 1 TO 5 Last Admin: 08/02/18 04:08 Dose: 5 mg Pantoprazole Sodium (Protonix) 40 mg PO BID [facility] Last Admin: 08/02/18 08:54 Dose: 40 mg Senna/Docusate Sodium (Makenzie-Colace) 1 tab PO BID [facility] Last Admin: 08/02/18 08:54 Dose: 1 tab Sennosides (Senokot) 17.2 mg PO Q12H PRN PRN Reason: Moderate Constipation Sodium Chloride (Ns Flush) 5 ml IV.FLUSH PRN PRN PRN Reason: flush each lumen during HD Exam Vital signs: Vital Signs 08/01/18 20:00 08/02/18 00:00 08/02/18 04:00 Temperature 97.5 F L 97.9 F 97.0 F L Pulse Rate 94 H 92 H 91 H Respiratory Rate 17 16 16 Blood Pressure 144/51 H 118/71 134/69 Pulse Oximetry 96 94 L 97 08/02/18 07:55 08/02/18 08:00 08/02/18 12:00 Temperature 98.5 F 98.3 F Pulse Rate 91 H 92 H 92 H Respiratory Rate 18 18 Blood Pressure 105/64 120/66 Pulse Oximetry 97 97 08/02/18 15:18 08/02/18 16:00 Temperature 98.4 F Pulse Rate 93 H Respiratory Rate 18 Blood Pressure 131/68 Pulse Oximetry 97 97 Intake & Output 08/01/18 08/02/18 08/02/18 18:59 06:59 18:59 Intake Total 790 / 790 600 / 600 Output Total 50 / 50 Balance 740 / 740 600 / 600 Weight 89 kg Intake: IV 500 / 500 Heparin/NS PF Inj 500 ML @ 0 0 / 0 mls/hr .ROUTE .STK-MED ONE Rx#: [id number] NS Inj 500 ML @ 30 mls/hr IV. 500 / 500 CONT .[id number] ONE Rx#:[id number] Oral 240 / 240 600 / 600 Anesthesia Amount 50 / 50 Output: Estimated Blood Loss 50 / 50 Other: Date of Last Bowel Movement 08/01/18 08/01/18 08/01/18 - Constitutional no acute distress - Routine HEENT Exam Head: Present: normocephalic Eye: Present: EOMI, PERRL ENT: Present: mucous membranes moist - Routine Neck Exam Present: trachea midline. Absent: JVD - Routine Respiratory Exam Present: CTA bilaterally. Absent: accessory muscle use, respiratory distress - Routine Cardiovascular Exam Present: RRR, S1, S2 - Routine Abdominal Exam Present: soft, normoactive bowel sounds. Absent: tenderness - Routine Extremities Exam Present: full ROM, pulses intact. Absent: cyanosis, edema - Routine Skin Exam Present: intact, warm - Routine Neurological Exam Present: alert, oriented X3 Results - Lab Results 08/02/18 05:01 08/02/18 05:01 Most recent lab results Calcium 7.9 mg/dL (8.5-10.1) L 08/02/18 05:01 <Rito Jose - Last Filed: 08/02/18 17:57> History of Present Illness Primary Care Provider: Lauren Weller MD [facility] - Medical History Medical History: Medical History (Last Reviewed 08/01/18 @ 07:16 by Tarun Hummel MD) AV fistula Dialysis patient End stage renal disease GERD (gastroesophageal reflux disease) HTN (hypertension) Hepatitis B Right testicular torsion - Surgical History Surgical History: Surgical History (Last Reviewed 08/01/18 @ 07:16 by Tarun Hummel MD) History of knee surgery AV fistula Vascular dialysis catheter in place Onset Date: ~03/31/18 - Family History Family History: Family History (Last Reviewed 08/01/18 @ 07:01 by Jesika West) Mother Hx of renal failure Father Family hx of colon cancer Brother End stage renal disease Medications and Allergies Active Medications: Active Medications Acetaminophen (Tylenol) 650 mg PO UNSCH PRN PRN Reason: SEE LABEL COMMENTS Bisacodyl (Dulcolax Supp) 10 mg RECTAL DAILY PRN PRN Reason: SEVERE CONSITIPATION Clonidine HCl (Catapres) 0.1 mg PO UNSCH PRN PRN Reason: SEE LABEL COMMENTS Diphenhydramine HCl (Benadryl) 25 mg PO UNSCH PRN PRN Reason: SEE LABEL COMMENTS Epoetin Josafat (Epogen Inj) 10,000 unit IV.PUSH UNSCH PRN PRN Reason: SEE LABEL COMMENTS Famotidine (Pepcid) 10 mg PO BID [facility] Last Admin: 08/02/18 08:53 Dose: 10 mg Gelatin (Gelfoam 12 Mm/7 Mm Topical) 1 foam TOPICAL PRN PRN PRN Reason: help stop bleeding from site Gentamicin Sulfate (Gentamicin Inj) 20 mg OTHER WITH DIALYSIS PRN PRN Reason: Dwell Gentamycin Lock Heparin Sodium (Porcine) (Heparin Inj) 5,000 units SQ Q8H [facility] Last Admin: 08/02/18 08:54 Dose: Not Given Heparin Sodium (Porcine) (Heparin Inj) 8,000 units OTHER WITH DIALYSIS PRN PRN Reason: for machine prime Heparin Sodium (Porcine) (Heparin Inj) 1,000 units OTHER WITH DIALYSIS PRN PRN Reason: Dwell Heparin to Fill Catheter Hydromorphone HCl (Dilaudid) 2 mg PO Q4H PRN PRN Reason: PAIN SCALE 6 TO 10 Albumin Human (Flexbumin 25% Inj) 100 mls @ 60 mls/hr IV.SIG WITH DIALYSIS PRN PRN Reason: hypotension / volume replace Sodium Chloride (Ns Inj) 1,000 mls @ 0 mls/hr OTHER .Q0M PRN PRN Reason: for prime and rinse back Sodium Chloride (Ns Inj) 1,000 mls @ 200 mls/hr OTHER .Q5H PRN PRN Reason: for dialyzer flush PRN Sodium Chloride (Ns Inj) 1,000 mls @ 0 mls/hr IV.CONT .Q0M PRN PRN Reason: hypotension / volume replace Lactulose (Lactulose Liq) 30 ml PO DAILY PRN PRN Reason: SEVERE CONSITIPATION Mannitol (Mannitol Inj) 12.5 gm IV.PUSH UNSCH PRN PRN Reason: hypotension / volume replace Morphine Sulfate (Morphine Inj) 2 mg IV.PUSH Q1H PRN PRN Reason: BREAKTHROUGH PAIN Nitroglycerin (Nitrostat Sl) 0.4 mg SL Q5M PRN PRN Reason: CHEST PAIN Ondansetron HCl (Zofran Inj) 4 mg IV.PUSH UNSCH PRN PRN Reason: NAUSEA OR VOMITING Oxycodone HCl (Roxicodone) 5 mg PO Q4H PRN PRN Reason: PAIN SCALE 1 TO 5 Last Admin: 08/02/18 04:08 Dose: 5 mg Pantoprazole Sodium (Protonix) 40 mg PO BID [facility] Last Admin: 08/02/18 08:54 Dose: 40 mg Senna/Docusate Sodium (Makenzie-Colace) 1 tab PO BID [facility] Last Admin: 08/02/18 08:54 Dose: 1 tab Sennosides (Senokot) 17.2 mg PO Q12H PRN PRN Reason: Moderate Constipation Sodium Chloride (Ns Flush) 5 ml IV.FLUSH PRN PRN PRN Reason: flush each lumen during HD Exam Vital signs: Vital Signs 08/01/18 20:00 08/02/18 00:00 08/02/18 04:00 Temperature 97.5 F L 97.9 F 97.0 F L Pulse Rate 94 H 92 H 91 H Respiratory Rate 17 16 16 Blood Pressure 144/51 H 118/71 134/69 Pulse Oximetry 96 94 L 97 08/02/18 07:55 08/02/18 08:00 08/02/18 12:00 Temperature 98.5 F 98.3 F Pulse Rate 91 H 92 H 92 H Respiratory Rate 18 18 Blood Pressure 105/64 120/66 Pulse Oximetry 97 97 08/02/18 15:18 08/02/18 16:00 Temperature 98.4 F Pulse Rate 93 H Respiratory Rate 18 Blood Pressure 131/68 Pulse Oximetry 97 97 Intake & Output 08/01/18 08/02/18 08/02/18 18:59 06:59 18:59 Intake Total 790 / 790 600 / 600 Output Total 50 / 50 Balance 740 / 740 600 / 600 Weight 89 kg Intake: IV 500 / 500 Heparin/NS PF Inj 500 ML @ 0 0 / 0 mls/hr .ROUTE .STK-MED ONE Rx#: [id number] NS Inj 500 ML @ 30 mls/hr IV. 500 / 500 CONT .[id number] ONE Rx#:[id number] Oral 240 / 240 600 / 600 Anesthesia Amount 50 / 50 Output: Estimated Blood Loss 50 / 50 Other: Date of Last Bowel Movement 08/01/18 08/01/18 08/01/18 Results - Lab Results 08/02/18 05:01 08/02/18 05:01 Most recent lab results Calcium 7.9 mg/dL (8.5-10.1) L 08/02/18 05:01 Assessment and Plan - Attending Attestation patient was seen and examined. Agree with above assessment and plan. To be discharged today after dialysis.
== END 2018-08-02 21:22 | disposition home or self-care (01) ==
LOC: N06 05:29 → HSDC 05:29
PROVIDERS: ADMIT Surgery; ATTEND Surgery